=== PATIENT | female | born 1950 | race Two or more races ===

== ENCOUNTER 2024-12-27 02:29 | Inpatient (IN) | payer MEDICARE, MEDICAID, SELFPAY ==
[2024-12-27] VITALS (14 sets, daily range): BP systolic 94–133; BP diastolic 48–68; PULSE 68–103; RESP 20–90; TEMP 34.2–37.7; O2SAT 22–98; BMI 32.0
--- NOTE | 2024-12-27 03:16 | XR_ITS ---
Examination: AP chest single view Technique one AP portable semiupright chest single view Exam date and time: December 27, 2024 0326 hrs. Comparison March 31, 2022 Indications: Dyspnea today. Findings: Bilateral pneumonia, extensive and diffuse in the right lung Possible small left pleural effusion Tracheostomy tube stable position Mild to moderate enlargement cardiac contour Prominent osteopenia Impression: Bilateral pneumonia, extensive and diffuse in the right lung
--- NOTE | 2024-12-27 03:53 | PRELIM_ITS ---
Radiograph of the chest (single view). December 27, 2024 at 0324 hours Clinical history: Dyspnea. Comparison: X-ray of March 31, 2022. Findings: Right central line with a distal tip at the superior cavoatrial junction. No pneumothorax. Cardiomegaly. Small left pleural effusion. Bilateral basal lung consolidation. The bony thorax is unremarkable. Impression: 1. Multifocal pneumonia. 2. Left pleural effusion. 3. Cardiomegaly. Report Electronically Signed By: Wilfred Cordova 12/27/2024 3:52:34 AM [EST]
[2024-12-27 04:10] LABS: Lactate (Lactic Acid) 2.3 mMol/L (0.4-2.0)
--- NOTE | 2024-12-27 04:11 | EDNOTE_ITS ---
ED SOB =RME/HPI General Chief Complaint: Shortness of Breath/Dyspnea Stated Complaint: DIFFICULTY BREATHING Time Seen by Provider: 12/27/24 03:19 Arrival date/time: 12/27/24 02:29 RME / HPI RME / HPI Narrative: Dr. Wright's Main ED Evaluation: 73yo female with a history of CVA, DM, HTN, s/p PEG tube and tracheostomy brought in from subacute presents to the ED for a chief complaint of shortness of breath. Per subacute staff, the patient has been having episodes of shortness of breath since yesterday, reporting she's been receiving breathing treatments throughout without any improvement, so she was sent over for evaluation. Full ROS is unobtainable due to the patient being nonverbal. Related Data Home Medications ?Medication ?Instructions ?Recorded ?Confirmed aspirin 81 mg chewable tablet 81 mg PO QDAY 06/30/20 0 04/01/21 metformin 500 mg tablet 500 mg PO BID 06/30/2004/01 ferrous sulfate 220 mg (44 mg 220 mg PO QDAY 03/07/21 04/01/21 iron)/5 mL oral elixir atorvastatin 20 mg tablet 20 mg PO QDAY 04/01/2104/01 lisinopril 20 mg tablet 20 mg PO QDAY 04/02/2104/02 Previous Rx's ?Medication ?Instructions ?Recorded amlodipine 5 mg tablet 10 mg (2 x 5 mg) PO QDAY #30 tabs 04/05/21 Allergies Allergy/AdvReac Type Severity Reaction Status Date / Time No Known Allergies Allergy Verified 03/11/21 09:57 Review of Systems Review of Systems ROS Unobtainable: due to endotracheal tube Past Medical History Past Medical History NEUROLOGIC: Positive Cerebrovascular Accident; Negative Dementia CARDIAC: Positive Hypercholesterolemia and Hypertension; Negative Cardiac Disorders or Congestive Heart Failure RESPIRATORY: Positive Asthma and Pneumonia; Negative Chronic Obstructive Pulmonary Disease (COPD) GASTROINTESTINAL: Positive Gastrointestinal Disorders GENITOURINARY: Negative Renal Disease REPRODUCTIVE: Positive Previous Pregnancies MUSCULOSKELETAL: Positive Musculoskeletal Disorders ENDOCRINE: Positive Diabetes Mellitus Type 2; Negative Diabetes Mellitus Type 1 HEMATOLOGIC: Negative Sickle Cell Disease PSYCHO/SOCIAL: Positive Depression OTHER HISTORY: Positive Chemotherapy and Cancer Surgical History SURGICAL: Positive Abdominal Surgery Social History SMOKING STATUS: Unknown if ever smoked SECOND HAND EXPOSURE: No SUBSTANCE USE: does not use ED Exam General General appearance: Present obtunded, obese and other (nonverbal) Head Head exam: Present atraumatic Eye Eye exam: Present normal appearance ENT ENT exam: Present normal exam, normal oropharynx and mucous membranes moist Neck Neck exam: Present normal inspection and trachea midline Chest Chest inspection: Present normal inspection and symmetric chest wall rise Respiratory Respiratory exam: Absent accessory muscle use Cardiovascular Cardiovascular exam: Present regular rate, normal rhythm and normal heart sounds Abdominal Exam Abdominal exam: Present soft; Absent distention Extremities Exam Extremities exam: Present normal inspection; Absent pedal edema Back Exam Back exam: Present other (no sacral ulcers or rashes per report from the nurse) Neurological Exam Neurological exam: Present other (nonverbal) Skin Skin exam: Present dry, intact and other (cold) Course Course Course Narrative: CXR is ordered for determining the etiology of shortness of breath. 0422: Sepsis alert initiated. Orders made at this time are congruent with ED Adult Sepsis Order List. Re-evaluation is to be completed. Quality Measures Possible source: pulmonary Blood cultures ordered: yes Antibiotic ordered: Yes Pertinent labs: 12/27/24 03:48 Lactic Acid 2.3 H mMol/L (0.4-2.0) sepsis Orders Category Date Time Status Admit to Inpatient Status Routine Admission 12/27/24 04:45 Active Patient Condition Routine Admission 12/27/24 04:45 Ordered Activity as Tolerated Routine Care 12/27/24 04:45 Ordered Bedside COVID-19 Antigen Test NOW Care 12/27/24 05:01 Active Bedside Influenza A&B Antigen Test NOW Care 12/27/24 05:04 Completed COVID-19 Screening Questionnaire NOW Care 12/27/24 05:00 Active EKG (ED ONLY) *Do not use* NOW Care 12/27/24 03:53 Active Miscellaneous Nursing Order NOW Care 12/27/24 05:04 Active Notify provider NEEDED Care 12/27/24 04:45 Active Referral Registered Dietitian Routine Cons 12/27/24 08:00 Active EKG (ED Only) Stat Exams 12/27/24 03:53 Ordered XR chest 1V portable Stat Exams 12/27/24 03:16 Taken ABG [Arterial Blood Gas] Stat Lab 12/27/24 04:25 Completed BNP [B-Type Natriuretic Peptide] Stat Lab 12/27/24 03:48 Completed Basic Metabolic Panel AM DRAW Lab 12/27/24 04:35 Ordered Basic Metabolic Panel AM DRAW Lab 12/28/24 05:00 Ordered Basic Metabolic Panel AM DRAW Lab 12/29/24 05:00 Ordered Blood Culture (Lab) Stat Lab 12/27/24 03:48 Received CBC AM DRAW Lab 12/27/24 05:00 Ordered CBC AM DRAW Lab 12/28/24 05:00 Ordered CBC AM DRAW Lab 12/29/24 05:00 Ordered CBC Stat Lab 12/27/24 03:48 Completed CMP [Comprehensive Metabolic Panel] Stat Lab 12/27/24 03:48 Completed Influenza A & B Rapid Panel Stat Lab 12/27/24 05:03 Ordered Lactate (Lactic Acid) Stat Lab 12/27/24 03:48 Results Lipase Stat Lab 12/27/24 03:48 Completed MRSA Nasal Screen Stat Lab 12/27/24 05:04 Ordered Mag [Magnesium] Routine Lab 12/27/24 04:35 Ordered Phosphorous Routine Lab 12/27/24 04:35 Ordered Procalcitonin Stat Lab 12/27/24 04:34 Ordered Procalcitonin Stat Lab 12/27/24 04:35 Ordered RSV [Respiratory Syncytial Virus Ag] Stat Lab 12/27/24 05:03 Ordered Sputum Culture and Gram Stain Stat Lab 12/27/24 05:04 Ordered Troponin I Stat Lab 12/27/24 03:48 Completed Acetaminophen Valorie [Tylenol Valorie] Med 12/27/24 04:47 Discontinued 650 mg GT Q6H PRN Acetaminophen Valorie [Tylenol Valorie] Med 12/27/24 05:03 Active 650 mg GT Q6H PRN Atorvastatin Calcium [Lipitor] Med 12/27/24 21:00 Active 10 mg NG HS Enoxaparin [Lovenox] Med 12/27/24 09:00 Active 40 mg SC QDAY Piper/Tazo Inj [Zosyn Inj] 3.375 gm Med 12/27/24 14:00 Pending SODIUM CHLORIDE 0.9% (Popper) [Ns 0.9% (P)] 50 ml IV Q8HR Piper/Tazo Inj [Zosyn Inj] 3.375 gm Med 12/27/24 05:15 Active SODIUM CHLORIDE 0.9% (Popper) [Ns 0.9% (P)] 50 ml IV X1 Sodium Chloride 0.9% 1000 ml [Ns] 1,000 ml Med 12/27/24 04:45 Active IV 75 mls/hr Sodium Chloride Rt Valorie 10% [NS Rt Valorie 10%] Med 12/27/24 05:04 Discontinued 5 ml INH X1 ONE Sodium Chloride Rt Valorie 10% [NS Rt Valorie 10%] Med 12/27/24 05:06 Discontinued 5 ml INH X1 ONE Vancomycin Inj 1,000 mg Med 12/27/24 04:35 Active Sodium Chloride 0.9% 250 ml [Ns] 250 ml IV X1 Vancomycin Pharmacy to Dose Med 12/27/24 09:00 Pending 1 each IV QDAY Code Status Routine Oth 12/27/24 04:44 Ordered Chest Physiotherapy Treatment NOW RT 12/27/24 05:04 Active Sputum Induction PRN RT 12/27/24 05:15 Ordered Volume Ventilator Stat RT 12/27/24 Active Vital Signs Vital signs: Vital Signs Pulse Rate 71 12/27/24 02:38 Respiratory Rate 20 12/27/24 02:38 Blood Pressure 120/68 12/27/24 02:38 Pulse Oximetry (%) 98 12/27/24 02:38 Oxygen Delivery Method Trach Collar 12/27/24 02:38 Fraction of Inspired Oxygen 35 12/27/24 02:38 Shortness of Breath / Dyspnea MDM Narrative MDM Narrative:: Scribe Attestation: 12/27/24 - Debi Fuentes am scribing for and in the presence of Dr. Wright. Patient data External records reviewed:: [facility] previous records (Reviewed subacute records in EMR.) Clinical information provided by:: finished goods planner Social determinants that could affect healthcare access:: housing (subacute resident) Patient has the following chronic illnesses:: CVA, DM, HTN, s/p PEG tube and tracheostomy How is presenting disease/condition affected by chronic disease/condition?: exacerbated by Evaluation data The following diagnostics were reviewed and interpreted by me:: lab results and radiology exam(s) Lab and/or radiology exams considered but not ordered:: none Interpretation Summary: WBC count is 13.0, Lactate is 2.3, BNP is normal. CXR shows bilateral infiltrates, PICC line in place, trach in place, no pneumo thorax, according to my interpretation. Medications / Prescriptions Medications or Prescriptions considered but not ordered:: none Medication administrations:: Medication Administration History Acetaminophen (Acetaminophen Valorie 325 Mg/10 Ml Udc) 650 mg GT Q6H PRN PRN Reason: FEVER 100.4 or pain Stop: 01/26/25 04:59 Atorvastatin Calcium (Atorvastatin Calcium 10 Mg Tablet) 10 mg NG HS [facility] Stop: 01/26/25 20:59 Enoxaparin Sodium (Enoxaparin Sod Inj 40 Mg/0.4 Ml Syringe) 40 mg SC QDAY BANG Stop: 01/10/25 08:59 Piperacillin Sod/Tazobactam (Sod 3.375 gm/ Sodium Chloride) 50 mls @ 100 mls/hr IV X1 ONE Stop: 12/27/24 05:44 Vancomycin HCl 1,000 mg/ (Sodium Chloride) 250 mls @ 150 mls/hr IV X1 ONE Stop: 12/27/24 06:14 Sodium Chloride (Ns) 1,000 mls @ 75 mls/hr IV .[id number] [facility] Stop: 01/26/25 04:44 Piperacillin Sod/Tazobactam (Sod 3.375 gm/ Sodium Chloride) 50 mls @ 12.5 mls/hr IV Q8HR BANG Stop: 01/03/25 13:59 Pharmacy Consult (Vancomycin Pharmacy To Dose 1 Each Each) 1 each IV QDAY [facility] Stop: 01/26/25 08:59 Discontinued Medications Acetaminophen (Acetaminophen Valorie 325 Mg/10 Ml Udc) 650 mg GT Q6H PRN PRN Reason: FEVER Stop: 01/26/25 04:59 Sodium Chloride (Sodium Chloride Rt 10% 15 Ml Nebu) 5 ml INH X1 ONE Stop: 12/27/24 05:05 Sodium Chloride (Sodium Chloride Rt 10% 15 Ml Nebu) 5 ml INH X1 ONE Stop: 12/27/24 05:07 see above, if any Consultations Consultation(s) initiated? (list below): Yes Consultation #1 (Physician, Specialty, Details): Discussed case with Dr. Alex from Hospitalist service regarding admission. Discussed patients ED course, exam findings, labs, and radiology results. The Hospitalist agrees to accept the patient for admission. Time: 04:15 Diagnosis Shortness of Breath Differential Diagnosis: congestive heart failure, community acquired pneumonia, pulmonary embolism and other (Influenza) Most likely diagnosis given after review of the tests above:: see clinical impression below Admission Indicated Admission indicated?: indicated Admission Request Was there a request for admission?: Yes Admission Attestation Admission request attestation: Discussed case with [] from Hospitalist service regarding admission. Discussed patients ED course, exam findings, labs, and radiology results. The Hospitalist [agrees,declines] to accept the patient for admission. Disposition Plan Disposition Plan: Admit Discharge Plan Plan Patient Disposition: Admit Acute Care w/in Hospital Disposition Comment: Admitted to Dr. Alex Prescriptions/Referrals Prescriptions/Med Rec: No Action metformin 500 mg Tablet 500 mg PO BID aspirin 81 mg Tablet,Chewable 81 mg PO QDAY atorvastatin 20 mg Tablet 20 mg PO QDAY lisinopril 20 mg Tablet 20 mg PO QDAY amlodipine 5 mg Tablet 10 mg PO QDAY Qty: 30 0RF ferrous sulfate 220 mg (44 mg iron)/5 mL Elixir 220 mg PO QDAY Problem List Clinical Impression: Bilateral pneumonia Patient/Caregiver Discharge Instructions Print Language: Australian Stand Alone Forms: [employer] Award Info., Patient Portal Info Letter
[2024-12-27 04:16] LABS: Basophils # (Auto) 0.1 Thou/mm3 (0.0-0.2); Basophils % (Auto) 1 % (0-2.5); Eosinophils # (Auto) 0.1 Thou/mm3 (0.0-0.5); Eosinophils % (Auto) 1 % (0-10); Hematocrit 29.6 % (36.0-46.0); Hemoglobin 9.6 g/dL (12.0-16.0); Immature Granulocytes % (Auto) 1 % (0-0); Immature Granulocytes Auto 0.14 Thou/mm3 (0.00-0.00); Lymphocytes # (Auto) 0.4 Thou/mm3 (1.0-4.8); Lymphocytes % (Auto) 3 % (10-50); Mean Corpuscular HGB Conc 32.4 g/dl (31.0-37.0); Mean Corpuscular Hemoglobin 30.8 pg (25.0-35.0); Mean Corpuscular Volume 95 fL (80-100); Monocytes # (Auto) 0.3 Thou/mm3 (0.0-0.8); Monocytes % (Auto) 2 % (0-12); Neutrophils # (Auto) 12.1 Thou/mm3 (1.8-7.7); Neutrophils % (Auto) 93 % (37-80); Nucleated Red Blood Cell # 0.07 Thou/mm3 (0.00-0.00); Nucleated Red Blood Cell % 1 /100 WBC (0); Platelet Count 121 Thou/mm3 (140-440); RDW Standard Deviation 55.5 fL (36.4-46.3); Red Blood Count 3.12 Miln/mm3 (4.00-5.20)
[2024-12-27 04:27] LABS: B-Type Natriuretic Peptide 44 pg/mL (0-100)
[2024-12-27 04:29] LABS: Alanine Aminotransferase 12 U/L (10-49); Albumin/Globulin Ratio 1.3 (1.2-2.2); Alkaline Phosphatase 150 U/L (46-116); Anion Gap 5 (7-16); Aspartate Amino Transferase 18 U/L (0-34); BUN/Creatinine Ratio 58 Ratio (12-20); Bilirubin,Total 0.5 mg/dL (0.3-1.2); Blood Urea Nitrogen 23 mg/dL (9-23); Calcium 10.3 mg/dL (8.3-10.6); Calcium (Corrected) 10.3 mg/dL (8.5-10.1); Carbon Dioxide 32.8 mMol/L (20.0-31.0); Chloride 93 mMol/L (98-107); Creatinine (Component) 0.4 mg/dL (0.6-1.3); Globulin 3.1 gm/dL (2.3-3.5); Glucose 96 mg/dL (74-106); Lipase 25 U/L (12-53); Osmolality,Calculated 266 (275-295); Potassium 4.7 mMol/L (3.4-5.1); Sodium 131 mMol/L (136-145); Total Protein 7.1 gm/dL (5.7-8.2); Troponin I < 0.020 ng/mL (0.0-0.045); eGFR > 60 See Note
[2024-12-27 04:33] LABS: Base Excess 6 (-3-3); HCO3 33 mEq/L (20-26); Inspired Oxygen, FIO2 35 %; O2 Saturation 95 % (91-98); PCO2 60 mmHg (32.0-48.0); PO2 77 mmHg (83-108); pH, Arterial 7.35 (7.35-7.45)
[2024-12-27 04:34] LABS: Allen Test Performed/OK; Puncture Site Left Radial
--- NOTE | 2024-12-27 04:36 | PC.RT ---
RR increased to [address] long made aware and okay with changes.
--- NOTE | 2024-12-27 04:37 | PD.EVENT ---
Documentation for date of: 12/27/24 Event Note Event Note: A 73-year-old female presented to the ER with the chief complaint of shortness of breath. The patient was brought from a subacute facility due to episodes of labored breathing and a respiratory rate of 40 with oxygen saturation dropping to 85% overnight. According to subacute staff, the patient had been experiencing shortness of breath since the previous day and was treated with breathing treatments without improvement, prompting transfer to the ER. Full ROS was unobtainable due to the patient being nonverbal. 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 Per family, she has been bedbound since 2018. In the ER, vital signs recorded as temp 93.6?F, HR 71 bpm, RR 27, BP 119/63 mmHg. GCS was 3. Labs revealed WBC 13, Hgb 9.6, platelet 121, Na 131, K 4.7, BUN 23, creatinine 0.4, bilirubin 0.5, lactic acid 2.3. ABG showed pH 7.35, PCO2 60, PO2 77, HCO3 33 on FiO2 35%. CXR demonstrated right-sided pneumonia. A sepsis alert was called, and the patient was admitted. #Acute on Chronic Hypoxic Respiratory Failure #Chronic Tracheostomy Assessment: Acute respiratory distress (RR 40, O2 sat 85% at subacute), now RR 27 on FiO2 35%; ABG: pH 7.35, PCO2 60, HCO3 33, chronic compensated respiratory acidosis; GCS 3 Plan: - On ventilator - Monitor oxygen saturation and ABG - Maintain tracheostomy care; suction PRN - Consider chest physiotherapy if secretions are copious #Sepsis #Right-Sided Pneumonia Assessment: Meets SIRS criteria (WBC 13, RR >20, temp <36?C), lactic acid 2.3, CXR: right-sided pneumonia, qSOFA 2 (RR >22, GCS <15), SOFA 4 Plan: - Broad-spectrum IV antibiotics - Monitor lactate trend - Fluid resuscitation per protocol - Monitor MAP, urine output, and need for vasopressors - Blood and sputum cultures - Warming blanket #Chronic Vegetative State s/p CVA #PEG Assessment: Bedbound, GCS 3, PEG and trach dependent; long-term care dependent Plan: - Maintain comfort, supportive care - DNR
[2024-12-27] MEDS: SODIUM CHLORIDE 0.9% 1000 ML 1,000 ML 75 ML IV ×2 (05:00→21:58)
--- NOTE | 2024-12-27 05:02 | ESHP_ITS ---
<Statement entered by Kashmir Cutler MD - 12/27/24 05:18> This 73-year-old female with past medical history of chronic trach and PEG since 2018 secondary to CVA, nonverbal, skin cancer with last chemotherapy session in 2018, shingles, hypertension, type 2 diabetes, hyperlipidemia presenting to the ED on 12/27 from subacute for increased work of breathing. In the ED, patient was tachypneic hypothermic and saturating 90% with FiO2 45%. Labs were significant for leukocytosis. ABG showed mild hypoxia with normal pH. Chest x-ray was significant for multifocal pneumonia, left pleural effusion and cardiomegaly.Admitted for acute on chronic hypoxic resp failure likely related to ventilator associated PNA. Patient is started on broad spectrum antibiotics vancomycin and zosyn. Will follow up on BC and MRSA screen. All labs and order were reviewed. I saw and examined the patient, and I agree with current management stated by Dr Temitope MD,PGY1. Plan of care was discussed with the attending physician and resident physician. Disclaimer: Despite multiple revisions, due to the dictation software being used, the document bellow may not be free of grammatical errors including phonetic/typographic errors. However, this does not deter from our commitment to providing health care in the patient's best interest in mind. Dr. Omayra MD, PGY 2 Documentation for date of: 12/27/24 HPI History of Present Illness Chief complaint: Increased work of breathing History of present illness: 73-year-old female with past medical history of chronic trach and PEG since 2018 secondary to CVA, skin cancer with last chemotherapy session in 2018, shingles, hypertension, type 2 diabetes, hyperlipidemia presenting to the ED on 12/27 from subacute for increased work of breathing. Per staff members at the subacute, patient's been having increased work of breathing even with multiple breathing treatments trialed. Patient has been in subacute for several years and has had previous admissions for aspiration events. Patient's daughter was bedside and provided some history as the patient is nonverbal but able to open eyes on command. Medical history: As stated above Surgical history: Abdominal surgery Allergies: NKDA Medications: Pending med rec Family history: Noncontributory Social history: Patient is a patient with a subacute. ROS: Unable to obtain as the patient was nonverbal In the ED, patient presented normotensive, heart rate 71, tachypneic with respiratory rate of 20, hypothermic 93.6 ?F, saturating in the low 90s with FiO2 of 45, PEEP of 5 and tidal volumes ranging from 100-400 with peak pressures ranging from high 20s to high 40s. Pertinent lab findings included WBC of 13.0, hemoglobin 9.6 with MCV of 95, platelet count of 121, ABG showed pH of 7.35, PCO2 of 60, PO2 of 77 and bicarb of 33. Sodium 131, creatinine 0.4, lactic acid of 2.3, alkaline phosphatase 150, troponin less than 0.0201 BNP of 44. Chest x- ray showed multifocal pneumonia, left pleural effusion and cardiomegaly. Patient will be admitted for sepsis likely secondary to ventilator associated pneumonia and will be treated with broad-spectrum IV antibiotics Exam Vital Signs Temp Pulse Resp BP Pulse Ox O2 Del Method FiO2 93.6 F L 73 20 132/63 H 93 L Trach Collar 35 12/27/24 04:18 12/27/24 04:39 12/27/24 02:38 12/27/24 04:39 12/27/24 04:39 12/27/24 02:38 12/27/24 04:39 Narrative Exam Vent Settings: FiO2: 45 PEEP: 5 RR: 15 Vt: 300-400 Physical Exam: GENERAL: Trach and PEG, awakens on command, appears frail HEENT: NC/AT. Moist mucosa. PERRLA/EOMI. CARDIO: Heart RRR, no obvious murmurs, no JVD. PULM: Mechanical breath sounds heard bilaterally, no wheeze/rales/rhonci auscultated GI: Abdomen soft, NT/ND, +BS. SKIN/MSK/EXT: Desquamating skin lesions on sacral lesion. No discoloration/rashes/edema/amputations. +Pedal pulses present B/L. NEURO: Oriented x0. Opens eyes to command. Nonverbal Results: Labs 12/27/24 06:00 12/27/24 03:48 Labs: Short CBC 12/27/24 Range/Units 03:48 WBC 13.0 H (3.6-11.0) Thou/mm3 Hgb 9.6 L (12.0-16.0) g/dL Hct 29.6 L (36.0-46.0) % Plt Count 121 L (140-440) Thou/mm3 BMP 04/12/25 03:48 Sodium 131 L Potassium 4.7 Chloride 93 L Carbon Dioxide 32.8 H BUN 23 Creatinine 0.4 L Glucose 96 Calcium 10.3 Cardiac Enzymes 12/27/24 Range/Units 03:48 Troponin I < 0.020 (0.0-0.045) ng/mL Liver Function 12/27/24 Range/Units 03:48 Total Bilirubin 0.5 (0.3-1.2) mg/dL AST 18 (0-34) U/L ALT 12 (10-49) U/L Alkaline Phosphatase 150 H (46-116) U/L Albumin 4.0 (3.4-4.8) gm/dL ABG Interpretation ABG results: 12/27/24 04:25 ABG pH 7.35 ABG pCO2 60 H ABG pO2 77 L ABG HCO3 33 H ABG O2 Saturation 95 ABG Base Excess 6 H Quality Measures Quality Measures sepsis Current suspected stage: sepsis Possible source: pulmonary Blood cultures ordered: yes Antibiotic ordered: Yes Advance care planning discussed with:: child Medications Home Medications and Allergies Home Medications ?Medication ?Instructions ?Recorded ?Confirmed ?Type aspirin 81 mg chewable tablet 81 mg PO QDAY 06/30/20 0 04/01/21 History metformin 500 mg tablet 500 mg PO BID 06/30/2004/01 History ferrous sulfate 220 mg (44 mg 220 mg PO QDAY 03/07/21 04/01/21 History iron)/5 mL oral elixir atorvastatin 20 mg tablet 20 mg PO QDAY 04/01/2104/01 History lisinopril 20 mg tablet 20 mg PO QDAY 04/02/2104/02 History Allergies Allergy/AdvReac Type Severity Reaction Status Date / Time No Known Allergies Allergy Verified 03/11/21 09:57 Visit Medications Acetaminophen (Acetaminophen Valorie 325 Mg/10 Ml Udc) 650 mg GT Q6H PRN PRN Reason: FEVER Stop: 01/26/25 04:59 Atorvastatin Calcium (Atorvastatin Calcium 10 Mg Tablet) 10 mg NG HS BANG Stop: 01/26/25 20:59 Enoxaparin Sodium (Enoxaparin Sod Inj 40 Mg/0.4 Ml Syringe) 40 mg SC QDAY [facility] Stop: 01/10/25 08:59 Piperacillin/Tazobactam/Dextrose (Zosyn) 3.375 gm in 50 mls @ 100 mls/hr IV X1 ONE Stop: 12/27/24 05:04 Vancomycin HCl 1,000 mg/ (Sodium Chloride) 250 mls @ 150 mls/hr IV X1 ONE Stop: 12/27/24 06:14 Sodium Chloride (Ns) 1,000 mls @ 75 mls/hr IV .[id number] BANG Stop: 01/26/25 04:44 Piperacillin/Tazobactam/Dextrose (Zosyn) 50 mls @ 100 mls/hr IV Q8HR [facility] Stop: 01/03/25 04:45 Pharmacy Consult (Vancomycin Pharmacy To Dose 1 Each Each) 1 each IV QDAY [facility] Stop: 01/26/25 08:59 Assessment & Plan Plan 73-year-old female with past medical history of chronic trach and PEG since 2018 secondary to CVA, skin cancer with last chemotherapy session in 2018, shingles, hypertension, type 2 diabetes, hyperlipidemia presenting to the ED from subacute for increased work of breathing will be admitted for sepsis likely secondary to ventilator associated pneumonia and will be treated with broad-spectrum IV antibiotics #Sepsis 2/2 to Ventilator-Associated Pneumonia #Vent asynchrony #Chronically trach and PEG As noted in HPI, patient has been at subacute patient for several years secondary to CVA Per subacute & ED physician patient had increased work of breathing for the past several days which worsened overnight even with breathing treatments Patient presented with the vent settings as outlined in the physical exam with vent asynchrony noted Patient's peak pressure keeps spiking up to the high 30s and low 40s with oxygenation remaining stable in the mid 90s Patient is likely developing ARDS secondary to ventilator associated normal pneumonia versus aspiration event WBC of 13, hypothermic 93.6 ?F, lactic acid elevated at 2.3 with signs of reduced perfusion Chest x-ray reads multifocal pneumonia, left pleural effusion and cardiomegaly Plan: IV vancomycin, pharmacy to dose IV Zosyn 3.375 every 8 Blood cultures ordered Sputum cultures ordered Follow-up on influenza A and B, RSV Chest PT and breathing treatments #Normocytic anemia #Thrombocytopenia Likely secondary to chronically trach impact and poor nutrition Patient does not have any signs of active bleeding at this time Differentials include iron deficiency anemia, anemia of chronic disease, vitamin deficiency, hemolytic anemia and less likely bone marrow disorder Plan: Follow-up with morning iron panel, ferritin and reticulocyte count Monitor with morning labs #Electrolyte abnormalities #Tube feeds As noted patient is chronically fed with PEG tube Unsure exactly what type of PEG tube feeds are given at the subacute Patient has electrolyte abnormalities with hyponatremia, hypochloremia likely secondary to poor nutritional intake Plan: Dietitian consulted, appreciate recommendations #Hypertension #Hyperlipidemia #History of CVA #[id number], type 2 diabetes Chronic medical conditions, pending med rec Plan: Restart home medications as appropriate Bedside blood glucose every 6 hours Sliding scale every 6 hours #Sacral wound #History of skin cancer, completed chemo in 2018 As noted patient's chart Wound care has been initiated and subacute Plan: Wound care, referral Hospital Management: Lines: PIV Diet: Tube feeds, pending dietitian recommendation Bowel: Not needed at this time GI prophylaxis: Will consider adding if tube feeds can be resumed DVT prophylaxis: Lovenox Dispo: IV antibiotics for ventilator associated pneumonia versus aspiration pneumonia Code: DNR Patient seen and assessed with attending Dr. Alex and senior resident Dr. Omayra Linn, PGY-1 Attending Provider Attestation/Addendum Pt was evaluated and plan formulated together with the housestaff team. I have reviewed the residents note above and agree with most of its content. Please refer to the residents note for additional details.
[2024-12-27] MEDS: Vancomycin Inj 1,000 MG in SODIUM CHLORIDE 0.9% 250 ML 250 ML 150 MG IV (05:05)
--- NOTE | 2024-12-27 05:15 | PC.RT ---
sputum induction sent
[2024-12-27] MEDS: PIPER/TAZO INJ 3.375 GM in SODIUM CHLORIDE 0.9% (Popper) 50 ML IV (06:10)
[2024-12-27 06:49] LABS: Basophils % (Auto) 0 % (0-2.5); Eosinophils % (Auto) 0 % (0-10); Hematocrit 27.7 % (36.0-46.0); Immature Granulocytes % (Auto) 1 % (0-0); Immature Granulocytes Auto 0.11 Thou/mm3 (0.00-0.00); Lymphocytes # (Auto) 0.5 Thou/mm3 (1.0-4.8); Lymphocytes % (Auto) 4 % (10-50); Mean Corpuscular HGB Conc 32.5 g/dl (31.0-37.0); Mean Corpuscular Hemoglobin 30.5 pg (25.0-35.0); Mean Corpuscular Volume 94 fL (80-100); Monocytes # (Auto) 0.3 Thou/mm3 (0.0-0.8); Monocytes % (Auto) 3 % (0-12); Neutrophils # (Auto) 11.3 Thou/mm3 (1.8-7.7); Neutrophils % (Auto) 92 % (37-80); Nucleated Red Blood Cell # 0.05 Thou/mm3 (0.00-0.00); Nucleated Red Blood Cell % 0 /100 WBC (0); Platelet Count 112 Thou/mm3 (140-440); RDW Standard Deviation 55.8 fL (36.4-46.3); Red Blood Count 2.95 Miln/mm3 (4.00-5.20); White Blood Count 12.4 Thou/mm3 (3.6-11.0)
[2024-12-27 07:05] LABS: Reflex Lactate? Y
[2024-12-27 07:45] LABS: Anion Gap 5 (7-16); BUN/Creatinine Ratio 55 Ratio (12-20); Blood Urea Nitrogen 22 mg/dL (9-23); Calcium 9.5 mg/dL (8.3-10.6); Carbon Dioxide 31.8 mMol/L (20.0-31.0); Chloride 94 mMol/L (98-107); Creatinine (Component) 0.4 mg/dL (0.6-1.3); Glucose 79 mg/dL (74-106); Magnesium 1.4 mg/dL (1.6-2.6); Osmolality,Calculated 264 (275-295); Phosphorous 2.4 mg/dL (2.4-5.1); Potassium 5.3 mMol/L (3.4-5.1); Procalcitonin 0.66 ng/ml (0.0-0.49); Sodium 131 mMol/L (136-145); eGFR > 60 See Note
[2024-12-27 08:03] LABS: Lactic Acid, 3 HR 1.6 mMol/L (0.4-2.0)
[2024-12-27] MEDS: Magnesium Sulfate 4 GM Ivpb 4 GM/50 ML BAG IV (09:28)
[2024-12-27] MEDS: ENOXAPARIN SOD INJ 40 MG/0.4 ML SYRINGE SC (09:28)
--- NOTE | 2024-12-27 10:09 | ESPR_ITS ---
Documentation for date of: 12/27/24 Subjective Subjective Interval history: Patient is an overnight admit. Patient seen and examined at bedside this morning patient is a resident of [facility] patient's son is at bedside who stated in 2018 patient had a stroke after which patient was PEG tube dependent however was living at home with family. In 2020 patient was in acute respiratory failure and found to be-and was intubated and admitted to the ICU however patient was unsuccessful at extubation therefore patient underwent tracheostomy and became a resident of the subacute. Last night patient was brought in due to increased work of breathing and chest x-ray is evident of significant pneumonia as well as left pleural effusions. Patient was started on IV antibiotics. Patient's vitals are stable and labs are reviewed patient has hyponatremia and hyperkalemia will repeat renal panel later in the day 4 g of magnesium is repleted. Exam Vital Signs Temp Pulse Resp BP Pulse Ox O2 Del Method FiO2 93.6 F L 78 22 H 133/63 H 98 Trach Collar 45 12/27/24 04:18 12/27/24 06:55 12/27/24 06:00 12/27/24 06:55 12/27/24 06:55 12/27/24 02:38 12/27/24 06:55 Narrative Exam GENERAL: Trach and PEG, does not follow command, appears frail, nonverbal at baseline NEURO: no focal neurological deficits HEENT: Atraumatic, Normocephalic. mucous membranes moist. Eyes open, symmetrical, & clear HEART: Normal Heart Sounds LUNGS: Mechanical breath sounds heard bilaterally with no wheezing or crackles. ABDOMEN: soft, non-distended, non-tender, bowel sounds heard, no guarding or rebound tenderness SKIN: No Rash or ecchymoses EXTREMITIES: No edema, tenderness, able to move all 4 extremities, pedal pulses palpated Objective Labs 12/27/24 06:00 12/27/24 13:20 Labs: Laboratory Results - last 24 hr 12/27/24 12/27/24 12/27/24 03:48 04: 06:00 WBC 13.0 H 12.4 H RBC 3.12 L 2.95 L Hgb 9.6 L 9.0 L Hct 29.6 L 27.7 L MCV 95 94 MCH 30.8 30.5 MCHC 32.4 32.5 RDW Std Deviation 55.5 H 55.8 H Plt Count 121 L 112 L Neut % (Auto) 93 H 92 H Lymph % (Auto) 3 L 4 L [place] % (Auto) 2 3 Eos % (Auto) 1 0 Baso % (Auto) 1 0 Neut # (Auto) 12.1 H 11.3 H Lymph # (Auto) 0.4 L 0.5 L [place] # (Auto) 0.3 0.3 Eos # (Auto) 0.1 0.0 Baso # (Auto) 0.1 0.0 Immature Gran # (Auto) 0.14 H 0.11 H Absolute Nucleated RBC 0.07 H 0.05 H Immature Gran % 1 H 1 H Nucleated RBC % 1 H 0 Puncture Site Left Radial ABG pH 7.35 ABG pCO2 60 H ABG pO2 77 L ABG HCO3 33 H ABG O2 Saturation 95 ABG Base Excess 6 H FiO2 35 Sodium 131 L 131 L Potassium 4.7 5.3 H D Chloride 93 L 94 L Carbon Dioxide 32.8 H 31.8 H Anion Gap 5 L 5 L BUN 23 22 Creatinine 0.4 L 0.4 L Estim Creat Clear Calc Not Performed. 121.0 eGFR > 60 > 60 BUN/Creatinine Ratio 58 H 55 H Glucose 96 79 Calculated Osmolality 266 L 264 L Lactic Acid 2.3 H Calcium 10.3 9.5 Corrected Calcium 10.3 H Phosphorus 2.4 Magnesium 1.4 L Total Bilirubin 0.5 AST 18 ALT 12 Alkaline Phosphatase 150 H Troponin I < 0.020 B-Natriuretic Peptide 44 Total Protein 7.1 Albumin 4.0 Globulin 3.1 Albumin/Globulin Ratio 1.3 Lipase 25 Procalcitonin 0.66 H 12/27/24 07:48 WBC RBC Hgb Hct MCV MCH MCHC RDW Std Deviation Plt Count Neut % (Auto) Lymph % (Auto) [place] % (Auto) Eos % (Auto) Baso % (Auto) Neut # (Auto) Lymph # (Auto) [place] # (Auto) Eos # (Auto) Baso # (Auto) Immature Gran # (Auto) Absolute Nucleated RBC Immature Gran % Nucleated RBC % Puncture Site ABG pH ABG pCO2 ABG pO2 ABG HCO3 ABG O2 Saturation ABG Base Excess FiO2 Sodium Potassium Chloride Carbon Dioxide Anion Gap BUN Creatinine Estim Creat Clear Calc eGFR BUN/Creatinine Ratio Glucose Calculated Osmolality Lactic Acid 1.6 Calcium Corrected Calcium Phosphorus Magnesium Total Bilirubin AST ALT Alkaline Phosphatase Troponin I B-Natriuretic Peptide Total Protein Albumin Globulin Albumin/Globulin Ratio Lipase Procalcitonin ABG Interpretation ABG results: 12/27/24 04:25 ABG pH 7.35 ABG pCO2 60 H ABG pO2 77 L ABG HCO3 33 H ABG O2 Saturation 95 ABG Base Excess 6 H Quality Measures Quality Measures sepsis Current suspected stage: sepsis Possible source: pulmonary Blood cultures ordered: yes Antibiotic ordered: Yes Advance care planning discussed with:: child Assessment & Plan Assessment Current Active Medications: Generic Name Dose Route Start Last Admin Trade Name Freq PRN Reason Stop Dose Admin Acetaminophen 650 mg 12/27/24 05:03 Acetaminophen Valorie 325 Mg/10 Ml Udc GT 01/26/25 04:59 Q6H PRN FEVER 100.4 or pain Atorvastatin Calcium 10 mg 12/27/24 21:00 Atorvastatin Calcium 10 Mg Tablet NG 01/26/25 20:59 HS BANG Dextrose 25 ml 12/27/24 05:28 Dextrose 50%-Water Inj 50 Ml Syringe IV 01/26/25 05:27 Q15MIN PRN BG 50-70 responsive npo pt Dextrose 50 ml 12/27/24 05:28 Dextrose 50%-Water Inj 50 Ml Syringe IV 01/26/25 05:27 Q15MIN PRN BG <50 OR BG <70 & pt unresponsive Enoxaparin Sodium 40 mg 12/27/24 09:00 12/27/24 09:28 Enoxaparin Sod Inj 40 Mg/0.4 Ml Syringe SC 01/10/25 08:59 40 mg QDAY BANG Administration Glucagon 1 mg 12/27/24 05:28 Glucagon Inj 1 Mg Vial IM Q15MIN PRN BG <70, and no IV access Sodium Chloride 1,000 mls @ 75 mls/hr 12/27/24 04:45 12/27/24 05:00 Ns IV 01/26/25 04:44 75 mls/hr .[id number] BANG Administration Piperacillin/Tazobactam/Dextrose 3.375 gm in 50 mls @ 12.5 mls/hr 12/27/24 14:00 Zosyn IV 01/03/25 13:59 Q8HR BANG Vancomycin/Sodium Chloride 200 mls @ 120 mls/hr 12/27/24 14:00 Vancomycin/Ns 1 Gm Ivpb IV 01/03/25 13:59 TID BANG Protocol Magnesium Sulfate 4 gm in 50 mls @ 12.5 mls/hr 12/27/24 08:31 12/27/24 09:28 Magnesium Sulfate Ivpb IV 12/27/24 12:30 12.5 mls/hr X1 ONE Administration Insulin Human Lispro 0 unit 12/27/24 06:00 12/27/24 06:21 Insulin Lispro (Admelog) 1 Unit/0.01 Ml Unit SC 01/26/25 05:59 Not Given Q6HR [facility] Protocol Pharmacy Consult 1 each 12/27/24 09:00 Vancomycin Pharmacy To Dose 1 Each Each IV 01/26/25 08:59 QDAY PRN PROTOCOL Plan 73-year-old female with past medical history of chronic trach and PEG since 2018 secondary to CVA, skin cancer with last chemotherapy session in 2018, shingles, hypertension, type 2 diabetes, hyperlipidemia presenting to the ED from subacute for increased work of breathing will be admitted for sepsis likely secondary to ventilator associated pneumonia and will be treated with broad-spectrum IV antibiotics #Sepsis 2/2 to Ventilator-Associated Pneumonia #Vent asynchrony #Chronically trach and PEG As noted in HPI, patient has been at subacute patient for several years secondary to CVA Per subacute & ED physician patient had increased work of breathing for the past several days which worsened overnight even with breathing treatments Patient presented with the vent settings as outlined in the physical exam with vent asynchrony noted Patient's peak pressure keeps spiking up to the high 30s and low 40s with oxygenation remaining stable in the mid 90s Patient is likely developing ARDS secondary to ventilator associated normal pneumonia versus aspiration event WBC of 13, hypothermic 93.6 ?F, lactic acid elevated at 2.3 with signs of reduced perfusion Chest x-ray reads multifocal pneumonia, left pleural effusion and cardiomegaly Plan: IV vancomycin, pharmacy to dose IV Zosyn 3.375 every 8 Blood cultures ordered Sputum cultures ordered Follow-up on influenza A and B, RSV Chest PT and breathing treatments #PEG tube malfunction -Upon nurse evaluation in the afternoon, the PEG tube is dislodged, balloon popped and the tube came out. -Temporary placed logan in -Consulted GI for evaluation, and possible PEG tube replacement #Normocytic anemia #Thrombocytopenia Likely secondary to chronically trach impact and poor nutrition Patient does not have any signs of active bleeding at this time Differentials include iron deficiency anemia, anemia of chronic disease, vitamin deficiency, hemolytic anemia and less likely bone marrow disorder Plan: Follow-up with morning iron panel, ferritin and reticulocyte count Monitor with morning labs #Electrolyte abnormalities #Tube feeds As noted patient is chronically fed with PEG tube Unsure exactly what type of PEG tube feeds are given at the subacute Patient has electrolyte abnormalities with hyponatremia, hypochloremia likely secondary to poor nutritional intake Plan: Dietitian consulted, appreciate recommendations #Hypertension #Hyperlipidemia #History of CVA #[id number], type 2 diabetes Chronic medical conditions, pending med rec Plan: Restart home medications as appropriate Bedside blood glucose every 6 hours Sliding scale every 6 hours #Sacral wound #History of skin cancer, completed chemo in 2018 As noted patient's chart Wound care has been initiated and subacute Plan: Wound care, referral Dispo: IV antibiotics for ventilator associated pneumonia versus aspiration pneumonia Diet: Tube feeds, pending dietitian recommendation Bowel: Not needed at this time GI prophylaxis: Will consider adding if tube feeds can be resumed DVT prophylaxis: Lovenox Code: DNR Assessment and plan discussed with my attending physician Dr. Johnie Hanley ([id number])- Internal medicine resident Attending Provider Attestation/Addendum I attest that I was physically present for the evaluation, physical examination, lab and imaging review of the patient with the residents. I discussed the case with the residents and agree with the findings and plans of care as documented above. Patient is a 73 years old female with a past medical history of chronic trach and PEG secondary to CVA, skin cancer, shingles, hypertension, diabetes, hyperlipidemia who presented to the ED from subacute due to increased work of breathing. Patient was then admitted overnight for management of sepsis secondary to ventilator associated pneumonia. At bedside today, patient appears comfortable, continues to be on oxygen via trach collar, 45 FiO2. Continues to be on IV vancomycin and Zosyn. Awaiting culture results. In the afternoon, patient dislodged her PEG tube, temporary Logan catheter was placed and and GI consult requested. Her WBC count has slightly improved from 13-12.4. Noted to have magnesium of 1.4, repleted accordingly. She also has potassium of 5.3, we will get a follow-up potassium level, if increased, we will treat accordingly. Shamar Jett MD
--- NOTE | 2024-12-27 10:45 | PC.DIETICIAN ---
Nutrition Prescription: 1) Promote with fiber at 20 ml/hr via G-tube by pump. Advance 10 ml every 8 hrs to goal rate of 48 ml/hr x 20 hrs. If no IV fluids, water flushes of 30 ml/hr (or per MD). 2) Consider Prostat SF BID with breakfast and dinner via G-Tube. Thank you! :)
[2024-12-27] MEDS: VANCOMYCIN/NS 1 GM IVPB 200 ML IV ×2 (13:49→21:58)
[2024-12-27] MEDS: PIPER/TAZO 3.375 GM PREMIX 3.375 GM/50 ML BAG IV ×2 (13:50→22:00)
--- NOTE | 2024-12-27 13:52 | PD.IMCONS ---
HPI Data of Consult Requesting Physician: Percy Alex MD Primary Care Provider: Abdoul Wisdom MD Consult Narrative Reason for consult: PEG tube evaluation History of present illness: 74 years old female evaluated request of the internal medicine team as the PEG tube just fell out I asked the team to put in a quick Rodriguez catheter to save the stoma and then I will replace the PEG tube that is the reason for consultation Patient has a history of CVA requiring tracheostomy and chronic diabetic leg dependency as well as hypertension diabetes mellitus type 2 hyperlipidemia cc:: cc: Percy Alex MD Review of Systems Review of Systems ROS Unobtainable: unobtainable due to medical condition Past Medical History Surgical History OTHER SURGICAL HX: As in history of present illness Meds Home Medications and Allergies Home Medications ?Medication ?Instructions ?Recorded ?Confirmed ?Type aspirin 81 mg chewable tablet 81 mg PO QDAY 06/30/20 04/01/21 History metformin 500 mg tablet 500 mg PO BID 06/30/20 04/01/21 History ferrous sulfate 220 mg (44 mg 220 mg PO QDAY 03/07/21 04/01/21 History iron)/5 mL oral elixir atorvastatin 20 mg tablet 20 mg PO QDAY 04/01/21 04/01/21 History lisinopril 20 mg tablet 20 mg PO QDAY 04/02/21 04/02/21 History Allergies Allergy/AdvReac Type Severity Reaction Status Date / Time No Known Allergies Allergy Verified 03/11/21 09:57 Exam Vital Signs Temp Pulse Resp BP Pulse Ox O2 Del Method FiO2 93.6 F L 103 H 22 H 133/63 H 93 L Trach Collar 45 12/27/24 04:18 12/27/24 12:00 12/27/24 06:00 12/27/24 06:55 12/27/24 12:00 12/27/24 02:38 12/27/24 12:00 Routine Respiratory Exam Comments: Status post tracheostomy and ventilator dependent Routine Abdominal Exam Comments: Soft nontender Rodriguez catheter in place Results Labs 12/27/24 06:00 12/27/24 13:20 Labs: Short CBC 12/27/24 12/27/24 Range/Units 03:48 06:00 WBC 13.0 H 12.4 H (3.6-11.0) Thou/mm3 Hgb 9.6 L 9.0 L (12.0-16.0) g/dL Hct 29.6 L 27.7 L (36.0-46.0) % Plt Count 121 L 112 L (140-440) Thou/mm3 BMP 12/27/24 12/27/24 03:48 06:00 Sodium 131 L 131 L Potassium 4.7 5.3 H D Chloride 93 L 94 L Carbon Dioxide 32.8 H 31.8 H BUN 23 22 Creatinine 0.4 L 0.4 L Glucose 96 79 Calcium 10.3 9.5 Cardiac Enzymes 12/27/24 Range/Units 03:48 Troponin I < 0.020 (0.0-0.045) ng/mL Liver Function 12/27/24 Range/Units 03:48 Total Bilirubin 0.5 (0.3-1.2) mg/dL AST 18 (0-34) U/L ALT 12 (10-49) U/L Alkaline Phosphatase 150 H (46-116) U/L Albumin 4.0 (3.4-4.8) gm/dL ABG Interpretation ABG results: 12/27/24 04:25 ABG pH 7.35 ABG pCO2 60 H ABG pO2 77 L ABG HCO3 33 H ABG O2 Saturation 95 ABG Base Excess 6 H Assessment and Plan Additional Assessment & Plan Additional Plan: # PEG tube evaluation consent will be obtained for PEG tube removal that is a Rodriguez catheter and placement of a new [place] 20 SHEIRNE PEG tube Other medical problems include CVA requiring tracheostomy and chronic ventilator dependency diabetes mellitus type 2 Chronically placed in SNF shortness of breath thank you very much for the opportunity to participate in the care of this patient
[2024-12-27 14:12] LABS: Albumin, Serum 3.5 gm/dL (3.4-4.8); Anion Gap 6 (7-16); BUN/Creatinine Ratio 40 Ratio (12-20); Blood Urea Nitrogen 24 mg/dL (9-23); Calcium 8.9 mg/dL (8.3-10.6); Calcium (Corrected) 9.3 mg/dL (8.5-10.1); Chloride 96 mMol/L (98-107); Creatinine (Component) 0.6 mg/dL (0.6-1.3); Estimated Creatinine Clearance 80.6 mL/min (>60); Glucose 84 mg/dL (74-106); Osmolality,Calculated 269 (275-295); Phosphorous 1.8 mg/dL (2.4-5.1); Potassium 5.2 mMol/L (3.4-5.1); Sodium 133 mMol/L (136-145); eGFR > 60 See Note
--- NOTE | 2024-12-27 17:09 | ESOP_ITS ---
Date of Procedure 12/27/24 Pre Op Diagnosis PEG tube evaluation Post Op Diagnosis Placement of a new PEG tube Procedure Removal of the existing PEG tube which is a Rodriguez catheter Placement of a new PEG tube [place] 20 SHERINE tube Findings The existing Rodriguez catheter was placed in this morning by the internal medicine team as the existing PEG tube balloon busted and the tube fell out The balloon of the Rodriguez catheter was deflated and was pulled out And is placed [place] 20 SHERINE gastrostomy tube was placed in position and the balloon was inflated with 10 cc of sterile water and the tube was secured in position Procedure Description As above Pathology / specimen None Pathology comment: No specimen obtained Estimated Blood Loss 0 Surgeon Derick Xiong MD Diagnosis Problem List Completed Was Problem List Reviewed/Reconciled?: Yes
[2024-12-27] MEDS: ATORVASTATIN CALCIUM 10 MG TABLET NG (22:00)
[2024-12-28] VITALS (16 sets, daily range): BP systolic 93–114; BP diastolic 48–68; PULSE 51–86; RESP 16–27; TEMP 36.1–37.3; O2SAT 95–100
[2024-12-28] MEDS: PIPER/TAZO 3.375 GM PREMIX 3.375 GM/50 ML BAG IV ×3 (05:15→21:03)
[2024-12-28 06:28] LABS: Anion Gap 5 (7-16); BUN/Creatinine Ratio 28 Ratio (12-20); Blood Urea Nitrogen 25 mg/dL (9-23); Calcium 8.9 mg/dL (8.3-10.6); Carbon Dioxide 30.1 mMol/L (20.0-31.0); Chloride 100 mMol/L (98-107); Creatinine (Component) 0.9 mg/dL (0.6-1.3); Estimated Creatinine Clearance 53.8 mL/min (>60); Glucose 79 mg/dL (74-106); Osmolality,Calculated 273 (275-295); Potassium 4.5 mMol/L (3.4-5.1); Sodium 135 mMol/L (136-145); Vancomycin,Trough 33.7 mcg/mL (5.0-10.0); eGFR > 60 See Note
[2024-12-28 06:29] LABS: Respiratory Syncytial Virus Ag Negative (Negative)
[2024-12-28 06:33] LABS: Ferritin 191 ng/mL (7.3-270.7); Iron 43 mcg/dL (50-170); Percent Iron Saturation 14 % (20-55); Total Iron Binding Capacity 294 mcg/dL (250-425); Unsaturated Iron Binding 251 (225-295)
--- NOTE | 2024-12-28 06:50 | PC.NURSE ---
vanco 6 am dose not given due to vanco trough results pending.
[2024-12-28 08:19] LABS: Basophils % (Auto) 0 % (0-2.5); Eosinophils % (Auto) 1 % (0-10); Immature Granulocytes % (Auto) 1 % (0-0); Immature Granulocytes Auto 0.05 Thou/mm3 (0.00-0.00); Immature Reticulocyte Fraction 25.2 % (3.0-15.9); Lymphocytes % (Auto) 28 % (10-50); Mean Corpuscular HGB Conc 32.2 g/dl (31.0-37.0); Mean Corpuscular Hemoglobin 31.1 pg (25.0-35.0); Mean Corpuscular Volume 97 fL (80-100); Monocytes # (Auto) 0.5 Thou/mm3 (0.0-0.8); Monocytes % (Auto) 6 % (0-12); Neutrophils # (Auto) 4.8 Thou/mm3 (1.8-7.7); Neutrophils % (Auto) 65 % (37-80); Nucleated Red Blood Cell # 0.04 Thou/mm3 (0.00-0.00); Nucleated Red Blood Cell % 1 /100 WBC (0); Platelet Count 94 Thou/mm3 (140-440); RDW Standard Deviation 60.6 fL (36.4-46.3); Red Blood Count 2.38 Miln/mm3 (4.00-5.20); Reticulocyte % (Auto) 2.3 % (0.5-1.5); Reticulocyte Absolute Auto 54.7 Biln/L (25.0-75.0); Reticulocyte Hgb Content 34.5 pg (28.0-35.0); White Blood Count 7.4 Thou/mm3 (3.6-11.0)
[2024-12-28 08:20] LABS: Hemoglobin 7.4 g/dL (12.0-16.0)
[2024-12-28] MEDS: ENOXAPARIN SOD INJ 40 MG/0.4 ML SYRINGE SC (08:50)
--- NOTE | 2024-12-28 09:48 | PC.NURSE ---
MD made aware of hgb drop to 7.4 overnight. RN informed MD that the pt peg tube had dark red drainage coming from the peg tube. No BM or other s/s of bleeding noted. MD to consult Dr. Xiong. No orders given at this time. Will continue to monitor
[2024-12-28 11:14] LABS: Hematocrit 22.8 % (36.0-46.0)
[2024-12-28 11:15] LABS: Hemoglobin 7.2 g/dL (12.0-16.0)
[2024-12-28 13:38] LABS: Basophils % (Auto) 0 % (0-2.5); Eosinophils # (Auto) 0.1 Thou/mm3 (0.0-0.5); Eosinophils % (Auto) 1 % (0-10); Hematocrit 22.2 % (36.0-46.0); Immature Granulocytes % (Auto) 1 % (0-0); Immature Granulocytes Auto 0.05 Thou/mm3 (0.00-0.00); Lymphocytes # (Auto) 2.1 Thou/mm3 (1.0-4.8); Lymphocytes % (Auto) 32 % (10-50); Mean Corpuscular Hemoglobin 30.5 pg (25.0-35.0); Mean Corpuscular Volume 95 fL (80-100); Monocytes # (Auto) 0.5 Thou/mm3 (0.0-0.8); Monocytes % (Auto) 7 % (0-12); Neutrophils # (Auto) 3.7 Thou/mm3 (1.8-7.7); Neutrophils % (Auto) 58 % (37-80); Nucleated Red Blood Cell # 0.03 Thou/mm3 (0.00-0.00); Nucleated Red Blood Cell % 1 /100 WBC (0); Platelet Count 94 Thou/mm3 (140-440); RDW Standard Deviation 59.5 fL (36.4-46.3); Red Blood Count 2.33 Miln/mm3 (4.00-5.20); White Blood Count 6.4 Thou/mm3 (3.6-11.0)
[2024-12-28 13:39] LABS: Hemoglobin 7.1 g/dL (12.0-16.0)
--- NOTE | 2024-12-28 13:51 | ESPR_ITS ---
Documentation for date of: 12/28/24 Subjective Subjective Interval history: Breathing from the gastrostomy site as well as to the gastrostomy tube There was blood already coming out of the Rodriguez catheter which I pulled out yesterday Not a major drop in the hemoglobin to 7.1 and 22.2 Nonetheless n.p.o. Will's schedule the patient for an endoscopy for tomorrow morning Exam Vital Signs Temp Pulse Resp BP Pulse Ox O2 Del Method FiO2 97.8 F 69 20 110/53 L 99 Trach Collar 45 12/28/24 12:00 12/28/24 13:38 12/28/24 12:00 12/28/24 12:00 12/28/24 13:38 12/28/24 12:00 12/28/24 13:38 Objective Labs 12/28/24 13:00 12/28/24 05:00 Labs: Laboratory Results - last 24 hr 12/27/24 12/28/24 12/28/24 13:20 04:39 05:00 WBC RBC Hgb Hct MCV MCH MCHC RDW Std Deviation Plt Count Neut % (Auto) Lymph % (Auto) [place] % (Auto) Eos % (Auto) Baso % (Auto) Neut # (Auto) Lymph # (Auto) [place] # (Auto) Eos # (Auto) Baso # (Auto) Immature Gran # (Auto) Absolute Nucleated RBC Immature Gran % Nucleated RBC % Retic Count (auto) Absolute Retic Immature Retic Fraction Retic Hgb Content CHr Sodium 133 L 135 L Potassium 5.2 H 4.5 D Chloride 96 L 100 Carbon Dioxide 31.0 30.1 Anion Gap 6 L 5 L BUN 24 H 25 H Creatinine 0.6 0.9 Estim Creat Clear Calc 80.6 53.8 L eGFR > 60 > 60 BUN/Creatinine Ratio 40 H 28 H Glucose 84 79 Calculated Osmolality 269 L 273 L Calcium 8.9 8.9 Corrected Calcium 9.3 Phosphorus 1.8 L Iron 43 L TIBC 294 Iron Saturation 14 L Unsat Iron Binding 251 Ferritin 191 Albumin 3.5 D Vancomycin Trough 33.7 H* RSV Rapid Negative 12/28/24 12/28/24 12/28/24 07:40 10:43 13:00 WBC 7.4 D 6.4 RBC 2.38 L 2.33 L Hgb 7.4 L 7.2 L 7.1 L Hct 23.0 L 22.8 L 22.2 L MCV 97 95 MCH 31.1 30.5 MCHC 32.2 32.0 RDW Std Deviation 60.6 H 59.5 H Plt Count 94 L 94 L Neut % (Auto) 65 58 Lymph % (Auto) 28 32 [place] % (Auto) 6 7 Eos % (Auto) 1 1 Baso % (Auto) 0 0 Neut # (Auto) 4.8 3.7 Lymph # (Auto) 2.0 2.1 [place] # (Auto) 0.5 0.5 Eos # (Auto) 0.0 0.1 Baso # (Auto) 0.0 0.0 Immature Gran # (Auto) 0.05 H 0.05 H Absolute Nucleated RBC 0.04 H 0.03 H Immature Gran % 1 H 1 H Nucleated RBC % 1 H 1 H Retic Count (auto) 2.3 H Absolute Retic 54.7 Immature Retic Fraction 25.2 H Retic Hgb Content CHr 34.5 Sodium Potassium Chloride Carbon Dioxide Anion Gap BUN Creatinine Estim Creat Clear Calc eGFR BUN/Creatinine Ratio Glucose Calculated Osmolality Calcium Corrected Calcium Phosphorus Iron TIBC Iron Saturation Unsat Iron Binding Ferritin Albumin Vancomycin Trough RSV Rapid Impressions Impression: # GI hemorrhage Endoscopy planned for tomorrow ABG Interpretation ABG results: 12/27/24 04:25 ABG pH 7.35 ABG pCO2 60 H ABG pO2 77 L ABG HCO3 33 H ABG O2 Saturation 95 ABG Base Excess 6 H Assessment & Plan A&P Narrative # PEG tube evaluation consent will be obtained for PEG tube removal that is a Rodriguez catheter and placement of a new [place] 20 SHERINE PEG tube Other medical problems include CVA requiring tracheostomy and chronic ventilator dependency diabetes mellitus type 2 Chronically placed in SNF shortness of breath thank you very much for the opportunity to participate in the care of this patient Time Spent With Patient Time: Total time spent is greater than 50% in coordination of care (as documented) at patient's floor/unit and/or counseling patient:
[2024-12-28] MEDS: DEXTROSE 5%-NS 1,000 ML 100 ML IV (14:19)
--- NOTE | 2024-12-28 15:17 | PD.RESPRO ---
Documentation for date of: 12/28/24 Subjective Subjective Interval history: Patient was seen and examined at bedside. Her PEG tube was replaced yesterday however it was noticed patient had a lot of blood in her stomach. Today [employer] was taking temperature and noticed also black stools in the rectum. GI was notified and recommended to switch patient to n.p.o., stop tube feeds and he will do endoscopy tonight or tomorrow morning. Hemoglobin was downtrending and today 7.1, 1 unit of PRBC was ordered to transfuse. She has patient will not receive feeds her NS at 75 cc/h was switched to D5 NS at 100 cc/h due to low blood glucose. Will continue current management and monitor patient. Exam Vital Signs Temp Pulse Resp BP Pulse Ox O2 Del Method FiO2 97.8 F 69 20 110/53 L 99 Trach Collar 45 12/28/24 12:00 12/28/24 13:38 12/28/24 12:00 12/28/24 12:00 12/28/24 13:38 12/28/24 12:00 12/28/24 13:38 Narrative Exam Gen: Well-developed elderly female, responds to painful stimuli only. HEENT: NCAT, PERRLA, EOMI, MMM, anicteric conjunctivae. CVS: normal S1 and S2. RRR. No M/R/G. Resp: CTA B/L. No rhonchi, rales, crackles or wheezing. Tracheotomy, on MV. Abd: soft, non-tender, non-distended. BS+ in all [address] and is clean, no visible blood. MSK: Pulses are palpable. No edema or rash. Neuro: CN II-XII grossly intact. Limited exam due to medical condition. Objective Labs 12/28/24 13:00 12/28/24 05:00 Labs: Laboratory Results - last 24 hr 12/28/24 12/28/24 12/28/24 04:39 05:00 07:40 WBC 7.4 D RBC 2.38 L Hgb 7.4 L Hct 23.0 L MCV 97 MCH 31.1 MCHC 32.2 RDW Std Deviation 60.6 H Plt Count 94 L Neut % (Auto) 65 Lymph % (Auto) 28 Stokes % (Auto) 6 Eos % (Auto) 1 Baso % (Auto) 0 Neut # (Auto) 4.8 Lymph # (Auto) 2.0 Stokes # (Auto) 0.5 Eos # (Auto) 0.0 Baso # (Auto) 0.0 Immature Gran # (Auto) 0.05 H Absolute Nucleated RBC 0.04 H Immature Gran % 1 H Nucleated RBC % 1 H Retic Count (auto) 2.3 H Absolute Retic 54.7 Immature Retic Fraction 25.2 H Retic Hgb Content CHr 34.5 Sodium 135 L Potassium 4.5 D Chloride 100 Carbon Dioxide 30.1 Anion Gap 5 L BUN 25 H Creatinine 0.9 Estim Creat Clear Calc 53.8 L eGFR > 60 BUN/Creatinine Ratio 28 H Glucose 79 Calculated Osmolality 273 L Calcium 8.9 Iron 43 L TIBC 294 Iron Saturation 14 L Unsat Iron Binding 251 Ferritin 191 Vancomycin Trough 33.7 H* RSV Rapid Negative Blood Type Antibody Screen Crossmatch Blood Bank Wristband ID 12/28/24 12/28/24 12/28/24 10:43 13:00 14:04 WBC 6.4 RBC 2.33 L Hgb 7.2 L 7.1 L Hct 22.8 L 22.2 L MCV 95 MCH 30.5 MCHC 32.0 RDW Std Deviation 59.5 H Plt Count 94 L Neut % (Auto) 58 Lymph % (Auto) 32 Stokes % (Auto) 7 Eos % (Auto) 1 Baso % (Auto) 0 Neut # (Auto) 3.7 Lymph # (Auto) 2.1 Stokes # (Auto) 0.5 Eos # (Auto) 0.1 Baso # (Auto) 0.0 Immature Gran # (Auto) 0.05 H Absolute Nucleated RBC 0.03 H Immature Gran % 1 H Nucleated RBC % 1 H Retic Count (auto) Absolute Retic Immature Retic Fraction Retic Hgb Content CHr Sodium Potassium Chloride Carbon Dioxide Anion Gap BUN Creatinine Estim Creat Clear Calc eGFR BUN/Creatinine Ratio Glucose Calculated Osmolality Calcium Iron TIBC Iron Saturation Unsat Iron Binding Ferritin Vancomycin Trough RSV Rapid Blood Type O Positive Antibody Screen NEGATIVE Crossmatch See Detail Blood Bank Wristband ID Yes ABG Interpretation ABG results: 12/27/24 04:25 ABG pH 7.35 ABG pCO2 60 H ABG pO2 77 L ABG HCO3 33 H ABG O2 Saturation 95 ABG Base Excess 6 H Quality Measures Quality Measures sepsis Current suspected stage: sepsis Possible source: pulmonary Blood cultures ordered: yes Antibiotic ordered: Yes Advance care planning discussed with:: child Assessment & Plan Assessment Current Active Medications: Generic Name Dose Route Start Last Admin Trade Name Freq PRN Reason Stop Dose Admin Acetaminophen 650 mg 12/27/24 05:03 Acetaminophen Valorie 325 Mg/10 Ml Udc GT 01/26/25 04:59 Q6H PRN FEVER 100.4 or pain Atorvastatin Calcium 10 mg 12/27/24 21:00 12/27/24 22:00 Atorvastatin Calcium 10 Mg Tablet NG 01/26/25 20:59 10 mg HS BANG Administration Dextrose 25 ml 12/27/24 05:28 Dextrose 50%-Water Inj 50 Ml Syringe IV 01/26/25 05:27 Q15MIN PRN BG 50-70 responsive npo pt Dextrose 50 ml 12/27/24 05:28 Dextrose 50%-Water Inj 50 Ml Syringe IV 01/26/25 05:27 Q15MIN PRN BG <50 OR BG <70 & pt unresponsive Enoxaparin Sodium 40 mg 12/27/24 09:00 12/28/24 08:50 Enoxaparin Sod Inj 40 Mg/0.4 Ml Syringe SC 01/10/25 08:59 40 mg QDAY BANG Administration Glucagon 1 mg 12/27/24 05:28 Glucagon Inj 1 Mg Vial IM Q15MIN PRN BG <70, and no IV access Piperacillin/Tazobactam/Dextrose 3.375 gm in 50 mls @ 12.5 mls/hr 12/27/24 14:00 12/28/24 13:06 Zosyn IV 01/03/25 13:59 12.5 mls/hr Q8HR BANG Administration Dextrose/Sodium Chloride 1,000 mls @ 100 mls/hr 12/28/24 14:15 12/28/24 14:19 D5-Ns IV 01/27/25 14:14 100 mls/hr .Q10H BANG Administration Insulin Human Lispro 0 unit 12/27/24 06:00 12/28/24 13:05 Insulin Lispro (Admelog) 1 Unit/0.01 Ml Unit SC 01/26/25 05:59 Not Given Q6HR BANG Protocol Pharmacy Consult 1 each 12/27/24 09:00 Vancomycin Pharmacy To Dose 1 Each Each IV 01/26/25 08:59 QDAY PRN PROTOCOL Plan 73-year-old female with past medical history of chronic trach and PEG since 2018 secondary to CVA, skin cancer with last chemotherapy session in 2018, shingles, hypertension, type 2 diabetes, hyperlipidemia presenting to the ED from subacute for increased work of breathing will be admitted for sepsis likely secondary to ventilator associated pneumonia and will be treated with broad-spectrum IV antibiotics #Sepsis 2/2 to Ventilator-Associated Pneumonia. #Ventilator asynchrony. #Chronically trach and PEG. As noted in HPI, patient has been at subacute patient for several years secondary to CVA. Per subacute & ED physician patient had increased work of breathing for the past several days which worsened overnight even with breathing treatments. Patient presented with the vent settings as outlined in the physical exam with vent asynchrony noted. Patient's peak pressure keeps spiking up to the high 30s and low 40s with oxygenation remaining stable in the mid 90s. Patient is likely developing ARDS secondary to ventilator associated normal pneumonia versus aspiration event. WBC of 13, hypothermic 93.6 ?F, lactic acid elevated at 2.3 with signs of reduced perfusion. Chest x-ray reads multifocal pneumonia, left pleural effusion and cardiomegaly. Plan: IV vancomycin, pharmacy to dose. IV Zosyn 3.375 every 8. Blood cultures ordered. Sputum cultures ordered. Chest PT and breathing treatments. #PEG tube malfunction. -Upon nurse evaluation in the afternoon, the PEG tube is dislodged, balloon popped and the tube came out. -Temporary placed logan in. -PEG was replaced 12/27. #GI bleeding. #Acute blood loss anemia. -12/27 noticed bloody stomach content during PEG replacement, also noticed black stool in rectum. Hgb dropped from 9 to 7.1. Plan: -GI notified, EGD will be done, NPO, stop PEG feeds. -transfuse 1u pRBCs. #Normocytic anemia. #Thrombocytopenia. Likely secondary to chronically trach impact and poor nutrition. Patient does not have any signs of active bleeding at this time. Differentials include iron deficiency anemia, anemia of chronic disease, vitamin deficiency, hemolytic anemia and less likely bone marrow disorder. Plan: Follow-up with morning iron panel, ferritin and reticulocyte count. Monitor with morning labs. #Electrolyte abnormalities. #Tube feeds. As noted patient is chronically fed with PEG tube Unsure exactly what type of PEG tube feeds are given at the subacute Patient has electrolyte abnormalities with hyponatremia, hypochloremia likely secondary to poor nutritional intake Plan: Dietitian consulted, appreciate recommendations #Hypertension. #Hyperlipidemia. #History of CVA. #[id number], type 2 diabetes. Chronic medical conditions, pending med rec Plan: Restart home medications as appropriate. Bedside blood glucose every 6 hours. Sliding scale every 6 hours. #Sacral wound. #History of skin cancer, completed chemo in 2018. As noted patient's chart Wound care has been initiated and subacute. Plan: Wound care, referral. Dispo: IV antibiotics for ventilator associated pneumonia versus aspiration pneumonia. Diet: NPO, hold tube feeds. Bowel: Not needed at this time. GI prophylaxis: none. DVT prophylaxis: Lovenox. Code: DNR. Assessment and plan discussed with my attending physician Dr. Jett. Raffi Roldan MD, PGY 2. Disclaimer: This note was dictated by speech recognition. Minor errors in construction field engineer may be present due to voice recognition software. Attending Provider Attestation/Addendum I attest that I was physically present for the evaluation, physical examination, lab and imaging review of the patient with the residents. I discussed the case with the residents and agree with the findings and plans of care as documented above. At bedside today, patient appears comfortable. Saturating well on trach collar at 45% FiO2. She was found to have potassium of 5.2 yesterday, improved to 4.5 today. Noted to have low iron level of 43. Received PEG tube with GI yesterday. During PEG tube exchange, patient was found to have black discharge around the PEG tube site. This morning her hemoglobin noted to be at 7.4, dropped from 9.0 yesterday. Repeat hemoglobin level came back at 7.1, we will transfuse with 1 unit PRBC, discussed with GI, patient planned for another EGD. Patient also noted to have low normal glucose level with soft blood pressure. Since her tube feeds are on hold, we will start her on D5 NS at 100 cc/h. Continues to be on broad-spectrum antibiotic for pneumonia. Pending culture results. Shamar Jett MD
[2024-12-28 21:49] LABS: Hematocrit 27.1 % (36.0-46.0)
[2024-12-28 21:52] LABS: Hemoglobin 8.6 g/dL (12.0-16.0)
[2024-12-29] VITALS (15 sets, daily range): BP systolic 95–148; BP diastolic 45–80; PULSE 57–88; RESP 18–23; TEMP 36–36.9; O2SAT 96–100
[2024-12-29] MEDS: DEXTROSE 5%-NS 1,000 ML 100 ML IV ×2 (00:35→09:25)
[2024-12-29] MEDS: PIPER/TAZO 3.375 GM PREMIX 3.375 GM/50 ML BAG IV ×3 (05:16→21:13)
[2024-12-29 05:37] LABS: Basophils % (Auto) 0 % (0-2.5); Eosinophils # (Auto) 0.1 Thou/mm3 (0.0-0.5); Eosinophils % (Auto) 2 % (0-10); Hematocrit 26.2 % (36.0-46.0); Immature Granulocytes % (Auto) 1 % (0-0); Immature Granulocytes Auto 0.04 Thou/mm3 (0.00-0.00); Lymphocytes # (Auto) 1.6 Thou/mm3 (1.0-4.8); Lymphocytes % (Auto) 26 % (10-50); Mean Corpuscular HGB Conc 32.1 g/dl (31.0-37.0); Mean Corpuscular Hemoglobin 30.1 pg (25.0-35.0); Mean Corpuscular Volume 94 fL (80-100); Monocytes # (Auto) 0.5 Thou/mm3 (0.0-0.8); Monocytes % (Auto) 8 % (0-12); Neutrophils # (Auto) 3.8 Thou/mm3 (1.8-7.7); Neutrophils % (Auto) 63 % (37-80); Nucleated Red Blood Cell # 0.02 Thou/mm3 (0.00-0.00); Nucleated Red Blood Cell % 0 /100 WBC (0); Platelet Count 81 Thou/mm3 (140-440); RDW Standard Deviation 63.5 fL (36.4-46.3); Red Blood Count 2.79 Miln/mm3 (4.00-5.20); White Blood Count 6.1 Thou/mm3 (3.6-11.0)
[2024-12-29 05:43] LABS: Hemoglobin 8.4 g/dL (12.0-16.0)
[2024-12-29 05:54] LABS: Anion Gap 8 (7-16); BUN/Creatinine Ratio 23 Ratio (12-20); Blood Urea Nitrogen 16 mg/dL (9-23); Calcium 8.7 mg/dL (8.3-10.6); Carbon Dioxide 28.5 mMol/L (20.0-31.0); Chloride 105 mMol/L (98-107); Creatinine (Component) 0.7 mg/dL (0.6-1.3); Estimated Creatinine Clearance 69.1 mL/min (>60); Glucose 136 mg/dL (74-106); Osmolality,Calculated 284 (275-295); Potassium 3.9 mMol/L (3.4-5.1); Sodium 141 mMol/L (136-145); Vancomycin,Random 14.6 mcg/mL; eGFR > 60 See Note
[2024-12-29] MEDS: VANCOMYCIN/NS 750 MG IVPB 750 MG/150 ML BAG 120 MG IV ×2 (09:25→21:14)
--- NOTE | 2024-12-29 10:20 | PC.SS ---
Patient Imtiaz Miller is a 73 Year old female admitted for for Sepsis. SS contacted patient's daughter, Sherry Mendez in order to complete initial assessment, Sherry reports she is surrogate decision maker, [phone]. Patient resides in [facility] and has been there for about 4 years. Patient is trach and pegged. Patient is non ambulatory and needs assistance completing all ADL's. At time of discharge patient will return back to Subacute. SS will contact Sherry when patient is medically cleared. Discharge Plan: [facility] Next of Kin, Sherry Mendez daughter [phone]
[2024-12-29 12:49] LABS: Hematocrit 25.7 % (36.0-46.0)
[2024-12-29 12:56] LABS: Hemoglobin 8.4 g/dL (12.0-16.0)
--- NOTE | 2024-12-29 14:41 | PC.SS ---
SS follow up note; HMG low Rapid called this morning, Patient on IV ABX. Patient will discharge home tomorrow if stable.
[2024-12-29] MEDS: PANTOPRAZOLE INJ 40 MG VIAL IV (17:35)
--- NOTE | 2024-12-29 18:45 | ESPR_ITS ---
<Statement entered by Raffi Roldan MD - 12/31/24 07:57> Senior Resident Attestation: I supervised/discussed management plan with project internship physician Dr. Hanley, and was involved in the care of this patient. I personally saw and examined the patient and discussed the assessment and plan with the entire medicine team, including my attending. I agree with the assessment and plan as documented. Patient's care was discussed with attending physician, Dr. Jett. Raffi Roldan MD PGY-2. Documentation for date of: 12/29/24 Subjective Subjective Interval history: No acute overnight events reported. Patient seen and examined at bedside this morning. Patient is able to open her eyes and slightly move her feet bilaterally but is nonverbal at baseline. Patient's hemoglobin had dropped yesterday therefore EGD was scheduled for today otherwise patient is stable vitals are stable hemoglobin is stable at 8.4, hematocrit is 25.7 platelet is 81 there are no signs of active bleeding. Sputum stain showed GNR and GPC however sputum culture is pending wound culture and blood culture both are negative patient is currently on Zosyn we will discharge patient on levofloxacin 750 mg daily. Patient's son is at bedside and is updated on the plan. Exam Vital Signs Temp Pulse Resp BP Pulse Ox O2 Del Method FiO2 97.0 F 65 18 138/66 H 98 Trach Collar 45 12/29/24 16:00 12/29/24 16:59 12/29/24 16:59 12/29/24 16:59 12/29/24 16:59 12/29/24 16:00 12/29/24 16:00 Narrative Exam GENERAL: Trach and PEG, does not follow command, appears frail, nonverbal at baseline NEURO: no focal neurological deficits HEENT: Atraumatic, Normocephalic. mucous membranes moist. opens eyes to verbal/painful stimuli HEART: Normal Heart Sounds LUNGS: Mechanical breath sounds heard bilaterally with no wheezing or crackles. ABDOMEN: soft, non-distended, non-tender, bowel sounds heard, no guarding or rebound tenderness SKIN: No Rash or ecchymoses EXTREMITIES: No edema, tenderness, able to move all 4 extremities, pedal pulses palpated Objective Labs 12/30/24 05:33 12/30/24 05:33 Labs: Laboratory Results - last 24 hr 0412/28/24 12/29/24 14:04 21:28 04:49 WBC 6.1 RBC 2.79 L Hgb 8.6 L D 8.4 L Hct 27.1 L 26.2 L MCV 94 MCH 30.1 MCHC 32.1 RDW Std Deviation 63.5 H Plt Count 81 L Neut % (Auto) 63 Lymph % (Auto) 26 Dickson % (Auto) 8 Eos % (Auto) 2 Baso % (Auto) 0 Neut # (Auto) 3.8 Lymph # (Auto) 1.6 Dickson # (Auto) 0.5 Eos # (Auto) 0.1 Baso # (Auto) 0.0 Immature Gran # (Auto) 0.04 H Absolute Nucleated RBC 0.02 H Immature Gran % 1 H Nucleated RBC % 0 Sodium 141 Potassium 3.9 D Chloride 105 Carbon Dioxide 28.5 Anion Gap 8 BUN 16 Creatinine 0.7 Estim Creat Clear Calc 69.1 eGFR > 60 BUN/Creatinine Ratio 23 H Glucose 136 H D Calculated Osmolality 284 Calcium 8.7 Random Vancomycin 14.6 Crossmatch See Detail 12/29/24 12:02 WBC RBC Hgb 8.4 L Hct 25.7 L MCV MCH MCHC RDW Std Deviation Plt Count Neut % (Auto) Lymph % (Auto) Dickson % (Auto) Eos % (Auto) Baso % (Auto) Neut # (Auto) Lymph # (Auto) Dickson # (Auto) Eos # (Auto) Baso # (Auto) Immature Gran # (Auto) Absolute Nucleated RBC Immature Gran % Nucleated RBC % Sodium Potassium Chloride Carbon Dioxide Anion Gap BUN Creatinine Estim Creat Clear Calc eGFR BUN/Creatinine Ratio Glucose Calculated Osmolality Calcium Random Vancomycin Crossmatch ABG Interpretation ABG results: 12/27/24 04:25 ABG pH 7.35 ABG pCO2 60 H ABG pO2 77 L ABG HCO3 33 H ABG O2 Saturation 95 ABG Base Excess 6 H Quality Measures Quality Measures sepsis Current suspected stage: sepsis Possible source: pulmonary Blood cultures ordered: yes Antibiotic ordered: Yes Advance care planning discussed with:: child Assessment & Plan Assessment Current Active Medications: Generic Name Dose Route Start Last Admin Trade Name Freq PRN Reason Stop Dose Admin Acetaminophen 650 mg 12/27/24 05:03 Acetaminophen Valorie 325 Mg/10 Ml Udc GT 01/26/25 04:59 Q6H PRN FEVER 100.4 or pain Atorvastatin Calcium 10 mg 12/27/24 21:00 12/28/24 21:00 Atorvastatin Calcium 10 Mg Tablet NG 01/26/25 20:59 Not Given HS BANG Dextrose 25 ml 12/27/24 05:28 Dextrose 50%-Water Inj 50 Ml Syringe IV 01/26/25 05:27 Q15MIN PRN BG 50-70 responsive npo pt Dextrose 50 ml 12/27/24 05:28 Dextrose 50%-Water Inj 50 Ml Syringe IV 01/26/25 05:27 Q15MIN PRN BG <50 OR BG <70 & pt unresponsive Glucagon 1 mg 12/27/24 05:28 Glucagon Inj 1 Mg Vial IM Q15MIN PRN BG <70, and no IV access Piperacillin/Tazobactam/Dextrose 3.375 gm in 50 mls @ 12.5 mls/hr 12/27/24 14:00 12/29/24 13:16 Zosyn IV 01/03/25 13:59 12.5 mls/hr Q8HR BANG Administration Vancomycin/Sodium Chloride 750 mg in 150 mls @ 120 mls/hr 12/29/24 10:00 12/29/24 09:25 Vancomycin/Ns 750 Mg Ivpb IV 01/05/25 09:59 120 mls/hr Q12H BANG Administration Protocol Insulin Human Lispro 0 unit 12/27/24 06:00 12/29/24 17:43 Insulin Lispro (Admelog) 1 Unit/0.01 Ml Unit SC 01/26/25 05:59 Not Given Q6HR BANG Protocol Pantoprazole Sodium 40 mg 12/29/24 17:30 12/29/24 17:35 Pantoprazole Inj 40 Mg Vial IV 01/28/25 17:29 40 mg QDAY BANG Administration Pharmacy Consult 1 each 12/27/24 09:00 Vancomycin Pharmacy To Dose 1 Each Each IV 01/26/25 08:59 QDAY PRN PROTOCOL Plan Ms. Meza 73-year-old female with past medical history of chronic trach and PEG since 2018 secondary to CVA, skin cancer with last chemotherapy session in 2018, shingles, hypertension, type 2 diabetes, hyperlipidemia presenting to the ED from subacute for increased work of breathing will be admitted for sepsis likely secondary to ventilator associated pneumonia and will be treated with broad-spectrum IV antibiotics #Sepsis 2/2 to Ventilator-Associated Pneumonia. #Ventilator asynchrony. #Chronically trach and PEG. As noted in HPI, patient has been at subacute patient for several years secondary to CVA. Per subacute & ED physician patient had increased work of breathing for the past several days which worsened overnight even with breathing treatments. Patient presented with the vent settings as outlined in the physical exam with vent asynchrony noted. Patient's peak pressure keeps spiking up to the high 30s and low 40s with oxygenation remaining stable in the mid 90s. Patient is likely developing ARDS secondary to ventilator associated normal pneumonia versus aspiration event. WBC of 13, hypothermic 93.6 ?F, lactic acid elevated at 2.3 with signs of reduced perfusion. Chest x-ray reads multifocal pneumonia, left pleural effusion and cardiomegaly. Plan: IV vancomycin, pharmacy to dose. IV Zosyn 3.375 every 8. Blood cultures ordered. Sputum cultures ordered. Chest PT and breathing treatments. #PEG tube malfunction. -Upon nurse evaluation in the afternoon, the PEG tube is dislodged, balloon popped and the tube came out. and temporary logan was placed -PEG was replaced 12/27. #GI bleeding. #Acute blood loss anemia. -12/27 noticed bloody stomach content during PEG replacement, also noticed black stool in rectum. Hgb dropped from 9 to 7.1. Plan: -GI notified, EGD will be done, NPO, stop PEG feeds. -transfuse 1u pRBCs. #Normocytic anemia. #Thrombocytopenia. Likely secondary to chronically trach impact and poor nutrition. Patient does not have any signs of active bleeding at this time. Differentials include iron deficiency anemia, anemia of chronic disease, vitamin deficiency, hemolytic anemia and less likely bone marrow disorder. Plan: Follow-up with morning iron panel, ferritin and reticulocyte count. Monitor with morning labs. #Electrolyte abnormalities. #Tube feeds. As noted patient is chronically fed with PEG tube Unsure exactly what type of PEG tube feeds are given at the subacute Patient has electrolyte abnormalities with hyponatremia, hypochloremia likely secondary to poor nutritional intake Plan: Dietitian consulted, appreciate recommendations #Hypertension. #Hyperlipidemia. #History of CVA. #Kvy-mjwkuwy-ldeqellnh, type 2 diabetes. Chronic medical conditions, pending med rec Plan: Restart home medications as appropriate. Bedside blood glucose every 6 hours. Sliding scale every 6 hours. #Sacral wound. #History of skin cancer, completed chemo in 2018. As noted patient's chart Wound care has been initiated and subacute. Plan: Wound care, referral. Dispo: IV antibiotics for ventilator associated pneumonia versus aspiration pneumonia. Diet: NPO, hold tube feeds. Bowel: Not needed at this time. GI prophylaxis: none. DVT prophylaxis: Lovenox. Code: DNR. Assessment and plan discussed with my senior resident Dr. Roldan & attending physician Dr. Johnie Hanley (PGY-1)- Internal medicine resident Attending Provider Attestation/Addendum I attest that I was physically present for the evaluation, physical examination, lab and imaging review of the patient with the residents. I discussed the case with the residents and agree with the findings and plans of care as documented above. At bedside today, patient appears comfortable. Vital signs have been stable, saturating well on mechanical ventilator. Hemoglobin remained stable, patient planned for EGD today. Sputum Gram stain shows GNR and GPC, continues to be on IV antibiotics, blood cultures pending. Shamar Jett MD
[2024-12-29] MEDS: ATORVASTATIN CALCIUM 10 MG TABLET NG (21:13)
[2024-12-30] VITALS (7 sets, daily range): BP systolic 120–132; BP diastolic 58–66; PULSE 53–81; RESP 18–23; TEMP 36–36.6; O2SAT 96–100; BMI 34.2
[2024-12-30] MEDS: PIPER/TAZO 3.375 GM PREMIX 3.375 GM/50 ML BAG IV (05:13)
[2024-12-30 06:04] LABS: Basophils % (Auto) 1 % (0-2.5); Eosinophils # (Auto) 0.2 Thou/mm3 (0.0-0.5); Eosinophils % (Auto) 3 % (0-10); Hemoglobin 8.9 g/dL (12.0-16.0); Immature Granulocytes % (Auto) 1 % (0-0); Immature Granulocytes Auto 0.09 Thou/mm3 (0.00-0.00); Lymphocytes # (Auto) 1.5 Thou/mm3 (1.0-4.8); Lymphocytes % (Auto) 22 % (10-50); Mean Corpuscular HGB Conc 31.8 g/dl (31.0-37.0); Mean Corpuscular Hemoglobin 29.8 pg (25.0-35.0); Mean Corpuscular Volume 94 fL (80-100); Monocytes # (Auto) 0.5 Thou/mm3 (0.0-0.8); Monocytes % (Auto) 7 % (0-12); Neutrophils # (Auto) 4.7 Thou/mm3 (1.8-7.7); Neutrophils % (Auto) 67 % (37-80); Nucleated Red Blood Cell # 0.04 Thou/mm3 (0.00-0.00); Nucleated Red Blood Cell % 1 /100 WBC (0); Platelet Count 98 Thou/mm3 (140-440); RDW Standard Deviation 63.5 fL (36.4-46.3); Red Blood Count 2.99 Miln/mm3 (4.00-5.20)
[2024-12-30 06:24] LABS: Alanine Aminotransferase 16 U/L (10-49); Albumin, Serum 3.5 gm/dL (3.4-4.8); Albumin/Globulin Ratio 1.2 (1.2-2.2); Alkaline Phosphatase 116 U/L (46-116); Anion Gap 8 (7-16); Aspartate Amino Transferase 18 U/L (0-34); BUN/Creatinine Ratio 23 Ratio (12-20); Bilirubin,Total 0.6 mg/dL (0.3-1.2); Blood Urea Nitrogen 14 mg/dL (9-23); Calcium 8.6 mg/dL (8.3-10.6); Carbon Dioxide 28.5 mMol/L (20.0-31.0); Chloride 106 mMol/L (98-107); Creatinine (Component) 0.6 mg/dL (0.6-1.3); Estimated Creatinine Clearance 79.7 mL/min (>60); Globulin 2.9 gm/dL (2.3-3.5); Glucose 116 mg/dL (74-106); Osmolality,Calculated 284 (275-295); Potassium 3.7 mMol/L (3.4-5.1); Sodium 142 mMol/L (136-145); Total Protein 6.4 gm/dL (5.7-8.2); eGFR > 60 See Note
[2024-12-30] MEDS: PANTOPRAZOLE INJ 40 MG VIAL IV (08:02)
--- NOTE | 2024-12-30 10:00 | PC.SS ---
SS contacted Subacute and spoke to charge nurse, who provided SS with Contact number for patients nurse to call and give report. SS updated patient's nurse Michaelle.
[2024-12-30] MEDS: VANCOMYCIN/NS 750 MG IVPB 750 MG/150 ML BAG 120 MG IV (10:48)
--- NOTE | 2024-12-30 13:41 | PC.NURSE ---
I had set a time of 1300 with RT June to transfer pt to Subacute, she let me know she will be here as soon as she is able
--- NOTE | 2025-01-12 18:26 | ESDS_ITS ---
Patient Name: DEQUAN RANDALL : 1950 Planned Discharge Date 12/30/24 DS: Providers Provider Date of admission: 05/18/23 00:01 Primary care physician: Abdoul Wisdom MD Admitting Provider: Abdoul Wisdom MD Attending Provider on Admission: Abdoul Wisdom MD Consults: 01/05/24 16:49 Referral Wound Care Routine Comment: Consult Instructions: Please check grayish mole like to rt anterior forearm. Res. Hx squamous cell CA 07/07/24 10:22 Consult to Optometry Routine Comment: Consulting Provider: 09/01/24 08:00 Consult to Podiatry Routine Comment: Consulting Provider: Consult to Podiatry Routine Comment: Routine podiatric visit Consulting Provider: Kike Swenson 09/13/24 22:16 Referral Wound Care Routine Comment: Right FA growth 10/17/24 15:50 Referral Wound Care Routine Comment: Instructions: fungal dermatitis to bilateral buttocks and upper posterior thigh 12/06/24 02:12 Consult to Podiatry Routine Comment: Consulting Provider: Kike Swenson Attending Provider on DC: Nguyễn Hanley MD Discharging Provider: Nguyễn Hanley MD DS: Diagnosis Problem List Completed Was Problem List Reviewed/Reconciled?: Yes Hospital Course Hospital Course Hospital course: Ms. Randall is a 73-year-old female with past medical history of PEG since 2018 secondary to CVA and chronic trach in 2019, Hx of skin cancer with last chemotherapy session in 2018, shingles, hypertension, type 2 diabetes, hyperlipidemia presented to [facility] ED from subacute due to increased work of breathing admitted for sepsis likely secondary to ventilator associated pneumonia and started the patient on broad-spectrum IV antibiotics. Although blood cultures were negative, sputum cultures grew serratia marcescens and proteus mirabilis. During hospitalization it was discovered pt's PEG tube was dislodge and GI was consulted and PEG tube was replaced. 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 Pt is recommended to continue taking protonix 40mg daily. Pt is hemodynamically stable and back to baseline, Pt does open eyes to verbal and painful stimuli. Pt is ready to be discharged back to subacute with augmentinand levofloxacin for additional 4 days. It is advised if pt's symptoms return or worsen to promptly return to the ED. Hospitalization Diagnosis #Sepsis 2/2 to Ventilator-Associated Pneumonia. #Ventilator asynchrony. #Chronically trach and PEG. #PEG tube malfunction. #GI bleeding. #Acute blood loss anemia. #Normocytic anemia. #Thrombocytopenia. #Electrolyte abnormalities. #Tube feeds. #Hypertension. #Hyperlipidemia. #History of CVA. #Xhb-rprfyoo-zkajjmtui, type 2 diabetes. #Sacral wound. #History of skin cancer, completed chemo in 2018.` Assessment and plan discussed with my attending physician Dr. Johnie Hanley (PGY-1)- Internal medicine resident Time Spent with Patient Time attestation: Total time spent providing and/or coordinating discharge services: Time spent: Less than 30 minutes Exam Vital Signs Temp Pulse Resp BP Pulse Ox O2 Del Method O2 Flow Rate 97.1 F 61 27 H 119/63 98 Mechanical Ventilation 6 12/27/24 00:00 12/30/24 14:00 12/27/24 00:00 12/27/24 00:00 12/30/24 14:00 12/26/24 16:49 12/26/24 16:49 FiO2 35 12/30/24 14:00 Narrative Exam GENERAL: Trach and PEG, does not follow command, appears frail, nonverbal at baseline NEURO: no focal neurological deficits HEENT: Atraumatic, Normocephalic. mucous membranes moist. opens eyes to verbal/painful stimuli HEART: Normal Heart Sounds LUNGS: Mechanical breath sounds heard bilaterally with no wheezing or crackles. ABDOMEN: soft, non-distended, non-tender, bowel sounds heard, no guarding or rebound tenderness SKIN: No Rash or ecchymoses EXTREMITIES: No edema, tenderness, able to move all 4 extremities, pedal pulses palpated Discharge Plan Problem List Was Problem List Reviewed/Reconciled?: Yes Plan Patient Disposition: Admit Acute Care w/in Hospital Prescriptions/Referrals Prescriptions/Med Rec: No Action metformin 500 mg Tablet 500 mg PO BID aspirin 81 mg Tablet,Chewable 81 mg PO QDAY atorvastatin 20 mg Tablet 20 mg PO QDAY lisinopril 20 mg Tablet 20 mg PO QDAY amlodipine 5 mg Tablet 10 mg PO QDAY Qty: 30 0RF ferrous sulfate 220 mg (44 mg iron)/5 mL Elixir 220 mg PO QDAY levofloxacin 750 mg tablet 750 mg PO QDAY 4 Days Qty: 4 0RF amoxicillin-pot clavulanate 875-125 mg tablet 1 tab PO BID 4 Days Qty: 8 0RF Referrals: Abdoul Wisdom MD [Primary Care Provider] - Patient/Caregiver Discharge Instructions Print Language: Tuvaluan Stand Alone Forms: [employer] Award Info., Patient Portal Info Letter Quality Discharge Quality Measures VTE prophylaxis Attestestation MD Attestation I attest that I was physically present for the evaluation, physical examination, lab and imaging review of the patient with the residents. I discussed the case with the residents and agree with the findings and plans of care as documented above. Shamar Jett MD CC: Abdoul Wisdom MD; ~ MTDD
== END 2024-12-30 14:00 | disposition admitted as inpatient to this hospital (09) | DRG 871 ==
LOC: SERX 04:48 → SERHOLD 05:18 → S3SX 09:20
PROVIDERS: Specialist; Student in an Organized Health Care Education/Training Program; Admitting Provider Internal Medicine; Emergency Provider Emergency Medicine; PCP Specialist; Visit Provider Student in an Organized Health Care Education/Training Program
PROC: (CPT 43239; principal; 2024-12-29 16:30)
DX: A41.9 Sepsis, unspecified organism (principal); J96.21 Acute and chronic respiratory failure with hypoxia; K22.11 Ulcer of esophagus with bleeding; K25.4 Chronic or unspecified gastric ulcer with hemorrhage; J95.851 Ventilator associated pneumonia; K94.23 Gastrostomy malfunction; J90 Pleural effusion, not elsewhere classified; D62 Acute posthemorrhagic anemia; E87.1 Hypo-osmolality and hyponatremia; E87.29 Other acidosis; Z99.11 Dependence on respirator [ventilator] status; E11.9 Type 2 diabetes mellitus without complications; I69.398 Other sequelae of cerebral infarction; E78.5 Hyperlipidemia, unspecified; E87.8 Other disorders of electrolyte and fluid balance, not elsewhere classified; D69.6 Thrombocytopenia, unspecified; E87.5 Hyperkalemia; I11.9 Hypertensive heart disease without heart failure; Z85.828 Personal history of other malignant neoplasm of skin; Z74.01 Bed confinement status; Z66 Do not resuscitate; Y84.8 Other medical procedures as the cause of abnormal reaction of the patient, or of later complication, without mention of misadventure at the time of the procedure; Z92.21 Personal history of antineoplastic chemotherapy; Z79.899 Other long term (current) drug therapy; Z79.84 Long term (current) use of oral hypoglycemic drugs; Z79.82 Long term (current) use of aspirin
CPT/HCPCS: 36415; 36600; 71045; 80048; 80053; 80069; 80202; 82728; 82803; 83540; 83550; 83605; 83690; 83735; 83880; 84100; 84145; 84484; 85014; 85018; 85025; 85046; 86850; 86900; 86901; 86923; 87040; 87077; 87081; 87186; 87205; 87400; 87502; 87634; 87811; 93005; 93225; 94003; 96365; 96366; 96368; 99285; J1650; J2250; J2470; J2543; J3010; J3370; J3475; J7030; J7042; J7050; P9016; A9270

== ENCOUNTER 2025-01-23 03:00 | Inpatient (IN) | payer MEDICARE, MEDICAID, SELFPAY ==
[2025-01-23] VITALS (16 sets, daily range): BP systolic 101–124; BP diastolic 49–81; PULSE 54–97; RESP 17–22; TEMP 33.3–37.2; O2SAT 93–100; BMI 35.1
--- NOTE | 2025-01-23 03:14 | XR_ITS ---
Examination: AP chest single view Technique one AP portable semiupright chest single view Exam date and time: January 23, 2025 0351 hours INDICATIONS: Hypothermia today. FINDINGS: Mild to moderate CHF Mild enlargement cardiac contour. Prominent vascular congestion with septal edema Right internal jugular dialysis catheter tip satisfactory position IMPRESSION: Mild to moderate CHF
--- NOTE | 2025-01-23 03:14 | EKG_ITS ---
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
--- NOTE | 2025-01-23 03:15 | PD.EDADULT ---
ED General RME/HPI General Chief complaint: General Adult/Misc Complain Stated complaint: LOW TEMP Time Seen by Provider: 01/23/25 03:13 Arrival date/time: 01/23/25 03:00 RME / HPI RME / HPI narrative: Dr. Johnson?s Main ED Evaluation: 74yo female with a history of CVA, DM, HTN, s/p PEG tube and tracheostomy brought in from subacute presents to the ED for a chief complaint of hypothermia. Patient was sent over for evaluation after subacute staff found the patient's rectal temperature to be 91.2. RT at bedside denies any recent changes in the patient's ventilation settings. Full ROS is unobtainable due to the patient being nonverbal. Related Data Home Medications ?Medication ?Instructions ?Recorded ?Confirmed aspirin 81 mg chewable tablet 81 mg PO QDAY 06/30/20 04/01/21 metformin 500 mg tablet 500 mg PO BID 06/30/20 04/01/21 ferrous sulfate 220 mg (44 mg 220 mg PO QDAY 03/07/21 04/01/21 iron)/5 mL oral elixir atorvastatin 20 mg tablet 20 mg PO QDAY 04/01/21 04/01/21 lisinopril 20 mg tablet 20 mg PO QDAY 04/02/21 04/02/21 Previous Rx's ?Medication ?Instructions ?Recorded amlodipine 5 mg tablet 10 mg (2 x 5 mg) PO QDAY #30 tabs 04/05/21 amoxicillin 875 mg-potassium 1 tab PO BID 4 days #8 tabs 12/30/24 clavulanate 125 mg tablet levofloxacin 750 mg tablet 750 mg PO QDAY 4 days #4 tabs 12/30/24 Allergies Allergy/AdvReac Type Severity Reaction Status Date / Time No Known Allergies Allergy Verified 03/11/21 09:57 Review of Systems Review of Systems ROS Unobtainable: other (unobtainable due to the patient being nonverbal) ED Exam Narrative Physical exam: GENERAL APPEARANCE: nonverbal at baseline, trach and PEG tube dependent, bedbound, no acute distress. HEENT: NC, AT. MMM. EOMI, clear conjunctiva, oropharynx clear. NECK: Supple without lymphadenopathy. No stiffness or restricted ROM. HEART: Normal rate and regular rhythm, normal S1/S1, no m/r/g LUNGS: CTAB, moving air well. No crackles or wheezes are heard. ABDOMEN: Soft, nontender, nondistended with good bowel sounds heard. BACK: No midline C/T/L spine pain or deformity, No CVAT, no obvious deformity. EXTREMITIES: Without cyanosis, clubbing or edema. MUSCULOSKELETAL: Bedbound, no chest tenderness NEUROLOGICAL: Nonverbal at baseline. Bedbound. Skin: Warm and dry without any rash. Course Course Course Narrative: CXR is ordered for determining the etiology of hypothermia. Patient placed on a warming blanket. Quality Measures none Orders Category Date Time Status Bedside Blood Glucose NOW Care 01/23/25 03:[address] Screening NOW Care 01/23/25 05:51 Active Watch And Clock Repairer Q4H START 00 Care 01/23/25 03:13 Active EKG (ED ONLY) *Do not use* NOW Care 01/23/25 03:14 Completed Rodriguez [Urinary Catheter] QS Care 01/23/25 03:25 Active Initiate Warming Therapy NOW Care 01/23/25 03:13 Active Insert IV NOW Care 01/23/25 03:[address] chest abdomen pelvis w Stat Exams 01/23/25 05:51 Ordered EKG (ED Only) Stat Exams 01/23/25 03:14 Draft XR chest 1V Stat Exams 01/23/25 03:14 Taken Blood Culture (Lab) Stat Lab 01/23/25 03:20 Received CBC Stat Lab 01/23/25 03:25 Completed CMP [Comprehensive Metabolic Panel] Stat Lab 01/23/25 03:25 Completed Lactate (Lactic Acid) Stat Lab 01/23/25 03:25 Results Lipase Stat Lab 01/23/25 03:25 Completed Partial Thromboplastin Time Stat Lab 01/23/25 03:25 Completed Procalcitonin Stat Lab 01/23/25 03:25 Completed Prothrombin Time with INR Stat Lab 01/23/25 03:25 Completed Troponin I Stat Lab 01/23/25 03:25 Completed Urinalysis Stat Lab 01/23/25 03:50 Completed Sodium Chloride 0.9% 1000 ml [Ns] 1,000 ml Med 01/23/25 04:12 Discontinued IV 999 mls/hr Sodium Chloride 0.9% 1000 ml [Ns] 1,000 ml Med 01/23/25 04:12 Discontinued IV 999 mls/hr Reevaluation(s) Reevaluation #1: Rectal temperature is now 94.5. Patient placed back on the warming blanket. CT chest abdomen pelvis ordered. Time: 05:50 Vital Signs Vital signs: Vital Signs Pulse Rate 54 L 01/23/25 03:07 Blood Pressure 101/49 L 01/23/25 03:07 Pulse Oximetry (%) 100 01/23/25 03:07 Fraction of Inspired Oxygen 35 01/23/25 03:07 Discharge Plan Prescriptions/Referrals Prescriptions/Med Rec: No Action metformin 500 mg Tablet 500 mg PO BID aspirin 81 mg Tablet,Chewable 81 mg PO QDAY atorvastatin 20 mg Tablet 20 mg PO QDAY lisinopril 20 mg Tablet 20 mg PO QDAY amlodipine 5 mg Tablet 10 mg PO QDAY Qty: 30 0RF ferrous sulfate 220 mg (44 mg iron)/5 mL Elixir 220 mg PO QDAY levofloxacin 750 mg tablet 750 mg PO QDAY 4 Days Qty: 4 0RF amoxicillin-pot clavulanate 875-125 mg tablet 1 tab PO BID 4 Days Qty: 8 0RF Referrals: Abdoul Wisdom MD [Primary Care Provider] - In 1 week Problem List Clinical Impression: Hypothermia, Dehydration Patient/Caregiver Discharge Instructions Print Language: Kiswahili MDM Narrative MDM hospital course (for use when minimal MDM required): Scribe Attestation: 01/23/25 - Debi Fuentes am scribing for and in the presence of Dr. Johnson. 0600: Care signed out to Dr. Dean (emergency physician). Past medical, surgical, social and family history reviewed. Vitals and home medications reviewed. Results and treatment plan discussed. They will assume the care of the patient at this time and will follow the patient, pending CT chest abdomen pelvis. Clinical Information Other: subacute staff Medical Records reviewed [facility] (Per chart review, patient was admitted here on 12/27/24 for bilateral pneumonia.) and other (Per POLST, patient is a full code.) Meds/Rx considered, not ordered None Labs/Rad/Tests considered, not ordered None Chronic Illness/Social Conditions Explain: History of CVA, DM, HTN, s/p PEG tube and tracheostomy EKG Interpretation EKG #1: EKG Interpretation: EKG done at 0329, sinus bradycardia, rate of 56, normal intervals, normal axis, no acute ST or T wave changes, according to my interpretation. Labs Labs: Interpreted by me Lab(s) Interpretation(s): WBC count is normal, PT and INR are normal, PTT is normal, Lactic Acid is 2.5, troponin is normal, Lipase is normal, Procalcitonin is normal, UA is negative for UTI. Imaging Imaging interpretation: Interpreted by me Imaging Interpretation(s): CXR is a limited study due to the patient's position, but does not show any acute cardiopulmonary findings. Medication Administration(s) Medication Administration History Discontinued Medications Sodium Chloride (Ns) 1,000 mls @ 999 mls/hr IV .Q1H1M ONE Stop: 01/23/25 05:12 Last Admin: 01/23/25 04:27 Dose: 999 mls/hr Documented By: BD Sodium Chloride (Ns) 1,000 mls @ 999 mls/hr IV .Q1H1M ONE Stop: 01/23/25 05:12 Last Admin: 01/23/25 04:27 Dose: 999 mls/hr Documented By: BD see above Diagnosis Differential Diagnosis ED Complaint MDM: dehydration, sepsis, pneumonia, UTI, hypoglycemia
[2025-01-23 03:37] LABS: Lactate (Lactic Acid) 2.5 mMol/L (0.4-2.0)
[2025-01-23 03:41] LABS: Basophils % (Auto) 0 % (0-2.5); Eosinophils # (Auto) 0.1 Thou/mm3 (0.0-0.5); Eosinophils % (Auto) 1 % (0-10); Immature Granulocytes % (Auto) 2 % (0-0); Immature Granulocytes Auto 0.09 Thou/mm3 (0.00-0.00); Lymphocytes # (Auto) 1.2 Thou/mm3 (1.0-4.8); Lymphocytes % (Auto) 24 % (10-50); Mean Corpuscular HGB Conc 33.3 g/dl (31.0-37.0); Mean Corpuscular Volume 93 fL (80-100); Monocytes # (Auto) 0.3 Thou/mm3 (0.0-0.8); Monocytes % (Auto) 6 % (0-12); Neutrophils # (Auto) 3.3 Thou/mm3 (1.8-7.7); Neutrophils % (Auto) 66 % (37-80); Nucleated Red Blood Cell # 0.06 Thou/mm3 (0.00-0.00); Nucleated Red Blood Cell % 1 /100 WBC (0); Platelet Count 180 Thou/mm3 (140-440); RDW Standard Deviation 63.1 fL (36.4-46.3)
[2025-01-23 03:53] LABS: Partial Thromboplastin Time 28.8 Seconds (22.0-36.0); Prothrombin Time 10.9 Seconds (9.0-12.2)
[2025-01-23 04:07] LABS: Alanine Aminotransferase 15 U/L (10-49); Albumin, Serum 3.9 gm/dL (3.4-4.8); Albumin/Globulin Ratio 1.4 (1.2-2.2); Alkaline Phosphatase 143 U/L (46-116); Anion Gap 4 (7-16); Aspartate Amino Transferase 18 U/L (0-34); BUN/Creatinine Ratio 52 Ratio (12-20); Bilirubin,Total 0.3 mg/dL (0.3-1.2); Blood Urea Nitrogen 26 mg/dL (9-23); Calcium 9.3 mg/dL (8.3-10.6); Calcium (Corrected) 9.4 mg/dL (8.5-10.1); Carbon Dioxide 31.6 mMol/L (20.0-31.0); Chloride 98 mMol/L (98-107); Creatinine (Component) 0.5 mg/dL (0.6-1.3); Globulin 2.8 gm/dL (2.3-3.5); Glucose 73 mg/dL (74-106); Lipase 25 U/L (12-53); Osmolality,Calculated 271 (275-295); Potassium 4.7 mMol/L (3.4-5.1); Sodium 134 mMol/L (136-145); Total Protein 6.7 gm/dL (5.7-8.2); Troponin I < 0.020 ng/mL (0.0-0.045); eGFR > 60 See Note
[2025-01-23 04:09] LABS: Procalcitonin 0.23 ng/ml (0.0-0.49)
[2025-01-23 04:16] LABS: Collection Type, Urine Catheter; WBC,Urine 0 /hpf (0-5)
[2025-01-23 04:24] LABS: Bilirubin,Urine Negative (Negative); Blood,Urine 3+ (Negative); Clarity,Urine Clear (Clear/Hazy); Color,Urine Colorless (Lt Yel-Yel); Glucose, Urine Negative (Negative); Ketones,Urine Negative (Negative); Leukocyte Esterase,Urine Negative (Negative); Nitrite,Urine Negative (Negative); PH,Urine 6.5 (5.0-7.0); Protein,Urine 1+ (Neg - Trace); RBC,Urine 82 /hpf (0-3); Specific Gravity,Urine 1.007 (1.001-1.035); Squamous Epithelial Cell,Urine 1 /hpf (0-5); Urobilinogen,Urine Negative mg/dL (0.0-1.0)
[2025-01-23] MEDS: SODIUM CHLORIDE 0.9% 1000 ML 1,000 ML 999 ML IV ×2 (04:27)
--- NOTE | 2025-01-23 05:51 | XR_ITS ---
Examination: CT chest with intravenous contrast CT abdomen with intravenous contrast CT pelvis with intravenous contrast 2-D coronal and sagittal reconstructions Time of exam: January 23, 2025 0816 hours INDICATIONS: Sepsis alert, hypoxic respiratory failure CTDI: vol (mGy) : 22.4 DLP: (mGycm): 1443 Technique: Multiple axial images of the chest, abdomen and pelvis with intravenous contrast, 3.0 mm slice thickness. Images obtained post intravenous injection Isovue 370 60 cc. 2-D sagittal and coronal reconstructions. Low dose protocols were performed. One or more of the following dose reduction techniques were used; automated exposure control, adjustment of the mA and/or KV according to patient size, use of iterative reconstruction technique. Findings: Bilateral prominent thyroid nodules Tracheal tube tip 4.6 cm above eleuterio Thoracic aortic calcification no aneurysmal dilatation Pulmonary artery opacification is poor Prominent pneumonia at the lung bases Prominent vascular congestion with septal edema in the lung schneider Retrocardiac gastric hernia No focal liver or splenic lesions No gallstones Gastrostomy tube satisfactory position Significant mucosal edema involving the stomach No pancreatic mass No hydronephrosis Dense abdominal aortic calcification No pericecal inflammatory change No bowel obstruction Atrophic uterus Urinary bladder wall is thickened, contracted around a Rodriguez catheter Severe osteopenia with severe chronic osteoporotic compressions L2 T12. IMPRESSION: Bilateral thyroid nodules, recommend dedicated thyroid sonography follow-up Mild heart failure Significant bibasilar pneumonia Gastritis pattern Significant thickening of the urinary bladder wall, consider cystitis
[2025-01-23 06:33] LABS: Reflex Lactate? Y
[2025-01-23] MEDS: DEXTROSE 50%-WATER INJ 50 ML SYRINGE IV ×2 (07:17→18:38)
[2025-01-23 07:23] LABS: Lactic Acid, 3 HR 1.4 mMol/L (0.4-2.0)
--- NOTE | 2025-01-23 07:33 | EDNOTE_ITS ---
Emergency Room Addendum Addendum Narrative: 0600: Care assumed from Dr. Johnson, the previous shift emergency physician. Past medical, surgical, social and family history reviewed. Vitals and home medications reviewed. I will assume the care of the patient at this time, pending CT chest abdomen pelvis w con and final disposition. Please refer to the emergency department record for history and examination from initial visit.?The following addendum documentation note is intended to reflect any pending information, findings, or radiology results not included in the patient?s initial chart. Nursing notes reviewed by me. Vital signs reviewed by me. Subacute records reviewed by me. [place] medical records reviewed by me. 1155: I spoke with patients daughter who stated medical problems began after major stroke in 2019. States patient began to have problems with her breathing leading to tracheotomy placement and ventilator dependence. The patients daughter was informed we would try to admit. 1200: I spoke with hospitalist Dr. Thacker. Discussed patients PMHx, HPI, ED course, exam findings, labs, and radiology results. The hospitalist agree to accept the patient for admission. DIAGNOSIS: Bibasilar pneumonia Mild CHF Bilateral thyroid nodules Respiratory failure with ventilator dependance Hypothermia RADIOLOGY Ordering Physician: Ajith Johnson MD Date of Service: 01/23/25 Procedure(s): CT chest abdomen pelvis w Accession Number(s): [id number] cc: Ajith Johnson MD; Buck Chirinos MD; Abdoul Wisdom MD~ Examination: CT chest with intravenous contrast CT abdomen with intravenous contrast CT pelvis with intravenous contrast 2-D coronal and sagittal reconstructions Time of exam: January 23, 2025 0816 hours INDICATIONS: Sepsis alert, hypoxic respiratory failure CTDI: vol (mGy) : 22.4 DLP: (mGycm): 1443 Technique: Multiple axial images of the chest, abdomen and pelvis with intravenous contrast, 3.0 mm slice thickness. Images obtained post intravenous injection Isovue 370 60 cc. 2-D sagittal and coronal reconstructions. Low dose protocols were performed. One or more of the following dose reduction techniques were used; automated exposure control, adjustment of the mA and/or KV according to patient size, use of iterative reconstruction technique. Findings: Bilateral prominent thyroid nodules Tracheal tube tip 4.6 cm above eleuterio Thoracic aortic calcification no aneurysmal dilatation Pulmonary artery opacification is poor Prominent pneumonia at the lung bases Prominent vascular congestion with septal edema in the lung schneider Retrocardiac gastric hernia No focal liver or splenic lesions No gallstones Gastrostomy tube satisfactory position Significant mucosal edema involving the stomach No pancreatic mass No hydronephrosis Dense abdominal aortic calcification No pericecal inflammatory change No bowel obstruction Atrophic uterus Urinary bladder wall is thickened, contracted around a Rodriguez catheter Severe osteopenia with severe chronic osteoporotic compressions L2 T12. IMPRESSION: Bilateral thyroid nodules, recommend dedicated thyroid sonography follow-up Mild heart failure Significant bibasilar pneumonia Gastritis pattern Significant thickening of the urinary bladder wall, consider cystitis Dictated By: Buck Chirinos MD Signed By: <Electronically signed by Buck Chirinos MD in OV> 01/23/25 0942
[2025-01-23] MEDS: DEXTROSE 5%-WATER 500 ML 150 ML IV (07:40)
--- NOTE | 2025-01-23 08:20 | PC.NURSE ---
CONTINUOUS RECTAL TEMP INSERTED
--- NOTE | 2025-01-23 09:36 | PC.NURSE ---
ORDERED STRAIGHT CATH ON WRONG PT.
[2025-01-23] MEDS: PANTOPRAZOLE INJ 40 MG VIAL IVP (12:15)
[2025-01-23] MEDS: cefTRIAXone 2 GM in SODIUM CHLORIDE 0.9% (Popper) 50 ML IV (12:19)
[2025-01-23] MEDS: DEXTROSE 5%-WATER 500 ML 100 ML IV (12:52)
[2025-01-23] MEDS: DOXYCYCLINE INJ 100 MG in SODIUM CHLORIDE 0.9% (POP) 100 ML IV (12:53)
--- NOTE | 2025-01-23 12:59 | PD.HHHP ---
Documentation for date of: 01/23/25 HPI - Hospitalist History of Present Illness History of present illness: Patient is a 74-year-old female with past medical history of failure to thrive requiring chronic trach and PEG since 2018 secondary to CVA, lymphoma in 2017, hypertension who is brought to the ED from her subacute facility due to hypothermia. Patient was noted to have a rectal temperature of 91.2. Daughter was at bedside at time of my evaluation in the ED. At baseline, patient is able to open her right eye and will respond yes with a blank in no by closing her right eye. Chest x-ray shows mild to moderate CHF chest/abdomen/pelvis CT shows bilateral thyroid nodules, mild heart failure, significant bibasilar pneumonia, gastritis pattern and significantly thinning of urinary bladder wall. UA negative for UTI. Patient noted to have lactic acidosis of 2.5 which improved with some IV fluid hydration of 2 L normal saline to 1.4. No changes in ventilator settings and mild secretions noted from trach. Per bedside nurse, blood glucose was also noted to be 60 and patient was started on D5W. Surgical hx: denies SocHx: No alcohol, tobacco or drug use Meds Home Medications and Allergies Home Medications ?Medication ?Instructions ?Recorded ?Confirmed ?Type aspirin 81 mg chewable tablet 81 mg PO QDAY 06/30/20 04/01/21 History ferrous sulfate 220 mg (44 mg 220 mg PO QDAY 03/07/21 04/01/21 History iron)/5 mL oral elixir atorvastatin 20 mg tablet 20 mg PO QDAY 04/01/21 04/01/21 History lisinopril 20 mg tablet 20 mg PO QDAY 04/02/21 04/02/21 History Allergies Allergy/AdvReac Type Severity Reaction Status Date / Time No Known Allergies Allergy Verified 03/11/21 09:57 Exam Vital Signs Temp Pulse Resp BP Pulse Ox O2 Del Method FiO2 97.7 F 83 20 116/58 L 98 Mechanical Ventilation 35 01/23/25 11:24 01/23/25 11:24 01/23/25 11:24 01/23/25 11:24 01/23/25 11:24 01/23/25 11:01/23/25 07:43 Narrative Gen: No acute distress HEENT: NCAT, PERRLOU, Sclera anicteric, conjunctiva noninjected, oral mucosa moist without erythema Neck: Supple, trach in place, clean, dry and intact CV: RRR, no murmurs, rubs or gallops Resp: B/l Rhonchi, mechanical breath sounds noted, thick white secretions GI: abdomen soft, obese, bowel sounds noted, no tenderness to palpation, no guarding or rebound tenderness, no organomegaly Skin: clean, dry, no rashes, lesions or ecchymosis Ext: no clubbing, cyanosis, or edema Neuro: gag reflex and babinski reflex intact. Opens right eye spontaneously. Results - Hospitalist Labs Diagrams: 01/23/25 03:25 01/23/25 03:25 Labs: Short CBC 01/23/25 Range/Units 03:25 WBC 5.0 (3.6-11.0) Thou/mm3 Hgb 9.0 L (12.0-16.0) g/dL Hct 27.0 L (36.0-46.0) % Plt Count 180 (140-440) Thou/mm3 BMP 01/23/25 03:25 Sodium 134 L Potassium 4.7 Chloride 98 Carbon Dioxide 31.6 H BUN 26 H Creatinine 0.5 L Glucose 73 L Calcium 9.3 Cardiac Enzymes 01/23/25 Range/Units 03:25 Troponin I < 0.020 (0.0-0.045) ng/mL Liver Function 01/23/25 Range/Units 03:25 Total Bilirubin 0.3 (0.3-1.2) mg/dL AST 18 (0-34) U/L ALT 15 (10-49) U/L Alkaline Phosphatase 143 H (46-116) U/L Albumin 3.9 (3.4-4.8) gm/dL Urine 01/23/25 Range/Units 03:50 Urine Color Colorless A (Lt Yel-Yel) Urine Clarity Clear (Clear/Hazy) Urine pH 6.5 (5.0-7.0) Ur Specific [place] 1.007 (1.001-1.035) Urine Protein 1+ A (Neg - Trace) Urine Glucose (UA) Negative (Negative) Assessment & Plan -Hospitalist Patient Synopsis Patient is a 74-year-old female from subacute facility with past medical history of hypertension, lymphoma, failure to thrive requiring chronic trach and PEG admitted for hypothermia and pneumonia. Hypothermia Ventilator associated pneumonia Chronic respiratory failure - History of ESBL Klebsiella noted on previous sputum cultures -Will start with broad-spectrum antibiotics including vancomycin and meropenem - warming measures -No ventilator changes at this time -Blood and sputum cultures pending Failure to thrive PEG and trach dependence -Will consult dietitian to start PEG tube feedings - will start Promote with fiber at 20 ml/hr via G-tube by pump. Advance 10 ml every 8 hrs to goal rate of 48 ml/hr x 20 hrs at this time with 30mL/hr free water flushes to avoid hypoglycemia Hypoglycemia, resolved - DC D5W due to concern for hyponatremia and fluid overload as noted on imaging. - start G tube feedings - BG check ACHS HTN - resume home meds once med rec is available ? DM - A1C of 5.2, daughter states she does not think the patient has DM - DC metformin Nutrition: PEG tube feedings Promote with Fiber DVT Prophylaxis: lovenox Code Status: DNR Disposition: Tele Quality Measures Quality Measures none Advance care planning discussed with:: child
--- NOTE | 2025-01-23 14:10 | PC.NURSE ---
RT CONTACTED TO HELP TRANSPORT PT
[2025-01-23] MEDS: MEROPENEM INJ 1,000 MG in SODIUM CHLORIDE 0.9% (Popper) 50 ML 100 MG IV ×2 (16:07→22:23)
[2025-01-23] MEDS: VANCOMYCIN/NS 1 GM IVPB 200 ML IV (16:45)
[2025-01-24] VITALS (11 sets, daily range): BP systolic 113–126; BP diastolic 56–68; PULSE 58–79; RESP 13–22; TEMP 36.4–37.5; O2SAT 95–100; BMI 35.9; BMI 32.8
[2025-01-24 05:25] LABS: Basophils % (Auto) 0 % (0-2.5); Eosinophils % (Auto) 1 % (0-10); Hematocrit 27.7 % (36.0-46.0); Immature Granulocytes % (Auto) 1 % (0-0); Immature Granulocytes Auto 0.07 Thou/mm3 (0.00-0.00); Lymphocytes # (Auto) 1.9 Thou/mm3 (1.0-4.8); Lymphocytes % (Auto) 39 % (10-50); Mean Corpuscular HGB Conc 32.5 g/dl (31.0-37.0); Mean Corpuscular Hemoglobin 31.3 pg (25.0-35.0); Mean Corpuscular Volume 96 fL (80-100); Monocytes # (Auto) 0.4 Thou/mm3 (0.0-0.8); Monocytes % (Auto) 9 % (0-12); Neutrophils # (Auto) 2.5 Thou/mm3 (1.8-7.7); Neutrophils % (Auto) 50 % (37-80); Nucleated Red Blood Cell # 0.06 Thou/mm3 (0.00-0.00); Nucleated Red Blood Cell % 1 /100 WBC (0); Platelet Count 181 Thou/mm3 (140-440); RDW Standard Deviation 66.7 fL (36.4-46.3); Red Blood Count 2.88 Miln/mm3 (4.00-5.20)
[2025-01-24 05:30] LABS: Anion Gap 6 (7-16); BUN/Creatinine Ratio 27 Ratio (12-20); Blood Urea Nitrogen 19 mg/dL (9-23); Calcium 8.6 mg/dL (8.3-10.6); Carbon Dioxide 29.2 mMol/L (20.0-31.0); Chloride 105 mMol/L (98-107); Creatinine (Component) 0.7 mg/dL (0.6-1.3); Glucose 110 mg/dL (74-106); Magnesium 1.5 mg/dL (1.6-2.6); Osmolality,Calculated 282 (275-295); Phosphorous 2.5 mg/dL (2.4-5.1); Potassium 4.2 mMol/L (3.4-5.1); Sodium 140 mMol/L (136-145); eGFR > 60 See Note
[2025-01-24] MEDS: MEROPENEM INJ 1,000 MG in SODIUM CHLORIDE 0.9% (Popper) 50 ML 100 MG IV ×3 (05:36→21:34)
--- NOTE | 2025-01-24 08:33 | PC.DIETICIAN ---
Nutrition Prescription: 1) Promote with fiber at 20 ml/hr via G-tube by pump. Advance 10 ml every 8 hrs to goal rate of 40 ml/hr x 24 hrs. If no IV fluids, water flushes of 30 ml/hr (or per MD). 2) Consider Prostat SF BID with breakfast and dinner via G-Tube. Thank you! :)
[2025-01-24] MEDS: ENOXAPARIN SOD INJ 40 MG/0.4 ML SYRINGE SC (09:03)
--- NOTE | 2025-01-24 09:59 | PD.RESPRO ---
Documentation for date of: 01/24/25 Subjective Subjective Interval history: Patient seen today at the bedside. Vital signs and labs reviewed. A1c evaluated low suspicion for diabetes mellitus as sugars have been running on the lower side. Continuing tube feeds with goal rate 48 mL/h. Will continue current antibiotics for ventilator associated pneumonia however low suspicion at this time as cultures have been negative patient has no other clinical symptoms. Suspect hypothermia is likely related to hypoglycemic episodes. upper extremities seem edematous 1x dose of albumin given Exam Vital Signs Temp Pulse Resp BP Pulse Ox O2 Del Method FiO2 99.5 F 68 13 117/68 97 Mechanical Ventilation 35 01/24/25 08:00 01/24/25 08:00 01/24/25 08:00 01/24/25 08:00 01/24/25 08:00 01/24/25 08:00 01/24/25 08:00 Narrative Exam Physical Exam GENERAL: NAD, obese HEENT: Moist mucosa with no erythema, anicteric sclera, opens right eye sometimes CARDIO: Heart RRR, no obvious murmurs PULM: No noted coughing/dyspnea, B/L rhonchi, clear secretions, GI: Abdomen soft, nondistended, no pain on palpation. BS+ SKIN/MSK/EXT: upper extremity edema b/l, no pain on palpation. Pedal pulses present B/L Objective Labs 01/24/25 05:00 01/24/25 05:00 Labs: Laboratory Results - last 24 hr 01/24/25 05:00 WBC 5.0 RBC 2.88 L Hgb 9.0 L Hct 27.7 L MCV 96 MCH 31.3 MCHC 32.5 RDW Std Deviation 66.7 H Plt Count 181 Neut % (Auto) 50 Lymph % (Auto) 39 [place] % (Auto) 9 Eos % (Auto) 1 Baso % (Auto) 0 Neut # (Auto) 2.5 Lymph # (Auto) 1.9 [place] # (Auto) 0.4 Eos # (Auto) 0.0 Baso # (Auto) 0.0 Immature Gran # (Auto) 0.07 H Absolute Nucleated RBC 0.06 H Immature Gran % 1 H Nucleated RBC % 1 H Sodium 140 Potassium 4.2 D Chloride 105 Carbon Dioxide 29.2 Anion Gap 6 L BUN 19 Creatinine 0.7 Estim Creat Clear Calc 65.0 eGFR > 60 BUN/Creatinine Ratio 27 H Glucose 110 H D Calculated Osmolality 282 Calcium 8.6 Phosphorus 2.5 Magnesium 1.5 L Quality Measures Quality Measures none Advance care planning discussed with:: patient Assessment & Plan Assessment Current Active Medications: Generic Name Dose Route Start Last Admin Trade Name Freq PRN Reason Stop Dose Admin Dextrose 50 ml 01/23/25 19:37 Dextrose 50%-Water Inj 50 Ml Syringe IV 02/22/25 19:36 Q15MIN PRN BG <50 OR BG <70 & pt unresponsive Enoxaparin Sodium 40 mg 01/24/25 09:00 01/24/25 09:03 Enoxaparin Sod Inj 40 Mg/0.4 Ml Syringe SC 02/07/25 08:59 40 mg QDAY BANG Administration Glucagon 1 mg 01/23/25 19:37 Glucagon Inj 1 Mg Vial IM Q15MIN PRN BG <70, and no IV access Meropenem 1,000 mg/ Sodium 50 mls @ 100 mls/hr 01/23/25 14:00 01/24/25 05:36 Chloride IV 01/30/25 13:59 100 mls/hr Q8HR BANG Administration Vancomycin/Sodium Chloride 750 mg in 150 mls @ 120 mls/hr 01/24/25 10:00 Vancomycin/Ns 750 Mg Ivpb IV 01/31/25 09:59 Q12H BANG Magnesium Sulfate 4 gm in 50 mls @ 12.5 mls/hr 01/24/25 09:22 Magnesium Sulfate Ivpb IV 01/24/25 13:21 X1 ONE Pharmacy Consult 1 each 01/23/25 12:30 Vancomycin Pharmacy To Dose 1 Each Each IV 02/22/25 12:29 QDAY PRN consult Plan 74-year-old female from subacute facility with past medical history of hypertension, lymphoma, failure to thrive requiring chronic trach and PEG admitted for hypothermia and pneumonia. #Hypoglycemia #Hypothermia #Low suspicion for diabetes A1c 5.2, on chart review A1c's have remained between 4.8 and 5.4 On med rec patient takes metformin, when speaking to the daughter she states the patient was put on metformin because PEG tube feeds were increasing the patient's blood sugars Current fingerstick 100 ? Warming measures ? DC metformin #Suspected ventilatory associated pneumonia #Chronic respiratory failure Patient does have history of ESBL Klebsiella from previous sputum cultures Blood cultures have been negative last Patient has clear white secretions, with some rhonchi bilaterally ? On vancomycin and meropenem ? Follow-up sputum cultures ? No changes in ventilator settings #Failure to thrive #Tracheostomy and PEG tube dependence ? PEG tube feeds promote with fiber at 20 mL/h via G-tube but pump advance 10 mL every 8 hours to goal rate of 48 mL/h x 20 hours with free water flushes to avoid hypoglycemia #Hypertension #Hx of CVA Requested records from subacute in regards to the patient's med rec ? Patient is normotensive will resume antihypertensives as tolerated ? Aspirin 81mg resumed Disposition: tele, possible dc in 24-48hours Fluids: None Feeding: Promote with fiber, adv to goal rate Thrombo prophylaxis: lovenox Gastric Ulcer prophylaxis: Pantoprazole CODE STATUS: DNR Case discussed with my attending Dr. Kirstie Zuleta MD PGY-1 Attending Provider Attestation/Addendum [place] DO, attest that I was physically present for the [place] portions of the service and evaluated the patient with the resident and I reviewed and discussed the case with the resident and agree with the resident's findings and plans of care as documented above Patient seen and evaluated this AM. Hypothermia and hypoglycemia resolved. Patient did need 1 amp of D50 prior to start of peg tube feedings due to Blood glucose in the 70s. Due to concern for fluid overload, DC'ed D5W. Patient noted to have b/l UE edema. Will give albumin. Will consider lasix if it does not resolve. Patient has thin and minimal secretions from trach. sputum culture shows no wbcs and no organisms. The suspciion for VAP is lower and hypothermia may be secondary to hypoglycemia. Will look into med rec from subacute for other causes of hypoglycemia. C-peptide sent. Rest of vitals are stable. Continue with current management. F/u with final cultures and sensitivities of blood.
[2025-01-24] MEDS: VANCOMYCIN/NS 750 MG IVPB 750 MG/150 ML BAG 120 MG IV ×2 (11:51→22:40)
[2025-01-24] MEDS: Magnesium Sulfate 4 GM Ivpb 4 GM/50 ML BAG IV (12:00)
[2025-01-24] MEDS: ALBUMIN HUMAN 25% IVPB 12.5 GM/50 ML BTL IV (13:26)
--- NOTE | 2025-01-24 17:39 | PC.NURSE ---
Contacted Dr. Stevenson, pt urine color changes. made aware.
[2025-01-24 22:03] LABS: Vancomycin,Trough 14.5 mcg/mL (5.0-10.0)
[2025-01-25] VITALS (13 sets, daily range): BP systolic 102–134; BP diastolic 50–67; PULSE 47–70; RESP 17–20; TEMP 36–36.3; O2SAT 90–100; BMI 32.9
[2025-01-25] MEDS: MEROPENEM INJ 1,000 MG in SODIUM CHLORIDE 0.9% (Popper) 50 ML 100 MG IV ×3 (05:21→21:05)
[2025-01-25 05:39] LABS: Basophils % (Auto) 1 % (0-2.5); Eosinophils # (Auto) 0.1 Thou/mm3 (0.0-0.5); Eosinophils % (Auto) 1 % (0-10); Hematocrit 27.2 % (36.0-46.0); Hemoglobin 8.9 g/dL (12.0-16.0); Immature Granulocytes % (Auto) 1 % (0-0); Immature Granulocytes Auto 0.08 Thou/mm3 (0.00-0.00); Lymphocytes # (Auto) 2.2 Thou/mm3 (1.0-4.8); Lymphocytes % (Auto) 38 % (10-50); Mean Corpuscular HGB Conc 32.7 g/dl (31.0-37.0); Mean Corpuscular Hemoglobin 31.3 pg (25.0-35.0); Mean Corpuscular Volume 96 fL (80-100); Monocytes # (Auto) 0.5 Thou/mm3 (0.0-0.8); Monocytes % (Auto) 9 % (0-12); Neutrophils # (Auto) 2.9 Thou/mm3 (1.8-7.7); Neutrophils % (Auto) 50 % (37-80); Nucleated Red Blood Cell # 0.05 Thou/mm3 (0.00-0.00); Nucleated Red Blood Cell % 1 /100 WBC (0); Platelet Count 157 Thou/mm3 (140-440); RDW Standard Deviation 68.4 fL (36.4-46.3); Red Blood Count 2.84 Miln/mm3 (4.00-5.20); White Blood Count 5.7 Thou/mm3 (3.6-11.0)
[2025-01-25 06:04] LABS: Anion Gap 7 (7-16); BUN/Creatinine Ratio 29 Ratio (12-20); Blood Urea Nitrogen 20 mg/dL (9-23); Calcium 8.6 mg/dL (8.3-10.6); Carbon Dioxide 27.7 mMol/L (20.0-31.0); Chloride 105 mMol/L (98-107); Creatinine (Component) 0.7 mg/dL (0.6-1.3); Estimated Creatinine Clearance 68.9 mL/min (>60); Glucose 134 mg/dL (74-106); Magnesium 2.2 mg/dL (1.6-2.6); Osmolality,Calculated 284 (275-295); Phosphorous 3.2 mg/dL (2.4-5.1); Potassium 4.1 mMol/L (3.4-5.1); Sodium 140 mMol/L (136-145); eGFR > 60 See Note
[2025-01-25] MEDS: ENOXAPARIN SOD INJ 40 MG/0.4 ML SYRINGE SC (08:27)
[2025-01-25] MEDS: FUROSEMIDE INJ 10 MG/ML 4ML VIAL 40 MG IVP (11:56)
--- NOTE | 2025-01-25 12:23 | PD.RESPRO ---
Documentation for date of: 01/25/25 Subjective Subjective Interval history: 01/25/2025: Overnight patient had a desaturation event to the low 80s; however, FiO2 was increased to 50% and oxygen saturation improved afterwards. Patient seen and assessed in hospital bed remains at current baseline, chronically trach and PEG. Patient's family updated regarding management. At this time, primary diagnosis remains hypothermia secondary to hyperglycemia. Will contact Dr. Ahn (subacute director) on 01/26 with the patient's status remained stable for discharge back to subacute. Exam Vital Signs Temp Pulse Resp BP Pulse Ox O2 Del Method FiO2 97.0 F 60 20 134/67 H 98 Mechanical Ventilation 50 01/25/25 08:00 01/25/25 11:56 01/25/25 08:00 01/25/25 11:56 01/25/25 08:00 01/25/25 08:00 01/25/25 01:45 Narrative Exam Physical Exam: GENERAL: Chronically trach impact HEENT: Moist mucosa with no erythema, anicteric sclera, opens right eye sometimes CARDIO: Heart RRR, no obvious murmurs PULM: Bilateral mechanical lung sounds, B/L rhonchi, white/clear secretions noted in collecting tube GI: Abdomen soft, nondistended, no pain on palpation. BS+ SKIN/MSK/EXT: upper extremity edema b/l, no pain on palpation. Pedal pulses present B/L Neuro: At baseline Objective Labs 01/26/25 05:52 01/26/25 05:52 Labs: Laboratory Results - last 24 hr 01/24/25 01/25/25 21:17 05:20 WBC 5.7 RBC 2.84 L Hgb 8.9 L Hct 27.2 L MCV 96 MCH 31.3 MCHC 32.7 RDW Std Deviation 68.4 H Plt Count 157 Neut % (Auto) 50 Lymph % (Auto) 38 [place] % (Auto) 9 Eos % (Auto) 1 Baso % (Auto) 1 Neut # (Auto) 2.9 Lymph # (Auto) 2.2 [place] # (Auto) 0.5 Eos # (Auto) 0.1 Baso # (Auto) 0.0 Immature Gran # (Auto) 0.08 H Absolute Nucleated RBC 0.05 H Immature Gran % 1 H Nucleated RBC % 1 H Sodium 140 Potassium 4.1 Chloride 105 Carbon Dioxide 27.7 Anion Gap 7 BUN 20 Creatinine 0.7 Estim Creat Clear Calc 68.9 eGFR > 60 BUN/Creatinine Ratio 29 H Glucose 134 H Calculated Osmolality 284 Calcium 8.6 Phosphorus 3.2 Magnesium 2.2 Vancomycin Trough 14.5 H Quality Measures Quality Measures none Advance care planning discussed with:: child (Daughter) Assessment & Plan Assessment Current Active Medications: Generic Name Dose Route Start Last Admin Trade Name Freq PRN Reason Stop Dose Admin Artificial Tears 1 drop 01/24/25 12:30 Artificial Tears 225 Drop/15 Ml Btl BOTH EYES 02/23/25 12:29 BID PRN TO KEEP EYES MOIST Dextrose 50 ml 01/23/25 19:37 Dextrose 50%-Water Inj 50 Ml Syringe IV 02/22/25 19:36 Q15MIN PRN BG <50 OR BG <70 & pt unresponsive Enoxaparin Sodium 40 mg 01/24/25 09:00 01/25/25 08:27 Enoxaparin Sod Inj 40 Mg/0.4 Ml Syringe SC 02/07/25 08:59 40 mg QDAY BANG Administration Glucagon 1 mg 01/23/25 19:37 Glucagon Inj 1 Mg Vial IM Q15MIN PRN BG <70, and no IV access Meropenem 1,000 mg/ Sodium 50 mls @ 100 mls/hr 01/23/25 14:00 01/25/25 05:21 Chloride IV 01/30/25 13:59 100 mls/hr Q8HR BANG Administration Plan 74-year-old female from subacute facility with past medical history of hypertension, lymphoma, failure to thrive requiring chronic trach and PEG admitted for hypothermia and pneumonia. #Hypoglycemia, resolved #Hypothermia #Low suspicion for diabetes A1c 5.2, on chart review A1c's have remained between 4.8 and 5.4 On med rec patient takes metformin, when speaking to the daughter she states the patient was put on metformin because PEG tube feeds were increasing the patient's blood sugars Current fingerstick 100+ on multiple rechecks Plan: Warming measures Discontinue metformin on discharge Follow-up on C-peptide #Suspected ventilatory associated pneumonia #Chronic respiratory failure Patient does have history of ESBL Klebsiella from previous sputum cultures Blood cultures have been negative last Patient has clear white secretions, with some rhonchi bilaterally Sputum Gram stain shows no organism, culture pending Plan: Continue IV meropenem Discontinued IV vancomycin Follow-up sputum cultures #Failure to thrive #Tracheostomy and PEG tube dependence PEG tube feeds with fiber at goal rate #Hypertension #Hx of CVA Requested records from subacute in regards to the patient's med rec Plan: Patient is normotensive will resume antihypertensives as tolerated Aspirin 81mg resumed Hospital Management: Fluids: None Feeding: Promote with fiber, adv to goal rate DVT prophylaxis: lovenox GI prophylaxis: Pantoprazole Dispo: Will contact Dr. Ahn on 01/26 to DC back to subacute CODE STATUS: DNR Patient seen and assessed with attending Dr. Kirstie Linn, PGY-1 Attending Provider Attestation/Addendum Gina, Lawanda Thacker, , attest that I was physically present for the [place] portions of the service and evaluated the patient with the resident and I reviewed and discussed the case with the resident and agree with the resident's findings and plans of care as documented above Patient seen and eval this a.m. O2 increased 35% to 50% overnight. Patient has remained normothermic. She has noted to have some edema in her bilateral upper extremities. No improvement with albumin. Will give 1 dose of Lasix. Rest of vitals are unremarkable. If patient remains stable in a.m., anticipate discharge back to subacute. Secretions from the tracheostomy appears thin and translucent. No growth to date in sputum cultures.
[2025-01-26] VITALS (11 sets, daily range): BP systolic 97–139; BP diastolic 57–71; PULSE 47–80; RESP 20; TEMP 34.4–37.3; O2SAT 92–99
[2025-01-26] MEDS: MEROPENEM INJ 1,000 MG in SODIUM CHLORIDE 0.9% (Popper) 50 ML 100 MG IV ×3 (05:08→21:53)
--- NOTE | 2025-01-26 05:53 | PC.NURSE ---
INFORMED DR MCKEON OF PT RECTAL TEMP OF 94.0. NEW ORDER TO START CHELY WARMER AT THIS TIME
[2025-01-26 06:18] LABS: Basophils % (Auto) 1 % (0-2.5); Eosinophils # (Auto) 0.1 Thou/mm3 (0.0-0.5); Eosinophils % (Auto) 3 % (0-10); Hematocrit 28.7 % (36.0-46.0); Hemoglobin 9.5 g/dL (12.0-16.0); Immature Granulocytes % (Auto) 1 % (0-0); Immature Granulocytes Auto 0.07 Thou/mm3 (0.00-0.00); Lymphocytes # (Auto) 1.6 Thou/mm3 (1.0-4.8); Lymphocytes % (Auto) 28 % (10-50); Mean Corpuscular HGB Conc 33.1 g/dl (31.0-37.0); Mean Corpuscular Hemoglobin 31.6 pg (25.0-35.0); Mean Corpuscular Volume 95 fL (80-100); Monocytes # (Auto) 0.5 Thou/mm3 (0.0-0.8); Monocytes % (Auto) 9 % (0-12); Neutrophils # (Auto) 3.4 Thou/mm3 (1.8-7.7); Neutrophils % (Auto) 59 % (37-80); Nucleated Red Blood Cell # 0.03 Thou/mm3 (0.00-0.00); Nucleated Red Blood Cell % 1 /100 WBC (0); Platelet Count 146 Thou/mm3 (140-440); RDW Standard Deviation 67.9 fL (36.4-46.3); Red Blood Count 3.01 Miln/mm3 (4.00-5.20); White Blood Count 5.7 Thou/mm3 (3.6-11.0)
[2025-01-26 06:41] LABS: Anion Gap 8 (7-16); BUN/Creatinine Ratio 42 Ratio (12-20); Blood Urea Nitrogen 21 mg/dL (9-23); Calcium 8.7 mg/dL (8.3-10.6); Carbon Dioxide 29.2 mMol/L (20.0-31.0); Chloride 103 mMol/L (98-107); Creatinine (Component) 0.5 mg/dL (0.6-1.3); Estimated Creatinine Clearance 96.7 mL/min (>60); Glucose 95 mg/dL (74-106); Magnesium 1.8 mg/dL (1.6-2.6); Osmolality,Calculated 282 (275-295); Phosphorous 3.7 mg/dL (2.4-5.1); Potassium 4.2 mMol/L (3.4-5.1); Sodium 140 mMol/L (136-145); eGFR > 60 See Note
[2025-01-26] MEDS: ASPIRIN 81 MG CHEW GT (09:46)
[2025-01-26] MEDS: ENOXAPARIN SOD INJ 40 MG/0.4 ML SYRINGE SC (09:46)
[2025-01-26] MEDS: Lisinopril 20 MG TABLET GT (09:46)
[2025-01-26] MEDS: Magnesium Sulfate 4 GM Ivpb 4 GM/50 ML BAG IV (09:47)
--- NOTE | 2025-01-26 10:23 | PC.NURSE ---
Clarified orders for levothyroxine IVP and Liothyronine since patient is receiving tube feeds. Per MD Linn, hold tube feeds for an hour and then administer both medications.
[2025-01-26] MEDS: HYDROCORTISONE SOD SUCC INJ 100 MG VIAL IV ×3 (10:26→21:54)
--- NOTE | 2025-01-26 11:12 | PD.RESPRO ---
Documentation for date of: 01/26/25 Subjective Subjective Interval history: 01/26/2025: No acute overnight events to report. Patient seen and examined in hospital bed shows improvements in FiO2 down from 50% to 45, PEEP of 5. Patient's TSH and free T4 were ordered which showed severe hyponatremia with TSH of 67.80 and free T4 of 0.54. Myxedema coma scale shows greater than 60 highly suspicious for myxedema coma. As such, patient was started on levothyroxine and liothyronine repletion along with IV hydrocortisone. Will continue to monitor the patient and follow-up on thyroid studies. Exam Vital Signs Temp Pulse Resp BP Pulse Ox O2 Del Method FiO2 97.7 F 66 20 101/61 94 L Mechanical Ventilation 50 01/26/25 08:00 01/26/25 09:46 01/26/25 08:00 01/26/25 09:46 01/26/25 08:00 01/26/25 08:00 01/26/25 08:00 Narrative Exam Physical Exam: GENERAL: Chronically trach impact HEENT: Moist mucosa with no erythema, anicteric sclera, opens right eye sometimes CARDIO: Heart RRR, no obvious murmurs PULM: Bilateral mechanical lung sounds, B/L rhonchi, white/clear secretions noted in collecting tube GI: Abdomen soft, nondistended, no pain on palpation. BS+ SKIN/MSK/EXT: upper extremity edema b/l, no pain on palpation. Pedal pulses present B/L Neuro: At baseline Objective Labs 01/27/25 05:32 01/27/25 05:32 Labs: Laboratory Results - last 24 hr 01/26/25 05:52 WBC 5.7 RBC 3.01 L Hgb 9.5 L Hct 28.7 L MCV 95 MCH 31.6 MCHC 33.1 RDW Std Deviation 67.9 H Plt Count 146 Neut % (Auto) 59 Lymph % (Auto) 28 [place] % (Auto) 9 Eos % (Auto) 3 Baso % (Auto) 1 Neut # (Auto) 3.4 Lymph # (Auto) 1.6 [place] # (Auto) 0.5 Eos # (Auto) 0.1 Baso # (Auto) 0.0 Immature Gran # (Auto) 0.07 H Absolute Nucleated RBC 0.03 H Immature Gran % 1 H Nucleated RBC % 1 H Sodium 140 Potassium 4.2 Chloride 103 Carbon Dioxide 29.2 Anion Gap 8 BUN 21 Creatinine 0.5 L Estim Creat Clear Calc 96.7 eGFR > 60 BUN/Creatinine Ratio 42 H Glucose 95 Calculated Osmolality 282 Calcium 8.7 Phosphorus 3.7 Magnesium 1.8 TSH 67.80 H* Free T4 0.50 L Quality Measures Quality Measures none Advance care planning discussed with:: child Assessment & Plan Assessment Current Active Medications: Generic Name Dose Route Start Last Admin Trade Name Freq PRN Reason Stop Dose Admin Artificial Tears 1 drop 01/24/25 12:30 Artificial Tears 225 Drop/15 Ml Btl BOTH EYES 02/23/25 12:29 BID PRN TO KEEP EYES MOIST Aspirin 81 mg 01/26/25 09:00 01/26/25 09:46 Aspirin 81 Mg Chew GT 02/25/25 08:59 81 mg QDAY BANG Administration Dextrose 50 ml 01/23/25 19:37 Dextrose 50%-Water Inj 50 Ml Syringe IV 02/22/25 19:36 Q15MIN PRN BG <50 OR BG <70 & pt unresponsive Enoxaparin Sodium 40 mg 01/24/25 09:00 01/26/25 09:46 Enoxaparin Sod Inj 40 Mg/0.4 Ml Syringe SC 02/07/25 08:59 40 mg QDAY BANG Administration Glucagon 1 mg 01/23/25 19:37 Glucagon Inj 1 Mg Vial IM Q15MIN PRN BG <70, and no IV access Hydrocortisone Sodium Succinate 100 mg 01/26/25 09:45 01/26/25 10:26 Hydrocortisone Sod Succ Inj 100 Mg Vial IV 02/25/25 09:44 100 mg Q8HR BANG Administration Meropenem 1,000 mg/ Sodium 50 mls @ 100 mls/hr 01/23/25 14:00 01/26/25 05:08 Chloride IV 01/30/25 13:59 100 mls/hr Q8HR BANG Administration Magnesium Sulfate 4 gm in 50 mls @ 12.5 mls/hr 01/26/25 07:39 01/26/25 09:47 Magnesium Sulfate Ivpb IV 01/26/25 11:38 12.5 mls/hr X1 ONE Administration Levothyroxine Sodium 50 mcg 01/27/25 06:00 Levothyroxine Inj 100 Mcg Vial IV 02/26/25 05:59 ACBR BANG Liothyronine Sodium 5 mcg 01/27/25 06:30 Liothyronine Sod 5 Mcg Tablet GT 02/26/25 06:29 ACBR BANG Lisinopril 20 mg 01/26/25 09:00 01/26/25 09:46 Lisinopril 20 Mg Tablet GT 02/25/25 08:59 20 mg QDAY BANG Administration Plan 74-year-old female from subacute facility with past medical history of hypertension, lymphoma, failure to thrive requiring chronic trach and PEG admitted for hypothermia and pneumonia. #Myxedema coma Diagnostic scoring system for myxedema coma including (temperature, patient alertness, mobility, precipitating factors, EKG changes and metabolic findings; including hypoglycemia) greater than 60 TSH 67.80 and free T4 of 0.50 A1c 5.2, on chart review A1c's have remained between 4.8 and 5.4 On med rec patient takes metformin, when speaking to the daughter she states the patient was put on metformin because PEG tube feeds were increasing the patient's blood sugars Current fingerstick 100+ on multiple rechecks Plan: Ordered levothyroxine 200 mcg x 1 and liothyronine 5 mcg x 1 Will schedule levothyroxine 50 mcg IV a CBR and euthyroid in 5 mcg GT AC BR IV hydrocortisone 100 mg IV every 8 hours, will taper Will monitor morning labs and temperature Warming measures Discontinue metformin on discharge Follow-up on C-peptide #Suspected ventilatory associated pneumonia #Chronic respiratory failure Patient does have history of ESBL Klebsiella from previous sputum cultures Blood cultures have been negative last Patient has clear white secretions, with some rhonchi bilaterally Sputum Gram stain shows no organism, culture pending Plan: Continue IV meropenem Follow-up sputum cultures #Failure to thrive #Tracheostomy and PEG tube dependence PEG tube feeds with fiber at goal rate Tube feeds were held momentarily so that IV levothyroxine and liothyronine can be given; restarted #Hypertension #Hx of CVA Requested records from subacute in regards to the patient's med rec Plan: Patient is normotensive will resume antihypertensives as tolerated Continue aspirin 81 mg Hospital Management: Fluids: None Feeding: Tube feeds at goal rate DVT prophylaxis: lovenox GI prophylaxis: Pantoprazole Dispo: Myxedema coma management CODE STATUS: DNR Patient seen and assessed with attending Dr. Kirstie Linn, PGY-1 Attending Provider Attestation/Addendum I, Lawanda Thacker DO, attest that I was physically present for the [place] portions of the service and evaluated the patient with the resident and I reviewed and discussed the case with the resident and agree with the resident's findings and plans of care as documented above Patient seen and eval this a.m. Patient again this morning is hypothermic with temperature of 94.3. Blood glucose has remained stable otherwise. TSH, T4 and cortisol levels were obtained. TSH and T4 show evidence of hypothyroidism. Due to elevated TSH, there is a concern for myxedema coma given symptoms of bradycardia, hypoglycemia and hypothermia. Will start patient on stress dose steroids with hydrocortisone 100 mg IV Q8 x 2 days and will give loading dose of levothyroxine of 200 mcg IV and liothyronine of 5 mcg IV. Will continue to trend TSH/T4 every 3 or 4 days to further taper Synthroid dose.
[2025-01-26] MEDS: LEVOTHYROXINE INJ 100 mCg VIAL 200 MCG IV (11:39)
[2025-01-26] MEDS: LIOTHYRONINE SOD 5 mCg TABLET GT (11:40)
[2025-01-27] VITALS (11 sets, daily range): BP systolic 108–150; BP diastolic 63–78; PULSE 56–83; RESP 19–22; TEMP 36.6–37.3; O2SAT 97–99; BMI 31.8
[2025-01-27] MEDS: LIOTHYRONINE SOD 5 mCg TABLET GT (05:40)
[2025-01-27] MEDS: MEROPENEM INJ 1,000 MG in SODIUM CHLORIDE 0.9% (Popper) 50 ML 100 MG IV (05:40)
[2025-01-27] MEDS: LEVOTHYROXINE INJ 100 mCg VIAL 50 MCG IV (05:40)
[2025-01-27] MEDS: HYDROCORTISONE SOD SUCC INJ 100 MG VIAL IV ×3 (05:42→21:30)
[2025-01-27 06:03] LABS: Basophils % (Auto) 0 % (0-2.5); Eosinophils % (Auto) 0 % (0-10); Hematocrit 27.7 % (36.0-46.0); Hemoglobin 9.3 g/dL (12.0-16.0); Immature Granulocytes % (Auto) 1 % (0-0); Immature Granulocytes Auto 0.09 Thou/mm3 (0.00-0.00); Lymphocytes # (Auto) 1.9 Thou/mm3 (1.0-4.8); Lymphocytes % (Auto) 20 % (10-50); Mean Corpuscular HGB Conc 33.6 g/dl (31.0-37.0); Mean Corpuscular Hemoglobin 31.4 pg (25.0-35.0); Mean Corpuscular Volume 94 fL (80-100); Monocytes # (Auto) 0.4 Thou/mm3 (0.0-0.8); Monocytes % (Auto) 4 % (0-12); Neutrophils # (Auto) 7.2 Thou/mm3 (1.8-7.7); Neutrophils % (Auto) 75 % (37-80); Nucleated Red Blood Cell # 0.06 Thou/mm3 (0.00-0.00); Nucleated Red Blood Cell % 1 /100 WBC (0); Platelet Count 148 Thou/mm3 (140-440); RDW Standard Deviation 64.8 fL (36.4-46.3); Red Blood Count 2.96 Miln/mm3 (4.00-5.20); White Blood Count 9.5 Thou/mm3 (3.6-11.0)
[2025-01-27 06:55] LABS: Anion Gap 9 (7-16); BUN/Creatinine Ratio 34 Ratio (12-20); Blood Urea Nitrogen 24 mg/dL (9-23); Calcium 8.5 mg/dL (8.3-10.6); Carbon Dioxide 29.2 mMol/L (20.0-31.0); Chloride 103 mMol/L (98-107); Creatinine (Component) 0.7 mg/dL (0.6-1.3); Estimated Creatinine Clearance 67.9 mL/min (>60); Glucose 192 mg/dL (74-106); Osmolality,Calculated 290 (275-295); Sodium 141 mMol/L (136-145); eGFR > 60 See Note
[2025-01-27] MEDS: Lisinopril 20 MG TABLET GT (08:59)
[2025-01-27] MEDS: ENOXAPARIN SOD INJ 40 MG/0.4 ML SYRINGE SC (08:59)
[2025-01-27] MEDS: ASPIRIN 81 MG CHEW GT (08:59)
--- NOTE | 2025-01-27 10:26 | PC.SS ---
Patient is non verbal. Patient is on vent/trache/peg. Patient is a resident of our subacute. Patient was admitted for hypothermia/pneumonia. Patient's daughters, Jessica and Sherry are the medical decision makers. SS attempted to contact them with interpreting line but no response. Patient will return to subacute when medically stable.
--- NOTE | 2025-01-27 13:21 | ESPR_ITS ---
Documentation for date of: 01/27/25 Subjective Subjective Interval history: 01/27/2025: No acute overnight events to report. Patient seen and examined in hospital bed at baseline mental status; chronically trach and pegged. Patient's vitals within normal limits and electrolyte abnormalities have improved markedly. Will follow-up on patient's TSH/T4/T3 with morning labs and anticipate tapering of thyroid replacement and discontinuation of steroids. Will discontinue IV abx as the patient's sputum cultures are negative for any organisms. Exam Vital Signs Temp Pulse Resp BP Pulse Ox O2 Del Method FiO2 97.8 F 72 20 108/71 98 Mechanical Ventilation 45 01/27/25 12:00 01/27/25 12:17 01/27/25 12:00 01/27/25 12:00 01/27/25 12:17 01/27/25 12:00 01/27/25 12:17 Narrative Exam Physical Exam: GENERAL: Chronically trach impact HEENT: Moist mucosa with no erythema, anicteric sclera, opens right eye sometimes CARDIO: Heart RRR, no obvious murmurs PULM: Bilateral mechanical lung sounds, B/L rhonchi, white/clear secretions noted in collecting tube GI: Abdomen soft, nondistended, no pain on palpation. BS+ SKIN/MSK/EXT: upper extremity edema b/l, no pain on palpation. Pedal pulses present B/L Neuro: At baseline Objective Labs 01/28/25 05:29 01/28/25 05:29 Labs: Laboratory Results - last 24 hr 01/27/25 05:32 WBC 9.5 D RBC 2.96 L Hgb 9.3 L Hct 27.7 L MCV 94 MCH 31.4 MCHC 33.6 RDW Std Deviation 64.8 H Plt Count 148 Neut % (Auto) 75 Lymph % (Auto) 20 [place] % (Auto) 4 Eos % (Auto) 0 Baso % (Auto) 0 Neut # (Auto) 7.2 Lymph # (Auto) 1.9 Ray # (Auto) 0.4 Eos # (Auto) 0.0 Baso # (Auto) 0.0 Immature Gran # (Auto) 0.09 H Absolute Nucleated RBC 0.06 H Immature Gran % 1 H Nucleated RBC % 1 H Sodium 141 Potassium 4.0 Chloride 103 Carbon Dioxide 29.2 Anion Gap 9 BUN 24 H Creatinine 0.7 Estim Creat Clear Calc 67.9 eGFR > 60 BUN/Creatinine Ratio 34 H Glucose 192 H D Calculated Osmolality 290 Calcium 8.5 Quality Measures Quality Measures none Advance care planning discussed with:: patient Assessment & Plan Assessment Current Active Medications: Generic Name Dose Route Start Last Admin Trade Name Freq PRN Reason Stop Dose Admin Artificial Tears 1 drop 01/24/25 12:30 Artificial Tears 225 Drop/15 Ml Btl BOTH EYES 02/23/25 12:29 BID PRN TO KEEP EYES MOIST Aspirin 81 mg 01/26/25 09:00 01/27/25 08:59 Aspirin 81 Mg Chew GT 02/25/25 08:59 81 mg QDAY BANG Administration Dextrose 50 ml 01/23/25 19:37 Dextrose 50%-Water Inj 50 Ml Syringe IV 02/22/25 19:36 Q15MIN PRN BG <50 OR BG <70 & pt unresponsive Enoxaparin Sodium 40 mg 01/24/25 09:00 01/27/25 08:59 Enoxaparin Sod Inj 40 Mg/0.4 Ml Syringe SC 02/07/25 08:59 40 mg QDAY BANG Administration Glucagon 1 mg 01/23/25 19:37 Glucagon Inj 1 Mg Vial IM Q15MIN PRN BG <70, and no IV access Hydrocortisone Sodium Succinate 100 mg 01/26/25 09:45 01/27/25 05:42 Hydrocortisone Sod Succ Inj 100 Mg Vial IV 02/25/25 09:44 100 mg Q8HR BANG Administration Meropenem 1,000 mg/ Sodium 50 mls @ 100 mls/hr 01/23/25 14:00 01/27/25 05:40 Chloride IV 01/30/25 13:59 100 mls/hr Q8HR BANG Administration Levothyroxine Sodium 50 mcg 01/27/25 06:00 01/27/25 05:40 Levothyroxine Inj 100 Mcg Vial IV 02/26/25 05:59 50 mcg ACBR BANG Administration Liothyronine Sodium 5 mcg 01/27/25 06:30 01/27/25 05:40 Liothyronine Sod 5 Mcg Tablet GT 02/26/25 06:29 5 mcg ACBR BANG Administration Lisinopril 20 mg 01/26/25 09:00 01/27/25 08:59 Lisinopril 20 Mg Tablet GT 02/25/25 08:59 20 mg QDAY BANG Administration Plan 74-year-old female from subacute facility with past medical history of hypertension, lymphoma, failure to thrive requiring chronic trach and PEG admitted for hypothermia and pneumonia. #Myxedema coma Diagnostic scoring system for myxedema coma including (temperature, patient alertness, mobility, precipitating factors, EKG changes and metabolic findings; including hypoglycemia) greater than 60 TSH 67.80 and free T4 of 0.50 A1c 5.2, on chart review A1c's have remained between 4.8 and 5.4 On med rec patient takes metformin, when speaking to the daughter she states the patient was put on metformin because PEG tube feeds were increasing the patient's blood sugars Current fingerstick 100+ on multiple rechecks Plan: Continue levothyroxine 50 mcg IV a ACBR and liothyroinine in 5 mcg GT ACBR IV hydrocortisone 100 mg IV every 8 hours, will taper Will monitor morning labs and temperature Warming measures Discontinue metformin on discharge Follow-up on C-peptide #Failure to thrive #Tracheostomy and PEG tube dependence PEG tube feeds with fiber at goal rate Tube feeds were held momentarily so that IV levothyroxine and liothyronine can be given; restarted Tube feeds to goal rate; cotton grower consulted for recommendations #Hypertension #Hx of CVA Requested records from [facility] in regards to the patient's med rec Plan: Patient is normotensive will resume antihypertensives as tolerated Continue aspirin 81 mg #Suspected ventilatory associated pneumonia, resolved #Chronic respiratory failure Patient does have history of ESBL Klebsiella from previous sputum cultures Blood cultures have been negative last Patient has clear white secretions, with some rhonchi bilaterally Sputum Gram stain shows no organism, culture pending Plan: Discontinued IV meropenem Hospital Management: Fluids: None Feeding: Tube feeds at goal rate DVT prophylaxis: lovenox GI prophylaxis: Pantoprazole Dispo: Myxedema coma management CODE STATUS: DNR Patient seen and assessed with attending Dr. Thacker and senior resident Dr. Graham Linn, PGY-1 LPatient examined and case discussed with the team including attending physician. Note reviewed, I agree with the care plan as documented. 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 Patient was started on IV methylprednisolone, IV levothyroxine and IV liothyronine. Patient was given initial loading dose and currently on maintenance dose. Generalized edema appears to be improving, initially nonpitting now reduced swelling overall. Plan: Will transition to oral formulations tomorrow. A.m. TSH and free T4 level ordered for further evaluation. Please refer to the note above for further details. - Abdoul Stevenson MD, PGY 2 Disclaimer: The document may contain phonetic/typographic errors due to voice recognition software. These errors are purely due to imperfections in the software program and should not be misconstrued in any way to compromise the substance of the patient's medical care during this visit. L Attending Provider Attestation/Addendum I, Lawanda Thacker DO, attest that I was physically present for the [place] portions of the service and evaluated the patient with the resident and I reviewed and discussed the case with the resident and agree with the resident's findings and plans of care as documented above Patient seen and evaluated this a.m. Patient has been Normothermic and no further episodes of hypoglycemia. Sputum cultures were negative. Will DC meropenem. Will repeat TSH and T4 in a.m. after patient has received IV steroids and levothyroxine. Will which to weight-based oral Synthroid if patient remains hemodynamically stable and improvement in TFTs.
[2025-01-28] VITALS (11 sets, daily range): BP systolic 125–143; BP diastolic 64–78; PULSE 50–625; RESP 20–22; TEMP 36.2–37; O2SAT 99–100; BMI 32.3
--- NOTE | 2025-01-28 05:20 | PC.NURSE ---
cardiac rhythm for midnight entered incorrectly unable to edit added column with correct heart rate
[2025-01-28 05:57] LABS: Basophils % (Auto) 0 % (0-2.5); Eosinophils % (Auto) 0 % (0-10); Hematocrit 27.8 % (36.0-46.0); Immature Granulocytes % (Auto) 2 % (0-0); Immature Granulocytes Auto 0.11 Thou/mm3 (0.00-0.00); Lymphocytes # (Auto) 1.6 Thou/mm3 (1.0-4.8); Lymphocytes % (Auto) 29 % (10-50); Mean Corpuscular HGB Conc 32.4 g/dl (31.0-37.0); Mean Corpuscular Hemoglobin 31.3 pg (25.0-35.0); Mean Corpuscular Volume 97 fL (80-100); Monocytes # (Auto) 0.4 Thou/mm3 (0.0-0.8); Monocytes % (Auto) 7 % (0-12); Neutrophils # (Auto) 3.3 Thou/mm3 (1.8-7.7); Neutrophils % (Auto) 62 % (37-80); Nucleated Red Blood Cell # 0.04 Thou/mm3 (0.00-0.00); Nucleated Red Blood Cell % 1 /100 WBC (0); Platelet Count 128 Thou/mm3 (140-440); RDW Standard Deviation 68.8 fL (36.4-46.3); Red Blood Count 2.88 Miln/mm3 (4.00-5.20); White Blood Count 5.3 Thou/mm3 (3.6-11.0)
[2025-01-28] MEDS: HYDROCORTISONE SOD SUCC INJ 100 MG VIAL IV (06:02)
[2025-01-28] MEDS: LEVOTHYROXINE INJ 100 mCg VIAL 50 MCG IV ×2 (06:03→09:49)
[2025-01-28] MEDS: LIOTHYRONINE SOD 5 mCg TABLET GT (06:19)
[2025-01-28 06:23] LABS: Anion Gap 10 (7-16); BUN/Creatinine Ratio 41 Ratio (12-20); Blood Urea Nitrogen 29 mg/dL (9-23); Calcium 8.5 mg/dL (8.3-10.6); Carbon Dioxide 31.3 mMol/L (20.0-31.0); Chloride 102 mMol/L (98-107); Creatinine (Component) 0.7 mg/dL (0.6-1.3); Estimated Creatinine Clearance 67.9 mL/min (>60); Free T3 1.8 pg/mL (2.3-4.2); Free T4 (Free Thyroxine) 0.69 ng/dL (0.89-1.76); Glucose 220 mg/dL (74-106); Osmolality,Calculated 297 (275-295); Potassium 4.2 mMol/L (3.4-5.1); Sodium 143 mMol/L (136-145); Thyroid Stimulating Hormone 8.41 uIU/mL (0.55-4.78); eGFR > 60 See Note
[2025-01-28] MEDS: ENOXAPARIN SOD INJ 40 MG/0.4 ML SYRINGE SC (09:49)
[2025-01-28] MEDS: Lisinopril 20 MG TABLET GT (09:49)
[2025-01-28] MEDS: ASPIRIN 81 MG CHEW GT (09:49)
--- NOTE | 2025-01-28 11:48 | ESPR_ITS ---
Documentation for date of: 01/28/25 Subjective Subjective Interval history: 01/28/2025: No acute overnight events to report. Patient seen and examined in hospital bed remains at her current baseline. Repeat thyroid panel shows marked improvement and she does not exhibit clinical signs of myxedema coma at this time. Transitioning the patient's thyroid replacement from IV to p.o. Will continue to monitor and expect discharge within the next 24 hours to subacute facility. Family updated regarding the patient's status and are agreeable to the plan. Exam Vital Signs Temp Pulse Resp BP Pulse Ox O2 Del Method FiO2 98.0 F 59 L 20 138/78 H 99 Mechanical Ventilation 45 01/28/25 08:00 01/28/25 09:49 01/28/25 08:00 01/28/25 09:49 01/28/25 08:00 01/28/25 08:00 01/28/25 08:00 Narrative Exam Physical Exam: GENERAL: Chronically trach impact HEENT: Moist mucosa with no erythema, anicteric sclera, opens right eye sometimes CARDIO: Heart RRR, no obvious murmurs PULM: Bilateral mechanical lung sounds, B/L rhonchi, white/clear secretions noted in collecting tube GI: Abdomen soft, nondistended, no pain on palpation. BS+ SKIN/MSK/EXT: upper extremity edema b/l, no pain on palpation. Pedal pulses present B/L Neuro: At baseline Objective Labs 01/29/25 05:03 01/29/25 05:02 Labs: Laboratory Results - last 24 hr 01/28/25 05:29 WBC 5.3 D RBC 2.88 L Hgb 9.0 L Hct 27.8 L MCV 97 MCH 31.3 MCHC 32.4 RDW Std Deviation 68.8 H Plt Count 128 L Neut % (Auto) 62 Lymph % (Auto) 29 [place] % (Auto) 7 Eos % (Auto) 0 Baso % (Auto) 0 Neut # (Auto) 3.3 Lymph # (Auto) 1.6 [place] # (Auto) 0.4 Eos # (Auto) 0.0 Baso # (Auto) 0.0 Immature Gran # (Auto) 0.11 H Absolute Nucleated RBC 0.04 H Immature Gran % 2 H Nucleated RBC % 1 H Sodium 143 Potassium 4.2 Chloride 102 Carbon Dioxide 31.3 H Anion Gap 10 BUN 29 H Creatinine 0.7 Estim Creat Clear Calc 67.9 eGFR > 60 BUN/Creatinine Ratio 41 H Glucose 220 H Calculated Osmolality 297 H Calcium 8.5 TSH 8.41 H D Free T4 0.69 L Free T3 pg/dL 1.8 L Quality Measures Quality Measures none Advance care planning discussed with:: child (Daughters) Assessment & Plan Assessment Current Active Medications: Generic Name Dose Route Start Last Admin Trade Name Freq PRN Reason Stop Dose Admin Artificial Tears 1 drop 01/24/25 12:30 Artificial Tears 225 Drop/15 Ml Btl BOTH EYES 02/23/25 12:29 BID PRN TO KEEP EYES MOIST Aspirin 81 mg 01/26/25 09:00 01/28/25 09:49 Aspirin 81 Mg Chew GT 02/25/25 08:59 81 mg QDAY BANG Administration Dextrose 50 ml 01/23/25 19:37 Dextrose 50%-Water Inj 50 Ml Syringe IV 02/22/25 19:36 Q15MIN PRN BG <50 OR BG <70 & pt unresponsive Enoxaparin Sodium 40 mg 01/24/25 09:00 01/28/25 09:49 Enoxaparin Sod Inj 40 Mg/0.4 Ml Syringe SC 02/07/25 08:59 40 mg QDAY BANG Administration Glucagon 1 mg 01/23/25 19:37 Glucagon Inj 1 Mg Vial IM Q15MIN PRN BG <70, and no IV access Levothyroxine Sodium 125 mcg 01/29/25 06:00 Levothyroxine Sodium 125 Mcg Tablet GT 02/28/25 05:59 ACBR BANG Lisinopril 20 mg 01/26/25 09:00 01/28/25 09:49 Lisinopril 20 Mg Tablet GT 02/25/25 08:59 20 mg QDAY BANG Administration Plan 74-year-old female from subacute facility with past medical history of hypertension, lymphoma, failure to thrive requiring chronic trach and PEG admitted for hypothermia and pneumonia. #Myxedema coma Diagnostic scoring system for myxedema coma including (temperature, patient alertness, mobility, precipitating factors, EKG changes and metabolic findings; including hypoglycemia) greater than 60 TSH 67.80 and free T4 of 0.50 A1c 5.2, on chart review A1c's have remained between 4.8 and 5.4 On med rec patient takes metformin, when speaking to the daughter she states the patient was put on metformin because PEG tube feeds were increasing the patient's blood sugars Current fingerstick 100+ on multiple rechecks Clinical findings show patient is outside myxedema coma parameters on 01/28 Plan: Transition to levothyroxine 125 mcg G-tube ACBR Discontinued IV hydrocortisone Will monitor morning labs and temperature Warming measures if needed Discontinue metformin on discharge Follow-up on C-peptide #Failure to thrive #Tracheostomy and PEG tube dependence PEG tube feeds with fiber at goal rate Tube feeds were held momentarily so that IV levothyroxine and liothyronine can be given; restarted Tube feeds to goal rate; dip unit operator consulted for recommendations #Hypertension #Hx of CVA Requested records from subacute in regards to the patient's med rec Plan: Patient is normotensive will resume antihypertensives as tolerated Continue aspirin 81 mg #Suspected ventilatory associated pneumonia, resolved #Chronic respiratory failure Patient does have history of ESBL Klebsiella from previous sputum cultures Blood cultures have been negative last Patient has clear white secretions, with some rhonchi bilaterally Sputum Gram stain shows no organism, culture pending Completed IV meropenem regimen Plan: Monitor for any acute findings Hospital Management: Fluids: None Feeding: Tube feeds at goal rate DVT prophylaxis: lovenox GI prophylaxis: Pantoprazole Dispo: Myxedema coma management CODE STATUS: DNR Patient seen and assessed with attending Dr. Thacker and senior resident Dr. Graham Linn, PGY-1 LPatient examined and case discussed with the team including attending physician. Note reviewed, I agree with the care plan as documented. 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 Patient was started on IV methylprednisolone, IV levothyroxine and IV liothyronine, initial loading dose followed by IV maintenance dose. A.m. TSH showed 67.8 -> 8.4 and free T4 level improved 0.59 -> 0.69 Plan: transitioned to Levothyroxine 125mcg PO GT daily + Hydrocortisone 100mg IV daily from today. Generalized edema appears to be improving, initially nonpitting now reduced swelling overall. Please refer to the note above for further details. - Abdoul Stevenson MD, PGY 2 Disclaimer: The document may contain phonetic/typographic errors due to voice recognition software. These errors are purely due to imperfections in the software program and should not be misconstrued in any way to compromise the substance of the patient's medical care during this visit. L Attending Provider Attestation/Addendum I, Lawanda Thacker DO, attest that I was physically present for the [place] portions of the service and evaluated the patient with the resident and I reviewed and discussed the case with the resident and agree with the resident's findings and plans of care as documented above Patient seen and eval this a.m. patient remains normothermic and no further episodes of hypoglycemia. She continues to have mild bradycardia. Continue with 50 mcgof IV Synthroid. Patient remains hemodynamically stable. Will transition to Synthroid gtt. tomorrow. However, PEG tube feedings need to be stopped for an hour prior to administration of Synthroid. She will need 125 mcg GT. Will discontinue T3. TFTs are much improved today. Anticipate discharge back to subacute if patient remains stable. She will need repeat TFTs in 3-4. Cortisol is pending. However, low suspicion for adrenal insufficiency.
--- NOTE | 2025-01-28 18:50 | PC.NURSE ---
MD Thacker notified of sinus bradycardia 48-50s. No new orders.
--- NOTE | 2025-01-28 23:39 | PC.NURSE ---
MD Gamble made aware that patient has not had a BM in 4 days.
[2025-01-29] VITALS (10 sets, daily range): BP systolic 108–139; BP diastolic 49–70; PULSE 43–49; RESP 20; TEMP 35.9–36.8; O2SAT 100; BMI 31.6
[2025-01-29] MEDS: SENNA TABLET 1 TAB GT ×2 (00:10→08:44)
[2025-01-29] MEDS: POLYETHYLENE GLYCOL 17 GM PACKET GT ×2 (00:10→08:44)
--- NOTE | 2025-01-29 01:29 | PC.NURSE ---
MD Salinas notified that patient's HR is sustaining at 45.
[2025-01-29] MEDS: LEVOTHYROXINE SODIUM 125 MCG TABLET GT (05:51)
--- NOTE | 2025-01-29 06:16 | PC.NURSE ---
MD Salinas notified of patient's HR trending down. It is now sustaining in the low 40s. said he will let day team know and cardiology on board
[2025-01-29 06:18] LABS: Anion Gap 10 (7-16); BUN/Creatinine Ratio 55 Ratio (12-20); Blood Urea Nitrogen 33 mg/dL (9-23); Calcium 8.2 mg/dL (8.3-10.6); Chloride 103 mMol/L (98-107); Creatinine (Component) 0.6 mg/dL (0.6-1.3); Estimated Creatinine Clearance 78.9 mL/min (>60); Glucose 151 mg/dL (74-106); Osmolality,Calculated 300 (275-295); Potassium 3.7 mMol/L (3.4-5.1); Sodium 146 mMol/L (136-145); eGFR > 60 See Note
--- NOTE | 2025-01-29 06:21 | EKG_ITS ---
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
[2025-01-29 06:22] LABS: Basophils % (Auto) 0 % (0-2.5); Eosinophils # (Auto) 0.1 Thou/mm3 (0.0-0.5); Eosinophils % (Auto) 2 % (0-10); Hematocrit 27.2 % (36.0-46.0); Hemoglobin 8.9 g/dL (12.0-16.0); Immature Granulocytes % (Auto) 1 % (0-0); Immature Granulocytes Auto 0.09 Thou/mm3 (0.00-0.00); Lymphocytes % (Auto) 47 % (10-50); Mean Corpuscular HGB Conc 32.7 g/dl (31.0-37.0); Mean Corpuscular Hemoglobin 31.8 pg (25.0-35.0); Mean Corpuscular Volume 97 fL (80-100); Monocytes # (Auto) 0.6 Thou/mm3 (0.0-0.8); Monocytes % (Auto) 9 % (0-12); Neutrophils # (Auto) 2.6 Thou/mm3 (1.8-7.7); Neutrophils % (Auto) 40 % (37-80); Nucleated Red Blood Cell # 0.03 Thou/mm3 (0.00-0.00); Nucleated Red Blood Cell % 1 /100 WBC (0); Platelet Count 99 Thou/mm3 (140-440); RDW Standard Deviation 71.3 fL (36.4-46.3); White Blood Count 6.5 Thou/mm3 (3.6-11.0)
[2025-01-29 06:38] LABS: C-Peptide* 2.09 ng/mL (0.80-3.85)
[2025-01-29] MEDS: ASPIRIN 81 MG CHEW GT (08:44)
[2025-01-29] MEDS: Lisinopril 20 MG TABLET GT (08:45)
[2025-01-29] MEDS: ENOXAPARIN SOD INJ 40 MG/0.4 ML SYRINGE SC (08:46)
[2025-01-29 10:41] LABS: Free T4 (Free Thyroxine) 0.81 ng/dL (0.89-1.76); Thyroid Stimulating Hormone 28.83 uIU/mL (0.55-4.78)
--- NOTE | 2025-01-29 13:07 | XR_ITS ---
Examination: Abdomen AP single view Technique: AP portable supine abdomen, single view Exam date and time: January 29, 2025 1355 hours INDICATIONS: Constipation months. FINDINGS: Large amounts of stool throughout the colon No obstruction Prominent osteopenia IMPRESSION: Large amounts of stool throughout the colon
[2025-01-29] MEDS: LACTULOSE SYRUP 20 GM/30 ML UDC 10 GM GT (14:18)
--- NOTE | 2025-01-29 14:44 | ESDS_ITS ---
<Statement entered by Lawanda Thacker DO - 01/29/25 15:54> I, Lawanda Thacker DO, attest that I was physically present for the [place] portions of the service and evaluated the patient with the resident and I reviewed and discussed the case with the resident and agree with the resident's findings and plans of care as documented above Planned Discharge Date 01/29/25 DS: Providers Provider Date of admission: 01/23/25 12:22 Primary care physician: Abdoul Wisdom MD Admitting Provider: Lawanda Thacker DO Attending Provider on Admission: Lawanda Thacker DO Consults: 01/23/25 17:11 Referral Registered Dietitian Routine Comment: Attending Provider on DC: Hamilton Linn MD Discharging Provider: Hamilton Linn MD DS: Diagnosis Problem List Completed Was Problem List Reviewed/Reconciled?: Yes Hospital Course Hospital Course Hospital course: 74-year-old female with past medical history of 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 In the ED, patient was hypotensive with a MAP of 49, bradycardic heart rate 50, elevated respiratory rate, hypothermic 92 ?F and on ventilator. Patient was admitted and started on tube feeds, warming measures along with blood and sputum cultures ordered. Patient was started on IV antibiotics for what was post believed to be ventilator associated pneumonia. Thyroid function test showed the patient was in myxedema coma murmur, steroids, IV thyroid replacement was ordered. Patient clinically improved and thyroid function levels improved. Patient will be sent back to subacute center the following instructions. Please hold tube feeds 1 hour before administering levothyroxine 125mcg via GT Please take Lisinopril 10mg by GT once a day instead of 20mg Stop taking metformin 500mg by GT twice a day Continue all other medications as prescribed Hospital Diagnosis: #Myxedema coma #Failure to thrive #Tracheostomy and PEG tube dependence #Hypertension #Hx of CVA #Suspected ventilatory associated pneumonia, resolved #Chronic respiratory failure Hamilton Linn, PGY-1 Status at Discharge Overall status at discharge: patient is progressing back to baseline Time Spent with Patient Time attestation: Total time spent providing and/or coordinating discharge services: 45 minutes Time spent: Greater than 30 minutes Exam Vital Signs Temp Pulse Resp BP Pulse Ox O2 Del Method FiO2 96.7 F L 45 L 20 130/61 100 Mechanical Ventilation 45 01/29/25 12:00 01/29/25 13:25 01/29/25 12:00 01/29/25 12:00 01/29/25 13:25 01/29/25 12:00 01/29/25 13:25 Narrative Exam Physical Exam: GENERAL: Chronically trach impact HEENT: Moist mucosa with no erythema, anicteric sclera, opens right eye some times CARDIO: Heart RRR, no obvious murmurs PULM: Bilateral mechanical lung sounds, B/L rhonchi, white/clear secretions noted in collecting tube GI: Abdomen soft, nondistended, no pain on palpation. BS+ SKIN/MSK/EXT: upper extremity edema b/l, no pain on palpation. Pedal pulses present B/L Neuro: opens right eye to tactile stimuli, gag reflex intact, - babinski reflex Discharge Plan Plan Patient Disposition: Xfer Other Disposition Comment: DPSNF Patient condition on transfer: Stable Care Plan Goals: Please hold tube feeds 1 hour before administering levothyroxine 125mcg via GT Please take Lisinopril 10mg by GT once a day instead of 20mg Stop taking metformin 500mg by GT twice a day Continue all other medications as prescribed Prescriptions/Referrals Prescriptions/Med Rec: New levothyroxine 125 mcg Tablet 125 mcg G-tube ACBR 30 Days Qty: 30 3RF lisinopril 20 mg Tablet 10 mg G-tube QDAY 30 Days Qty: 15 0RF Continued sennosides [Senna Laxative] 8.6 mg Tablet 8.6 mg G-tube BID Label Comments: for Constipation Rx Instructions: Hold for loose stools acetaminophen 325 mg Tablet 650 mg G-tube Q6HR PRN (Reason: Pain) Label Comments: Not to exceed 3 grams acetaminophen from all sources in 24 hrs ipratropium-albuterol 0.5 mg-3 mg(2.5 mg base)/3 mL Solution For Nebulization 3 ml INH Q6HRRT ipratropium-albuterol 0.5 mg-3 mg(2.5 mg base)/3 mL Solution For Nebulization 3 ml INH Q2HR PRN (Reason: Wheezing) atorvastatin 10 mg Tablet 10 mg G-tube HS Label Comments: for dyslipidemia guaifenesin [Domonique-Tussin] 100 mg/5 mL Liquid 300 mg G-tube Q6H PRN (Reason: Cough) Label Comments: CONC 100mg/5ml Rx Instructions: give 15ml magnesium hydroxide [Milk of Magnesia] 400 mg/5 mL Suspension 30 ml G-tube PRN PRN (Reason: No Bowel Movement) Label Comments: CONC:400MG/5ML Rx Instructions: Give 2400mg/30ml PGT on the 5th shift if no BM amlodipine 10 mg Tablet 10 mg G-tube QDAY Label Comments: for HTN Rx Instructions: Hold for SBP<110 or HR<60 bisacodyl [Dulcolax (bisacodyl)] 10 mg Suppository 10 mg NH PRN PRN (Reason: No BM Per Bowel Management Protocol) Rx Instructions: Administer as needed on 6th shift, if MOM ineffective. Fleet Enema 19-7 gram/118 mL Enema 133 ml NH PRN PRN (Reason: No Bowel Movement) Label Comments: If Dulcolax is ineffective on 7th shift, give Fleets enema per Bowel Management Protocol. Notify MD if no results from Enema. Ear Wax Removal Drops 6.5 % Drops 5 drp otic (ear) Q61D Label Comments: 5 drops per ear at first med pass of shift. Then irrigate ears with NS at next med pass of each shift x 4 days for wax build up. *Start on the of the month, every two months. Ear Wax Removal Drops 6.5 % Drops 5 drp otic (ear) Q61D Label Comments: 5 drops per ear at first med pass of shift. Then irrigate ears with NS at next med pass of each shift x 4 days for wax build up. *Start on the of the month, every two months. Ear Wax Removal Drops 6.5 % Drops 5 drp otic (ear) Q61D Label Comments: 5 drops per ear at first med pass of shift. Then irrigate ears with NS at next med pass of each shift x 4 days for wax build up. *Start on the of the month, every two months. Ear Wax Removal Drops 6.5 % Drops 5 drp otic (ear) Q61D Rx Instructions: 5 drops per ear at first med pass of shift. Then irrigate ears with NS at next med pass of each shift x 4 days for wax build up. *Start on the of the month, every two months. Ear Wax Removal Drops 6.5 % Drops 5 drp otic (ear) Q61D Label Comments: 5 drops per ear at first med pass of shift. Then irrigate ears with NS at next med pass of each shift x 4 days for wax build up. *Start on the of the month, every two months. Ear Wax Removal Drops 6.5 % Drops 5 drp otic (ear) Q61D Rx Instructions: 5 drops per ear at first med pass of shift. Then irrigate ears with NS at next med pass of each shift x 4 days for wax build up. *Start on the of the month, every two months. Ear Wax Removal Drops 6.5 % Drops 5 drp otic (ear) Q61D Rx Instructions: 5 drops per ear at first med pass of shift. Then irrigate ears with NS at next med pass of each shift x 4 days for wax build up. *Start on the of the month, every two months. Ear Wax Removal Drops 6.5 % Drops 5 drp otic (ear) Q61D Label Comments: 5 drops per ear at first med pass of shift. Then irrigate ears with NS at next med pass of each shift x 4 days for wax build up. *Start on the of the month, every two months. aspirin 81 mg Tablet,Chewable 81 mg G-tube QDAY Label Comments: for circulation/cva artificial tear([id number]) [GenTeal Tears Moderate] 0.1-0.3-0.2 % Drops 1 drp Both eyes BID Label Comments: For Eye Dryness calcium carbonate-vitamin D3 [Oyster Shell Calcium-Vit D3] 500 mg-5 mcg (200 unit) Tablet 1 ea G-tube QDAY Label Comments: For Supplement [id number] fum-folic ac 7.5 mg iron-400 mcg Tablet 1 ea G-tube QDAY Label Comments: for supplement ferrous sulfate 220 mg (44 mg iron)/5 mL Elixir 220 mg G-tube QDAY Label Comments: For Supplement CONC: 220mg/5ml Rx Instructions: Give 7.5ml Discontinued metformin 500 mg Tablet 500 mg G-tube BID Label Comments: for DM BBW lisinopril 20 mg Tablet 20 mg G-tube QDAY Label Comments: For HTN (BBW) Rx Instructions: Hold if SBP<110 or HR<60 metformin 500 mg Tablet 500 mg PO BID Referrals: Abdoul Wisdom MD [Primary Care Provider] - Patient/Caregiver Discharge Instructions Education Materials: Hypoglycemia (Low Blood Sugar), ED Hypothermia Treatment, ED Hypothermia Prevention Print Language: Mosotho Stand Alone Forms: [employer] Award Info., Patient Portal Info Letter Discharge Order Discharge Orders: Discharge (Routine); Ordered 01/29/25 Ordered By: Hamilton Linn Quality Discharge Quality Measures VTE prophylaxis
== END 2025-01-29 16:45 | disposition other institution (70) | DRG 205 ==
LOC: SERX 11:55 → SERHOLD 12:49 → S2NX 14:50
PROVIDERS: Student in an Organized Health Care Education/Training Program; Admitting Provider Internal Medicine; Emergency Provider Emergency Medicine; PCP Specialist; Visit Provider Internal Medicine
DX: J95.851 Ventilator associated pneumonia (principal); E03.5 Myxedema coma; J96.10 Chronic respiratory failure, unspecified whether with hypoxia or hypercapnia; E87.1 Hypo-osmolality and hyponatremia; E87.20 Acidosis, unspecified; Z99.11 Dependence on respirator [ventilator] status; E04.2 Nontoxic multinodular goiter; E11.65 Type 2 diabetes mellitus with hyperglycemia; E11.649 Type 2 diabetes mellitus with hypoglycemia without coma; R62.7 Adult failure to thrive; Z66 Do not resuscitate; E86.0 Dehydration; Z93.1 Gastrostomy status; Z93.0 Tracheostomy status; Z74.01 Bed confinement status; E03.9 Hypothyroidism, unspecified; I11.0 Hypertensive heart disease with heart failure; I50.9 Heart failure, unspecified; Z68.32 Body mass index [BMI] 32.0-32.9, adult; Z79.82 Long term (current) use of aspirin; Z79.84 Long term (current) use of oral hypoglycemic drugs; Z79.899 Other long term (current) drug therapy; Z85.72 Personal history of non-Hodgkin lymphomas; Z86.73 Personal history of transient ischemic attack (TIA), and cerebral infarction without residual deficits; Y84.8 Other medical procedures as the cause of abnormal reaction of the patient, or of later complication, without mention of misadventure at the time of the procedure
CPT/HCPCS: 36415; 71045; 71260; 74018; 74177; 80048; 80053; 80202; 81001; 82530; 82533; 83605; 83690; 83735; 84100; 84145; 84439; 84443; 84481; 84484; 84681; 85025; 85610; 85730; 87040; 87077; 87081; 87186; 87205; 87811; 93005; 94003; 96361; 96365; 96367; 96375; 99285; A4649; J0696; J1650; J1720; J1938; J2185; J2470; J3370; J3475; J3490; J7030; J7060; P9047; Q9967; A9270

== ENCOUNTER 2025-06-15 03:06 | Inpatient (IN) | payer MEDICARE, MEDICAID, SELFPAY ==
[2025-06-15] VITALS (16 sets, daily range): BP systolic 93–167; BP diastolic 43–145; PULSE 66–91; RESP 18–35; TEMP 33.5–37.9; O2SAT 94–100; BMI 29.9
--- NOTE | 2025-06-15 03:30 | XR_ITS ---
Examination: Abdomen AP single view Technique: AP portable supine abdomen, single view Exam date and time: June 15, 2025, 0505 hrs., Comparison January 29, 2025 Indications: Sepsis hypothermia today. Findings: Moderate to abundant air and stool throughout the colon Rectal tube No free air Severe osteopenia Heavy vascular calcification Impression: Moderate to prominent stool throughout the colon
[2025-06-15 03:50] LABS: Base Excess 9 (-3-3); HCO3 35 mEq/L (20-26); Inspired Oxygen, FIO2 30 %; O2 Saturation 92 % (91-98); PCO2 63 mmHg (32.0-48.0); PO2 66 mmHg (83-108); pH, Arterial 7.36 (7.35-7.45)
[2025-06-15 03:56] LABS: Lactate (Lactic Acid) 2.1 mMol/L (0.4-2.0)
[2025-06-15 03:57] LABS: Allen Test Performed/OK; Puncture Site Right Brachial
[2025-06-15 04:06] LABS: Collection Type, Urine Clean Catch
[2025-06-15 04:07] LABS: Basophils # (Auto) 0.0 Thou/mm3 (0.0-0.2); Basophils % (Auto) 0 % (0-2.5); Eosinophils # (Auto) 0.1 Thou/mm3 (0.0-0.5); Eosinophils % (Auto) 1 % (0-10); Hematocrit 28.1 % (36.0-46.0); Hemoglobin 9.0 g/dL (12.0-16.0); Immature Granulocytes Auto 0.09 Thou/mm3 (0.00-0.00); Lymphocytes # (Auto) 1.1 Thou/mm3 (1.0-4.8); Lymphocytes % (Auto) 20 % (10-50); Mean Corpuscular HGB Conc 32.0 g/dl (31.0-37.0); Mean Corpuscular Hemoglobin 30.7 pg (25.0-35.0); Mean Corpuscular Volume 96 fL (80-100); Monocytes # (Auto) 0.3 Thou/mm3 (0.0-0.8); Monocytes % (Auto) 5 % (0-12); Neutrophils # (Auto) 3.9 Thou/mm3 (1.8-7.7); Neutrophils % (Auto) 72 % (37-80); Nucleated Red Blood Cell # 0.07 Thou/mm3 (0.00-0.00); Nucleated Red Blood Cell % 1 /100 WBC (0); Platelet Count 97 Thou/mm3 (140-440); RDW Standard Deviation 58.1 fL (36.4-46.3); Red Blood Count 2.93 Miln/mm3 (4.00-5.20); White Blood Count 5.4 Thou/mm3 (3.6-11.0)
[2025-06-15] MEDS: RINGERS LACTATED 1000 ML 1,000 ML 999 ML IV (04:08)
[2025-06-15 04:21] LABS: INR 1.0 (0.9-1.3); Partial Thromboplastin Time 29.0 Seconds (22.0-36.0); Prothrombin Time 10.5 Seconds (9.0-12.2)
[2025-06-15 04:25] LABS: Bacteria,Urine Rare; Bilirubin,Urine Negative (Negative); Blood,Urine Negative (Negative); Clarity,Urine Clear (Clear/Hazy); Color,Urine Lt-Yellow (Lt Yel-Yel); Culture Indicated,Urine Yes; Glucose, Urine Negative (Negative); Ketones,Urine Negative (Negative); Leukocyte Esterase,Urine Positive (Negative); Nitrite,Urine Negative (Negative); PH,Urine 6.0 (5.0-7.0); Protein,Urine Negative (Neg - Trace); RBC,Urine 1 /hpf (0-3); Specific Gravity,Urine 1.005 (1.001-1.035); Squamous Epithelial Cell,Urine 2 /hpf (0-5); Urobilinogen,Urine Negative mg/dL (0.0-1.0); WBC,Urine 31 /hpf (0-5)
[2025-06-15] MEDS: PIPER/TAZO 3.375 GM PREMIX 3.375 GM/50 ML BAG IV (04:28)
[2025-06-15] MEDS: ONDANSETRON INJ 2 MG/ML INJ 2 ML 4 MG IVP (04:28)
[2025-06-15 04:30] LABS: Alanine Aminotransferase 23 U/L (10-49); Albumin, Serum 3.7 gm/dL (3.4-4.8); Albumin/Globulin Ratio 1.3 (1.2-2.2); Alkaline Phosphatase 150 U/L (46-116); Anion Gap 8 (7-16); Aspartate Amino Transferase 35 U/L (0-34); BUN/Creatinine Ratio 30 Ratio (12-20); Bilirubin,Total 0.2 mg/dL (0.3-1.2); Blood Urea Nitrogen 15 mg/dL (9-23); Calcium 10.5 mg/dL (8.3-10.6); Calcium (Corrected) 10.7 mg/dL (8.5-10.1); Carbon Dioxide 33.2 mMol/L (20.0-31.0); Chloride 96 mMol/L (98-107); Creatinine (Component) 0.5 mg/dL (0.6-1.3); Globulin 2.8 gm/dL (2.3-3.5); Glucose 114 mg/dL (74-106); Lipase 21 U/L (12-53); Magnesium 1.7 mg/dL (1.6-2.6); Osmolality,Calculated 275 (275-295); Phosphorous 5.2 mg/dL (2.4-5.1); Potassium 5.3 mMol/L (3.4-5.1); Procalcitonin 0.24 ng/ml (0.0-0.49); Sodium 137 mMol/L (136-145); Total Protein 6.5 gm/dL (5.7-8.2); Troponin I < 0.020 ng/mL (0.0-0.045); eGFR > 60 See Note
[2025-06-15 05:01] LABS: B-Type Natriuretic Peptide 86 pg/mL (0-100)
--- NOTE | 2025-06-15 06:19 | EDNOTE_ITS ---
ED General RME/HPI General Chief complaint: General Adult/Misc Complain Stated complaint: LOW TEMP Arrival date/time: 06/15/25 03:06 RME / HPI RME / HPI narrative: DR. HICKEY MAIN ED EVALUATION: Patient referred from sub-acute with Hx of CVA and ongoing tracheostomy/PEG tube presents with reported hypothermia after rectal temperature notably at 91F. No reported ridors, vomiting, or diarrhea. PMH: CVA, Chronic Resipiratory Failure, HTN, DM PSH: Trach/PEG placement Allergies: No known Social: No tobacco, alcohol, or illicit drug abuse. Related Data Previous Rx's ?Medication ?Instructions ?Recorded acetaminophen 325 mg tablet 650 mg (2 x 325 mg) G-tube Q6HR 05/05/25 PRN Pain #360 tabs amlodipine 10 mg tablet 10 mg G-tube QDAY #1,096 tab s 05/05/25 aspirin 81 mg chewable tablet 81 mg G-tube QDAY #1,096 tabs 05/05/25 atorvastatin 10 mg tablet 10 mg G-tube HS #1,096 tabs 05/05/25 calcium 500 mg (as 1 ea G-tube QDAY #1,049 tabs 05/05/25 carbonate)-vitamin D3 5 mcg (200 unit) tablet (Oyster Shell Calcium-Vitamin D3) ferrous sulfate 220 mg (44 mg 220 mg (5 mL) G-tube QDA Y #5,180 mL 05/05/25 iron)/5 mL oral elixir guaifenesin 100 mg/5 mL oral 300 mg (15 mL) G-tube Q6H PRN 05/05/25 liquid (Domonique-Tussin) Cough #1,000 mL lactulose 10 gram/15 mL oral 20 g (30 mL) G-tube BID 0 05/05/25 solution (Enulose) constipation 30 days #12,600 mL levothyroxine 125 mcg tablet 125 mcg G-tube ACBR hypot hyroidism 05/05/25 365 days #472 tabs lisinopril 20 mg tablet 10 mg (1/2 x 20 mg) G-tube Q DAY 05/05/25 hypertension 365 days #236 tabs magnesium hydroxide 400 mg/5 mL 30 ml G-tube PRN PRN N o Bowel 05/05/25 oral suspension (Milk of Magnesia) Movement #3,000 mL [id number] 1 ea G-tube QDAY #1,002 tab s 05/05/25 fumarate 7.5 mg-folic acid 400 mcg tablet sennosides 8.6 mg tablet (Senna 8.6 mg G-tube BID #1,0 36 tabs 05/05/25 Laxative) carbamide peroxide 6.5 % ear drops 5 drp otic (ear) Q6 1D 342 days #15 05/17/25 (Ear Wax Removal Drops) mL carbamide peroxide 6.5 % ear drops 5 drp otic (ear) Q6 1D 342 days #15 05/17/25 (Ear Wax Removal Drops) mL carbamide peroxide 6.5 % ear drops 5 drp otic (ear) Q6 1D 343 days #15 05/17/25 (Ear Wax Removal Drops) mL carbamide peroxide 6.5 % ear drops 5 drp otic (ear) Q6 1D 343 days #15 05/17/25 (Ear Wax Removal Drops) mL carbamide peroxide 6.5 % ear drops 5 drp otic (ear) Q6 1D 344 days #15 05/17/25 (Ear Wax Removal Drops) mL carbamide peroxide 6.5 % ear drops 5 drp otic (ear) Q6 1D 344 days #15 05/17/25 (Ear Wax Removal Drops) mL carbamide peroxide 6.5 % ear drops 5 drp otic (ear) Q6 1D 345 days #15 05/17/25 (Ear Wax Removal Drops) mL carbamide peroxide 6.5 % ear drops 5 drp otic (ear) Q6 1D 345 days #15 05/17/25 (Ear Wax Removal Drops) mL metformin 500 mg tablet 500 mg G-tube DAILY Hypergly cemia 06/09/25 30 days #30 tabs bisacodyl 10 mg rectal suppository 10 mg IA PRN PRN No BM Per Bowel 06/14/25 (Dulcolax (bisacodyl)) Management Protocol #100 ea insulin regular human 100 unit/mL See Rx Instructions SCi 0600,1800 06/14/25 injection solution (Novolin R 7 days #10 mL Regular U-100 Insulin) ipratropium 0.5 mg-albuterol 3 mg 3 ml INH Q2HR PRN Wh eezing 640 06/14/25 (2.5 mg base)/3 mL nebulization days #180 mL soln ipratropium 0.5 mg-albuterol 3 mg 3 ml INH Q6HRRT 643 days #180 mL 06/14/25 (2.5 mg base)/3 mL nebulization soln sodium phosphates 19 gram-7 133 ml IA PRN PRN No Bowel 06/14/25 gram/118 mL enema (Fleet Enema) Movement 737 days #532 mL Allergies Allergy/AdvReac Type Severity Reaction Status Date / Time No Known Allergies Allergy Verified 03/11/21 09:57 Past Medical History Past Medical History NEUROLOGIC: Positive Cerebrovascular Accident (2019) CARDIAC: Positive Hypercholesterolemia and Hypertension RESPIRATORY: Positive Asthma (acute resp failure) and Pneumonia GASTROINTESTINAL: Positive Gastrointestinal Disorders REPRODUCTIVE: Positive Previous Pregnancies MUSCULOSKELETAL: Positive Osteoporosis ENDOCRINE: Positive Diabetes Mellitus Type 2 (has insulin d/t tube feedings) HEMATOLOGIC: Positive Blood Disorders (lymphoma) PSYCHO/SOCIAL: Positive Depression OTHER HISTORY: Positive Shingles, Blood Transfusions, Chemotherapy, MRSA and Cancer Family History FAMILY HISTORY: Positive Family Cancer (pt had lymphoma in 2018) ED Exam Narrative Physical exam: GEN. APPEARANCE: The patient is alert awake oriented X-3 in no distress, lying down comfortably. Chronically ill-appearing, vegetative, Blood pressure reported 167/145, likely an error in measurement. Occasionally tracks with eyes. VITALS: All vitals were reviewed and the pulse ox is 97% on room air which is normal according to my interpretation. HEENT: Normocephalic, atraumatic. Pupils are equal and reactive. Oral mucosa is moist. Patent Nares NECK: Supple, nontender, no thyromegaly, no meningismus, no JVD, no step offs CHEST: Symmetrical, atraumatic, and with equal expansion , Nontender on palpation no deformity and no crepitus. CARDIOVASCULAR: Mildly tachycardic, no murmur or gallop rub or extra beats. LUNGS: Diffuse rhonchi with symmetrical chest rise. No laboring tachypnea or wheezing. No intercostal subcostal retraction. No rales. ABDOMEN: Soft, without grimacing to deep palpation. Flat, no guarding or rebound tenderness. There are no abnormal masses palpated. Active and normal bowel sounds. EXTREMITIES: Nontender. No edema. No cyanosis. Patient is able to move all 4 extremities well, with full ROM and good CSM. SKIN: Warm and dry, no jaundice or rashes noted. MUSCULOSKELETAL: No lubar or midline bony tenderness. There is no CVA tenderness. No paraspinal muscle spasm or tenderness. NEURO: Nonverbal, unable to follow commands, and is hemiparetic. PSYCHIATRIC: Patient is in normal mood and affect, cooperative, no SI or HI or hallucinations. Course Quality Measures Current suspected stage: sepsis Possible source: pulmonary Blood cultures orde red: yes Antibiotic ordered: Yes Pertinent labs: 06/15/25 06/15/25 03:40 07:23 Lactic Acid 2.1 H mMol/L 1.0 mMol/L (0.4-2.0) (0.4-2.0) Procalcitonin 0.24 ng/ml (0.0-0.49) sepsis Orders Category Date Time Status Conveyor Belt Installer STAT Care 06/15/25 03:25 Active Continuous Pulse Oximetry STAT Care 06/15/25 03:25 Active EKG (ED ONLY) *Do not use* NOW Care 06/15/25 03:25 Completed In and Out Catheter X1PRN Care 06/15/25 03:25 Completed Insert IV NOW Care 06/15/25 03:25 Active NPO STAT Care 06/15/25 03:25 Active Start tube feeding NOW Care 06/15/25 06:41 Active Strict Intake and Output Routine Care 06/15/25 03:25 Ordered EKG (ED Only) Stat Exams 06/15/25 03:25 Ordered XR abdomen 1V Stat Exams 06/15/25 03:30 Taken XR chest 1V portable Stat Exams 06/15/25 06:24 Taken Arterial Blood Gas Stat Lab 06/15/25 03:44 Completed B-Type Natriuretic Peptide Stat Lab 06/15/25 03:40 Completed Blood Culture (Lab) Stat Lab 06/15/25 03:40 Received CBC Stat Lab 06/15/25 03:40 Completed Comprehensive Metabolic Panel Stat Lab 06/15/25 03:40 Completed Lactate (Lactic Acid) Stat Lab 06/15/25 03:40 Completed Lactic Acid, 3 HR Stat Lab 06/15/25 07:23 Completed Lipase Stat Lab 06/15/25 03:40 Completed Magnesium Stat Lab 06/15/25 03:40 Completed Partial Thromboplastin Time Stat Lab 06/15/25 03:40 Completed Phosphorous Stat Lab 06/15/25 03:40 Completed Procalcitonin Stat Lab 06/15/25 03:40 Completed Prothrombin Time with INR Stat Lab 06/15/25 03:40 Completed Troponin I Stat Lab 06/15/25 03:40 Completed Urinalysis, C/S if Indicated Stat Lab 06/15/25 04:01 Completed Urine Culture Stat Lab 06/15/25 04:01 Received Ondansetron Inj [Zofran Inj] Med 06/15/25 03:30 Active 4 mg IVP Q6HR PRN Piper/Tazo 3.375 gm Premix [Zosyn] Med 06/15/25 03:25 Discontinued 3.375 gm in 50 ml IV X1 Ringers Lactated 1000 ml [Lactated Ringers] 1,000 ml Med 06/15/25 03:25 Discontinued IV 999 mls/hr Sodium Chloride 0.9% 1000 ml [Ns] 1,000 ml Med 06/15/25 06:26 Discontinued IV 999 mls/hr Ventilator [Volume Ventilator] Stat RT 06/15/25 Active Vital Signs Vital signs: Vital Signs Temperature 92.3 F L 06/15/25 03:15 Pulse Rate 67 06/15/25 03:15 Respiratory Rate 25 H 06/15/25 03:15 Blood Pressure 167/145 H 06/15/25 03:15 Pulse Oximetry (%) 98 06/15/25 03:15 Oxygen Delivery Method Mechanical Ventilation 06/15/25 03:15 Discharge Plan Plan Patient Disposition: Admit Acute Care w/in Hospital Discharge Disposition comment: Stable Prescriptions/Referrals Prescriptions/Med Rec: No Action sennosides [Senna Laxative] 8.6 mg tablet 8.6 mg G-tube BID Qty: 1036 0RF Label Comments: for Constipation Rx Instructions: Hold for loose stools acetaminophen 325 mg tablet 650 mg G-tube Q6HR PRN (Reason: Pain) Qty: 360 0RF Label Comments: Not to exceed 3 grams acetaminophen from all sources in 24 hrs atorvastatin 10 mg tablet 10 mg G-tube HS Qty: 1096 0RF Label Comments: for dyslipidemia lisinopril 20 mg tablet 10 mg G-tube QDAY 472 Days Qty: 236 0RF Rx Instructions: Hold if SBP<110 and or HR<60 guaifenesin [Domonique-Tussin] 100 mg/5 mL liquid 300 mg G-tube Q6H PRN (Reason: Cough) Qty: 1000 0RF Label Comments: CONC 100mg/5ml Rx Instructions: give 15ml magnesium hydroxide [Milk of Magnesia] 400 mg/5 mL suspension 30 ml G-tube PRN PRN (Reason: No Bowel Movement) Qty: 3000 0RF Label Comments: CONC:400MG/5ML Rx Instructions: Give 2400mg/30ml PGT on the 5th shift if no BM amlodipine 10 mg tablet 10 mg G-tube QDAY Qty: 1096 0RF Label Comments: for HTN Rx Instructions: Hold for SBP<110 or HR<60 levothyroxine 125 mcg tablet 125 mcg G-tube ACBR 472 Days Qty: 472 0RF aspirin 81 mg tablet,chewable 81 mg G-tube QDAY Qty: 1096 0RF Label Comments: for circulation/cva lactulose [Enulose] 10 gram/15 mL solution 20 g G-tube BID 419 Days Qty: 18505 0RF Rx Instructions: CONC: 10gm/15ml give 30 ml Hold for loose stool. calcium carbonate-vitamin D3 [Oyster Shell Calcium-Vit D3] 500 mg-5 mcg (200 unit) tablet 1 ea G-tube QDAY Qty: 1049 0RF Label Comments: For Supplement xergyglh-mzq-vnrt fum-folic ac 7.5 mg iron-400 mcg tablet 1 ea G-tube QDAY Qty: 1002 0RF Label Comments: for supplement ferrous sulfate 220 mg (44 mg iron)/5 mL elixir 220 mg G-tube QDAY Qty: 5180 0RF Label Comments: For Supplement CONC: 220mg/5ml Rx Instructions: Give 7.5ml Ear Wax Removal Drops 6.5 % drops 5 drp otic (ear) Q61D 345 Days Qty: 15 0RF Label Comments: 5 drops per ear at first med pass of shift. Then irrigate ears with NS at next med pass of each shift x 4 days for wax build up. *Start on the of the month, every two months. Ear Wax Removal Drops 6.5 % drops 5 drp otic (ear) Q61D 344 Days Qty: 15 0RF Rx Instructions: 5 drops per ear at first med pass of shift. Then irrigate ears with NS at next med pass of each shift x 4 days for wax build up. *Start on the of the month, every two months. Ear Wax Removal Drops 6.5 % drops 5 drp otic (ear) Q61D 345 Days Qty: 15 0RF Label Comments: 5 drops per ear at first med pass of shift. Then irrigate ears with NS at next med pass of each shift x 4 days for wax build up. *Start on the of the month, every two months. Ear Wax Removal Drops 6.5 % drops 5 drp otic (ear) Q61D 344 Days Qty: 15 0RF Label Comments: 5 drops per ear at first med pass of shift. Then irrigate ears with NS at next med pass of each shift x 4 days for wax build up. *Start on the of the month, every two months. Ear Wax Removal Drops 6.5 % drops 5 drp otic (ear) Q61D 343 Days Qty: 15 0RF Rx Instructions: 5 drops per ear at first med pass of shift. Then irrigate ears with NS at next med pass of each shift x 4 days for wax build up. *Start on the of the month, every two months. Ear Wax Removal Drops 6.5 % drops 5 drp otic (ear) Q61D 343 Days Qty: 15 0RF Label Comments: 5 drops per ear at first med pass of shift. Then irrigate ears with NS at next med pass of each shift x 4 days for wax build up. *Start on the of the month, every two months. Ear Wax Removal Drops 6.5 % drops 5 drp otic (ear) Q61D 342 Days Qty: 15 0RF Rx Instructions: 5 drops per ear at first med pass of shift. Then irrigate ears with NS at next med pass of each shift x 4 days for wax build up. *Start on the of the month, every two months. Ear Wax Removal Drops 6.5 % drops 5 drp otic (ear) Q61D 342 Days Qty: 15 11RF Label Comments: 5 drops per ear at first med pass of shift. Then irrigate ears with NS at next med pass of each shift x 4 days for wax build up. *Start on the of the month, every two months. metformin 500 mg tablet 500 mg G-tube DAILY 30 Days Qty: 30 0RF bisacodyl [Dulcolax (bisacodyl)] 10 mg suppository 10 mg IA PRN PRN (Reason: No BM Per Bowel Management Protocol) Qty: 100 1RF Rx Instructions: Administer as needed on 6th shift, if MOM ineffective. ipratropium-albuterol 0.5 mg-3 mg(2.5 mg base)/3 mL solution for nebulization 3 ml INH Q2HR PRN (Reason: Wheezing) 640 Days Qty: 180 1RF ipratropium-albuterol 0.5 mg-3 mg(2.5 mg base)/3 mL solution for nebulization 3 ml INH Q6HRRT 643 Days Qty: 180 1RF Novolin R Regular U100 Insulin 100 unit/mL solution See Rx Instructions SCi 0600,1800 416 Days Qty: 10 1RF Label Comments: elevated blood sugar Rx Instructions: Per sliding scale coverage 0-150= 0 units, 151-200= 2 units, 201-250=4 units, 251-300= 6 units, 301-350= 8 units, 351-400= 10 units, >400= 12 units and notify MD Fleet Enema 19-7 gram/118 mL enema 133 ml IA PRN PRN (Reason: No Bowel Movement) 737 Days Qty: 532 1RF Label Comments: If Dulcolax is ineffective on 7th shift, give Fleets enema per Bowel Management Protocol. Notify MD if no results from Enema. Referrals: No Primary/Family,Physician [Primary Care Provider] - In 1 week Problem List Clinical Impression: Hypothermia, initial encounter, Acute UTI (urinary tract infection) Patient/Caregiver Discharge Instructions Print Language: Algerian Stand Alone Forms: [employer] Award Info., Patient Portal Info Letter MDM Narrative MDM hospital course (for use when minimal MDM required): Scribe Attestation: Clotilde Fuentes, am scribing for and in the presence of Dr. Hickey. Provider Notation: Although this document has been carefully reviewed, there may still be some phonetic and other typographical errors. These errors are purely grammatical due to imperfections in the software program and should not be construed in any way to compromise the substance of the patient's medical care during this visit. Patient referred from sub-acute with Hx of CVA and ongoing tracheostomy/PEG tube presents with reported hypothermia after rectal temperature notably at 91F. No reported ridors, vomiting, or diarrhea. Please see PE findings. Please see PE findings. Hypothermia of note patient confirmed by rectal probe. Patient placed on sepsis protocol and after cultures obtained imperical ABX administered. Laboratory markers including CBC demonstrates WBC of 5.4. Hemoglobin stable at 9. Patient thrombocytopenic at 97. Serum chemistries demonstrate mildly elevated potassium and CO2 of 5.3 and 33, respectfully. BUN/Creatinine ratio elevated at 30. Procalcitonin at 0.24. CXR demonstrates large amount of stool throughout colon. No obstructive findings. CXR si currently pending. Patient administered warmed IV fluids and external bear hugger with increasing core temperature to 95F. Will contact hospitalist for consideration of admission. Final diagnosis includes Hypothermia/ UTI Clinical Information Provided by: none Medical Records reviewed [facility] and shelter Medical Records additional comments: Reviewed prior ED records from 01/23/25. Patient was seen for Dehydration. Meds/Rx considered, not ordered None Labs/Rad/Tests considered, not ordered None Chronic Illness/Social Conditions which may negatively complicate care or outcome(s)-explain: Gravely disabled and shelter/debilitated EKG Interpretation EKG #1: EKG Interpretation: EKG demonstrates Labs Labs: interpreted by me and see narrative above Imaging Imaging interpretation: interpreted by me and see narrative above Medication Administration(s) Medication Administration History Ondansetron HCl (Ondansetron Inj 2 Mg/Ml Inj 2 Ml) 4 mg IVP Q6HR PRN PRN Reason: NAUSEA OR VOMITING Stop: 07/15/25 03:29 Last Admin: 06/15/25 04:28 Dose: 4 mg Documented By: CORNELIUS Discontinued Medications Lactated Ringer's (Lactated Ringers) 1,000 mls @ 999 mls/hr IV .Q1H1M ONE Stop: 06/15/25 04:25 Last Infusion: 06/15/25 05:09 Dose: Infused Documented By: Admin: 06/15/25 04:08 Dose: 999 mls/hr Documented By: CORNELIUS Piperacillin/Tazobactam/Dextrose (Zosyn) 3.375 gm in 50 mls @ 100 mls/hr IV X1 ONE Stop: 06/15/25 03:54 Last Infusion: 06/15/25 04:58 Dose: Infused Documented By: Admin: 06/15/25 04:28 Dose: 100 mls/hr Documented By: CORNELIUS Sodium Chloride (Ns) 1,000 mls @ 999 mls/hr IV .Q1H1M ONE Stop: 06/15/25 07:26 Last Admin: 06/15/25 06:42 Dose: 999 mls/hr Documented By: CORNELIUS See above if any Diagnosis Differential Diagnosis ED Complaint MDM: Sepsis, URI, PNA, Viral Illness
--- NOTE | 2025-06-15 06:24 | XR_ITS ---
Examination: AP chest single view Technique one AP portable semiupright chest single view Date and time: June 15, 2025, 0702 hrs., Comparison January 23, 2025 Indications: Fever coughing today, sepsis alert Findings: Mild enlargement cardiac contour. Prominent vascular congestion. Edema and/or pneumonia at the lung bases. Large right pleural effusion. Right internal jugular Port-A-Cath tip satisfactory position. Tracheostomy tube tip 4.9 cm above eleuterio Impression: Mild heart failure. Edema and/or pneumonia at the lung bases. Large right pleural effusion
[2025-06-15] MEDS: SODIUM CHLORIDE 0.9% 1000 ML 1,000 ML 999 ML IV (06:42)
--- NOTE | 2025-06-15 06:43 | PC.NURSE ---
Notified Dr. Corcoran of glucose 72, new order to resume previous feeding orders, jevity 1.2 40cc/hr for 22 hours
[2025-06-15 06:55] LABS: Reflex Lactate? Y
--- NOTE | 2025-06-15 07:21 | PC.NURSE ---
Report received from pm nurse, patient from [facility] to er with c/o low temperature per staff, patient lying in hospital bed in semi carpenter's position with eyes closed, responds to touch, however, patient very lethargic, skin is warm dyr and pink. Patient awaiting lab results, Sepsis called at [id number]. Lab at bedside to redraw lactic acid.
[2025-06-15 07:27] LABS: Lactic Acid, 3 HR 1.0 mMol/L (0.4-2.0)
--- NOTE | 2025-06-15 07:30 | PC.NURSE ---
Spoke with patients daughter, Sherry and gave her update on patients status. Awaiting xray results.
[2025-06-15] MEDS: SODIUM CHLORIDE 0.9% 1000 ML 1,000 ML 75 ML IV (08:19)
[2025-06-15] MEDS: CEFEPIME INJ 2 GM in SODIUM CHLORIDE 0.9% (Popper) 50 ML IV ×3 (08:19→21:24)
--- NOTE | 2025-06-15 09:32 | XR_ITS ---
Examination: Ultrasound right hemithorax Ultrasound left hemithorax Date and time: June 15, 2025, 1326 hours INDICATIONS: Fever coughing sepsis alert today, large appearing right pleural effusion on chest x-ray today. TECHNIQUE AND FINDINGS: Sonographic images right and left hemithorax Mild free flowing right pleural fluid IMPRESSION: Mild free flowing right pleural fluid
--- NOTE | 2025-06-15 09:50 | PC.NURSE ---
Patient soiled of urine and small dark brown stool, brief changed, logan cathetar inserted per md order. patient cleaned, clean, dry absorbent pads placed underneath and patient placed in POC, call light within reach.
[2025-06-15] MEDS: VANCOMYCIN/NS 1 GM IVPB 200 ML IV ×2 (10:01→22:07)
[2025-06-15 10:04] LABS: Free T4 (Free Thyroxine) 1.41 ng/dL (0.89-1.76); Thyroid Stimulating Hormone 8.18 uIU/mL (0.55-4.78)
[2025-06-15] MEDS: ENOXAPARIN SOD INJ 40 MG/0.4 ML SYRINGE SC (11:01)
--- NOTE | 2025-06-15 12:24 | PC.NURSE ---
Called patient's daughter, Sherry, in order to obtain consent for u/s guided thoracentesis to right lung, left message on vm.
--- NOTE | 2025-06-15 14:59 | ESHP_ITS ---
<Statement entered by Deon Blount MD - 06/15/25 19:32> 74-year-old female with a past medical history of CVA status post trach and PEG since 2018, lymphoma in 2017, myxedema coma, and hypertension who presents from subacute for temperature of 92.3 ?F. Daughter and grandson present at bedside and helped provide history given patient's clinical status. Daughter states that at baseline patient can follow some commands such blinking her eyes and moving her extremities but has deteriorated over the years. Regarding her presentation, her oxygen requirements have not changed, CBC did not reveal leukocytosis, hemoglobin stable, and CHEM panel largely unremarkable other than mild hypokalemia, bicarb of 34.5, and lactic acidosis that normalized after fluids, and TSH of 8.2 with normal free T4. Abdominal x-ray showed moderate to abundant stool in colon, CXR showed large right-sided pleural effusion, and thoracentesis ordered but only mild free-flowing right pleural fluid seen on ultrasound so no thoracentesis was performed. Started on cefepime and vancomycin for ventilator associated pneumonia, cultures pending. Otherwise, resumed medications from subacute and resume tube feedings. ----- Note reviewed and agree with care plan as documented. Please refer to the note below for further details. Plan discussed with attending physician Dr. Johnie Blount MD PGY-2 Internal Medicine Documentation for date of: 06/15/25 HPI History of Present Illness Chief complaint: Increased work of breathing History of present illness: 73-year-old female with past medical history of chronic trach and PEG since 2018 secondary to CVA, skin cancer with last chemotherapy session in 2018, shingles, hypertension, type 2 diabetes, hyperlipidemia presenting to the ED on 06/15 from subacute with reported hypothermia after rectal temperature notably at 91F. Patient currently non responsive. Pt reportedly opened her eyes and grimaced when nurse called her name earler. No reported stridors, vomiting, or diarrhea. Daughter and grandson present at bedside and helped provide history given patient's clinical status. Daughter states that at baseline patient can follow some commands such blinking her eyes and moving her extremities but has deteriorated over the years. ED Course: after cultures obtained emperical ABX administered. Laboratory markers including CBC demonstrates WBC of 5.4. Hemoglobin stable at 9. Patient thrombocytopenic at 97. Serum chemistries demonstrate mildly elevated potassium and CO2 of 5.3 and 33, respectfully. BUN/Creatinine ratio elevated at 30. Procalcitonin at 0.24. CXR demonstrates large amount of stool throughout colon. No obstructive findings. Patient administered warmed IV fluids and external bear hugger with increasing core temperature to 95F. Will contact hospitalist for consideration of admission. Final diagnosis includes Hypothermia/ UTI Medical history: As stated above Surgical history: Abdominal surgery Allergies: NKDA Medications: Pending med rec Family history: Noncontributory Social history: Patient is a patient with a subacute. ROS: Unable to obtain as the patient was nonverbal Patient will be admitted for sepsis likely secondary to ventilator associated pneumonia and will be treated with broad-spectrum IV antibiotics Exam Vital Signs Temp Pulse Resp BP Pulse Ox O2 Del Method 100.2 F 88 35 H 152/88 H 97 Mechanical Ventilation 06/15/25 13:00 06/15/25 13:00 06/15/25 13:00 06/15/25 13:00 06/15/25 13:00 06/15/25 13:00 Narrative Exam Vent Settings: FiO2: 45 PEEP: 5 RR: 15 Vt: 300-400 Physical Exam: GENERAL: Trach and PEG, awakens on command, appears frail HEENT: NC/AT. Moist mucosa. PERRLA/EOMI. CARDIO: Heart RRR, no obvious murmurs, no JVD. PULM: Mechanical breath sounds heard bilaterally, no wheeze/rales/rhonci auscultated GI: Abdomen soft, NT/ND, +BS. SKIN/MSK/EXT: Desquamating skin lesions on sacral lesion. No discoloration/rashes/edema/amputations. +Pedal pulses present B/L. NEURO: Oriented x0. Opens eyes to command. Nonverbal Results: Labs 06/16/25 04:50 06/16/25 04:50 Labs: Short CBC 06/15/25 Range/Units 03:40 WBC 5.4 (3.6-11.0) Thou/mm3 Hgb 9.0 L (12.0-16.0) g/dL Hct 28.1 L (36.0-46.0) % Plt Count 97 L (140-440) Thou/mm3 BMP 06/15/25 03:40 Sodium 137 Potassium 5.3 H Chloride 96 L Carbon Dioxide 33.2 H BUN 15 Creatinine 0.5 L Glucose 114 H Calcium 10.5 Cardiac Enzymes 06/15/25 Range/Units 03:40 Troponin I < 0.020 (0.0-0.045) ng/mL Liver Function 06/15/25 Range/Units 03:40 Total Bilirubin 0.2 L (0.3-1.2) mg/dL AST 35 H (0-34) U/L ALT 23 (10-49) U/L Alkaline Phosphatase 150 H (46-116) U/L Albumin 3.7 (3.4-4.8) gm/dL Urine 06/15/25 Range/Units 04:01 Urine Color Lt-Yellow (Lt Yel-Yel) Urine Clarity Clear (Clear/Hazy) Urine pH 6.0 (5.0-7.0) Ur Specific [place] 1.005 (1.001-1.035) Urine Protein Negative (Neg - Trace) Urine Glucose (UA) Negative (Negative) ABG Interpretation ABG results: 06/15/25 03:44 ABG pH 7.36 ABG pCO2 63 H ABG pO2 66 L ABG HCO3 35 H ABG O2 Saturation 92 ABG Base Excess 9 H Quality Measures Quality Measures sepsis Current suspected stage: ruled out Possible source: pulmonary Blood cultures ordered: yes Antibiotic ordered: Yes Advance care planning discussed with:: child Medications Home Medications and Allergies Allergies Allergy/AdvReac Type Severity Reaction Status Date / Time No Known Allergies Allergy Verified 03/11/21 09:57 Visit Medications Acetaminophen (Acetaminophen 325 Mg Tablet) 650 mg PO Q6H PRN PRN Reason: PAIN OR FEVER > 100.4 Stop: 07/15/25 08:00 Enoxaparin Sodium (Enoxaparin Sod Inj 40 Mg/0.4 Ml Syringe) 40 mg SC QDAY [facility] Stop: 06/29/25 08:59 Last Admin: 06/15/25 11:01 Dose: 40 mg Sodium Chloride (Ns) 1,000 mls @ 75 mls/hr IV .[id number] [facility] Stop: 07/15/25 08:14 Last Admin: 06/15/25 08:19 Dose: 75 mls/hr Cefepime HCl 2 gm/ Sodium (Chloride) 50 mls @ 100 mls/hr IV Q8HR BANG Stop: 06/22/25 08:05 Last Infusion: 06/15/25 08:54 Dose: Infused Ondansetron HCl (Ondansetron Inj 2 Mg/Ml Inj 2 Ml) 4 mg IVP Q6HR PRN PRN Reason: NAUSEA OR VOMITING Stop: 07/15/25 03:29 Last Admin: 06/15/25 04:28 Dose: 4 mg Pharmacy Consult (Vancomycin Pharmacy To Dose 1 Each Each) 1 each IV QDAY PRN PRN Reason: CONSULT Stop: 07/15/25 08:59 Discontinued Medications Lactated Ringer's (Lactated Ringers) 1,000 mls @ 999 mls/hr IV .Q1H1M ONE Stop: 06/15/25 04:25 Last Infusion: 06/15/25 05:09 Dose: Infused Piperacillin/Tazobactam/Dextrose (Zosyn) 3.375 gm in 50 mls @ 100 mls/hr IV X1 ONE Stop: 06/15/25 03:54 Last Infusion: 06/15/25 04:58 Dose: Infused Sodium Chloride (Ns) 1,000 mls @ 999 mls/hr IV .Q1H1M ONE Stop: 06/15/25 07:26 Last Infusion: 06/15/25 07:50 Dose: Infused Vancomycin/Sodium Chloride (Vancomycin/Ns 1 Gm Ivpb) 200 mls @ 120 mls/hr IV X1 ONE Stop: 06/15/25 09:54 Last Infusion: 06/15/25 11:45 Dose: Infused Assessment & Plan Plan 74-year-old female with a past medical history of CVA status post trach and PEG since 2018, lymphoma in 2017, myxedema coma, and hypertension who presents from subacute for temperature of 92.3 ?F will be admitted for ventilator associated pneumonia and will be treated with broad-spectrum IV antibiotics #Ventilator-Associated Pneumonia #Vent asynchrony #Chronically trach and PEG As noted in HPI, patient has been at subacute patient for several years secondary to CVA Per subacute, patient was hypothermic with T 91 F. Patient presented with the vent settings as outlined in the physical exam with vent asynchrony noted WBC of 5.4, hypothermic 92.3 ?F, and lactic acidosis that normalized after fluids 1.0 (2.1) XR abdomen: Heavy vascular calcification. Rectal tube. Moderate to abundant air and stool throughout the colon CXR: mild heart failure. Edema and pneumonia at the lung bases. Large right pleural effusion US chest: Mild free-flowing right pleural fluid seen. No thoracentesis was performed. Plan: IV vancomycin, pharmacy to dose IV cefepime 2g Q8h Blood cultures ordered Sputum cultures ordered Follow-up on influenza A and B, RSV Chest PT and breathing treatments #Normocytic anemia #Thrombocytopenia Hgb 9.0, MCV 96 Plt 97 Likely secondary to chronically trach impact and poor nutrition Patient does not have any signs of active bleeding at this time Differentials include iron deficiency anemia, anemia of chronic disease, vitamin deficiency, hemolytic anemia and less likely bone marrow disorder Plan: Follow-up with morning iron panel, ferritin and reticulocyte count Monitor with morning labs #Tube feeds CHEM panel largely unremarkable other than mild hyperkalemia 5.2, bicarb of 34.5, TSH of 8.2 with normal free T4. As noted patient is chronically fed with PEG tube Plan: Dietitian consulted, appreciate recommendations Jevity 1.2 kcal at 60mL/h with 50cc/h water flushes #Hypothyroidism -levothyroxine 125mcg ACBR #Hypertension #Hyperlipidemia #History of CVA #[id number], type 2 diabetes Chronic medical conditions, pending med rec Plan: -amlodipine GT 10mg Qday -lisinopril GT 10mg Qday Restart home medications as appropriate Bedside blood glucose every 6 hours Sliding scale every 6 hours #Sacral wound #History of skin cancer, completed chemo in 2018 As noted patient's chart Wound care has been initiated and subacute Plan: Wound care, referral Hospital Management: Lines: PIV Diet: Tube feeds, pending dietitian recommendation Bowel: Not needed at this time GI prophylaxis: Will consider adding if tube feeds can be resumed DVT prophylaxis: Lovenox Dispo: IV antibiotics for ventilator associated pneumonia versus aspiration pneumonia Code: DNR, OK to intubate This case was discussed with my attending physician, Dr. Jett, and senior resident, Dr Jose Alejandro Waggoner. Sea Trent, PGY I Attending Provider Attestation/Addendum I attest that I was physically present for the evaluation, physical examination, lab and imaging review of the patient with the residents. I discussed the case with the residents and agree with the findings and plans of care as documented above. After examination of the patient and review of the clinical data I feel that this patient needs admission to the hospital for further treatment/evaluation. Patient is a 74 years old female with past medical history of chronic trach and PEG secondary to CVA, bedbound, lymphoma, hypertension who presented to the ED from subacute with complaint of hypothermia. In the ED, patient was found to have temperature of 92.3 ?F. She was also mildly tachycardic with respiratory rate at 25, hypertensive with blood pressure of 167/145. Continues to be on mechanical ventilator with FiO2 of 30. Lab results show normal WBC count. Noted to have potassium of 5.3, lactate 2.1, corrected calcium 10.7, phosphorus 5.2, AST 35 and ALT 15. Urinalysis showed positive leukocyte esterase, 31 WBC and rare bacteria. Chest x-ray was obtained, showed large right pleural effusion, edema/pneumonia at the lung bases and vascular congestion. We will admit the patient for management of ventilator associated pneumonia. We will start her on broad-spectrum antibiotics with IV cefepime and vancomycin. Resumed her home aspirin, amlodipine, Lipitor. Patient received IV hydration in the ED, we will continue with gentle maintenance fluid. Started on tube feedings, cultures are obtained. Shamar Jett MD
--- NOTE | 2025-06-15 15:25 | PC.DIETICIAN ---
Dietitian recommendation: When medically appropriate, start usual TF, increase by 5ml/hr: 1. Jevity 1.2 @ 45ml/hr x 22hrs via Gtube by pump to provide: 990ml tot vol, 1188kcal, 54g protein. 2. If no IVF, give water flush 45ml/hr x 24hrs or per MD 3. Give SF Prostat 30ml BID Thank you
[2025-06-15 15:43] LABS: Albumin, Serum 3.5 gm/dL (3.4-4.8); Anion Gap 5 (7-16); BUN/Creatinine Ratio 26 Ratio (12-20); Blood Urea Nitrogen 13 mg/dL (9-23); Calcium 9.6 mg/dL (8.3-10.6); Calcium (Corrected) 10.0 mg/dL (8.5-10.1); Carbon Dioxide 34.5 mMol/L (20.0-31.0); Chloride 100 mMol/L (98-107); Creatinine (Component) 0.5 mg/dL (0.6-1.3); Estimated Creatinine Clearance 92.0 mL/min (>60); Glucose 91 mg/dL (74-106); Osmolality,Calculated 277 (275-295); Phosphorous 4.5 mg/dL (2.4-5.1); Potassium 5.2 mMol/L (3.4-5.1); Sodium 139 mMol/L (136-145); eGFR > 60 See Note
[2025-06-15] MEDS: ASPIRIN 81 MG CHEW GT (17:17)
[2025-06-15] MEDS: Magnesium Sulfate 2 GM Ivpb 2 GM/50 ML BAG IV (17:17)
[2025-06-15] MEDS: ALBUTEROL/IPRATROPIUM (Duoneb) RT SOL 3 ML NEBU INH (18:20)
--- NOTE | 2025-06-15 19:18 | PC.NURSE ---
notified Dr. Andrew that patient is admitted today with no code status. She will look into it and place an order.
[2025-06-15] MEDS: LACTULOSE SYRUP 20 GM/30 ML UDC GT (20:06)
[2025-06-15] MEDS: ATORVASTATIN CALCIUM 10 MG TABLET GT (20:06)
[2025-06-16] VITALS (15 sets, daily range): BP systolic 113–185; BP diastolic 56–65; PULSE 70–99; RESP 18–31; TEMP 35.9–36.3; O2SAT 93–100; BMI 33.1
[2025-06-16] MEDS: ALBUTEROL/IPRATROPIUM (Duoneb) RT SOL 3 ML NEBU INH ×4 (01:30→18:07)
[2025-06-16] MEDS: CEFEPIME INJ 2 GM in SODIUM CHLORIDE 0.9% (Popper) 50 ML IV ×3 (05:31→21:19)
[2025-06-16] MEDS: SODIUM CHLORIDE 0.9% 1000 ML 1,000 ML 75 ML IV (05:31)
[2025-06-16] MEDS: LEVOTHYROXINE SODIUM 125 MCG TABLET GT (05:31)
[2025-06-16 05:42] LABS: Basophils # (Auto) 0.0 Thou/mm3 (0.0-0.2); Basophils % (Auto) 0 % (0-2.5); Eosinophils # (Auto) 0.1 Thou/mm3 (0.0-0.5); Eosinophils % (Auto) 1 % (0-10); Hematocrit 24.1 % (36.0-46.0); Immature Granulocytes Auto 0.08 Thou/mm3 (0.00-0.00); Lymphocytes # (Auto) 1.1 Thou/mm3 (1.0-4.8); Lymphocytes % (Auto) 21 % (10-50); Mean Corpuscular HGB Conc 31.1 g/dl (31.0-37.0); Mean Corpuscular Hemoglobin 31.0 pg (25.0-35.0); Mean Corpuscular Volume 100 fL (80-100); Monocytes # (Auto) 0.3 Thou/mm3 (0.0-0.8); Monocytes % (Auto) 6 % (0-12); Neutrophils # (Auto) 3.7 Thou/mm3 (1.8-7.7); Neutrophils % (Auto) 70 % (37-80); Nucleated Red Blood Cell # 0.06 Thou/mm3 (0.00-0.00); Nucleated Red Blood Cell % 1 /100 WBC (0); Platelet Count 125 Thou/mm3 (140-440); RDW Standard Deviation 62.4 fL (36.4-46.3); Red Blood Count 2.42 Miln/mm3 (4.00-5.20); White Blood Count 5.4 Thou/mm3 (3.6-11.0)
[2025-06-16 05:59] LABS: Hemoglobin 7.5 g/dL (12.0-16.0)
[2025-06-16 06:15] LABS: Iron 49 mcg/dL (50-170); Percent Iron Saturation 17 % (20-55); Total Iron Binding Capacity 288 mcg/dL (250-425); Unsaturated Iron Binding 239 (225-295)
[2025-06-16 06:19] LABS: Alanine Aminotransferase 19 U/L (10-49); Albumin, Serum 3.4 gm/dL (3.4-4.8); Albumin/Globulin Ratio 1.4 (1.2-2.2); Alkaline Phosphatase 134 U/L (46-116); Anion Gap 6 (7-16); Aspartate Amino Transferase 23 U/L (0-34); BUN/Creatinine Ratio 28 Ratio (12-20); Bilirubin,Total 0.2 mg/dL (0.3-1.2); Blood Urea Nitrogen 14 mg/dL (9-23); Calcium 9.7 mg/dL (8.3-10.6); Calcium (Corrected) 10.2 mg/dL (8.5-10.1); Carbon Dioxide 32.3 mMol/L (20.0-31.0); Chloride 103 mMol/L (98-107); Creatinine (Component) 0.5 mg/dL (0.6-1.3); Estimated Creatinine Clearance 97.1 mL/min (>60); Globulin 2.4 gm/dL (2.3-3.5); Glucose 154 mg/dL (74-106); Magnesium 2.1 mg/dL (1.6-2.6); Osmolality,Calculated 284 (275-295); Phosphorous 4.3 mg/dL (2.4-5.1); Potassium 5.0 mMol/L (3.4-5.1); Sodium 141 mMol/L (136-145); Total Protein 5.8 gm/dL (5.7-8.2); eGFR > 60 See Note
[2025-06-16] MEDS: ENOXAPARIN SOD INJ 40 MG/0.4 ML SYRINGE SC (08:15)
[2025-06-16] MEDS: LACTULOSE SYRUP 20 GM/30 ML UDC GT ×2 (08:15→20:21)
[2025-06-16] MEDS: ASPIRIN 81 MG CHEW GT (08:15)
[2025-06-16] MEDS: VANCOMYCIN/NS 1 GM IVPB 200 ML IV (10:34)
--- NOTE | 2025-06-16 13:12 | ESPR_ITS ---
<Statement entered by Deon Blount MD - 06/16/25 13:57> No acute overnight events. Seen and examined at bedside. Per RT who was present, patient's secretions have not changed in characteristic or caliber. Wound care added. Will continue with cefepime and vancomycin for presumed ventilator-associated ammonia, follow cultures. Hemoglobin noted to drop from 9 to 7.5 and FOBT ordered. Otherwise, patient has remained normothermic since being admitted and if remains stable for the next 24 hours anticipate discharge soon thereafter if blood cultures remain negative. ----- Note reviewed and agree with care plan as documented. Please refer to the note below for further details. Plan discussed with attending physician Dr. Tristian Blount MD PGY-2 Internal Medicine Documentation for date of: 06/16/25 Subjective Subjective Interval history: Patient was seen and examined at bedside. No acute events took place overnight. Patient's respiratory secretions have more or less stayed the same in color and consistency according to RT. Patient has remained normothermic overnight. Exam Vital Signs Temp Pulse Resp BP Pulse Ox O2 Del Method FiO2 97.0 F 75 18 185/59 H 100 Mechanical Ventilation 30 06/16/25 12:00 06/16/25 12:54 06/16/25 12:54 06/16/25 12:00 06/16/25 12:54 06/16/25 12:00 06/16/25 12:54 Narrative Exam GENERAL: Trach and PEG, awakens on command, appears frail HEENT: NC/AT. Moist mucosa. PERRLA/EOMI. CARDIO: Heart RRR, no obvious murmurs, no JVD. PULM: Mechanical breath sounds heard bilaterally, no wheeze/rales/rhonci auscultated GI: Abdomen soft, NT/ND, +BS. SKIN/MSK/EXT: Desquamating skin lesions on sacral lesion. No discoloration/rashes/edema/amputations. +Pedal pulses present B/L. Rt forearm wound. NEURO: Oriented x0. Opens eyes to command. Nonverbal Objective Labs 06/17/25 05:28 06/17/25 05:28 Labs: Laboratory Results - last 24 hr 06/15/25 06/16/25 15:09 04:50 WBC 5.4 RBC 2.42 L Hgb 7.5 L Hct 24.1 L MCV 100 MCH 31.0 MCHC 31.1 RDW Std Deviation 62.4 H Plt Count 125 L D Neut % (Auto) 70 Lymph % (Auto) 21 [place] % (Auto) 6 Eos % (Auto) 1 Baso % (Auto) 0 Neut # (Auto) 3.7 Lymph # (Auto) 1.1 [place] # (Auto) 0.3 Eos # (Auto) 0.1 Baso # (Auto) 0.0 Immature Gran # (Auto) 0.08 H Absolute Nucleated RBC 0.06 H Immature Gran % 2 H Nucleated RBC % 1 H Sodium 139 141 Potassium 5.2 H 5.0 Chloride 100 103 Carbon Dioxide 34.5 H 32.3 H Anion Gap 5 L 6 L BUN 13 14 Creatinine 0.5 L 0.5 L Estim Creat Clear Calc 92.0 97.1 eGFR > 60 > 60 BUN/Creatinine Ratio 26 H 28 H Glucose 91 154 H D Calculated Osmolality 277 284 Calcium 9.6 9.7 Corrected Calcium 10.0 10.2 H Phosphorus 4.5 4.3 Magnesium 2.1 Iron 49 L TIBC 288 Iron Saturation 17 L Unsat Iron Binding 239 Total Bilirubin 0.2 L AST 23 ALT 19 Alkaline Phosphatase 134 H Total Protein 5.8 Albumin 3.5 3.4 Globulin 2.4 Albumin/Globulin Ratio 1.4 ABG Interpretation ABG results: 06/15/25 03:44 ABG pH 7.36 ABG pCO2 63 H ABG pO2 66 L ABG HCO3 35 H ABG O2 Saturation 92 ABG Base Excess 9 H Quality Measures Quality Measures sepsis Current suspected stage: ruled out Possible source: pulmonary Blood cultures ordered: yes Antibiotic ordered: Yes Advance care planning discussed with:: child Assessment & Plan Assessment Current Active Medications: Generic Name Dose Route Start Last Admin Trade Name Freq PRN Reason Stop Dose Admin Acetaminophen 1,000 mg 06/15/25 14:59 Acetaminophen 500 Mg Tablet PO 07/15/25 08:00 Q6H PRN PAIN (1-3) OR FEVER > 99 Albuterol/Ipratropium 3 ml 06/15/25 16:38 Albuterol/Ipratropium (Duoneb) Rt Valorie 3 Ml Nebu INH 07/15/25 16:37 Q2HR PRN WHEEZING Albuterol/Ipratropium 3 ml 06/15/25 19:00 06/16/25 12:53 Albuterol/Ipratropium (Duoneb) Rt Valorie 3 Ml Nebu INH 07/15/25 18:59 3 ml Q6HRRT BANG Administration Amlodipine Besylate 10 mg 06/16/25 09:00 06/16/25 08:15 Amlodipine Besylate 5 Mg Tablet GT 07/16/25 08:59 10 mg QDAY BANG Administration Aspirin 81 mg 06/15/25 16:45 06/16/25 08:15 Aspirin 81 Mg Chew GT 07/15/25 16:44 81 mg QDAY BANG Administration Atorvastatin Calcium 10 mg 06/15/25 21:00 06/15/25 20:06 Atorvastatin Calcium 10 Mg Tablet GT 07/15/25 20:59 10 mg HS BANG Administration Enoxaparin Sodium 40 mg 06/15/25 09:00 06/16/25 08:15 Enoxaparin Sod Inj 40 Mg/0.4 Ml Syringe SC 06/29/25 08:59 40 mg QDAY BANG Administration Cefepime HCl 2 gm/ Sodium 50 mls @ 100 mls/hr 06/15/25 08:06 06/16/25 05:31 Chloride IV 06/22/25 08:05 100 mls/hr Q8HR BANG Administration Vancomycin/Sodium Chloride 200 mls @ 120 mls/hr 06/16/25 10:00 06/16/25 10:34 Vancomycin/Ns 1 Gm Ivpb IV 06/23/25 09:59 120 mls/hr Q12H BANG Administration Protocol Lactulose 20 gm 06/15/25 21:00 06/16/25 08:15 Lactulose Syrup 20 Gm/30 Ml Udc GT 07/15/25 20:59 20 gm BID BANG Administration Protocol Levothyroxine Sodium 125 mcg 06/16/25 06:00 06/16/25 05:31 Levothyroxine Sodium 125 Mcg Tablet GT 07/16/25 05:59 125 mcg ACBR BANG Administration Lisinopril 10 mg 06/16/25 09:00 06/16/25 08:14 Lisinopril 20 Mg Tablet GT 07/16/25 08:59 10 mg QDAY BANG Administration Ondansetron HCl 4 mg 06/15/25 03:30 06/15/25 04:28 Ondansetron Inj 2 Mg/Ml Inj 2 Ml IVP 07/15/25 03:29 4 mg Q6HR PRN Administration NAUSEA OR VOMITING Pharmacy Consult 1 each 06/15/25 09:00 Vancomycin Pharmacy To Dose 1 Each Each IV 07/15/25 08:59 QDAY PRN CONSULT Sennosides 1 tab 06/15/25 21:00 06/16/25 08:15 Senna Tablet GT 07/15/25 20:59 1 tab BID BANG Administration Protocol Plan 74-year-old female with a past medical history of CVA status post trach and PEG since 2018, lymphoma in 2017, myxedema coma, and hypertension who presents from subacute for temperature of 92.3 ?F. patient was admitted for ventilator associated pneumonia and will be treated with broad-spectrum IV antibiotics #Ventilator-Associated Pneumonia #Chronically trach and PEG As noted in HPI, patient has been at subacute patient for several years secondary to CVA Per subacute, patient was hypothermic with T 91 F. WBC of 5.4, hypothermic 92.3 ?F, and lactic acidosis that normalized after fluids 1.0 (2.1) XR abdomen: Heavy vascular calcification. Rectal tube. Moderate to abundant air and stool throughout the colon CXR: mild heart failure. Edema and pneumonia at the lung bases. Large right pleural effusion US chest: Mild free-flowing right pleural fluid seen. No thoracentesis was performed. B ctx negative after 24h. Plan: IV vancomycin, pharmacy to dose (06/15 - ) IV cefepime 2g Q8h (06/15 - ) follow up on B ctx, U ctx, and MRSA screen Chest PT and breathing treatments #Normocytic anemia #Thrombocytopenia Hgb 9.0, MCV 96 Plt 97 Likely secondary to chronically trach impact and poor nutrition Patient does not have any signs of active bleeding at this time Differentials include iron deficiency anemia, anemia of chronic disease, vitamin deficiency, hemolytic anemia and less likely bone marrow disorder Hgb dropped to 7.5 (06/16) from 9 the day before. Iron panel: Iron 49L, iron sat 17L, TIBC 288 Plan: ordered FOBT Follow-up with ferritin: consider resuming home ferrous sulfate 220mg QD Monitor with morning labs #Tube feeds CHEM panel largely unremarkable other than mild hyperkalemia 5.2, bicarb of 34.5, TSH of 8.2 with normal free T4. As noted patient is chronically fed with PEG tube Plan: Dietitian consulted, appreciate recommendations Jevity 1.2 kcal at 45mL/h with 45cc/h water flushes hold tube feeding one hour before and after levothyroxine adminstration #Hypothyroidism -levothyroxine 125mcg ACBR #Hypertension #Hyperlipidemia #History of CVA #Cpp-[id number], type 2 diabetes Bedside blood glc has remained WNL (<140) without insulin administration, will continue to monitor and implement an insulin regiment if indicated. Plan: -amlodipine GT 10mg Qday -lisinopril GT 10mg Qday Bedside blood glucose every 6 hours #Sacral wound #History of skin cancer, completed chemo in 2018 As noted patient's chart Wound care has been initiated and subacute Plan: Wound care, referral Hospital Management: Lines: PIV Diet: Tube feeds, pending dietitian recommendation Bowel: Not needed at this time GI prophylaxis: Will consider adding if tube feeds can be resumed DVT prophylaxis: Lovenox Dispo: IV antibiotics for ventilator associated pneumonia, anticipate discharge within the next 24h if patient stays normothermic and B ctx remain aseptic. Code: DNR, OK to intubate This case was discussed with my attending physician, Dr. Lubin, and senior resident, Jose Alejandro Waggoner. [place], DO PGY I Attending Provider Attestation/Addendum I have examined the patient, reviewed labs and imaging findings, discussed the case with the resident(s), and reviewed entered orders. I agree with the plan of care as outlined in this note, with these additional summaries/recommendations: Patient seen at bedside. No acute overnight events. Patient is trached and pegged and unfortunately no history can be obtained at this time. Continue IV antibiotics for ventilator associated pneumonia. Blood cultures preliminarily show no growth at 24 hours although we will await final speciation at 48-hour vlad. MRSA screen pending. Dietary following for tube feeds and free water flushes. Patient was found to have an acute drop in hemoglobin and FOBT ordered. Continue antihypertensives and insulin sliding scale with Accu-Cheks for diabetes mellitus type 2. Continue wound care for sacral ulcer. Please see residents note for additional details and management. Dr. Tristian MD
--- NOTE | 2025-06-16 14:23 | PC.SS ---
Rounding Note: Patient receiving IV antibiotics. Hemoglobin level low. FBOT pending.
[2025-06-16] MEDS: SOD HYPOCHLORITE 1/4 STR 473 ML BTL IRRIG (15:00)
[2025-06-16 20:07] LABS: Ferritin 209 ng/mL (7.3-270.7)
[2025-06-16] MEDS: ATORVASTATIN CALCIUM 10 MG TABLET GT (20:21)
[2025-06-16 22:08] LABS: Vancomycin,Trough 25.7 mcg/mL (5.0-10.0)
[2025-06-17] VITALS (12 sets, daily range): BP systolic 126–148; BP diastolic 65–72; PULSE 67–89; RESP 18–29; TEMP 36.1–36.6; O2SAT 96–100; BMI 33.1
[2025-06-17] MEDS: ALBUTEROL/IPRATROPIUM (Duoneb) RT SOL 3 ML NEBU INH ×4 (00:43→19:35)
--- NOTE | 2025-06-17 02:48 | PC.NURSE ---
[employer] downtime occurred on <06/17> from <0200> to <0235>.
[2025-06-17] MEDS: CEFEPIME INJ 2 GM in SODIUM CHLORIDE 0.9% (Popper) 50 ML IV ×3 (05:19→21:09)
[2025-06-17] MEDS: LEVOTHYROXINE SODIUM 125 MCG TABLET GT (05:20)
[2025-06-17 06:04] LABS: Basophils # (Auto) 0.0 Thou/mm3 (0.0-0.2); Basophils % (Auto) 1 % (0-2.5); Eosinophils # (Auto) 0.1 Thou/mm3 (0.0-0.5); Eosinophils % (Auto) 1 % (0-10); Hematocrit 24.4 % (36.0-46.0); Immature Granulocytes Auto 0.08 Thou/mm3 (0.00-0.00); Lymphocytes # (Auto) 1.2 Thou/mm3 (1.0-4.8); Lymphocytes % (Auto) 18 % (10-50); Mean Corpuscular HGB Conc 29.9 g/dl (31.0-37.0); Mean Corpuscular Hemoglobin 30.0 pg (25.0-35.0); Mean Corpuscular Volume 100 fL (80-100); Monocytes # (Auto) 0.4 Thou/mm3 (0.0-0.8); Monocytes % (Auto) 6 % (0-12); Neutrophils # (Auto) 4.8 Thou/mm3 (1.8-7.7); Neutrophils % (Auto) 72 % (37-80); Nucleated Red Blood Cell # 0.09 Thou/mm3 (0.00-0.00); Nucleated Red Blood Cell % 1 /100 WBC (0); Platelet Count 164 Thou/mm3 (140-440); RDW Standard Deviation 65.1 fL (36.4-46.3); Red Blood Count 2.43 Miln/mm3 (4.00-5.20); White Blood Count 6.6 Thou/mm3 (3.6-11.0)
[2025-06-17 06:06] LABS: Hemoglobin 7.3 g/dL (12.0-16.0)
[2025-06-17 06:24] LABS: Alanine Aminotransferase 20 U/L (10-49); Albumin, Serum 3.5 gm/dL (3.4-4.8); Albumin/Globulin Ratio 1.3 (1.2-2.2); Alkaline Phosphatase 139 U/L (46-116); Anion Gap 6 (7-16); Aspartate Amino Transferase 19 U/L (0-34); BUN/Creatinine Ratio 32 Ratio (12-20); Bilirubin,Total 0.3 mg/dL (0.3-1.2); Blood Urea Nitrogen 16 mg/dL (9-23); Calcium 9.7 mg/dL (8.3-10.6); Calcium (Corrected) 10.1 mg/dL (8.5-10.1); Carbon Dioxide 35.2 mMol/L (20.0-31.0); Chloride 102 mMol/L (98-107); Creatinine (Component) 0.5 mg/dL (0.6-1.3); Estimated Creatinine Clearance 97.1 mL/min (>60); Globulin 2.6 gm/dL (2.3-3.5); Glucose 102 mg/dL (74-106); Magnesium 2.0 mg/dL (1.6-2.6); Osmolality,Calculated 286 (275-295); Phosphorous 3.6 mg/dL (2.4-5.1); Potassium 4.8 mMol/L (3.4-5.1); Sodium 143 mMol/L (136-145); Total Protein 6.1 gm/dL (5.7-8.2); eGFR > 60 See Note
[2025-06-17] MEDS: LACTULOSE SYRUP 20 GM/30 ML UDC GT ×2 (09:00→21:09)
[2025-06-17] MEDS: ENOXAPARIN SOD INJ 40 MG/0.4 ML SYRINGE SC (09:00)
[2025-06-17] MEDS: ASPIRIN 81 MG CHEW GT (09:00)
--- NOTE | 2025-06-17 09:23 | ESPR_ITS ---
<Statement entered by Rehan Evans MD - 06/17/25 18:20> Patient was seen and evaluated at bedside this morning. No acute overnight events. Patient seems to be improving without any spikes in fevers or WBC. Patient's hemoglobin did drop therefore we are pending an FOBT at this time. Urine culture grew GNR, pending official report to see sensitivities. Blood cultures have been negative in 48 hours. If FOBT negative and patient's hemoglobin continues to be stable will possibly be discharged in the next 24 to 48 hours. Note reviewed and agree with resident's care plan as documented except as noted above. Case disclosed with attending Dr. Tristian Evans PGY2 Disclaimer: Even though this this note was dictated by speech recognition and even though it was carefully revised there may still be minor errors in blow mold operator due to voice recognition software. Documentation for date of: 06/17/25 Subjective Subjective Interval history: Patient was seen and evaluated this morning; no acute events overnight per nursing. No fevers or WBC spikes overnight; Hgb dropped to 7.3 from 7.5 from 9.0; to rule out GI bleed, ordered FOBT. Spoke with patient's daughter (medical decision maker); she states that [facility] has a plan for her, and that she has DNR status with them. States that we should have paperwork. Exam Vital Signs Temp Pulse Resp BP Pulse Ox O2 Del Method FiO2 97.0 F 76 27 H 148/71 H 98 Mechanical Ventilation 30 06/17/25 08:00 06/17/25 08:00 06/17/25 08:00 06/17/25 08:00 06/17/25 08:00 06/17/25 08:00 06/17/25 08:00 Narrative Exam General: A/O x0 (baseline, nonverbal), opens eyes; tracheostomy and PEG tube present Eyes: PERRL, EOMI. Anicteric, vision grossly intact. Ears: Unable to assess due to neurological state. Nose: No nasal discharge. Mouth/Throat: Dry mucous membranes, no redness, no lesions, tracheosotomy appears intact and patent Neck: Neck supple, non-tender, no cervical lymphadenopathy. Lungs: Clear ANTOLIN to auscultation and percussion, No accessory muscle use; mechanical breath sounds heard bilaterally. Cardio: Normal S1/S2, regular rhythm, no murmurs, no JVD or carotid bruits. Abdomen: Soft, non-tender, no palpable masses, peristalsis present, no guarding or rebound. Extremities: Symmetrical, bilateral lower extremity contractions, no peripheral edema , non-tender, peripheral pulses present. Skin: No rashes, no lesions, warm to touch. Neuro: Difficult to assess due to nonverbal state; grossly unchanged from previous baseline. Psych: Responsive to light. Objective Labs 06/18/25 04:31 06/18/25 04:31 Labs: Laboratory Results - last 24 hr 06/16/25 06/16/25 06/17/25 04:50 21:22 05:28 WBC 6.6 RBC 2.43 L Hgb 7.3 L Hct 24.4 L MCV 100 MCH 30.0 MCHC 29.9 L RDW Std Deviation 65.1 H Plt Count 164 D Neut % (Auto) 72 Lymph % (Auto) 18 [place] % (Auto) 6 Eos % (Auto) 1 Baso % (Auto) 1 Neut # (Auto) 4.8 Lymph # (Auto) 1.2 [place] # (Auto) 0.4 Eos # (Auto) 0.1 Baso # (Auto) 0.0 Immature Gran # (Auto) 0.08 H Absolute Nucleated RBC 0.09 H Immature Gran % 1 H Nucleated RBC % 1 H Sodium 143 Potassium 4.8 Chloride 102 Carbon Dioxide 35.2 H Anion Gap 6 L BUN 16 Creatinine 0.5 L Estim Creat Clear Calc 97.1 eGFR > 60 BUN/Creatinine Ratio 32 H Glucose 102 D Calculated Osmolality 286 Calcium 9.7 Corrected Calcium 10.1 Phosphorus 3.6 Magnesium 2.0 Ferritin 209 Total Bilirubin 0.3 AST 19 ALT 20 Alkaline Phosphatase 139 H Total Protein 6.1 Albumin 3.5 Globulin 2.6 Albumin/Globulin Ratio 1.3 Vancomycin Trough 25.7 H* ABG Interpretation ABG results: 06/15/25 03:44 ABG pH 7.36 ABG pCO2 63 H ABG pO2 66 L ABG HCO3 35 H ABG O2 Saturation 92 ABG Base Excess 9 H Quality Measures Quality Measures sepsis Current suspected stage: ruled out Possible source: pulmonary Blood cultures ordered: yes Antibiotic ordered: Yes Advance care planning discussed with:: child and legal surragate Assessment & Plan Assessment Current Active Medications: Generic Name Dose Route Start Last Admin Trade Name Freq PRN Reason Stop Dose Admin Acetaminophen 1,000 mg 06/15/25 14:59 Acetaminophen 500 Mg Tablet PO 07/15/25 08:00 Q6H PRN PAIN (1-3) OR FEVER > 99 Albuterol/Ipratropium 3 ml 06/15/25 16:38 Albuterol/Ipratropium (Duoneb) Rt Valorie 3 Ml Nebu INH 07/15/25 16:37 Q2HR PRN WHEEZING Albuterol/Ipratropium 3 ml 06/15/25 19:00 06/17/25 06:22 Albuterol/Ipratropium (Duoneb) Rt Valorie 3 Ml Nebu INH 07/15/25 18:59 3 ml Q6HRRT BANG Administration Amlodipine Besylate 10 mg 06/16/25 09:00 06/16/25 08:15 Amlodipine Besylate 5 Mg Tablet GT 07/16/25 08:59 10 mg QDAY BANG Administration Aspirin 81 mg 06/15/25 16:45 06/16/25 08:15 Aspirin 81 Mg Chew GT 07/15/25 16:44 81 mg QDAY BANG Administration Atorvastatin Calcium 10 mg 06/15/25 21:00 06/16/25 20:21 Atorvastatin Calcium 10 Mg Tablet GT 07/15/25 20:59 10 mg HS BANG Administration Dextrose 25 ml 06/16/25 18:02 Dextrose 50%-Water Inj 50 Ml Syringe IV 07/16/25 18:01 Q15MIN PRN BG 50-70 responsive npo pt Dextrose 50 ml 06/16/25 18:02 Dextrose 50%-Water Inj 50 Ml Syringe IV 07/16/25 18:01 Q15MIN PRN BG <50 OR BG <70 & pt unresponsive Enoxaparin Sodium 40 mg 06/15/25 09:00 06/16/25 08:15 Enoxaparin Sod Inj 40 Mg/0.4 Ml Syringe SC 06/29/25 08:59 40 mg QDAY BANG Administration Glucagon 1 mg 06/16/25 18:02 Glucagon Inj 1 Mg Vial IM Q15MIN PRN BG <70, and no IV access Cefepime HCl 2 gm/ Sodium 50 mls @ 100 mls/hr 06/15/25 08:06 06/17/25 06:22 Chloride IV 06/22/25 08:05 Infused Q8HR BANG Infusion Vancomycin HCl 250 mls @ 120 mls/hr 06/17/25 10:00 Vancomycin/Water 1250 Mg Ivpb IV 06/24/25 09:59 QDAY@1000 BANG Protocol Lactulose 20 gm 06/15/25 21:00 06/16/25 20:21 Lactulose Syrup 20 Gm/30 Ml Udc GT 07/15/25 20:59 20 gm BID BANG Administration Protocol Levothyroxine Sodium 125 mcg 06/16/25 06:00 06/17/25 05:20 Levothyroxine Sodium 125 Mcg Tablet GT 07/16/25 05:59 125 mcg ACBR BANG Administration Lisinopril 10 mg 06/16/25 09:00 06/16/25 08:14 Lisinopril 20 Mg Tablet GT 07/16/25 08:59 10 mg QDAY BANG Administration Ondansetron HCl 4 mg 06/15/25 03:30 06/15/25 04:28 Ondansetron Inj 2 Mg/Ml Inj 2 Ml IVP 07/15/25 03:29 4 mg Q6HR PRN Administration NAUSEA OR VOMITING Pharmacy Consult 1 each 06/15/25 09:00 Vancomycin Pharmacy To Dose 1 Each Each IV 07/15/25 08:59 QDAY PRN CONSULT Sennosides 1 tab 06/15/25 21:00 06/16/25 20:21 Senna Tablet GT 07/15/25 20:59 1 tab BID BANG Administration Protocol Plan 74-year-old female with a past medical history of CVA status post trach and PEG since 2018, lymphoma in 2017, myxedema coma, and hypertension who presents from subacute for temperature of 92.3 ?F. patient was admitted for ventilator associated pneumonia and will be treated with broad-spectrum IV antibiotics #Ventilator-Associated Pneumonia #Chronically trach and PEG #UTI, GNR? Patient has been at subacute patient for several years secondary to CVA Per subacute, patient was hypothermic with T 91 F on admission. WBC of 5.4, hypothermic 92.3 ?F, and lactic acidosis that normalized after fluids 1.0 (2.1) XR abdomen: Heavy vascular calcification. Rectal tube. Moderate to abundant air and stool throughout the colon CXR: mild heart failure. Edema and pneumonia at the lung bases. Large right pleural effusion US chest: Mild free-flowing right pleural fluid seen. No thoracentesis was performed. B ctx negative after 48h; U ctx positive for gram-negative rods; MRSA screen negative Plan: IV vancomycin, pharmacy to dose (06/15 - ) IV cefepime 2g Q8h (06/15 - ) follow up on B ctx and urine Cx Chest PT and breathing treatments #Normocytic anemia #Thrombocytopenia Hgb 7.3 from 7.5 from 9.0, MCV 100, Plt 164 Likely secondary to chronically trach impact and poor nutrition Differentials include GI bleed, iron deficiency anemia, anemia of chronic disease, vitamin deficiency, hemolytic anemia and less likely bone marrow disorder Iron panel: Iron 49L, iron sat 17L, TIBC 288, Ferritin 209 Plan: FOBT ordered; waiting on bowel movement to collect sample Consider resuming home ferrous sulfate 220mg QD Monitor with morning labs #Tube feeds CHEM panel largely unremarkable other than bicarb of 35.2 TSH of 8.2 with normal free T4. As noted patient is chronically fed with PEG tube Plan: Dietitian consulted, appreciate recommendations Jevity 1.2 kcal at 45mL/h with 45cc/h water flushes hold tube feeding one hour before and after levothyroxine adminstration #Hypothyroidism -levothyroxine 125mcg ACBR #Hypertension #Hyperlipidemia #History of CVA #Vmd-grttjki-kutjxgmev, type 2 diabetes Bedside blood glc has remained WNL without insulin administration, will continue to monitor and implement an insulin regiment if indicated. Plan: -amlodipine GT 10mg Qday -lisinopril GT 10mg Qday Bedside blood glucose every 6 hours #Sacral wound #History of skin cancer, completed chemo in 2018 As noted patient's chart Wound care has been initiated and subacute Plan: Wound care, referral Hospital Management: Lines: PIV Diet: Tube feeds, pending dietitian recommendation Bowel: Not needed at this time GI prophylaxis: Will consider adding if tube feeds can be resumed DVT prophylaxis: Lovenox Dispo: IV antibiotics for ventilator associated pneumonia, anticipate discharge within the next 24h if patient stays normothermic and B ctx remain aseptic. Code: DNR This case was discussed with my attending physician, Dr. Lubin, and senior resident, Dr. Virgen . Salinas Morales MD-PhD, PGY1 Attending Provider Attestation/Addendum I have examined the patient, reviewed labs and imaging findings, discussed the case with the resident(s), and reviewed entered orders. I agree with the plan of care as outlined in this note. Dr. Tristian MD
[2025-06-17] MEDS: VANCOMYCIN/WATER 1250 MG IVPB 250 ML 120 MG IV (10:15)
--- NOTE | 2025-06-17 11:19 | PC.SS ---
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 Patient has been vent dependent since 2018. Patient's daughters are decision makers, Jessica and Sherry. Patient will return to [facility] subacute once stable. Patient admitted for pneumonia. PCP: Dr. Wisdom. Medical decision makers: Jessica Mendez, daughter, and Sherry Mendez, daughter,
[2025-06-17] MEDS: ATORVASTATIN CALCIUM 10 MG TABLET GT (21:08)
[2025-06-17] MEDS: FAMOTIDINE INJ 10 MG/ML VIAL 2 ML 20 MG IVP (21:08)
[2025-06-18] VITALS (13 sets, daily range): BP systolic 100–134; BP diastolic 58–85; PULSE 65–74; RESP 18–28; TEMP 36.1–36.4; O2SAT 98–100
[2025-06-18] MEDS: ALBUTEROL/IPRATROPIUM (Duoneb) RT SOL 3 ML NEBU INH ×4 (01:48→18:30)
[2025-06-18 03:18] LABS: OBS QC OK? Yes
[2025-06-18 03:25] LABS: Occult Blood, Stool Negative (Negative)
[2025-06-18 03:26] LABS: OBS Card Lot # 23001; OBS Developer Lot # 23002; OBS Performed By AU
[2025-06-18] MEDS: LEVOTHYROXINE SODIUM 125 MCG TABLET GT (05:11)
[2025-06-18] MEDS: CEFEPIME INJ 2 GM in SODIUM CHLORIDE 0.9% (Popper) 50 ML IV (05:11)
[2025-06-18 05:28] LABS: Basophils # (Auto) 0.0 Thou/mm3 (0.0-0.2); Basophils % (Auto) 1 % (0-2.5); Eosinophils # (Auto) 0.1 Thou/mm3 (0.0-0.5); Eosinophils % (Auto) 2 % (0-10); Hematocrit 22.8 % (36.0-46.0); Immature Granulocytes Auto 0.05 Thou/mm3 (0.00-0.00); Lymphocytes # (Auto) 1.1 Thou/mm3 (1.0-4.8); Lymphocytes % (Auto) 24 % (10-50); Mean Corpuscular HGB Conc 31.1 g/dl (31.0-37.0); Mean Corpuscular Hemoglobin 31.1 pg (25.0-35.0); Mean Corpuscular Volume 100 fL (80-100); Monocytes # (Auto) 0.4 Thou/mm3 (0.0-0.8); Monocytes % (Auto) 8 % (0-12); Neutrophils # (Auto) 3.0 Thou/mm3 (1.8-7.7); Neutrophils % (Auto) 64 % (37-80); Nucleated Red Blood Cell # 0.05 Thou/mm3 (0.00-0.00); Nucleated Red Blood Cell % 1 /100 WBC (0); Platelet Count 146 Thou/mm3 (140-440); RDW Standard Deviation 63.7 fL (36.4-46.3); Red Blood Count 2.28 Miln/mm3 (4.00-5.20); White Blood Count 4.7 Thou/mm3 (3.6-11.0)
[2025-06-18 05:41] LABS: Hemoglobin 7.1 g/dL (12.0-16.0)
[2025-06-18 05:57] LABS: Alanine Aminotransferase 19 U/L (10-49); Albumin, Serum 3.4 gm/dL (3.4-4.8); Albumin/Globulin Ratio 1.3 (1.2-2.2); Alkaline Phosphatase 139 U/L (46-116); Anion Gap 6 (7-16); Aspartate Amino Transferase 19 U/L (0-34); BUN/Creatinine Ratio 35 Ratio (12-20); Bilirubin,Total 0.4 mg/dL (0.3-1.2); Blood Urea Nitrogen 14 mg/dL (9-23); Calcium 9.3 mg/dL (8.3-10.6); Calcium (Corrected) 9.8 mg/dL (8.5-10.1); Carbon Dioxide 33.2 mMol/L (20.0-31.0); Chloride 102 mMol/L (98-107); Creatinine (Component) 0.4 mg/dL (0.6-1.3); Estimated Creatinine Clearance 121.4 mL/min (>60); Globulin 2.6 gm/dL (2.3-3.5); Glucose 114 mg/dL (74-106); Magnesium 1.6 mg/dL (1.6-2.6); Osmolality,Calculated 282 (275-295); Phosphorous 3.3 mg/dL (2.4-5.1); Potassium 4.3 mMol/L (3.4-5.1); Sodium 141 mMol/L (136-145); Total Protein 6.0 gm/dL (5.7-8.2); eGFR > 60 See Note
[2025-06-18] MEDS: FAMOTIDINE INJ 10 MG/ML VIAL 2 ML 20 MG IVP ×2 (08:16→21:21)
[2025-06-18] MEDS: ASPIRIN 81 MG CHEW GT (08:17)
[2025-06-18] MEDS: LACTULOSE SYRUP 20 GM/30 ML UDC GT ×2 (08:17→22:54)
--- NOTE | 2025-06-18 09:20 | PD.RESDS ---
Planned Discharge Date 06/18/25 DS: Providers Provider Date of admission: 06/15/25 08:01 Primary care physician: Physician No Primary/Family Admitting Provider: Shamar Jett MD Attending Provider on Admission: Paul Lubin MD Consults: 06/15/25 08:06 Referral Registered Dietitian Routine Comment: Tube feedings 06/16/25 13:35 Referral Wound Care Routine Comment: Attending Provider on DC: Paul Lubin MD Discharging Provider: Paul Lubin MD DS: Diagnosis Problem List Completed Was Problem List Reviewed/Reconciled?: Yes Hospital Course Hospital Course Hospital course: Patient was seen and evaluated this morning; no acute events overnight per nursing. No fevers or WBC spikes overnight; Hgb dropped to 7.3 from 7.5 from 9.0; to rule out GI bleed, ordered FOBT. Spoke with patient's daughter (medical decision maker); she states that [facility] has a plan for her, and that she has DNR status with them. States that we should have paperwork. Status at Discharge Functional status at discharge: bed bound Overall status at discharge: patient is progressing back to baseline Time Spent with Patient Time attestation: Total time spent providing and/or coordinating discharge services: Time spent: Greater than 30 minutes Exam Vital Signs Temp Pulse Resp BP Pulse Ox O2 Del Method FiO2 97.5 F 74 23 H 100/76 99 Mechanical Ventilation 30 06/18/25 08:00 06/18/25 08:20 06/18/25 08:00 06/18/25 08:20 06/18/25 08:00 06/18/25 08:00 06/18/25 06:11 Narrative Exam General: A/O x0 (baseline, nonverbal), opens eyes; tracheostomy and PEG tube present Eyes: PERRL, EOMI. Anicteric, vision grossly intact. Ears: Unable to assess due to neurological state. Nose: No nasal discharge. Mouth/Throat: Dry mucous membranes, no redness, no lesions, tracheosotomy appears intact and patent Neck: Neck supple, non-tender, no cervical lymphadenopathy. Lungs: No accessory muscle use; mechanical breath sounds heard bilaterally. Cardio: Normal S1/S2, regular rhythm, no murmurs, no JVD or carotid bruits. Abdomen: Soft, non-tender, no palpable masses, peristalsis present, no guarding or rebound. Extremities: Symmetrical, bilateral lower extremity contractions, no peripheral edema , non-tender, peripheral pulses present. Skin: No rashes, no lesions, warm to touch. Neuro: Difficult to assess due to nonverbal state; grossly unchanged from previous baseline. Psych: Responsive to light. Discharge Plan Plan Patient Disposition: Xfer Skilled Nsg Fac (SNF) Patient condition on transfer: Stable Care Plan Goals: Follow-up with primary care physician within 5 days upon discharge You have been started on levfloxacin for total of 10 more days. Continue taking your other home medications as prescribed Come back to the ER if symptoms persist or worsen Prescriptions/Referrals Prescriptions/Med Rec: No Action sennosides [Senna Laxative] 8.6 mg tablet 8.6 mg G-tube BID Qty: 1036 0RF Label Comments: for Constipation Rx Instructions: Hold for loose stools acetaminophen 325 mg tablet 650 mg G-tube Q6HR PRN (Reason: Pain) Qty: 360 0RF Label Comments: Not to exceed 3 grams acetaminophen from all sources in 24 hrs atorvastatin 10 mg tablet 10 mg G-tube HS Qty: 1096 0RF Label Comments: for dyslipidemia lisinopril 20 mg tablet 10 mg G-tube QDAY 472 Days Qty: 236 0RF Rx Instructions: Hold if SBP<110 and or HR<60 guaifenesin [Domonique-Tussin] 100 mg/5 mL liquid 300 mg G-tube Q6H PRN (Reason: Cough) Qty: 1000 0RF Label Comments: CONC 100mg/5ml Rx Instructions: give 15ml magnesium hydroxide [Milk of Magnesia] 400 mg/5 mL suspension 30 ml G-tube PRN PRN (Reason: No Bowel Movement) Qty: 3000 0RF Label Comments: CONC:400MG/5ML Rx Instructions: Give 2400mg/30ml PGT on the 5th shift if no BM amlodipine 10 mg tablet 10 mg G-tube QDAY Qty: 1096 0RF Label Comments: for HTN Rx Instructions: Hold for SBP<110 or HR<60 levothyroxine 125 mcg tablet 125 mcg G-tube ACBR 472 Days Qty: 472 0RF aspirin 81 mg tablet,chewable 81 mg G-tube QDAY Qty: 1096 0RF Label Comments: for circulation/cva lactulose [Enulose] 10 gram/15 mL solution 20 g G-tube BID 419 Days Qty: 62058 0RF Rx Instructions: CONC: 10gm/15ml give 30 ml Hold for loose stool. calcium carbonate-vitamin D3 [Oyster Shell Calcium-Vit D3] 500 mg-5 mcg (200 unit) tablet 1 ea G-tube QDAY Qty: 1049 0RF Label Comments: For Supplement [id number] fum-folic ac 7.5 mg iron-400 mcg tablet 1 ea G-tube QDAY Qty: 1002 0RF Label Comments: for supplement ferrous sulfate 220 mg (44 mg iron)/5 mL elixir 220 mg G-tube QDAY Qty: 5180 0RF Label Comments: For Supplement CONC: 220mg/5ml Rx Instructions: Give 7.5ml Ear Wax Removal Drops 6.5 % drops 5 drp otic (ear) Q61D 345 Days Qty: 15 0RF Label Comments: 5 drops per ear at first med pass of shift. Then irrigate ears with NS at next med pass of each shift x 4 days for wax build up. *Start on the of the month, every two months. Ear Wax Removal Drops 6.5 % drops 5 drp otic (ear) Q61D 345 Days Qty: 15 0RF Label Comments: 5 drops per ear at first med pass of shift. Then irrigate ears with NS at next med pass of each shift x 4 days for wax build up. *Start on the of the month, every two months. Ear Wax Removal Drops 6.5 % drops 5 drp otic (ear) Q61D 344 Days Qty: 15 0RF Rx Instructions: 5 drops per ear at first med pass of shift. Then irrigate ears with NS at next med pass of each shift x 4 days for wax build up. *Start on the of the month, every two months. Ear Wax Removal Drops 6.5 % drops 5 drp otic (ear) Q61D 344 Days Qty: 15 0RF Label Comments: 5 drops per ear at first med pass of shift. Then irrigate ears with NS at next med pass of each shift x 4 days for wax build up. *Start on the of the month, every two months. Ear Wax Removal Drops 6.5 % drops 5 drp otic (ear) Q61D 343 Days Qty: 15 0RF Rx Instructions: 5 drops per ear at first med pass of shift. Then irrigate ears with NS at next med pass of each shift x 4 days for wax build up. *Start on the of the month, every two months. Ear Wax Removal Drops 6.5 % drops 5 drp otic (ear) Q61D 343 Days Qty: 15 0RF Label Comments: 5 drops per ear at first med pass of shift. Then irrigate ears with NS at next med pass of each shift x 4 days for wax build up. *Start on the of the month, every two months. Ear Wax Removal Drops 6.5 % drops 5 drp otic (ear) Q61D 342 Days Qty: 15 0RF Rx Instructions: 5 drops per ear at first med pass of shift. Then irrigate ears with NS at next med pass of each shift x 4 days for wax build up. *Start on the of the month, every two months. Ear Wax Removal Drops 6.5 % drops 5 drp otic (ear) Q61D 342 Days Qty: 15 11RF Label Comments: 5 drops per ear at first med pass of shift. Then irrigate ears with NS at next med pass of each shift x 4 days for wax build up. *Start on the of the month, every two months. metformin 500 mg tablet 500 mg G-tube DAILY 30 Days Qty: 30 0RF bisacodyl [Dulcolax (bisacodyl)] 10 mg suppository 10 mg [place] PRN PRN (Reason: No BM Per Bowel Management Protocol) Qty: 100 1RF Rx Instructions: Administer as needed on 6th shift, if MOM ineffective. ipratropium-albuterol 0.5 mg-3 mg(2.5 mg base)/3 mL solution for nebulization 3 ml INH Q2HR PRN (Reason: Wheezing) 640 Days Qty: 180 1RF ipratropium-albuterol 0.5 mg-3 mg(2.5 mg base)/3 mL solution for nebulization 3 ml INH Q6HRRT 643 Days Qty: 180 1RF Novolin R Regular U100 Insulin 100 unit/mL solution See Rx Instructions SCi 0600,1800 416 Days Qty: 10 1RF Label Comments: elevated blood sugar Rx Instructions: Per sliding scale coverage 0-150= 0 units, 151-200= 2 units, 201-250=4 units, 251-300= 6 units, 301-350= 8 units, 351-400= 10 units, >400= 12 units and notify MD Fleet Enema 19-7 gram/118 mL enema 133 ml [place] PRN PRN (Reason: No Bowel Movement) 737 Days Qty: 532 1RF Label Comments: If Dulcolax is ineffective on 7th shift, give Fleets enema per Bowel Management Protocol. Notify MD if no results from Enema. Referrals: No Primary/Family,Physician [Primary Care Provider] Patient/Caregiver Discharge Instructions Other Discharge Activity Instructions:: Follow-up with primary care physician within 5 days upon discharge You have been started on levofloxacin for total of 10 more days. Continue taking your other home medications as prescribed Come back to the ER if symptoms persist or worsen Education Materials: Thoracentesis Dc Print Language: Khmer Stand Alone Forms: [employer] Award Info., Patient Portal Info Letter
[2025-06-18] MEDS: VANCOMYCIN/WATER 1250 MG IVPB 250 ML 120 MG IV (10:04)
--- NOTE | 2025-06-18 12:00 | PC.NURSE ---
Per Dr. Virgen no need for 2nd occult stool test needed if 1st test was negative
[2025-06-18] MEDS: LEVOFLOXACIN 250 MG TABLET 750 MG PO (12:47)
[2025-06-18 13:10] LABS: Hematocrit 23.0 % (36.0-46.0)
--- NOTE | 2025-06-18 13:24 | ESPR_ITS ---
<Statement entered by Rehan Evans MD - 06/18/25 14:11> Patient was seen and evaluated at bedside this morning. No acute overnight events. Patient's FOBT was negative, but hemoglobin has been stable at 7 and on repeat was stable at 7.1. Spoke with subacute who stated that they would like GI recommendations prior to patient moving back to subacute to ensure proper work of anemia. At this time think that anemia is from chronic disease, but got GI consult. Patient's urine culture did grow Pseudomonas which was sensitive to levofloxacin and this time de-escalated from cefepime/vancomycin to levofloxacin. Note reviewed and agree with resident's care plan as documented except as noted above. Case disclosed with attending Dr. Tristian Evans PGY2 Disclaimer: Even though this this note was dictated by speech recognition and even though it was carefully revised there may still be minor errors in insights strategist due to voice recognition software. Documentation for date of: 06/18/25 Subjective Subjective Interval history: Patient was seen at bedside today; no overnight events or changes were reported by nursing staff. Hgb is 7.1 from 7.3 from 7.5 from 9.0; when consulting Dr. Wisdom (pulmonology) for discharge, he recommended a GI consult to determine etiology of Hgb drop. FOBT was negative. Dr. Xiong consulted, am waiting for recommendations. Urine culture positive for pseudomonas, nasal swab negative for MRSA. Exam Vital Signs Temp Pulse Resp BP Pulse Ox O2 Del Method FiO2 97.2 F 69 18 124/74 100 Mechanical Ventilation 30 06/18/25 11:35 06/18/25 13:15 06/18/25 13:15 06/18/25 11:35 06/18/25 13:15 06/18/25 11:35 06/18/25 13:15 Narrative Exam General: A/O x0 (baseline, nonverbal), opens eyes; tracheostomy and PEG tube present Eyes: PERRL, EOMI. Anicteric, vision grossly intact. Ears: Unable to assess due to neurological state. Nose: No nasal discharge. Mouth/Throat: Dry mucous membranes, no redness, no lesions, tracheosotomy appears intact and patent Neck: Neck supple, non-tender, no cervical lymphadenopathy. Lungs: No accessory muscle use; mechanical breath sounds heard bilaterally. Cardio: Normal S1/S2, regular rhythm, no murmurs, no JVD or carotid bruits. Abdomen: Soft, non-tender, no palpable masses, peristalsis present, no guarding or rebound. Extremities: bilateral lower extremity contractions, no peripheral edema , non- tender, peripheral pulses present. Skin: No rashes, no lesions, warm to touch. Neuro: Difficult to assess due to nonverbal state; grossly unchanged from previous baseline. Psych: Responsive to light and voice (unchanged from baseline). Objective Labs 06/18/25 12:26 06/18/25 04:31 Labs: Laboratory Results - last 24 hr 06/17/25 06/18/25 21:40 04:31 WBC 4.7 RBC 2.28 L Hgb 7.1 L Hct 22.8 L MCV 100 MCH 31.1 MCHC 31.1 RDW Std Deviation 63.7 H Plt Count 146 Neut % (Auto) 64 Lymph % (Auto) 24 [place] % (Auto) 8 Eos % (Auto) 2 Baso % (Auto) 1 Neut # (Auto) 3.0 Lymph # (Auto) 1.1 [place] # (Auto) 0.4 Eos # (Auto) 0.1 Baso # (Auto) 0.0 Immature Gran # (Auto) 0.05 H Absolute Nucleated RBC 0.05 H Immature Gran % 1 H Nucleated RBC % 1 H Sodium 141 Potassium 4.3 D Chloride 102 Carbon Dioxide 33.2 H Anion Gap 6 L BUN 14 Creatinine 0.4 L Estim Creat Clear Calc 121.4 eGFR > 60 BUN/Creatinine Ratio 35 H Glucose 114 H Calculated Osmolality 282 Calcium 9.3 Corrected Calcium 9.8 Phosphorus 3.3 Magnesium 1.6 Total Bilirubin 0.4 AST 19 ALT 19 Alkaline Phosphatase 139 H Total Protein 6.0 Albumin 3.4 Globulin 2.6 Albumin/Globulin Ratio 1.3 Stool Occult Blood Negative ABG Interpretation ABG results: 06/15/25 03:44 ABG pH 7.36 ABG pCO2 63 H ABG pO2 66 L ABG HCO3 35 H ABG O2 Saturation 92 ABG Base Excess 9 H Quality Measures Quality Measures sepsis Current suspected stage: ruled out Possible source: pulmonary Blood cultures ordered: yes Antibiotic ordered: Yes Advance care planning discussed with:: other (previously with child and legal surrogate) Assessment & Plan Assessment Current Active Medications: Generic Name Dose Route Start Last Admin Trade Name Freq PRN Reason Stop Dose Admin Acetaminophen 1,000 mg 06/15/25 14:59 Acetaminophen 500 Mg Tablet PO 07/15/25 08:00 Q6H PRN PAIN (1-3) OR FEVER > 99 Albuterol/Ipratropium 3 ml 06/15/25 16:38 Albuterol/Ipratropium (Duoneb) Rt Valorie 3 Ml Nebu INH 07/15/25 16:37 Q2HR PRN WHEEZING Albuterol/Ipratropium 3 ml 06/15/25 19:00 06/18/25 13:15 Albuterol/Ipratropium (Duoneb) Rt Valorie 3 Ml Nebu INH 07/15/25 18:59 3 ml Q6HRRT BANG Administration Amlodipine Besylate 10 mg 06/16/25 09:00 06/18/25 08:19 Amlodipine Besylate 5 Mg Tablet GT 07/16/25 08:59 Not Given QDAY BANG Aspirin 81 mg 06/15/25 16:45 06/18/25 08:17 Aspirin 81 Mg Chew GT 07/15/25 16:44 81 mg QDAY BANG Administration Atorvastatin Calcium 10 mg 06/15/25 21:00 06/17/25 21:08 Atorvastatin Calcium 10 Mg Tablet GT 07/15/25 20:59 10 mg HS BANG Administration Dextrose 25 ml 06/16/25 18:02 Dextrose 50%-Water Inj 50 Ml Syringe IV 07/16/25 18:01 Q15MIN PRN BG 50-70 responsive npo pt Dextrose 50 ml 06/16/25 18:02 Dextrose 50%-Water Inj 50 Ml Syringe IV 07/16/25 18:01 Q15MIN PRN BG <50 OR BG <70 & pt unresponsive Enoxaparin Sodium 40 mg 06/15/25 09:00 06/17/25 09:00 Enoxaparin Sod Inj 40 Mg/0.4 Ml Syringe SC 06/29/25 08:59 40 mg On Hold: 06/17/25 14:20 QDAY BANG Administration Famotidine 20 mg 06/17/25 21:00 06/18/25 08:16 Famotidine Inj 10 Mg/Ml Vial 2 Ml IVP 07/17/25 20:59 20 mg BID BANG Administration Glucagon 1 mg 06/16/25 18:02 Glucagon Inj 1 Mg Vial IM Q15MIN PRN BG <70, and no IV access Lactulose 20 gm 06/15/25 21:00 06/18/25 08:17 Lactulose Syrup 20 Gm/30 Ml Udc GT 07/15/25 20:59 20 gm BID BANG Administration Protocol Levofloxacin 750 mg 06/18/25 11:45 06/18/25 12:47 Levofloxacin 250 Mg Tablet PO 06/25/25 11:44 750 mg QDAY BANG Administration Levothyroxine Sodium 125 mcg 06/16/25 06:00 06/18/25 05:11 Levothyroxine Sodium 125 Mcg Tablet GT 07/16/25 05:59 125 mcg ACBR BANG Administration Lisinopril 10 mg 06/16/25 09:00 06/18/25 08:20 Lisinopril 20 Mg Tablet GT 07/16/25 08:59 Not Given QDAY BANG Ondansetron HCl 4 mg 06/15/25 03:30 06/15/25 04:28 Ondansetron Inj 2 Mg/Ml Inj 2 Ml IVP 07/15/25 03:29 4 mg Q6HR PRN Administration NAUSEA OR VOMITING Sennosides 1 tab 06/15/25 21:00 06/18/25 08:17 Senna Tablet GT 07/15/25 20:59 1 tab BID BANG Administration Protocol Plan 74-year-old female with a past medical history of CVA status post trach and PEG since 2018, lymphoma in 2017, myxedema coma, and hypertension who presents from subacute for temperature of 92.3 ?F. patient was admitted for ventilator associated pneumonia and will be treated with broad-spectrum IV antibiotics #Ventilator-Associated Pneumonia #Chronically trach and PEG #UTI, Pseudmonas Patient has been at subacute patient for several years secondary to CVA Per subacute, patient was hypothermic with T 91 F on admission. WBC of 5.4, hypothermic 92.3 ?F, and lactic acidosis that normalized after fluids 1.0 (2.1) XR abdomen: Heavy vascular calcification. Rectal tube. Moderate to abundant air and stool throughout the colon CXR: mild heart failure. Edema and pneumonia at the lung bases. Large right pleural effusion US chest: Mild free-flowing right pleural fluid seen. No thoracentesis was performed. B ctx negative after 48h; U ctx positive for pseudomonas; MRSA screen negative Plan: IV vancomycin, pharmacy to dose and cefepime 2g Q8h (06/15 - 06/18) switched to levofloxacin 750 PO (PEG tube) for 7 days due to lack of MRSA in nasal swab and positive Urine pseudomonas culture Chest PT and breathing treatments #Normocytic anemia #Thrombocytopenia Hgb 7.1 from 7.3 from 7.5 from 9.0, MCV 100, Plt 146 Likely secondary to chronically trach impact and poor nutrition Differentials include GI bleed, iron deficiency anemia, anemia of chronic disease, vitamin deficiency, hemolytic anemia and less likely bone marrow disorder Iron panel: Iron 49L, iron sat 17L, TIBC 288, Ferritin 209 FOBT negative Plan: Consulted GI (Dr. Xiong), waiting for consults #Tube feeds CHEM panel largely unremarkable other than bicarb of 35.2 TSH of 8.2 with normal free T4. As noted patient is chronically fed with PEG tube Plan: Dietitian consulted, appreciate recommendations Jevity 1.2 kcal at 45mL/h with 45cc/h water flushes hold tube feeding one hour before and after levothyroxine adminstration #Hypothyroidism -levothyroxine 125mcg ACBR #Hypertension #Hyperlipidemia #History of CVA #[id number], type 2 diabetes Bedside blood glc has remained WNL without insulin administration, will continue to monitor and implement an insulin regiment if indicated. Plan: -amlodipine GT 10mg Qday -lisinopril GT 10mg Qday Bedside blood glucose every 6 hours #Sacral wound #History of skin cancer, completed chemo in 2018 As noted patient's chart Wound care has been initiated and subacute Plan: Wound care, referral Hospital Management: Lines: PIV Diet: Tube feeds Bowel: Lactulose, senna, GI prophylaxis: Will consider adding if tube feeds can be resumed DVT prophylaxis: Lovenox Dispo: PO (per PEG) antibiotics for ventilator associated pneumonia and UTI Code: DNR This case was discussed with my attending physician, Dr. Lubin, and senior resident, Dr. Virgen. Salinas Morales MD-PhD, PGY1 Attending Provider Attestation/Addendum I have examined the patient, reviewed labs and imaging findings, discussed the case with the resident(s), and reviewed entered orders. I agree with the plan of care as outlined in this note, with these additional summaries/recommendations: Patient seen at bedside. No acute overnight events. Patient is mechanically ventilated and no history can be obtained. Patient is continued on IV antibiotics for ventilator associated pneumonia and urinary tract infection. Blood cultures show no growth at 48 hours. MRSA screen negative. Urine culture resulted today showing Pseudomonas aeruginosa. Patient was planned for discharge today although unfortunately has had downtrending hemoglobin. Hemoglobin on admission 9.0 and has downtrended daily to 7.1 today. Fecal occult blood test was negative but given this acute drop concern for acute blood loss. Most likely patient's normocytic anemia is multifactorial in nature secondary to anemia of chronic disease +/- GI bleed. Order iron studies. Follow-up with gastroenterology. Continue famotidine twice daily. Okay to continue tube feeds for now. Hold chemical anticoagulation. Please see residents note for additional details and management. Dr. Tristian MD
[2025-06-18 13:26] LABS: Hemoglobin 7.1 g/dL (12.0-16.0)
--- NOTE | 2025-06-18 13:28 | PD.RESCONSUL ---
HPI Data of Consult Requesting Physician: Paul Lubin MD Admitting Provider: Shamar Jett MD Attending Provider: Paul Lubin MD Primary Care Provider: Physician No Primary/Family Consult Narrative Reason for consult: Normocytic anemia, decrease in hgb, fobt - History of present illness: Ms. Meza is a 74 year old woman with a hx of CVA post trach and peg 2018, lymphoma (2017), myxedema coma, and htn who presented from subacute with temperature 92.3, (history per chart review and discussion with primary team). She was found to have UTI (Growing Pseudomonas Arg.), large right sided pleural effusion and KUB with abundant stool in the colon, thoracentesis was not indicated as US demonstrated mild free flowing R pleural fluid, thoracentesis was deferred, started on vancomycin and cefepime for ventilator associated PNA then transitioned to levofloxacin based on culture speciation and susceptibility. GI was consulted due to downtrending Hgb, no melena noted, nor blood in peg tube or trach tube. FOBT was negative. 06/18/2025: Patient seen and examined at bedside. Trach with clear mucus and peg tube in place without errythema. RR increased with palpatation of RLQ, possibly tender due to significant stool burden. Hgb stable at 7.1 on repeat h and h today. cc:: cc: Paul Lubin MD Exam Vital Signs Temp Pulse Resp BP Pulse Ox O2 Del Method FiO2 97.2 F 69 18 124/74 100 Mechanical Ventilation 30 06/18/25 11:35 06/18/25 13:15 06/18/25 13:15 06/18/25 11:35 06/18/25 13:15 06/18/25 11:35 06/18/25 13:15 Narrative Exam General: A/O x0 (baseline, nonverbal), opens eyes; tracheostomy and PEG tube present Eyes: eyes are discongugate gaze , L eye is down and out. some crusting on eyelids Ears: Unable to assess due to neurological state. Nose: No nasal discharge. Mouth/Throat: Dry mucous membranes, no redness, no lesions, tracheosotomy appears intact and patent, nonbloody, no mucus in tube Neck: Neck supple, non-tender, no cervical lymphadenopathy. Lungs: No accessory muscle use; mechanical breath sounds heard bilaterally. Cardio: Normal S1/S2, regular rhythm, no murmurs, no JVD or carotid bruits. Abdomen: Soft and obese, non-tender, no palpable masses, peristalsis present, no guarding or rebound. ?RLQ tenderness , rectal tube Extremities: bilateral upper and lower extremity contractions, no peripheral edema , non-tender, peripheral pulses present. Skin: No rashes, no lesions, warm to touch. Neuro: grossly unchanged from previous baseline. Results Labs 06/18/25 12:26 06/18/25 04:31 Labs: Short CBC 06/18/25 06/18/25 Range/Units 04:31 12:26 WBC 4.7 (3.6-11.0) Thou/mm3 Hgb 7.1 L 7.1 L (12.0-16.0) g/dL Hct 22.8 L 23.0 L (36.0-46.0) % Plt Count 146 (140-440) Thou/mm3 BMP 06/18/25 04:31 Sodium 141 Potassium 4.3 D Chloride 102 Carbon Dioxide 33.2 H BUN 14 Creatinine 0.4 L Glucose 114 H Calcium 9.3 Liver Function 06/18/25 Range/Units 04:31 Total Bilirubin 0.4 (0.3-1.2) mg/dL AST 19 (0-34) U/L ALT 19 (10-49) U/L Alkaline Phosphatase 139 H (46-116) U/L Albumin 3.4 (3.4-4.8) gm/dL ABG Interpretation ABG results: 06/15/25 03:44 ABG pH 7.36 ABG pCO2 63 H ABG pO2 66 L ABG HCO3 35 H ABG O2 Saturation 92 ABG Base Excess 9 H Quality Measures Quality Measures sepsis Current suspected stage: ruled out Possible source: pulmonary Blood cultures ordered: yes Antibiotic ordered: Yes Advance care planning discussed with:: other (pt is nonverbal ) Medications Home Medications and Allergies Allergies Allergy/AdvReac Type Severity Reaction Status Date / Time No Known Allergies Allergy Verified 03/11/21 09:57 Visit Medications Acetaminophen (Acetaminophen 500 Mg Tablet) 1,000 mg PO Q6H PRN PRN Reason: PAIN (1-3) OR FEVER > 99 Stop: 07/15/25 08:00 Albuterol/Ipratropium (Albuterol/Ipratropium (Duoneb) Rt Valorie 3 Ml Nebu) 3 ml INH Q2HR PRN PRN Reason: WHEEZING Stop: 07/15/25 16:37 Albuterol/Ipratropium (Albuterol/Ipratropium (Duoneb) Rt Valorie 3 Ml Nebu) 3 ml INH Q6HRRT BANG Stop: 07/15/25 18:59 Last Admin: 06/18/25 13:15 Dose: 3 ml Amlodipine Besylate (Amlodipine Besylate 5 Mg Tablet) 10 mg GT QDAY BANG Stop: 07/16/25 08:59 Last Admin: 06/18/25 08:19 Dose: Not Given Aspirin (Aspirin 81 Mg Chew) 81 mg GT QDAY [facility] Stop: 07/15/25 16:44 Last Admin: 06/18/25 08:17 Dose: 81 mg Atorvastatin Calcium (Atorvastatin Calcium 10 Mg Tablet) 10 mg GT HS [facility] Stop: 07/15/25 20:59 Last Admin: 06/17/25 21:08 Dose: 10 mg Dextrose (Dextrose 50%-Water Inj 50 Ml Syringe) 25 ml IV Q15MIN PRN PRN Reason: BG 50-70 responsive npo pt Stop: 07/16/25 18:01 Dextrose (Dextrose 50%-Water Inj 50 Ml Syringe) 50 ml IV Q15MIN PRN PRN Reason: BG <50 OR BG <70 & pt unresponsive Stop: 07/16/25 18:01 Enoxaparin Sodium (Enoxaparin Sod Inj 40 Mg/0.4 Ml Syringe) 40 mg SC QDAY BANG On Hold: 06/17/25 14:20 Stop: 06/29/25 08:59 Last Admin: 06/17/25 09:00 Dose: 40 mg Famotidine (Famotidine Inj 10 Mg/Ml Vial 2 Ml) 20 mg IVP BID BANG Stop: 07/17/25 20:59 Last Admin: 06/18/25 08:16 Dose: 20 mg Glucagon (Glucagon Inj 1 Mg Vial) 1 mg IM Q15MIN PRN PRN Reason: BG <70, and no IV access Lactulose (Lactulose Syrup 20 Gm/30 Ml Udc) 20 gm GT BID [facility]; Protocol Stop: 07/15/25 20:59 Last Admin: 06/18/25 08:17 Dose: 20 gm Levofloxacin (Levofloxacin 250 Mg Tablet) 750 mg PO QDAY [facility] Stop: 06/25/25 11:44 Last Admin: 06/18/25 12:47 Dose: 750 mg Levothyroxine Sodium (Levothyroxine Sodium 125 Mcg Tablet) 125 mcg GT ACBR BANG Stop: 07/16/25 05:59 Last Admin: 06/18/25 05:11 Dose: 125 mcg Lisinopril (Lisinopril 20 Mg Tablet) 10 mg GT QDAY [facility] Stop: 07/16/25 08:59 Last Admin: 06/18/25 08:20 Dose: Not Given Ondansetron HCl (Ondansetron Inj 2 Mg/Ml Inj 2 Ml) 4 mg IVP Q6HR PRN PRN Reason: NAUSEA OR VOMITING Stop: 07/15/25 03:29 Last Admin: 06/15/25 04:28 Dose: 4 mg Sennosides (Senna Tablet) 1 tab GT BID BANG; Protocol Stop: 07/15/25 20:59 Last Admin: 06/18/25 08:17 Dose: 1 tab Discontinued Medications Acetaminophen (Acetaminophen 325 Mg Tablet) 650 mg PO Q6H PRN PRN Reason: PAIN OR FEVER > 100.4 Stop: 07/15/25 08:00 Lactated Ringer's (Lactated Ringers) 1,000 mls @ 999 mls/hr IV .Q1H1M ONE Stop: 06/15/25 04:25 Last Infusion: 06/15/25 05:09 Dose: Infused Piperacillin/Tazobactam/Dextrose (Zosyn) 3.375 gm in 50 mls @ 100 mls/hr IV X1 ONE Stop: 06/15/25 03:54 Last Infusion: 06/15/25 04:58 Dose: Infused Sodium Chloride (Ns) 1,000 mls @ 999 mls/hr IV .Q1H1M ONE Stop: 06/15/25 07:26 Last Infusion: 06/15/25 07:50 Dose: Infused Sodium Chloride (Ns) 1,000 mls @ 75 mls/hr IV .[id number] [facility] Stop: 07/15/25 08:14 Last Infusion: 06/16/25 19:27 Dose: Infused Cefepime HCl 2 gm/ Sodium (Chloride) 50 mls @ 100 mls/hr IV Q8HR [facility] Stop: 06/22/25 08:05 Last Admin: 06/18/25 05:11 Dose: 100 mls/hr Vancomycin/Sodium Chloride (Vancomycin/Ns 1 Gm Ivpb) 200 mls @ 120 mls/hr IV X1 ONE Stop: 06/15/25 09:54 Last Infusion: 06/15/25 11:45 Dose: Infused Magnesium Sulfate (Magnesium Sulfate Ivpb) 2 gm in 50 mls @ 25 mls/hr IV X1 ONE Stop: 06/15/25 17:09 Last Infusion: 06/15/25 23:49 Dose: Infused Vancomycin/Sodium Chloride (Vancomycin/Ns 1 Gm Ivpb) 200 mls @ 120 mls/hr IV X1 ONE Stop: 06/15/25 23:39 Last Infusion: 06/15/25 23:49 Dose: Infused Vancomycin/Sodium Chloride (Vancomycin/Ns 1 Gm Ivpb) 200 mls @ 120 mls/hr IV Q12H BANG; Protocol Stop: 06/23/25 09:59 Last Admin: 06/16/25 22:25 Dose: Not Given Vancomycin HCl (Vancomycin/Water 1250 Mg Ivpb) 250 mls @ 120 mls/hr IV QDAY@1000 BANG; Protocol Stop: 06/24/25 09:59 Last Admin: 06/18/25 10:04 Dose: 120 mls/hr Pharmacy Consult (Vancomycin Pharmacy To Dose 1 Each Each) 1 each IV QDAY PRN PRN Reason: CONSULT Stop: 07/15/25 08:59 Sodium Hypochlorite (Sod Hypochlorite 1/4 Str 473 Ml Btl) 473 ml IRRIG X1 ONE Stop: 06/16/25 14:12 Last Admin: 06/16/25 15:00 Dose: 1 appln Assessment & Plan Plan Ms. Meza is a 74 year old woman with a hx of CVA post trach and peg 2018, lymphoma (2017), myxedema coma, and htn who presented from subacute with temperature 92.3 found to have ventilator associated pna and Pseudamonas UTI on levofloxacin who then developed worsening normocytic anemia during admission. #Normocytic Anemia #Constipation #Rule out possible GI bleed Ddx Upper vs lower GI bleed vs dilution effect vs medication induced (pt currently on metformin), hemolytic anemia unlikely given pt t sylvester wnl vs anemia of chronic disease. pt has hx of lymphoma VSS, not tachycardic which would be more suggestive of active bleeding or hypovolemia, she has good urine out put which suggests against hypovolemia or hypoperfusion. She has received cumulative 10 L input with 5L output over the course of her 4 day admission. She is on continuous jevity feeds. Favor dilutional effect, however have to rule out other etiologies of hgb drop. Pt takes iron supplements which were resumed inpatient, MCV 100. Pt has had no recent traumas or falls, on ASA but no antiplatelets. on lovenox for dvt ppx. Considering that patient has significant stool burden on KUB it is possible that she may have upper GI bleed but the FOBT will remain negative given the backlog of stool. Diagnostics Hgb 7.1 (stable on repeat testing today) from 9.0 (on admission) FOBT Negative Net + 4.8L Renal function is nl eGFR >60% UA, no RBCs Iron Panel: Iron Low, TIBC wnl, Iron sat Low, Unsat iron binding wnl and Ferritin wnl (similar to her baseline) T Sylvester 0.4 (wnl) KUB with significant stool burden unchanged from prior xray in 01/2025 Additional Work up Consider hemolysis workup (Retic count, LDH, Haptoglobin*(is a send out)) Occult gastric blood testing (hold feeding for 1 hour prior to collecting sample for testing then resume testing) Examine for possible hematomas following chest PT. Daily CBC Tx Transfuse if <7 Medical Decision Makers: Needed for consents Person to notify: Hayley Ethiopian speaking Next of Kin : Jessica Ethiopian Speaking #UTI (Pseudamonas Arg) #R Pleural Effusion (mild ) #Ventilator Associated PNA #Hypothyroidism #Hypertension #Hyperlipidemia #History of CVA #[id number], type 2 diabetes - per primary team Plan discussed with Dr. Tyrese Love MD PGY1 Attending Provider Attestation/Addendum Patient personally examined by me Laboratory data reviewed imaging studies reviewed Case discussed with the internal medicine team and my resident Dr. Love Normocytic normochromic anemia in the setting of FOBT being negative No indication for invasive GI workup Patient has a fair amount of stool burden and does have a gastrostomy tube would recommend GoLytely flush through the PEG tube Hold of any invasive GI workup as there is no indication for it Thank you very much for the opportunity to participate in the care of this patient
--- NOTE | 2025-06-18 21:59 | PC.NURSE ---
SPOKE WITH DR. MONROY.FEEDINGS HELD SINCE 1930 FOR GASTRIC OB. NO RESIDUALS OBTAINED YET. STATES TO HOLD FEEDINGS FOR ANOTHER HOUR, THEN RESUME FEEDINGS IF NO RESIDUAL STILL NOT OBTAINED.
[2025-06-18] MEDS: ATORVASTATIN CALCIUM 10 MG TABLET GT (22:53)
[2025-06-19] VITALS (9 sets, daily range): BP systolic 111–137; BP diastolic 58–84; PULSE 60–81; RESP 18–30; TEMP 35.9–36.6; O2SAT 95–100; BMI 34.4
[2025-06-19] MEDS: ALBUTEROL/IPRATROPIUM (Duoneb) RT SOL 3 ML NEBU INH ×3 (00:23→12:48)
[2025-06-19] MEDS: LEVOTHYROXINE SODIUM 125 MCG TABLET GT (05:17)
[2025-06-19 06:01] LABS: Basophils # (Auto) 0.0 Thou/mm3 (0.0-0.2); Basophils % (Auto) 1 % (0-2.5); Eosinophils # (Auto) 0.2 Thou/mm3 (0.0-0.5); Eosinophils % (Auto) 3 % (0-10); Hematocrit 23.5 % (36.0-46.0); Immature Granulocytes Auto 0.04 Thou/mm3 (0.00-0.00); Lymphocytes # (Auto) 1.7 Thou/mm3 (1.0-4.8); Lymphocytes % (Auto) 35 % (10-50); Mean Corpuscular HGB Conc 31.1 g/dl (31.0-37.0); Mean Corpuscular Hemoglobin 30.7 pg (25.0-35.0); Mean Corpuscular Volume 99 fL (80-100); Monocytes # (Auto) 0.4 Thou/mm3 (0.0-0.8); Monocytes % (Auto) 9 % (0-12); Neutrophils # (Auto) 2.5 Thou/mm3 (1.8-7.7); Neutrophils % (Auto) 52 % (37-80); Nucleated Red Blood Cell # 0.05 Thou/mm3 (0.00-0.00); Nucleated Red Blood Cell % 1 /100 WBC (0); Platelet Count 142 Thou/mm3 (140-440); RDW Standard Deviation 62.3 fL (36.4-46.3); Red Blood Count 2.38 Miln/mm3 (4.00-5.20); White Blood Count 4.9 Thou/mm3 (3.6-11.0)
[2025-06-19 06:09] LABS: Hemoglobin 7.3 g/dL (12.0-16.0)
[2025-06-19 06:20] LABS: Alanine Aminotransferase 18 U/L (10-49); Albumin, Serum 3.6 gm/dL (3.4-4.8); Albumin/Globulin Ratio 1.4 (1.2-2.2); Alkaline Phosphatase 147 U/L (46-116); Anion Gap 7 (7-16); Aspartate Amino Transferase 19 U/L (0-34); BUN/Creatinine Ratio 32 Ratio (12-20); Bilirubin,Total 0.3 mg/dL (0.3-1.2); Blood Urea Nitrogen 16 mg/dL (9-23); Calcium 9.2 mg/dL (8.3-10.6); Calcium (Corrected) 9.5 mg/dL (8.5-10.1); Carbon Dioxide 33.7 mMol/L (20.0-31.0); Chloride 100 mMol/L (98-107); Creatinine (Component) 0.5 mg/dL (0.6-1.3); Estimated Creatinine Clearance 99.1 mL/min (>60); Globulin 2.6 gm/dL (2.3-3.5); Glucose 98 mg/dL (74-106); Magnesium 1.8 mg/dL (1.6-2.6); Osmolality,Calculated 282 (275-295); Phosphorous 3.2 mg/dL (2.4-5.1); Potassium 4.5 mMol/L (3.4-5.1); Sodium 141 mMol/L (136-145); Total Protein 6.2 gm/dL (5.7-8.2); eGFR > 60 See Note
[2025-06-19] MEDS: Magnesium Sulfate 2 GM Ivpb 2 GM/50 ML BAG IV (09:03)
[2025-06-19] MEDS: FAMOTIDINE INJ 10 MG/ML VIAL 2 ML 20 MG IVP (09:04)
[2025-06-19] MEDS: ASPIRIN 81 MG CHEW GT (09:04)
[2025-06-19] MEDS: LEVOFLOXACIN 250 MG TABLET 750 MG PO (09:04)
[2025-06-19] MEDS: LACTULOSE SYRUP 20 GM/30 ML UDC GT (09:04)
[2025-06-19] MEDS: SOD HYPOCHLORITE 1/4 STR 473 ML BTL IRRIG (09:06)
--- NOTE | 2025-06-19 09:40 | PC.NURSE ---
pt has dc orders, mag infusing for 2 hours and waiting for pt to have bowel movement after enema
[2025-06-19 09:47] LABS: Vancomycin,Trough 20.0 mcg/mL (5.0-10.0)
--- NOTE | 2025-06-19 10:22 | PC.SS ---
Update: Plan is to d/c patient to sub-acute. DOOR SERVICEMAN confirmed with bedside nurse that patient had bowel movement. DOOR SERVICEMAN updated resident, informed resident of need to contact Dr. Wisdom to update on plan to transition patient back to sub-acute today.
--- NOTE | 2025-06-19 10:53 | PC.SS ---
Updated clinicals submitted to Sub-Acute via [facility].
--- NOTE | 2025-06-19 11:55 | PC.NURSE ---
gave report to nurse Lorena at subacute
--- NOTE | 2025-06-19 16:51 | ESDS_ITS ---
Patient Name: DEQUAN RANDALL : 1950 <Statement entered by Rehan Evans MD - 06/19/25 17:31> Patient was seen and evaluated at bedside this morning. No acute overnight events. Patient's hemoglobin remained stable and GI at this time did not recommend any more invasive GI workup at this time. Anemia likely secondary to chronic disease anemia as well as frequent blood draws. Spoke with subacute and patient will be discharged back to subacute. Patient stable enough to be discharged back to subacute at this time. Note reviewed and agree with resident's care plan as documented except as noted above. Case disclosed with attending Dr. Tristian Evans PGY2 Disclaimer: Even though this this note was dictated by speech recognition and even though it was carefully revised there may still be minor errors in development officer due to voice recognition software. Planned Discharge Date 06/19/25 DS: Providers Provider Date of admission: 05/18/23 00:01 Primary care physician: Abdoul Wisdom MD Admitting Provider: Abdoul Wisdom MD Attending Provider on Admission: Abdoul Wisdom MD Consults: 01/05/24 16:49 Referral Wound Care Routine Comment: Consult Instructions: Please check grayish mole like to rt anterior forearm. Res. Hx squamous cell CA 07/07/24 10:22 Consult to Optometry Routine Comment: Consulting Provider: 09/01/24 08:00 Consult to Podiatry Routine Comment: Consulting Provider: Consult to Podiatry Routine Comment: Routine podiatric visit Consulting Provider: Kike Swenson 09/13/24 22:16 Referral Wound Care Routine Comment: Right FA growth 10/17/24 15:50 Referral Wound Care Routine Comment: Instructions: fungal dermatitis to bilateral buttocks and upper posterior thigh 01/30/25 03:53 Referral Wound Care Routine Comment: open area to sacrum 03/02/25 08:48 Consult to Podiatry Routine Comment: Routine foot care Consulting Provider: 04/14/25 16:02 Referral Wound Care Routine Comment: Foul smelling right arm lesion 05/03/25 18:30 Referral Wound Care Routine Comment: Please evaluate Fungal like AD to antoine area. Instructions: May you consider F/C for speedy recovery resident dribbles all the time. 05/10/25 16:44 Referral Wound Care Routine Comment: Please re-assess RT arm wound (fouled smell) 06/01/25 08:00 Consult to Podiatry Routine Comment: F/U podiatry care Consulting Provider: Kike Swenson Attending Provider on DC: Paul Lubin MD Discharging Provider: Paul Lubin MD DS: Diagnosis Problem List Completed Was Problem List Reviewed/Reconciled?: Yes Hospital Course Hospital Course Hospital course: 74-year-old female with a past medical history of CVA status post trach and PEG since 2018, lymphoma in 2017, myxedema coma, and hypertension who presents from subacute for temperature of 92.3 ?F. Patient was admitted for ventilator associated pneumonia seen on imaging. Urine culture grew pseudomonas, not other culture positive. Thus, patient deescalated from cefepime/vancomycin to levofloxacin. Patient's hemoglobin dropped therefore we obtained an FOBT, which was negative; GI was consulted, and they stated that no GI workup was needed. Patient care discussed with family members, and patient sent to subacute facility. Patient was stable and returning to baseline upon discharge. Problem List #Ventilator-Associated Pneumonia #Chronically trach and PEG #UTI, Pseudmonas #Normocytic anemia #Thrombocytopenia #Tube feeds #Hypothyroidism #Hypertension #Hyperlipidemia #History of CVA #Ygk-wzfoona-btcwtnxjg, type 2 diabetes #Sacral wound #History of skin cancer, completed chemo in 2018 Status at Discharge Cognitive/behavioral status at discharge: A&0x0; at baseline Functional status at discharge: bed bound Overall status at discharge: patient is progressing back to baseline Time Spent with Patient Time attestation: Total time spent providing and/or coordinating discharge services: Time spent: Greater than 30 minutes Exam Vital Signs Temp Pulse Resp BP Pulse Ox O2 Del Method O2 Flow Rate 96.6 F L 65 28 H 122/67 98 Mechanical Ventilation 99 06/19/25 16:38 06/19/25 16:38 06/19/25 16:38 06/19/25 16:38 06/15/25 00:57 06/14/25 17:34 06/11/25 17:54 FiO2 30 06/15/25 00:57 Narrative Exam General: A/O x0 (baseline, nonverbal), opens eyes; tracheostomy and PEG tube present Eyes: eyes are discongugate gaze , L eye is down and out. some crusting on eyelids Ears: Unable to assess due to neurological state. Nose: No nasal discharge. Mouth/Throat: Dry mucous membranes, no redness, no lesions, tracheosotomy appears intact and patent Neck: Neck supple, non-tender, no cervical lymphadenopathy. Lungs: No accessory muscle use; mechanical breath sounds heard bilaterally. Cardio: Normal S1/S2, regular rhythm, no murmurs, no JVD or carotid bruits. Abdomen: Soft, non-tender, no palpable masses, peristalsis present, no guarding or rebound, rectal tube Extremities: bilateral upper and lower extremity contractions, no peripheral edema , non-tender, peripheral pulses present. Skin: No rashes, no lesions, warm to touch. Neuro: grossly unchanged from previous baseline. Discharge Plan Problem List Was Problem List Reviewed/Reconciled?: Yes Plan Patient Disposition: Admit Acute Care w/in Hospital Patient condition on transfer: Stable Prescriptions/Referrals Referrals: Abdoul Wisdom MD [Primary Care Provider, Pulmonology] Patient/Caregiver Discharge Instructions Print Language: Setswana Stand Alone Forms: Mill[employer]ent Award Info., Patient Portal Info Letter Quality Discharge Quality Measures none MD Attestestation MD Attestation I have examined the patient, reviewed labs and imaging findings, discussed the case with the resident(s), and reviewed entered orders. I agree with the plan of care as outlined in this note. Time Spent: [address] Tristian MD CC: Abdoul Wisdom MD; [facility] INSANE[facility]o
== END 2025-06-19 13:15 | disposition skilled nursing facility (03) | DRG 208 ==
LOC: SERX 07:32 → SERHOLD 08:23 → S2NX 16:32
PROVIDERS: Student in an Organized Health Care Education/Training Program; Admitting Provider Student in an Organized Health Care Education/Training Program; Emergency Provider Emergency Medicine; Visit Provider Student in an Organized Health Care Education/Training Program
DX: J95.851 Ventilator associated pneumonia (principal); N39.0 Urinary tract infection, site not specified; Z86.73 Personal history of transient ischemic attack (TIA), and cerebral infarction without residual deficits; Z93.0 Tracheostomy status; Z93.1 Gastrostomy status; D69.6 Thrombocytopenia, unspecified; E11.9 Type 2 diabetes mellitus without complications; D64.9 Anemia, unspecified; Y84.8 Other medical procedures as the cause of abnormal reaction of the patient, or of later complication, without mention of misadventure at the time of the procedure; E87.5 Hyperkalemia; E03.9 Hypothyroidism, unspecified; I11.0 Hypertensive heart disease with heart failure; I50.9 Heart failure, unspecified; B96.5 Pseudomonas (aeruginosa) (mallei) (pseudomallei) as the cause of diseases classified elsewhere; E78.5 Hyperlipidemia, unspecified; L98.429 Non-pressure chronic ulcer of back with unspecified severity; D63.8 Anemia in other chronic diseases classified elsewhere; Z85.828 Personal history of other malignant neoplasm of skin; Z92.21 Personal history of antineoplastic chemotherapy; Z66 Do not resuscitate; Z85.72 Personal history of non-Hodgkin lymphomas
CPT/HCPCS: 36415; 36600; 71045; 74018; 76999; 80053; 80069; 80202; 81001; 82270; 82728; 82803; 83540; 83550; 83605; 83690; 83735; 83880; 84100; 84145; 84439; 84443; 84484; 85014; 85018; 85025; 85610; 85730; 87040; 87077; 87081; 87086; 87186; 87811; 93005; 94003; 94640; 94762; 96361; 96365; 96366; 96375; 99285; A4314; A9270; J0692; J1650; J2405; J2543; J3372; J3373; J3475; J3490; J7030; J7050; J7120

== ENCOUNTER 2025-08-15 01:13 | Inpatient (IN) | payer MEDICARE, MEDICAID, SELFPAY ==
[2025-08-15] VITALS (15 sets, daily range): BP systolic 122–185; BP diastolic 50–87; PULSE 56–96; RESP 16–28; TEMP 33.7–37.6; O2SAT 92–100; BMI 35.4
--- NOTE | 2025-08-15 01:16 | PD.EDFEVER ---
ED Fever RME/HPI General Chief Complaint: General Adult/Misc Complain Stated Complaint: HYPOTHERMIC Time Seen by Provider: 08/15/25 01:29 Arrival date/time: 08/15/25 01:13 RME / HPI RME / HPI Narrative: See [facility] for Dr. Vega's HPI Documentation. Related Data Previous Rx's ?Medication ?Instructions ?Recorded acetaminophen 325 mg tablet 650 mg (2 x 325 mg) G-tube Q6HR 05/05/25 PRN Pain #360 tabs amlodipine 10 mg tablet 10 mg G-tube QDAY #1,096 tabs 05/05/25 aspirin 81 mg chewable tablet 81 mg G-tube QDAY #1,096 tabs 05/05/25 atorvastatin 10 mg tablet 10 mg G-tube HS #1,096 tabs 05/05/25 calcium 500 mg (as 1 ea G-tube QDAY #1,049 tabs 05/05/25 carbonate)-vitamin D3 5 mcg (200 unit) tablet (Oyster Shell Calcium-Vitamin D3) ferrous sulfate 220 mg (44 mg 220 mg (5 mL) G-tube QDAY #5,180 mL 05/05/25 iron)/5 mL oral elixir guaifenesin 100 mg/5 mL oral 300 mg (15 mL) G-tube Q6H PRN 05/05/25 liquid (Domonique-Tussin) Cough #1,000 mL lactulose 10 gram/15 mL oral 20 g (30 mL) G-tube BID 05/05/25 solution (Enulose) constipation 30 days #12,600 mL lisinopril 20 mg tablet 10 mg (1/2 x 20 mg) G-tube QDAY 05/05/25 hypertension 365 days #236 tabs magnesium hydroxide 400 mg/5 mL 30 ml G-tube PRN PRN No Bowel 05/05/25 oral suspension (Milk of Magnesia) Movement #3,000 mL xrehdghofhty-tivahdfe-yhye 1 ea G-tube QDAY #1,002 tabs 05/05/25 fumarate 7.5 mg-folic acid 400 mcg tablet sennosides 8.6 mg tablet (Senna 8.6 mg G-tube BID #1,036 tabs 05/05/25 Laxative) carbamide peroxide 6.5 % ear drops 5 drp otic (ear) Q61D 342 days #15 06/09/25 (Ear Wax Removal Drops) mL metformin 850 mg tablet 500 mg (0.5882 x 850 mg) G-tube 07/12/25 QDAY DM #18 tabs bisacodyl 10 mg rectal suppository 10 mg [place] PRN PRN No BM Per Bowel 07/14/25 (Dulcolax (bisacodyl)) Management Protocol 337 days #100 ea insulin regular human 100 unit/mL See Rx Instructions SCi 0600,1800 07/14/25 injection solution (Novolin R 7 days #10 mL Regular U-100 Insulin) ipratropium 0.5 mg-albuterol 3 mg 3 ml INH Q2HR PRN Wheezing 640 07/14/25 (2.5 mg base)/3 mL nebulization days #180 mL soln ipratropium 0.5 mg-albuterol 3 mg 3 ml INH Q6HRRT 643 days #90 mL 07/14/25 (2.5 mg base)/3 mL nebulization soln sodium phosphates 19 gram-7 133 ml [place] PRN PRN No Bowel 07/14/25 gram/118 mL enema (Fleet Enema) Movement 737 days #532 mL levothyroxine 125 mcg tablet 150 mcg (1.2 x 125 mcg) G-tube 07/18/25 ACBR hypothyroidism 365 days #38 tabs lidocaine 4 % topical cream 1 appl top 1000 WOUND MANAGEMENT 08/01/25 30 days Allergies Allergy/AdvReac Type Severity Reaction Status Date / Time No Known Allergies Allergy Verified 08/15/25 01:20 Review of Systems Review of Systems Systems Reviewed: All systems reviewed, normal except as documented Past Medical History Past Medical History NEUROLOGIC: Positive Neurological Disorders and Cerebrovascular Accident CARDIAC: Positive Hypercholesterolemia, Edema and Hypertension RESPIRATORY: Positive Asthma and Pneumonia GASTROINTESTINAL: Positive Gastrointestinal Disorders REPRODUCTIVE: Positive Pelvic Inflammatory Disease and Previous Pregnancies MUSCULOSKELETAL: Positive Musculoskeletal Disorders and Osteoporosis ENDOCRINE: Positive Endocrine Disorders and Diabetes Mellitus Type 2 HEMATOLOGIC: Positive Blood Disorders PSYCHO/SOCIAL: Positive Depression OTHER HISTORY: Positive Shingles, Blood Transfusions, Chemotherapy, MRSA and Cancer Family History FAMILY HISTORY: Positive Family Cancer Physical Exam Narrative Physical exam: See MDM for Dr. Vega's Physical Exam Documentation. ED Exam Narrative Physical exam: See MDM for Dr. Vega's Physical Exam Documentation. Course Quality Measures none Orders Category Date Time Status EKG (ED ONLY) *Do not use* NOW Care 08/15/25 01:21 Completed Rodriguez [Urinary Catheter] QS Care 08/15/25 01:34 Active Miscellaneous Nursing Order NOW Care 08/15/25 01:19 Active Saline [Insert IV] NOW Care 08/15/25 01:18 Active Straight [In and Out Catheter] X1 Care 08/15/25 01:[address] chest abdomen pelvis wo Stat Exams 08/15/25 01:[address] head/brain wo con Stat Exams 08/15/25 01:21 Taken EKG (ED Only) Stat Exams 08/15/25 01:21 Draft US venous doppler LE BI Stat Exams 08/15/25 02:56 Taken XR chest 1V portable Stat Exams 08/15/25 01:21 Taken ABG [Arterial Blood Gas] Stat Lab 08/15/25 04:44 Completed BNP [B-Type Natriuretic Peptide] Stat Lab 08/15/25 01:27 Completed Beta Hydroxybutyrate Stat Lab 08/15/25 01:27 Completed Bilirubin,Direct Stat Lab 08/15/25 01:27 Completed Blood Culture (Lab) Stat Lab 08/15/25 01:27 Received CBC Stat Lab 08/15/25 01:27 Completed CMP [Comprehensive Metabolic Panel] Stat Lab 08/15/25 01:27 Completed COVID-19 Antigen (In-House) Stat Lab 08/15/25 03:19 Completed CRP [C-Reactive Protein] Stat Lab 08/15/25 01:27 Completed D-Dimer Stat Lab 08/15/25 01:27 Completed ESR [Sed Rate (ESR)] Stat Lab 08/15/25 01:27 Completed Hemoglobin A1C [Glycohemoglobin w (eAG)] Stat Lab 08/15/25 01:27 Completed Influenza A & B Rapid Panel Stat Lab 08/15/25 03:19 Completed Lactate (Lactic Acid) Stat Lab 08/15/25 01:27 Completed Lipase Stat Lab 08/15/25 01:27 Completed Magnesium Stat Lab 08/15/25 01:27 Completed Procalcitonin Stat Lab 08/15/25 01:27 Completed TSH [Thyroid Stimulating Hormone] Stat Lab 08/15/25 01:27 Completed Troponin I Stat Lab 08/15/25 01:27 Completed UA, C/S IF [Urinalysis, C/S if Indicated] Stat Lab 08/15/25 01:35 Completed Cefepime Inj [Maxipime Inj] 2 gm Med 08/15/25 01:45 Discontinued SODIUM CHLORIDE 0.9% (Popper) [Ns 0.9% (P)] 50 ml IV X1 Ondansetron Inj [Zofran Inj] Med 08/15/25 01:19 Discontinued 4 mg IVP X1 ONE Ringers Lactated 1000 ml [Lactated Ringers] 1,000 ml Med 08/15/25 01:20 Discontinued IV 1,000 mls/hr Vancomycin Inj 2,000 mg Med 08/15/25 01:45 Discontinued Sodium Chloride 0.9% 500 ml [Ns] 500 ml IV X1 Vital Signs Vital signs: Vital Signs Temperature 92.6 F L 08/15/25 01:25 Pulse Rate 69 08/15/25 01:25 Respiratory Rate 18 08/15/25 01:25 Blood Pressure 124/53 L 08/15/25 01:25 Pulse Oximetry (%) 98 08/15/25 01:25 Oxygen Delivery Method Mechanical Ventilation 08/15/25 01:25 Fraction of Inspired Oxygen 30 08/15/25 01:25 Fever MDM Narrative MDM Narrative:: This section includes all my notes and documentations, including HPI, PE, and ED course. Jassi Vega MD HPI: 74 y/o female with Hx of CVA, HTN, and Type II DM from our DP/SNF with hypothermia and shaking. Can't obtain history from the patient due to comatose state. ROS: Can't obtain from the patient due to comatose state. Physical Exam: General: No acute distress. Eyes: Conjunctivae and lids clear. EOMI. PERRL. ENT: No nasal congestion. Neck: Supple. Heart: RRR. Lungs: No respiratory distress. Good air movement. No severe rhonchi, wheezing, rales. Abdomen: Soft and nontender. Legs: No clubbing, cyanosis, edema. Skin: Warm and dry. Neuro: Difficult to assess due to comatose state. I reviewed DP/SNF notes. I ordered NEW [place], Zofran 4 mg IV, vancomycin 2 g IV, cefepime 2 g IV, and diagnostic tests. At 6 AM on 08/15/25, the care of the patient was transferred to Dr. Andres. Jassi Vega MD Patient data External records reviewed:: [facility] previous records (Reviewed prior ED records from 06/15/25. Patient was seen for UTI (urinary tract infection). ) and Shelter records Clinical information provided by:: apprenticeship consultant (Nursing staff) Social determinants that could affect healthcare access:: housing (Subacute) Patient has the following chronic illnesses:: Cerebrovascular Accident, Hypercholesterolemia, Edema, Hypertension, Asthma, Pelvic Inflammatory Disease, Osteoporosis, Diabetes Mellitus Type 2, Depression How is presenting disease/condition affected by chronic disease/condition?: exacerbated by Evaluation data The following diagnostics were reviewed and interpreted by me:: lab results, radiology exam(s) and EKG tracing(s) (My interpretation of the EKG is: Sinus rhythm (59 bpm) with nonspecific ST-T changes. Jassi Vega MD) Lab and/or radiology exams considered but not ordered:: None Interpretation Summary: Complete diagnostic tests are pending. Medications / Prescriptions Medications or Prescriptions considered but not ordered:: None Medication administrations:: Medication Administration History Discontinued Medications Lactated Ringer's (Lactated Ringers) 1,000 mls @ 1,000 mls/hr IV .Q1H ONE Stop: 08/15/25 02:19 Last Infusion: 08/15/25 03:59 Dose: Infused Documented By: Admin: 08/15/25 01:39 Dose: 1,000 mls/hr Documented By: ARLENE Cefepime HCl 2 gm/ Sodium (Chloride) 50 mls @ 100 mls/hr IV X1 ONE Stop: 08/15/25 02:14 Last Infusion: 08/15/25 02:29 Dose: Infused Documented By: Admin: 08/15/25 01:51 Dose: 100 mls/hr Documented By: ARLENE Vancomycin HCl 2,000 mg/ (Sodium Chloride) 500 mls @ 150 mls/hr IV X1 ONE Stop: 08/15/25 05:04 Last Admin: 08/15/25 02:29 Dose: 150 mls/hr Documented By: JAYCEE Ondansetron HCl (Ondansetron Inj 2 Mg/Ml Inj 2 Ml) 4 mg IVP X1 ONE; Protocol Stop: 08/15/25 01:20 Last Admin: 08/15/25 01:38 Dose: 4 mg Documented By: ARLENE Fuentes ordered Lorenzo shalondaer, IVF, Zofran 4 mg IV, vancomycin 2 g IV, cefepime 2 g IV, and diagnostic tests. Consultations Consultation(s) initiated? (list below): No Diagnosis Fever Differential Diagnosis: cellulitis, fever of unknown origin, gastroenteritis, community acquired pneumonia, pyelonephritis, viral infection, sepsis and influenza Most likely diagnosis given after review of the tests above:: Complete diagnostic tests are pending. Admission Indicated Admission indicated?: not indicated Explain why admission is indicated or not indicated:: Complete diagnostic tests are pending. Admission Request Was there a request for admission?: No Disposition Plan Disposition Plan: other (specify) ( At 6 AM on 08/15/25, the care of the patient was transferred to Dr. Andres.) Discharge Plan Prescriptions/Referrals Prescriptions/Med Rec: No Action sennosides [Senna Laxative] 8.6 mg tablet 8.6 mg G-tube BID Qty: 1036 0RF Label Comments: for Constipation Rx Instructions: Hold for loose stools acetaminophen 325 mg tablet 650 mg G-tube Q6HR PRN (Reason: Pain) Qty: 360 0RF Label Comments: Not to exceed 3 grams acetaminophen from all sources in 24 hrs atorvastatin 10 mg tablet 10 mg G-tube HS Qty: 1096 0RF Label Comments: for dyslipidemia lisinopril 20 mg tablet 10 mg G-tube QDAY 472 Days Qty: 236 0RF Rx Instructions: Hold if SBP<110 and or HR<60 guaifenesin [Domonique-Tussin] 100 mg/5 mL liquid 300 mg G-tube Q6H PRN (Reason: Cough) Qty: 1000 0RF Label Comments: CONC 100mg/5ml Rx Instructions: give 15ml magnesium hydroxide [Milk of Magnesia] 400 mg/5 mL suspension 30 ml G-tube PRN PRN (Reason: No Bowel Movement) Qty: 3000 0RF Label Comments: CONC:400MG/5ML Rx Instructions: Give 2400mg/30ml PGT on the 5th shift if no BM amlodipine 10 mg tablet 10 mg G-tube QDAY Qty: 1096 0RF Label Comments: for HTN Rx Instructions: Hold for SBP<110 or HR<60 aspirin 81 mg tablet,chewable 81 mg G-tube QDAY Qty: 1096 0RF Label Comments: for circulation/cva lactulose [Enulose] 10 gram/15 mL solution 20 g G-tube BID 419 Days Qty: 69013 0RF Rx Instructions: CONC: 10gm/15ml give 30 ml Hold for loose stool. calcium carbonate-vitamin D3 [Oyster Shell Calcium-Vit D3] 500 mg-5 mcg (200 unit) tablet 1 ea G-tube QDAY Qty: 1049 0RF Label Comments: For Supplement rodhnikm-avw-yizv fum-folic ac 7.5 mg iron-400 mcg tablet 1 ea G-tube QDAY Qty: 1002 0RF Label Comments: for supplement ferrous sulfate 220 mg (44 mg iron)/5 mL elixir 220 mg G-tube QDAY Qty: 5180 0RF Label Comments: For Supplement CONC: 220mg/5ml Rx Instructions: Give 7.5ml Ear Wax Removal Drops 6.5 % drops 5 drp otic (ear) Q61D 342 Days Qty: 15 0RF Rx Instructions: 5 drops per ear at first med pass of shift. Then irrigate ears with NS at next med pass of each shift x 4 days for wax build up. *Start on the of the month, every two months. metformin 850 mg tablet 500 mg G-tube QDAY Qty: 18 11RF ipratropium-albuterol 0.5 mg-3 mg(2.5 mg base)/3 mL solution for nebulization 3 ml INH Q2HR PRN (Reason: Wheezing) 337 Days Qty: 180 1RF ipratropium-albuterol 0.5 mg-3 mg(2.5 mg base)/3 mL solution for nebulization 3 ml INH Q6HRRT 337 Days Qty: 90 1RF bisacodyl [Dulcolax (bisacodyl)] 10 mg suppository 10 mg [place] PRN PRN (Reason: No BM Per Bowel Management Protocol) 337 Days Qty: 100 1RF Rx Instructions: Administer as needed on 6th shift, if MOM ineffective. Novolin R Regular U100 Insulin 100 unit/mL solution See Rx Instructions SCi 0600,1800 337 Days Qty: 10 1RF Label Comments: elevated blood sugar Rx Instructions: Per sliding scale coverage 0-150= 0 units, 151-200= 2 units, 201-250=4 units, 251-300= 6 units, 301-350= 8 units, 351-400= 10 units, >400= 12 units and notify MD Fleet Enema 19-7 gram/118 mL enema 133 ml [place] PRN PRN (Reason: No Bowel Movement) 337 Days Qty: 532 1RF Label Comments: If Dulcolax is ineffective on 7th shift, give Fleets enema per Bowel Management Protocol. Notify MD if no results from Enema. levothyroxine 125 mcg tablet 150 mcg G-tube ACBR 30 Days Qty: 38 12RF lidocaine 4 % cream 1 appl top 1000 30 Days 0RF Label Comments: 4% topical lidocaine to be applied to right forearm prior to wound mangement Rx Instructions: start once available Referrals: Abdoul Wisdom MD [Primary Care Provider, Pulmonology] - In 1 week Problem List Clinical Impression: Hypothermia, Shaking Patient/Caregiver Discharge Instructions Print Language: Setswana
--- NOTE | 2025-08-15 01:21 | XR_ITS ---
EXAMINATION: AP chest single view TECHNIQUE: AP portable semiupright chest single view Date and time: August 15, 2025, 0133 hours, comparison June 15, 2025 INDICATIONS: Chest pain shortness of breath today. FINDINGS: Mild heart failure Probable superimposed pneumonia right base Enlarged cardiac contour with prominent vascular congestion Right internal jugular dialysis catheter satisfactory position Tracheostomy tube tip 4.9 cm above eleuterio IMPRESSION: Mild heart failure Pneumonia right base
--- NOTE | 2025-08-15 01:21 | XR_ITS ---
Examination: CT brain head without contrast. 2-D sagittal coronal reconstructions Date and time of exam: August 15, 2025, 0402 hours INDICATIONS: Altered mental status today CTDI: vol (mGy): 56.30 DLP: (mGycm): 1230 Technique: Multiple CT axial sections of the brain have been obtained, 5 mm slice thickness. Contrast has not been administered. 2-D sagittal, coronal reconstructions have been obtained Low dose protocols were performed. One or more of the following dose reduction techniques were used; automated exposure control, adjustment of the mA and/or KV according to patient size, use of iterative reconstruction technique. Findings: No significant ventricular enlargement. Intra-axial or extra-axial hemorrhage density is not seen. No mass effect or midline shift Basal cisterns are not remarkable. Fourth ventricle is midline. Cranial vault intact. Impression: Negative for acute hemorrhage, mass effect or midline shift Bilateral chronic and acute mastoiditis
--- NOTE | 2025-08-15 01:21 | XR_ITS ---
Examination: CT chest, without intravenous contrast. CT abdomen, without intravenous contrast. CT pelvis, without intravenous contrast. 2-D sagittal and coronal reconstructions. 3-D reconstructions. Date and time of exam: August 15, 2025, 0405 hours INDICATIONS: Shortness of breath chest pain abdominal pain today CTDI vol (mgy) 18.41 DLP (MGycm) 1268 Technique: Multiple CT images, 3.0 mm slice thickness, obtained chest, abdomen, pelvis, with the high-resolution 64 slice scanner.. Sagittal and coronal 2-D reconstructions are obtained. 3-D reconstructions Low dose protocols were performed. One or more of the following dose reduction techniques were used; automated exposure control, adjustment of the mA and/or KV according to patient size, use of iterative reconstruction technique. Findings: Tracheostomy tube tip above the eleuterio satisfactory position Heavy thoracic aortic calcification no aneurysmal dilatation Pulmonary artery segments are not enlarged. Significant bibasilar pneumonia with moderate right pleural effusion Minimal pericardial effusion No visualized liver or splenic lesion Gallstones No pancreatic or adrenal mass No renal or ureteral calculi, no hydronephrosis Gastrostomy tube in the stomach No bowel obstruction Normal appendix No diverticulitis Atrophic uterus Urinary bladder contracted around a Rodriguez catheter. Prominent osteopenia IMPRESSION: Significant bibasilar pneumonia Moderate right pleural effusion Cholelithiasis, consider hepatobiliary sonography follow-up
--- NOTE | 2025-08-15 01:21 | EKG_ITS ---
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
[2025-08-15] MEDS: ONDANSETRON INJ 2 MG/ML INJ 2 ML 4 MG IVP (01:38)
[2025-08-15] MEDS: RINGERS LACTATED 1000 ML 1,000 ML IV (01:39)
[2025-08-15 01:49] LABS: Lactate (Lactic Acid) 1.8 mMol/L (0.4-2.0)
[2025-08-15] MEDS: CEFEPIME INJ 2 GM in SODIUM CHLORIDE 0.9% (Popper) 50 ML IV ×3 (01:51→21:06)
[2025-08-15 01:52] LABS: Beta Hydroxybutyrate 0.1 mmol/L (<0.6)
[2025-08-15 01:53] LABS: Collection Type, Urine Clean Catch
[2025-08-15 01:57] LABS: Bilirubin,Urine Negative (Negative); Blood,Urine Negative (Negative); Clarity,Urine Clear (Clear/Hazy); Color,Urine Lt-Yellow (Lt Yel-Yel); Culture Indicated,Urine Not Indicated; Glucose, Urine Negative (Negative); Ketones,Urine Negative (Negative); Leukocyte Esterase,Urine Negative (Negative); Nitrite,Urine Negative (Negative); PH,Urine 6.0 (5.0-7.0); Protein,Urine Negative (Neg - Trace); RBC,Urine 1 /hpf (0-3); Specific Gravity,Urine 1.007 (1.001-1.035); Squamous Epithelial Cell,Urine 1 /hpf (0-5); Urobilinogen,Urine Negative mg/dL (0.0-1.0); WBC,Urine < 1 /hpf (0-5)
[2025-08-15 02:14] LABS: Sed Rate (ESR) 65 mm/hr (0-30)
[2025-08-15 02:16] LABS: Basophils # (Auto) 0.0 Thou/mm3 (0.0-0.2); Basophils % (Auto) 1 % (0-2.5); Eosinophils # (Auto) 0.1 Thou/mm3 (0.0-0.5); Eosinophils % (Auto) 2 % (0-10); Hematocrit 30.1 % (36.0-46.0); Hemoglobin 9.3 g/dL (12.0-16.0); Immature Granulocytes Auto 0.06 Thou/mm3 (0.00-0.00); Lymphocytes # (Auto) 3.0 Thou/mm3 (1.0-4.8); Lymphocytes % (Auto) 41 % (10-50); Mean Corpuscular HGB Conc 30.9 g/dl (31.0-37.0); Mean Corpuscular Hemoglobin 30.0 pg (25.0-35.0); Mean Corpuscular Volume 97 fL (80-100); Monocytes # (Auto) 0.4 Thou/mm3 (0.0-0.8); Monocytes % (Auto) 6 % (0-12); Neutrophils # (Auto) 3.7 Thou/mm3 (1.8-7.7); Neutrophils % (Auto) 51 % (37-80); Nucleated Red Blood Cell # 0.02 Thou/mm3 (0.00-0.00); Nucleated Red Blood Cell % 0 /100 WBC (0); Platelet Count 183 Thou/mm3 (140-440); RDW Standard Deviation 58.1 fL (36.4-46.3); Red Blood Count 3.10 Miln/mm3 (4.00-5.20); White Blood Count 7.3 Thou/mm3 (3.6-11.0)
[2025-08-15] MEDS: Vancomycin Inj 2,000 MG in SODIUM CHLORIDE 0.9% 500 ML 500 ML 150 MG IV (02:29)
[2025-08-15 02:39] LABS: Alanine Aminotransferase 10 U/L (10-49); Albumin, Serum 4.0 gm/dL (3.4-4.8); Albumin/Globulin Ratio 1.3 (1.2-2.2); Alkaline Phosphatase 163 U/L (46-116); Anion Gap 7 (7-16); Aspartate Amino Transferase 14 U/L (0-34); BUN/Creatinine Ratio 28 Ratio (12-20); Bilirubin,Direct 0.1 mg/dL (0.0-0.3); Bilirubin,Total 0.3 mg/dL (0.3-1.2); Blood Urea Nitrogen 17 mg/dL (9-23); C-Reactive Protein 1.9 mg/dL (0.0-0.9); Calcium 9.4 mg/dL (8.3-10.6); Calcium (Corrected) 9.4 mg/dL (8.5-10.1); Carbon Dioxide 31.0 mMol/L (20.0-31.0); Chloride 101 mMol/L (98-107); Creatinine (Component) 0.6 mg/dL (0.6-1.3); Estimated Creatinine Clearance 82.8 mL/min (>60); Globulin 3.1 gm/dL (2.3-3.5); Glucose 166 mg/dL (74-106); Lipase 23 U/L (12-53); Magnesium 2.0 mg/dL (1.6-2.6); Osmolality,Calculated 283 (275-295); Potassium 4.3 mMol/L (3.4-5.1); Procalcitonin 0.25 ng/ml (0.0-0.49); Sodium 139 mMol/L (136-145); Thyroid Stimulating Hormone 3.20 uIU/mL (0.55-4.78); Total Protein 7.1 gm/dL (5.7-8.2); Troponin I < 0.020 ng/mL (0.0-0.045); eGFR > 60 See Note
[2025-08-15 02:40] LABS: Glucose Estimated Average 103 mg/dL (80-131); Hemoglobin A1C 5.2 % Hgb (4.8-6.0)
[2025-08-15 02:43] LABS: D-Dimer 828 ng/mL (<600)
--- NOTE | 2025-08-15 02:56 | XR_ITS ---
Examination: Venous duplex lower extremity sonogram, bilateral. Date and time of exam: August 15, 2025, 0329 hours INDICATIONS: Leg edema, immobilization, elevated D-dimer on laboratory examination today Technique: Multiple sonographic images of the deep venous system have been obtained. B-mode/2-D grayscale imaging of vascular structures and Doppler spectral analysis (waveforms) and color performed Both legs are examined. Findings: Deep venous systems do not demonstrate abnormal echogenicity. No diagnostic visualization left popliteal left peroneal right peroneal veins All visualized deep veins exhibit compressibility. All visualized deep veins exhibit augmentation. Impression: Limited study, no DVT demonstrated
[2025-08-15 03:05] LABS: B-Type Natriuretic Peptide < 20 pg/mL (0-100)
[2025-08-15 03:49] LABS: COVID-19 Antigen (In-House) Negative (Negative); Influenza A Ag Negative; Influenza B Ag Negative
--- NOTE | 2025-08-15 04:13 | PRELIM_ITS ---
Bilateral lower extremity venous Doppler ultrasound with wave Doppler spectral analysis. August 15, 2025 at 0329 hours Clinical history: Edema high D-dimer. Technique: Duplex scan of the bilateral lower extremity deep venous systems was performed utilizing 2D grayscale imaging, Doppler spectral analysis and color flow Doppler and with compression. Comparison: None available at the time of this report. Findings: Limited study. Bauman scale, color flow and spectral Doppler evaluation of the lower extremity deep veins was performed. Right: The common femoral, superficial femoral and popliteal veins are patent and compressible. Normal respiratory variation is noted. There is no evidence of occlusive or nonocclusive thrombus. The great saphenous vein is patent at the level of the saphenofemoral junction. Left: The common femoral, superficial femoral and popliteal veins are patent and compressible. Normal respiratory variation is noted. There is no evidence of occlusive or nonocclusive thrombus. The great saphenous vein is patent at the level of the saphenofemoral junction. Impression: No sonographic evidence of deep venous thrombosis in both lower extremities. Report Electronically Signed By: Wilfred Cordova 08/15/2025 4:13:19 AM [EST]
[2025-08-15 04:49] LABS: Base Excess 6 (-3-3); HCO3 32 mEq/L (20-26); Inspired Oxygen, FIO2 30 %; O2 Saturation 99 % (91-98); PCO2 55 mmHg (32.0-48.0); PO2 100 mmHg (83-108); pH, Arterial 7.37 (7.35-7.45)
[2025-08-15 04:52] LABS: Allen Test Performed/OK; Puncture Site Right Radial
--- NOTE | 2025-08-15 05:00 | PRELIM_ITS ---
CT scan of the head without intravenous contrast (axial sections with sagittal and coronal reformats) August 15, 2025 0402 hours Clinical history: Altered mental status. Comparison: None available at the time of this report. Findings: There is no evidence of intracranial hemorrhage, mass effect or midline shift. There are periventricular white matter hypodensities, compatible with chronic small vessel ischemia. There is moderate volume loss. The calvarium is unremarkable. The visualized paranasal sinuses are clear. The bilateral mastoid air cells are filled with mucus. Impression: Bilateral mastoiditis. No evidence of intracranial hemorrhage, mass effect or midline shift. Periventricular chronic small vessel ischemia and volume loss. Aspect score 10. Report Electronically Signed By: Wilfred Cordova 08/15/2025 4:59:32 AM [EST]
--- NOTE | 2025-08-15 05:51 | PRELIM_ITS ---
CT scan of the chest, abdomen and pelvis without intravenous contrast (axial sections with sagittal and coronal reformats) August 15, 2025 0405 hours Clinical History: SOB and abdominal pain Correlated with prior X-ray of December 27, 2024. Findings: No pneumothorax. Moderate right pleural effusion. Trace of left pleural effusion. Bilateral lower lobes consolidation. The aorta is within normal limits for age on this noncontrast study. No evidence of mediastinal mass or lymphadenopathy. There is no pericardial effusion. The liver, spleen, pancreas, adrenals and kidneys are unremarkable on this noncontrast study. Gallstones without evidence of acute cholecystitis. No evidence of bowel obstruction. No evidence of appendicitis. The urinary bladder is nondistended, limited evaluation. Rodriguez catheter in place. There is no free fluid or free air. Degenerative changes of the imaged portions of the spine. Chronic multilevel disc disease. No acute fractures. Chronic multilevel vertebral wedging. Vascular calcifications. Tracheostomy tube in place. Right anterior chest wall Port-A-Cath with a distal tip in the superior vena cava. Fecal loading. The uterus and ovaries are within normal limits. Calcifications at the level of the distal esophagus. Percutaneous gastric PEG tube in place. Impression: Bilateral lower lobes pneumonia. Bilateral pleural effusions. Report Electronically Signed By: Wilfred Cordova 08/15/2025 5:50:53 AM [EST]
--- NOTE | 2025-08-15 10:26 | PD.EDADDENDU ---
Emergency Room Addendum Addendum Narrative: 0600: Care assumed from Dr. Vega, the previous shift emergency physician. Past medical, surgical, social and family history reviewed. Vitals and home medications reviewed. I will assume the care of the patient at this time. Please refer to the emergency department record for history and examination from initial visit.? Physical exam by me shows patient under no acute distress at this time. 0950: Discussed test HPI, PMHx, lab, radiology results and/or management with resident working with the hospitalist. Will admit for further evaluation and management. Accepts patient for admission. Results Objective Laboratory: Laboratory Last Values WBC 7.3 Thou/mm3 (3.6-11.0) 08/15/25 01:27 RBC 3.10 Miln/mm3 (4.00-5.20) L 08/15/25 01:27 Hgb 9.3 g/dL (12.0-16.0) L 08/15/25 01:27 Hct 30.1 % (36.0-46.0) L 08/15/25 01:27 MCV 97 fL (80-100) 08/15/25 01:27 MCH 30.0 pg (25.0-35.0) 08/15/25 01:27 MCHC 30.9 g/dl (31.0-37.0) L 08/15/25 01:27 RDW Std Deviation 58.1 fL (36.4-46.3) H 08/15/25 01:27 Plt Count 183 Thou/mm3 (140-440) D 08/15/25 01:27 Neut % (Auto) 51 % (37-80) 08/15/25 01:27 Lymph % (Auto) 41 % (10-50) 08/15/25 01:27 [place] % (Auto) 6 % (0-12) 08/15/25 01:27 Eos % (Auto) 2 % (0-10) 08/15/25 01:27 Baso % (Auto) 1 % (0-2.5) 08/15/25 01:27 Neut # (Auto) 3.7 Thou/mm3 (1.8-7.7) 08/15/25 01:27 Lymph # (Auto) 3.0 Thou/mm3 (1.0-4.8) 08/15/25 01:27 [place] # (Auto) 0.4 Thou/mm3 (0.0-0.8) 08/15/25 01:27 Eos # (Auto) 0.1 Thou/mm3 (0.0-0.5) 08/15/25 01:27 Baso # (Auto) 0.0 Thou/mm3 (0.0-0.2) 08/15/25 01:27 Immature Gran # (Auto) 0.06 Thou/mm3 (0.00-0.00) H 08/15/25 01:27 Absolute Nucleated RBC 0.02 Thou/mm3 (0.00-0.00) H 08/15/25 01:27 Immature Gran % 1 % (0-0) H 08/15/25 01:27 Nucleated RBC % 0 /100 WBC (0) 08/15/25 01:27 ESR 65 mm/hr (0-30) H 08/15/25 01:27 D-Dimer 828 ng/mL (<600) H 08/15/25 01:27 Puncture Site Right Radial 08/15/25 04:44 ABG pH 7.37 (7.35-7.45) 08/15/25 04:44 ABG pCO2 55 mmHg (32.0-48.0) H 08/15/25 04:44 ABG pO2 100 mmHg (83-108) 08/15/25 04:44 ABG HCO3 32 mEq/L (20-26) H 08/15/25 04:44 ABG O2 Saturation 99 % (91-98) H 08/15/25 04:44 ABG Base Excess 6 (-3-3) H 08/15/25 04:44 FiO2 30 % 08/15/25 04:44 Sodium 139 mMol/L (136-145) 08/15/25 01:27 Potassium 4.3 mMol/L (3.4-5.1) 08/15/25 01:27 Chloride 101 mMol/L (98-107) 08/15/25 01:27 Carbon Dioxide 31.0 mMol/L (20.0-31.0) 08/15/25 01:27 Anion Gap 7 (7-16) 08/15/25 01:27 BUN 17 mg/dL (9-23) 08/15/25 01:27 Creatinine 0.6 mg/dL (0.6-1.3) 08/15/25 01:27 Estim Creat Clear Calc 82.8 mL/min (>60) 08/15/25 01:27 eGFR > 60 See Note (60-) 08/15/25 01:27 BUN/Creatinine Ratio 28 Ratio (12-20) H 08/15/25 01:27 Glucose 166 mg/dL (74-106) H 08/15/25 01:[address] Glu mg/dL 103 mg/dL (80-131) 08/15/25 01:27 Hemoglobin A1c 5.2 % Hgb (4.8-6.0) 08/15/25 01:27 Calculated Osmolality 283 (275-295) 08/15/25 01:27 Lactic Acid 1.8 mMol/L (0.4-2.0) 08/15/25 01:27 Calcium 9.4 mg/dL (8.3-10.6) 08/15/25 01:27 Corrected Calcium 9.4 mg/dL (8.5-10.1) 08/15/25 01:27 Magnesium 2.0 mg/dL (1.6-2.6) 08/15/25 01:27 Total Bilirubin 0.3 mg/dL (0.3-1.2) 08/15/25 01:27 Direct Bilirubin 0.1 mg/dL (0.0-0.3) 08/15/25 01:27 AST 14 U/L (0-34) 08/15/25 01:27 ALT 10 U/L (10-49) 08/15/25 01:27 Alkaline Phosphatase 163 U/L (46-116) H 08/15/25 01:27 Troponin I < 0.020 ng/mL (0.0-0.045) 08/15/25 01:27 C-Reactive Prot, Quant 1.9 mg/dL (0.0-0.9) H 08/15/25 01:27 B-Natriuretic Peptide < 20 pg/mL (0-100) 08/15/25 01:27 Total Protein 7.1 gm/dL (5.7-8.2) 08/15/25 01:27 Albumin 4.0 gm/dL (3.4-4.8) 08/15/25 01:27 Globulin 3.1 gm/dL (2.3-3.5) 08/15/25 01:27 Albumin/Globulin Ratio 1.3 (1.2-2.2) 08/15/25 01:27 Lipase 23 U/L (12-53) 08/15/25 01: Beta-Hydroxybutyrate/Acetoacetate 0.1 mmol/L (<0.6) 08/15/25 01:27 Procalcitonin 0.25 ng/ml (0.0-0.49) 08/15/25 01:27 TSH 3.20 uIU/mL (0.55-4.78) D 08/15/25 01:27 Ur Collection Type Clean Catch 08/15/25 01:35 Urine Color Lt-Yellow (Lt Yel-Yel) 08/15/25 01:35 Urine Clarity Clear (Clear/Hazy) 08/15/25 01:35 Urine pH 6.0 (5.0-7.0) 08/15/25 01:35 Ur Specific [place] 1.007 (1.001-1.035) 08/15/25 01:35 Urine Protein Negative (Neg - Trace) 08/15/25 01:35 Urine Glucose (UA) Negative (Negative) 08/15/25 01:35 Urine Ketones Negative (Negative) 08/15/25 01:35 Urine Blood Negative (Negative) 08/15/25 01:35 Urine Nitrite Negative (Negative) 08/15/25 01:35 Urine Bilirubin Negative (Negative) 08/15/25 01:35 Urine Urobilinogen (Auto) Negative mg/dL (0.0-1.0) 08/15/25 01:35 Ur Leukocyte Esterase Negative (Negative) 08/15/25 01:35 Urine RBC 1 /hpf (0-3) 08/15/25 01:35 Urine WBC < 1 /hpf (0-5) 08/15/25 01:35 Ur Squamous Epith Cells 1 /hpf (0-5) 08/15/25 01:35 Urine Bacteria None (None) 08/15/25 01:35 Ur Culture Indicated? Not Indicated 08/15/25 01:35 Influenza A (Rapid) Negative 08/15/25 03:19 Influenza B (Rapid) Negative 08/15/25 03:19 SARS-CoV-2 Ag (Rapid) Negative (Negative) 08/15/25 03:19 Imaging: Procedure(s): US venous doppler LE BI Accession Number(s): [id number] cc: Jassi Vega MD; Buck Chirinos MD; Abdoul Wisdom MD~ Examination: Venous duplex lower extremity sonogram, bilateral. Date and time of exam: August 15, 2025, 0329 hours INDICATIONS: Leg edema, immobilization, elevated D-dimer on laboratory examination today Technique: Multiple sonographic images of the deep venous system have been obtained. B-mode/2-D grayscale imaging of vascular structures and Doppler spectral analysis (waveforms) and color performed Both legs are examined. Findings: Deep venous systems do not demonstrate abnormal echogenicity. No diagnostic visualization left popliteal left peroneal right peroneal veins All visualized deep veins exhibit compressibility. All visualized deep veins exhibit augmentation. Impression: Limited study, no DVT demonstrated Dictated By: Buck Chirinos MD Procedure(s): CT head/brain wo con Accession Number(s): [id number] cc: Jassi Vega MD; Buck Chirinos MD; Abdoul Wisdom MD~ Examination: CT brain head without contrast. 2-D sagittal coronal reconstructions Date and time of exam: August 15, 2025, 0402 hours INDICATIONS: Altered mental status today CTDI: vol (mGy): 56.30 DLP: (mGycm): 1230 Technique: Multiple CT axial sections of the brain have been obtained, 5 mm slice thickness. Contrast has not been administered. 2-D sagittal, coronal reconstructions have been obtained Low dose protocols were performed. One or more of the following dose reduction techniques were used; automated exposure control, adjustment of the mA and/or KV according to patient size, use of iterative reconstruction technique. Findings: No significant ventricular enlargement. Intra-axial or extra-axial hemorrhage density is not seen. No mass effect or midline shift Basal cisterns are not remarkable. Fourth ventricle is midline. Cranial vault intact. Impression: Negative for acute hemorrhage, mass effect or midline shift Bilateral chronic and acute mastoiditis Dictated By: Buck Chirinos MD Procedure(s): CT chest abdomen pelvis wo Accession Number(s): [id number] cc: Jassi Vega MD; Buck Chirinos MD; Abdoul Wisdom MD~ Examination: CT chest, without intravenous contrast. CT abdomen, without intravenous contrast. CT pelvis, without intravenous contrast. 2-D sagittal and coronal reconstructions. 3-D reconstructions. Date and time of exam: August 15, 2025, 0405 hours INDICATIONS: Shortness of breath chest pain abdominal pain today CTDI vol (mgy) 18.41 DLP (MGycm) 1268 Technique: Multiple CT images, 3.0 mm slice thickness, obtained chest, abdomen, pelvis, with the high-resolution 64 slice scanner.. Sagittal and coronal 2-D reconstructions are obtained. 3-D reconstructions Low dose protocols were performed. One or more of the following dose reduction techniques were used; automated exposure control, adjustment of the mA and/or KV according to patient size, use of iterative reconstruction technique. Findings: Tracheostomy tube tip above the eleuterio satisfactory position Heavy thoracic aortic calcification no aneurysmal dilatation Pulmonary artery segments are not enlarged. Significant bibasilar pneumonia with moderate right pleural effusion Minimal pericardial effusion No visualized liver or splenic lesion Gallstones No pancreatic or adrenal mass No renal or ureteral calculi, no hydronephrosis Gastrostomy tube in the stomach No bowel obstruction Normal appendix No diverticulitis Atrophic uterus Urinary bladder contracted around a Rodriguez catheter. Prominent osteopenia IMPRESSION: Significant bibasilar pneumonia Moderate right pleural effusion Cholelithiasis, consider hepatobiliary sonography follow-up Dictated By: Buck Chirinos MD Procedure(s): XR chest 1V portable Accession Number(s): [id number] cc: Jassi Vega MD; Buck Chirinos MD; Abdoul Wisdom MD~ EXAMINATION: AP chest single view TECHNIQUE: AP portable semiupright chest single view Date and time: August 15, 2025, 0133 hours, comparison June 15, 2025 INDICATIONS: Chest pain shortness of breath today. FINDINGS: Mild heart failure Probable superimposed pneumonia right base Enlarged cardiac contour with prominent vascular congestion Right internal jugular dialysis catheter satisfactory position Tracheostomy tube tip 4.9 cm above eleuterio IMPRESSION: Mild heart failure Pneumonia right base Dictated By: Buck Chirinos MD
--- NOTE | 2025-08-15 11:45 | PC.NURSE ---
spoke with dr rivera about gt tube feeding stated keep the same rate as subacute settings. spoke with charge mark from subacute told me rate via telephone 40ml/hr of jevity 1.2 jazmyne for 22 hours and 2 hour break. switched out tube feeding and started a new bottle of jevity. rectal temp for patient 99.7 stopped bear hugger at this time. patient also turned and repositioned to face left side. also emptied 1000ml logan output. daughter at bedside and updated on plan of care
[2025-08-15 12:46] LABS: COVID-19 Antigen (In-House) Negative (Negative)
--- NOTE | 2025-08-15 13:55 | ESHP_ITS ---
Documentation for date of: 08/15/25 HPI History of Present Illness History of present illness: Patient is currently nonresponsive. Most of the history is taken from the chart review. 73-year-old female with significant past medical history of chronic trach and PEG since 2018 secondary to CVA, skin cancer, shingles, lymphoma in 2017, myxedema coma, hypertension, type 2 diabetes mellitus, hyperlipidemia was brought to the ED from subacute for hypothermia after noted to have temperature of around 92.8 ?F. Patient noted to have similar episode in May for which she is admitted in view of pneumonia and got treated with antibiotics. At the time, patient noted to have a right-sided pleural effusion on CT chest but when tried to drain, noted to have mild pleural fluid unable to drain. At baseline, patient can follow some commands such as blinking her eyes, moving her extremities which was deteriorated over years. Patient noted to have baseline oxygen requirements without any worsening in the respiratory status. ED course: - Vitals at the time of admission are stable except for temperature of 92.6 ?F - Labs at the time of admission are significant for mild anemia, 9.3, glucose 166, A1c 5.2, CRP 1.9 - Head CT showed bilateral chronic and acute mastoiditis, negative for acute hemorrhage, mass effect or midline shift. - Chest x-ray showed pneumonia in the right base - CT chest/abdomen/pelvis showed significant bibasilar pneumonia, moderate right pleural effusion - EKG showed normal sinus rhythm with no ST and T wave changes - Venous Doppler of bilateral lower extremities did not show any DVT Past medical history: Chronic trach and PEG secondary to CVA since 2018, skin cancer, shingles, lymphoma, myxedema coma, hypertension, type 2 diabetes mellitus, hyperlipidemia Past surgical history: Abdominal surgery Social history: Not known Allergies: NKDA Review of Systems Review of Systems ROS Unobtainable: unobtainable due to mental status and unobtainable due to medical condition Exam Vital Signs Temp Pulse Resp BP Pulse Ox O2 Del Method FiO2 99.5 F 96 20 142/65 H 92 L Room Air 30 08/15/25 12:05 08/15/25 13:37 08/15/25 12:05 08/15/25 13:37 08/15/25 13:37 08/15/25 12:05 08/15/25 13:37 Narrative Exam General: unresponsive to noxious stimuli. Trach and peg HEENT: Normocephalic, atraumatic, mucous membranes moist. Heart: Regular rate and rhythm, no murmurs. Lungs: Clear to auscultation with no wheezing or crackles. Abdomen: Soft, nondistended, nontender, positive bowel sounds. ?No guarding or rebound tenderness. Neurologic: Unresponsive to noxious stimuli. Extremities: B/l 2+ pitting pedal edema noted Skin: Sacral decubitus ulcer Results: Labs 08/16/25 05:24 08/16/25 05:24 Labs: Short CBC 08/15/25 Range/Units 01:27 WBC 7.3 (3.6-11.0) Thou/mm3 Hgb 9.3 L (12.0-16.0) g/dL Hct 30.1 L (36.0-46.0) % Plt Count 183 D (140-440) Thou/mm3 BMP 08/15/25 01:27 Sodium 139 Potassium 4.3 Chloride 101 Carbon Dioxide 31.0 BUN 17 Creatinine 0.6 Glucose 166 H Calcium 9.4 Cardiac Enzymes 08/15/25 Range/Units 01:27 Troponin I < 0.020 (0.0-0.045) ng/mL Liver Function 08/15/25 Range/Units 01:27 Total Bilirubin 0.3 (0.3-1.2) mg/dL Direct Bilirubin 0.1 (0.0-0.3) mg/dL AST 14 (0-34) U/L ALT 10 (10-49) U/L Alkaline Phosphatase 163 H (46-116) U/L Albumin 4.0 (3.4-4.8) gm/dL Urine 08/15/25 Range/Units 01:35 Urine Color Lt-Yellow (Lt Yel-Yel) Urine Clarity Clear (Clear/Hazy) Urine pH 6.0 (5.0-7.0) Ur Specific [place] 1.007 (1.001-1.035) Urine Protein Negative (Neg - Trace) Urine Glucose (UA) Negative (Negative) ABG Interpretation ABG results: 08/15/25 04:44 ABG pH 7.37 ABG pCO2 55 H ABG pO2 100 ABG HCO3 32 H ABG O2 Saturation 99 H ABG Base Excess 6 H Quality Measures Quality Measures none Advance care planning discussed with:: child Medications Home Medications and Allergies Allergies Allergy/AdvReac Type Severity Reaction Status Date / Time No Known Allergies Allergy Verified 08/15/25 01:20 Visit Medications Enoxaparin Sodium (Enoxaparin Sod Inj 40 Mg/0.4 Ml Syringe) 40 mg SC QDAY BANG Stop: 08/30/25 08:59 Pantoprazole Sodium (Pantoprazole Inj 40 Mg Vial) 40 mg IVP QDAY BANG Stop: 09/15/25 08:59 Sennosides (Senna Tablet) 1 tab PO QDAY BANG; Protocol Stop: 09/14/25 09:59 Last Admin: 08/15/25 12:02 Dose: Not Given Discontinued Medications Lactated Ringer's (Lactated Ringers) 1,000 mls @ 1,000 mls/hr IV .Q1H ONE Stop: 08/15/25 02:19 Last Infusion: 08/15/25 03:59 Dose: Infused Cefepime HCl 2 gm/ Sodium (Chloride) 50 mls @ 100 mls/hr IV X1 ONE Stop: 08/15/25 02:14 Last Infusion: 08/15/25 02:29 Dose: Infused Vancomycin HCl 2,000 mg/ (Sodium Chloride) 500 mls @ 150 mls/hr IV X1 ONE Stop: 08/15/25 05:04 Last Infusion: 08/15/25 06:05 Dose: Infused Ondansetron HCl (Ondansetron Inj 2 Mg/Ml Inj 2 Ml) 4 mg IVP X1 ONE; Protocol Stop: 08/15/25 01:20 Last Admin: 08/15/25 01:38 Dose: 4 mg Assessment & Plan Plan Patient is currently nonresponsive. Most of the history is taken from the chart review. 73-year-old female with significant past medical history of chronic trach and PEG since 2018 secondary to CVA, skin cancer, shingles, lymphoma in 2017, myxedema coma, hypertension, type 2 diabetes mellitus, hyperlipidemia was brought to the ED from subacute for hypothermia after noted to have temperature of around 92.8 ?F. # Hypothermia Likely secondary to ventilator associated pneumonia versus autonomic dysfunction from stroke - Brought to the ED from subacute for hypothermia after noted to have temperature of around 92.8 ?F. - Noted to be at baseline oxygen needs - Patient noted to have similar episode in May for which she is admitted in view of pneumonia and got treated with antibiotics. - At that time, patient noted to have a right-sided pleural effusion on CT chest but when tried to drain, noted to have mild pleural fluid unable to drain. - Vitals at the time of admission are stable except for temperature of 92.6 ?F Work up - Labs at the time of admission are significant for mild anemia, 9.3, glucose 166, A1c 5.2, CRP 1.9 - Head CT showed bilateral chronic and acute mastoiditis, negative for acute hemorrhage, mass effect or midline shift. - Chest x-ray showed pneumonia in the right base - CT chest/abdomen/pelvis showed significant bibasilar pneumonia, moderate right pleural effusion - TSH is ordered and within normal limits Plan - Started on cefepime and vancomycin [08/15- - Follow-up on blood cultures - Lorenzo green - Regular monitoring of temperature # Bilateral chronic and acute mastoiditis - Found to have incidental finding on the CT head, but no clinical findings noted - Patient is on antibiotics which will cover the mastoiditis chronic medical problems # CVA s/p trach and PEG # Skin cancer s/p surgery and under remission # Shingles # Lymphoma under remission # Hypothyroidism # Hypertension - Resumed all her home meds including amlodipine, aspirin, atorvastatin, levothyroxine 150mcg - Resumed G-tube feeds Hospital Maintenance: Dispo: Tele DVT ppx: Enoxaparin GI ppx: Protonix Diet: G tube feeds IV lines: Central Code status: DNR Patient plan of care was discussed with the attending physician, Dr. Tristian Sales, PGY2 Attending Provider Attestation/Addendum I attest that I was physically present for the evaluation, physical examination, lab and imaging review of the patient with the residents. I discussed the case with the residents and agree with the findings and plans of care as documented above. After examination of the patient and review of the clinical data I feel that this patient needs admission to the hospital for further treatment/evaluation. Patient is a 74-year-old female with a medical history of chronic trach and PEG secondary to CVA, bedbound, lymphoma, primary hypertension, dyslipidemia, hypothyroidism, diabetes mellitus type 2, and chronic constipation presents to [facility] emergency department on 08/15/2025 from subacute facility for hypothermia. Patient seen at bedside. Patient is nonverbal and no history can be obtained. In the emergency room patient was found to have a temperature of 92.6 Fahrenheit. Continue rewarming techniques. Patient was also noted to be mildly tachycardic with respiratory rate of 25. Patient continues to be on mechanical ventilation with FiO2 of 30%. Lab results show a normal WBC count. Patient diagnosed with ventilator associated pneumonia. Start broad-spectrum IV antibiotics. Obtain culture results and follow-up speciation. Consult dietary to resume tube feeds and free water flushes. Start Lovenox for DVT prophylaxis. Patient's normocytic anemia appears at baseline and no evidence of acute bleeding at this time. Please see residents note for additional details and management. Dr. Tristian MD
--- NOTE | 2025-08-15 15:27 | PC.NURSE ---
turned patient to face right side
[2025-08-15] MEDS: ALBUTEROL/IPRATROPIUM (Duoneb) RT SOL 3 ML NEBU INH (18:21)
[2025-08-15] MEDS: ATORVASTATIN CALCIUM 10 MG TABLET GT (20:43)
[2025-08-15] MEDS: VANCOMYCIN/NS 1 GM IVPB 200 ML IV (23:20)
[2025-08-16] VITALS (15 sets, daily range): BP systolic 96–130; BP diastolic 45–88; PULSE 43–110; RESP 18–22; TEMP 35.9–37; O2SAT 98–100; BMI 35.4
--- NOTE | 2025-08-16 05:03 | PC.NURSE ---
notifed Dr. Gamble of [facility]'s heartrate sustaining in the 's. will monitor, no new orders at this time
[2025-08-16] MEDS: CEFEPIME INJ 2 GM in SODIUM CHLORIDE 0.9% (Popper) 50 ML IV ×3 (05:14→21:02)
[2025-08-16] MEDS: LEVOTHYROXINE SODIUM 125 MCG, LEVOTHYROXINE SODIUM 25 MCG 150 MCG GT (05:14)
[2025-08-16 06:11] LABS: Basophils # (Auto) 0.0 Thou/mm3 (0.0-0.2); Basophils % (Auto) 0 % (0-2.5); Eosinophils # (Auto) 0.1 Thou/mm3 (0.0-0.5); Eosinophils % (Auto) 2 % (0-10); Hematocrit 27.9 % (36.0-46.0); Hemoglobin 8.6 g/dL (12.0-16.0); Immature Granulocytes Auto 0.03 Thou/mm3 (0.00-0.00); Lymphocytes # (Auto) 2.3 Thou/mm3 (1.0-4.8); Lymphocytes % (Auto) 44 % (10-50); Mean Corpuscular HGB Conc 30.8 g/dl (31.0-37.0); Mean Corpuscular Hemoglobin 30.5 pg (25.0-35.0); Mean Corpuscular Volume 99 fL (80-100); Monocytes # (Auto) 0.4 Thou/mm3 (0.0-0.8); Monocytes % (Auto) 7 % (0-12); Neutrophils # (Auto) 2.4 Thou/mm3 (1.8-7.7); Neutrophils % (Auto) 46 % (37-80); Nucleated Red Blood Cell # 0.00 Thou/mm3 (0.00-0.00); Nucleated Red Blood Cell % 0 /100 WBC (0); Platelet Count 166 Thou/mm3 (140-440); RDW Standard Deviation 58.0 fL (36.4-46.3); Red Blood Count 2.82 Miln/mm3 (4.00-5.20); White Blood Count 5.3 Thou/mm3 (3.6-11.0)
[2025-08-16 06:41] LABS: Alanine Aminotransferase 8 U/L (10-49); Albumin, Serum 3.7 gm/dL (3.4-4.8); Albumin/Globulin Ratio 1.3 (1.2-2.2); Alkaline Phosphatase 147 U/L (46-116); Anion Gap 9 (7-16); Aspartate Amino Transferase 12 U/L (0-34); BUN/Creatinine Ratio 28 Ratio (12-20); Bilirubin,Total 0.3 mg/dL (0.3-1.2); Blood Urea Nitrogen 17 mg/dL (9-23); Calcium 9.0 mg/dL (8.3-10.6); Calcium (Corrected) 9.2 mg/dL (8.5-10.1); Carbon Dioxide 31.2 mMol/L (20.0-31.0); Chloride 103 mMol/L (98-107); Creatinine (Component) 0.6 mg/dL (0.6-1.3); Estimated Creatinine Clearance 82.8 mL/min (>60); Globulin 2.9 gm/dL (2.3-3.5); Glucose 180 mg/dL (74-106); Osmolality,Calculated 291 (275-295); Potassium 4.7 mMol/L (3.4-5.1); Sodium 143 mMol/L (136-145); Thyroid Stimulating Hormone 3.50 uIU/mL (0.55-4.78); Total Protein 6.6 gm/dL (5.7-8.2); eGFR > 60 See Note
[2025-08-16] MEDS: ASPIRIN 81 MG CHEW GT (08:16)
[2025-08-16] MEDS: ENOXAPARIN SOD INJ 40 MG/0.4 ML SYRINGE SC (08:17)
--- NOTE | 2025-08-16 10:00 | PD.RESPRO ---
Documentation for date of: 08/16/25 Subjective Subjective Interval history: No acute overnight events. Patient remained afebrile with stable temperature trend (97?98 F, now 98). Respiratory status maintained at baseline O2 needs without new desaturations or escalation of support. Trach was cleaned by RT this morning with no purulent or bloody secretions, WBC change at trach site consistent with recent cleaning, and no clinical decline noted. PEG feeds tolerated, no leakage or high residuals reported. Two brief bradycardic episodes overnight (HR low 50s, brennan 49), patient asymptomatic, resolved, and currently back in sinus rhythm with stable hemodynamics this morning. Exam Vital Signs Temp Pulse Resp BP Pulse Ox O2 Del Method FiO2 96.7 F L 110 H 18 118/88 H 100 Mechanical Ventilation 08/16/25 08:00 08/16/25 08:15 08/16/25 08:00 08/16/25 08:15 08/16/25 08:00 08/16/25 08:00 08/16/25 07:43 Narrative Exam General: unresponsive to noxious stimuli. Trach and peg HEENT: Normocephalic, atraumatic, mucous membranes moist. Heart: Regular rate and rhythm, no murmurs. Lungs: Clear to auscultation with no wheezing or crackles. Abdomen: Soft, nondistended, nontender, positive bowel sounds. ?No guarding or rebound tenderness. Neurologic: Unresponsive to noxious stimuli. Extremities: B/l 2+ pitting pedal edema noted Skin: Sacral decubitus ulcer Objective Labs 08/17/25 06:00 08/17/25 06:00 Labs: Laboratory Results - last 24 hr 08/15/25 08/16/25 12:28 05:24 WBC 5.3 RBC 2.82 L Hgb 8.6 L Hct 27.9 L MCV 99 MCH 30.5 MCHC 30.8 L RDW Std Deviation 58.0 H Plt Count 166 Neut % (Auto) 46 Lymph % (Auto) 44 Weld % (Auto) 7 Eos % (Auto) 2 Baso % (Auto) 0 Neut # (Auto) 2.4 Lymph # (Auto) 2.3 Weld # (Auto) 0.4 Eos # (Auto) 0.1 Baso # (Auto) 0.0 Immature Gran # (Auto) 0.03 H Absolute Nucleated RBC 0.00 Immature Gran % 1 H Nucleated RBC % 0 Sodium 143 Potassium 4.7 Chloride 103 Carbon Dioxide 31.2 H Anion Gap 9 BUN 17 Creatinine 0.6 Estim Creat Clear Calc 82.8 eGFR > 60 BUN/Creatinine Ratio 28 H Glucose 180 H Calculated Osmolality 291 Calcium 9.0 Corrected Calcium 9.2 Total Bilirubin 0.3 AST 12 ALT 8 L Alkaline Phosphatase 147 H Total Protein 6.6 Albumin 3.7 Globulin 2.9 Albumin/Globulin Ratio 1.3 TSH 3.50 SARS-CoV-2 Ag (Rapid) Negative ABG Interpretation ABG results: 08/15/25 04:44 ABG pH 7.37 ABG pCO2 55 H ABG pO2 100 ABG HCO3 32 H ABG O2 Saturation 99 H ABG Base Excess 6 H Quality Measures Quality Measures VTE prophylaxis Advance care planning discussed with:: patient and child Assessment & Plan Assessment Current Active Medications: Generic Name Dose Route Start Last Admin Trade Name Freq PRN Reason Stop Dose Admin Albuterol/Ipratropium 3 ml 08/15/25 15:51 08/15/25 18:21 Albuterol/Ipratropium (Duoneb) Rt Valorie 3 Ml Nebu INH 09/14/25 18:59 3 ml Q6HRRT PRN Administration WHEEZING OR SHORTNESS OFBREATH Amlodipine Besylate 10 mg 08/16/25 09:00 08/16/25 08:15 Amlodipine Besylate 5 Mg Tablet GT 09/15/25 08:59 10 mg QDAY BANG Administration Aspirin 81 mg 08/16/25 09:00 08/16/25 08:16 Aspirin 81 Mg Chew GT 09/15/25 08:59 81 mg QDAY BANG Administration Atorvastatin Calcium 10 mg 08/15/25 21:00 08/15/25 20:43 Atorvastatin Calcium 10 Mg Tablet GT 09/14/25 20:59 10 mg HS BANG Administration Dextrose 25 ml 08/16/25 09:54 Dextrose 50%-Water Inj 50 Ml Syringe IV 09/15/25 09:53 Q15MIN PRN BG 50-70 responsive npo pt Dextrose 50 ml 08/16/25 09:54 Dextrose 50%-Water Inj 50 Ml Syringe IV 09/15/25 09:53 Q15MIN PRN BG <50 OR BG <70 & pt unresponsive Enoxaparin Sodium 40 mg 08/16/25 09:00 08/16/25 08:17 Enoxaparin Sod Inj 40 Mg/0.4 Ml Syringe SC 08/30/25 08:59 40 mg QDAY BANG Administration Glucagon 1 mg 08/16/25 09:54 Glucagon Inj 1 Mg Vial IM Q15MIN PRN BG <70, and no IV access Cefepime HCl 2 gm/ Sodium 50 mls @ 100 mls/hr 08/15/25 15:50 08/16/25 06:18 Chloride IV 08/22/25 15:49 Infused Q8HR BANG Infusion Vancomycin/Sodium Chloride 750 mg in 150 mls @ 120 mls/hr 08/16/25 10:00 Vancomycin/Ns 750 Mg Ivpb IV 08/23/25 09:59 BID@1000,2200 [facility] Protocol Insulin Human Lispro 0 unit 08/16/25 12:00 Insulin Lispro (Admelog) 1 Unit/0.01 Ml Unit SC 09/15/25 11:59 Q6HR BANG Protocol Levothyroxine Sodium 125 mcg/ 150 mcg 08/16/25 06:00 08/16/25 05:14 Levothyroxine Sodium 25 mcg GT 09/15/25 05:59 150 mcg ACBR BANG Administration Pantoprazole Sodium 40 mg 08/16/25 09:00 08/16/25 08:16 Pantoprazole Inj 40 Mg Vial IVP 09/15/25 08:59 40 mg QDAY BANG Administration Pharmacy Consult 1 each 08/16/25 09:00 Vancomycin Pharmacy To Dose 1 Each Each IV 09/15/25 08:59 QDAY PRN CONSULT Sennosides 1 tab 08/15/25 10:00 08/16/25 08:15 Senna Tablet PO 09/14/25 09:59 1 tab QDAY BANG Administration Protocol Plan Patient is currently nonresponsive. Most of the history is taken from the chart review. 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 # Hypothermia Likely secondary to ventilator associated pneumonia versus autonomic dysfunction from stroke - Brought to the ED from subacute for hypothermia after noted to have temperature of around 92.8 ?F. - Noted to be at baseline oxygen needs - Patient noted to have similar episode in May for which she is admitted in view of pneumonia and got treated with antibiotics. - At that time, patient noted to have a right-sided pleural effusion on CT chest but when tried to drain, noted to have mild pleural fluid unable to drain. - Vitals at the time of admission are stable except for temperature of 92.6 ?F Work up - Labs at the time of admission are significant for mild anemia, 9.3, glucose 166, A1c 5.2, CRP 1.9 - Head CT showed bilateral chronic and acute mastoiditis, negative for acute hemorrhage, mass effect or midline shift. - Chest x-ray showed pneumonia in the right base - CT chest/abdomen/pelvis showed significant bibasilar pneumonia, moderate right pleural effusion - TSH is ordered and within normal limits 08/16/25: Resolved (initial 92.6 ?F on arrival) likely infection-driven from VAP; now normothermic. Plan - Continue on cefepime and vancomycin [08/15- - Follow-up on blood cultures - Lorenzo green - Regular monitoring of temperature # Bilateral chronic and acute mastoiditis - Found to have incidental finding on the CT head, but no clinical findings noted - Patient is on antibiotics which will cover the mastoiditis chronic medical problems # CVA s/p trach and PEG # Skin cancer s/p surgery and under remission # Shingles # Lymphoma under remission # Hypothyroidism # Hypertension - Resumed all her home meds including amlodipine, aspirin, atorvastatin, levothyroxine 150mcg - Resumed G-tube feeds Hospital Maintenance: Dispo: Tele DVT ppx: Enoxaparin GI ppx: Protonix Diet: G tube feeds IV lines: Central Code status: DNR ----- Plan discussed with attending physician Dr. Tristian Godoy MD PGY-1 Internal Medicine Attending Provider Attestation/Addendum I attest that I was physically present for the evaluation, physical examination, lab and imaging review of the patient with the residents. I discussed the case with the residents and agree with the findings and plans of care as documented above. Patient is a 74-year-old female with a medical history of chronic trach and PEG secondary to CVA, bedbound, lymphoma, primary hypertension, dyslipidemia, hypothyroidism, diabetes mellitus type 2, and chronic constipation presents to [facility] emergency department on 08/15/2025 from subacute facility for hypothermia. Patient seen at bedside. No acute overnight events. Patient's hypothermia now resolved. We will continue IV antibiotics for ventilator associated pneumonia. Follow-up culture results when available. Continue mechanical ventilation and tube feeds/free water flushes. Dietary following. Continue Lovenox for DVT prophylaxis. Patient's normocytic anemia appears at baseline and no evidence of acute bleeding at this time. Please see residents note for additional details and management. Dr. Tristian MD
[2025-08-16] MEDS: VANCOMYCIN/NS 750 MG IVPB 750 MG/150 ML BAG 120 MG IV (11:13)
[2025-08-16] MEDS: ATORVASTATIN CALCIUM 10 MG TABLET GT (20:01)
[2025-08-16 21:42] LABS: Vancomycin,Trough 22.9 mcg/mL (5.0-10.0)
[2025-08-16] MEDS: ALBUTEROL/IPRATROPIUM (Duoneb) RT SOL 3 ML NEBU INH (22:02)
[2025-08-17] VITALS (12 sets, daily range): BP systolic 100–154; BP diastolic 49–72; PULSE 50–80; RESP 18–27; TEMP 35.8–36.6; O2SAT 26–100; BMI 35.4
[2025-08-17] MEDS: CEFEPIME INJ 2 GM in SODIUM CHLORIDE 0.9% (Popper) 50 ML IV ×3 (05:09→21:01)
[2025-08-17] MEDS: LEVOTHYROXINE SODIUM 125 MCG, LEVOTHYROXINE SODIUM 25 MCG 150 MCG GT (05:09)
[2025-08-17] MEDS: INSULIN LISPRO (AdmeLOG) 1 UNIT/0.01 ML UNIT SC (05:52)
[2025-08-17 06:47] LABS: Basophils # (Auto) 0.0 Thou/mm3 (0.0-0.2); Basophils % (Auto) 0 % (0-2.5); Eosinophils # (Auto) 0.1 Thou/mm3 (0.0-0.5); Eosinophils % (Auto) 1 % (0-10); Hematocrit 28.2 % (36.0-46.0); Hemoglobin 9.0 g/dL (12.0-16.0); Immature Granulocytes Auto 0.06 Thou/mm3 (0.00-0.00); Lymphocytes # (Auto) 1.3 Thou/mm3 (1.0-4.8); Lymphocytes % (Auto) 23 % (10-50); Mean Corpuscular HGB Conc 31.9 g/dl (31.0-37.0); Mean Corpuscular Hemoglobin 30.5 pg (25.0-35.0); Mean Corpuscular Volume 96 fL (80-100); Monocytes # (Auto) 0.4 Thou/mm3 (0.0-0.8); Monocytes % (Auto) 6 % (0-12); Neutrophils # (Auto) 3.8 Thou/mm3 (1.8-7.7); Neutrophils % (Auto) 68 % (37-80); Nucleated Red Blood Cell # 0.00 Thou/mm3 (0.00-0.00); Nucleated Red Blood Cell % 0 /100 WBC (0); Platelet Count 160 Thou/mm3 (140-440); RDW Standard Deviation 55.5 fL (36.4-46.3); Red Blood Count 2.95 Miln/mm3 (4.00-5.20); White Blood Count 5.6 Thou/mm3 (3.6-11.0)
[2025-08-17 06:55] LABS: Alanine Aminotransferase 11 U/L (10-49); Albumin, Serum 3.8 gm/dL (3.4-4.8); Albumin/Globulin Ratio 1.2 (1.2-2.2); Alkaline Phosphatase 151 U/L (46-116); Anion Gap 9 (7-16); Aspartate Amino Transferase 15 U/L (0-34); BUN/Creatinine Ratio 32 Ratio (12-20); Bilirubin,Total 0.3 mg/dL (0.3-1.2); Blood Urea Nitrogen 16 mg/dL (9-23); Calcium 8.9 mg/dL (8.3-10.6); Calcium (Corrected) 9.1 mg/dL (8.5-10.1); Carbon Dioxide 29.2 mMol/L (20.0-31.0); Chloride 105 mMol/L (98-107); Creatinine (Component) 0.5 mg/dL (0.6-1.3); Estimated Creatinine Clearance 99.3 mL/min (>60); Globulin 3.1 gm/dL (2.3-3.5); Glucose 194 mg/dL (74-106); Osmolality,Calculated 291 (275-295); Potassium 4.5 mMol/L (3.4-5.1); Sodium 143 mMol/L (136-145); Thyroid Stimulating Hormone 3.69 uIU/mL (0.55-4.78); Total Protein 6.9 gm/dL (5.7-8.2); eGFR > 60 See Note
--- NOTE | 2025-08-17 08:57 | PC.SS ---
Updated clinicals submitted to Sub-Acute unit via [facility].
--- NOTE | 2025-08-17 08:57 | PC.SS ---
Update: Plan is for the patient to d/c back to Sub-Acute today.
[2025-08-17] MEDS: ASPIRIN 81 MG CHEW GT (09:27)
[2025-08-17] MEDS: ENOXAPARIN SOD INJ 40 MG/0.4 ML SYRINGE SC (09:28)
[2025-08-17] MEDS: VANCOMYCIN/NS 500 MG IVPB 100 ML 120 MG IV ×2 (09:40→21:33)
--- NOTE | 2025-08-17 10:17 | ESDS_ITS ---
Planned Discharge Date 08/17/25 DS: Providers Provider Date of admission: 08/15/25 09:54 Primary care physician: Abdoul Wisdom MD Admitting Provider: Paul Lubin MD Attending Provider on Admission: Paul Lubin MD Consults: 08/16/25 00:00 Referral Registered Dietitian Routine Comment: Instructions: tube feeds 08/16/25 00:02 Referral Wound Care Routine Comment: Instructions: admit from subacute with skin cancer lesion to right forearm Attending Provider on DC: Paul Lubin MD Discharging Provider: Elmer Godoy MD DS: Diagnosis Problem List Completed Was Problem List Reviewed/Reconciled?: Yes Hospital Course Hospital Course Hospital course: 73-year-old female with chronic trach and PEG since 2018 secondary to prior CVA with progressive neurologic decline, history of lymphoma (2017) and skin cancer (in remission), DM2, HTN, HLD, and sacral pressure ulcer, admitted for severe hypothermia (92.6 F) in the setting of ventilator-associated pneumonia with bibasilar and R-base infiltrates and moderate R pleural effusion. Patient was initially brought to the ED from subacute for hypothermia (Temp 92.6 F). She was admitted where workup revealed bibasilar pneumonia and a moderate right pleural effusion. Prior records showed a similar admission in May where IR attempted thoracentesis but minimal fluid was present and drainage was unsuccessful. This admission, she maintained baseline oxygen needs through her tracheostomy without desaturation events or need for escalation of ventilatory support. She was managed with Lorenzo Hugger rewarming and started on IV cefepime and vancomycin on 08/15/25 for ventilator-associated pneumonia coverage. Blood cultures remained negative at 24h and 48h with no clinical signs of MRSA or sec ondary infection, so vancomycin was discontinued on 08/17/25 while cefepime was continued. She remained afebrile and normothermic prior to discharge. Telemetry showed 2 transient bradycardic bouts in the 50s (brennan 49) without symptoms, hypotension, or neurologic change, which self-resolved. PEG feeds were resumed and well-tolerated without residual issues or site infection. Sacral pressure ulcer was stable without signs of deep extension or infection. No DVT was found on Doppler. On the day of discharge, transient rapid response on 08/17/25 at 10:00 AM for position-related desaturation to low 70s, resolved within 2 minutes after repositioning with brief FiO2 increase to 50%, returned to baseline 30% with stable SpO2 100%, pneumonia on repeat CXR improving compared to 08/15/25, no escalation of care required. At discharge she was clinically optimized to neurologic baseline, stable for transfer back to subacute care to complete antibiotics and continue chronic airway and enteral nutritional support. Diagnosis during admission: # Hypothermia # Bilateral chronic and acute mastoiditis # CVA s/p trach and PEG # Skin cancer s/p surgery and under remission # Shingles # Lymphoma under remission # Hypothyroidism # Hypertension Discharge Instructions: Follow up with primary care physician within 1 week of discharge Please take Antibiotic Augmentin for an additional 2 days to complete treatment of pneumonia Should any symptoms recur or worsen patient is instructed to return to the ED. No need to send patient to hospital for hypothermia if temperature is >90 ?F and asymptomatic unless sustained desaturation below baseline, hemodynamic instability (SBP < 90 or MAP < 65), new purulent/bloody trach secretions, altered exam from neurologic baseline, or clinical concern for acute infection. ----- Plan discussed with attending physician Dr. Tristain Godoy MD PGY-1 Internal Medicine Time Spent with Patient Time attestation: Total time spent providing and/or coordinating discharge services: Time spent: Greater than 30 minutes Exam Vital Signs Temp Pulse Resp BP Pulse Ox O2 Del Method FiO2 97.0 F 60 18 115/70 99 Mechanical Ventilation 30 08/17/25 08:00 08/17/25 09:27 08/17/25 08:00 08/17/25 09:27 08/17/25 08:00 08/17/25 08:00 08/17/25 05:15 Narrative Exam General: unresponsive to noxious stimuli. Trach and peg HEENT: Normocephalic, atraumatic, mucous membranes moist. Heart: Regular rate and rhythm, no murmurs. Lungs: Clear to auscultation with no wheezing or crackles. Abdomen: Soft, nondistended, nontender, positive bowel sounds. ?No guarding or rebound tenderness. Neurologic: Unresponsive to noxious stimuli. Extremities: B/l 2+ pitting pedal edema noted Skin: Sacral decubitus ulcer Discharge Plan Plan Patient Disposition: er Intermediate Acute Care Plan Goals: Follow up with primary care physician within 1 week of discharge Please take Antibiotic Augmentin for an additional 2 days to complete treatment of pneumonia Should any symptoms recur or worsen patient is instructed to return to the ED. No need to send patient to hospital for hypothermia if temperature is >90 ?F and asymptomatic unless sustained desaturation below baseline, hemodynamic instab ility (SBP < 90 or MAP < 65), new purulent/bloody trach secretions, altered exam from neurologic baseline, or clinical concern for acute infection. Prescriptions/Referrals Prescriptions/Med Rec: New levofloxacin 750 mg tablet 750 mg PO Q24H 3 Days Qty: 3 0RF Continued sennosides [Senna Laxative] 8.6 mg tablet 8.6 mg G-tube BID Qty: 1036 0RF Label Comments: for Constipation Rx Instructions: Hold for loose stools acetaminophen 325 mg tablet 650 mg G-tube Q6HR PRN (Reason: Pain) Qty: 360 0RF Label Comments: Not to exceed 3 grams acetaminophen from all sources in 24 hrs atorvastatin 10 mg tablet 10 mg G-tube HS Qty: 1096 0RF Label Comments: for dyslipidemia lisinopril 20 mg tablet 10 mg G-tube QDAY 472 Days Qty: 236 0RF Rx Instructions: Hold if SBP<110 and or HR<60 guaifenesin [Domonique-Tussin] 100 mg/5 mL liquid 300 mg G-tube Q6H PRN (Reason: Cough) Qty: 1000 0RF Label Comments: CONC 100mg/5ml Rx Instructions: give 15ml magnesium hydroxide [Milk of Magnesia] 400 mg/5 mL suspension 30 ml G-tube PRN PRN (Reason: No Bowel Movement) Qty: 3000 0RF Label Comments: CONC:400MG/5ML Rx Instructions: Give 2400mg/30ml PGT on the 5th shift if no BM amlodipine 10 mg tablet 10 mg G-tube QDAY Qty: 1096 0RF Label Comments: for HTN Rx Instructions: Hold for SBP<110 or HR<60 aspirin 81 mg tablet,chewable 81 mg G-tube QDAY Qty: 1096 0RF Label Comments: for circulation/cva lactulose [Enulose] 10 gram/15 mL solution 20 g G-tube BID 419 Days Qty: 89490 0RF Rx Instructions: CONC: 10gm/15ml give 30 ml Hold for loose stool. calcium carbonate-vitamin D3 [Oyster Shell Calcium-Vit D3] 500 mg-5 mcg (200 unit) tablet 1 ea G-tube QDAY Qty: 1049 0RF Label Comments: For Supplement ftxrpirx-nwy-zzrf fum-folic ac 7.5 mg iron-400 mcg tablet 1 ea G-tube QDAY Qty: 1002 0RF Label Comments: for supplement ferrous sulfate 220 mg (44 mg iron)/5 mL elixir 220 mg G-tube QDAY Qty: 5180 0RF Label Comments: For Supplement CONC: 220mg/5ml Rx Instructions: Give 7.5ml Ear Wax Removal Drops 6.5 % drops 5 drp otic (ear) Q61D 342 Days Qty: 15 0RF Rx Instructions: 5 drops per ear at first med pass of shift. Then irrigate ears with NS at next med pass of each shift x 4 days for wax build up. *Start on the of the month, every two months. metformin 850 mg tablet 500 mg G-tube QDAY Qty: 18 11RF ipratropium-albuterol 0.5 mg-3 mg(2.5 mg base)/3 mL solution for nebulization 3 ml INH Q2HR PRN (Reason: Wheezing) 337 Days Qty: 180 1RF ipratropium-albuterol 0.5 mg-3 mg(2.5 mg base)/3 mL solution for nebulization 3 ml INH Q6HRRT 337 Days Qty: 90 1RF bisacodyl [Dulcolax (bisacodyl)] 10 mg suppository 10 mg FL PRN PRN (Reason: No BM Per Bowel Management Protocol) 337 Days Qty: 100 1RF Rx Instructions: Administer as needed on 6th shift, if MOM ineffective. Novolin R Regular U100 Insulin 100 unit/mL solution See Rx Instructions SCi 0600,1800 337 Days Qty: 10 1RF Label Comments: elevated blood sugar Rx Instructions: Per sliding scale coverage 0-150= 0 units, 151-200= 2 units, 201-250=4 units, 251-300= 6 units, 301-350= 8 units, 351-400= 10 units, >400= 12 units and notify Fleet Enema 19-7 gram/118 mL enema 133 ml FL PRN PRN (Reason: No Bowel Movement) 337 Days Qty: 532 1RF Label Comments: If Dulcolax is ineffective on 7th shift, give Fleets enema per Bowel Management Protocol. Notify MD if no results from Enema. lidocaine 4 % cream 1 appl top 1000 30 Days 0RF Label Comments: 4% topical lidocaine to be applied to right forearm prior to wound mangement Rx Instructions: start once available No Action levofloxacin 500 mg tablet 750 mg G-tube QDAY 3 Days Qty: 3 0RF Referrals: Abdoul Wisdom MD [Primary Care Provider, Pulmonology] Patient/Caregiver Discharge Instructions Education Materials: ED Hypothermia Treatment, ED Hypothermia Prevention Print Language: Japanese Stand Alone Forms: [employer] Award Info., Patient Portal Info Letter Discharge Order Discharge Orders: Discharge (Routine); Ordered 08/18/25 Ordered By: Manpreet Zuleta Quality Discharge Quality Measures VTE prophylaxis Attestestation MD Attestation I have examined the patient, reviewed labs and imaging findings, discussed the case with the resident(s), and reviewed entered orders. I agree with the plan of care as outlined in this note. Time Spent: [address] Tristian MD
--- NOTE | 2025-08-17 10:32 | CHAP ---
Responded to Rapid Response (10:32). Prayed for patient in room.
--- NOTE | 2025-08-17 10:38 | PC.SS ---
Rapid response initiated on the patient due to de-saturation. Medical team responding. Patient back to baseline.
--- NOTE | 2025-08-17 11:14 | XR_ITS ---
EXAMINATION: AP chest single view TECHNIQUE: AP portable semiupright chest single view Date and time: August 17, 2025, 1214 hours INDICATIONS: O2 desaturation today. FINDINGS: Mild heart failure Mild enlargement left ventricle Prominent vascular congestion. Bibasilar pneumonia with small to moderate bilateral pleural effusions Right internal jugular Port-A-Cath tip satisfactory position Tracheostomy tube tip 6 cm above eleuterio IMPRESSION: Mild heart failure Bibasilar pneumonia
--- NOTE | 2025-08-17 11:31 | PC.DIETICIAN ---
Nutrition prescription 1. Jevity 1.2 at 40 ml/hr x 22 hrs via PEG tube by pump (goal). If no IV fluids, water flushes of 30 ml/hr (or per MD). -Hold TF for one hour before and after levothyroxine administration- 2. ProStat 30 ml BID via PEG tube (mix with water).
--- NOTE | 2025-08-17 13:39 | EVENTNT_ITS ---
Documentation for date of: 08/17/25 Event Note Event Note: Rapid response was initiated at 10:00 AM after nursing noted a sudden SpO2 drop into the low 70s while the patient was being repositioned. On immediate evaluation, patient was placed back into an upright midline position with op timized neck and trach alignment, and FiO2 was briefly increased to 50% for approximately 2 minutes. SpO2 rapidly improved and reached 100% within repositioning. After 2 minutes of stability, FiO2 was returned to her original baseline setting of 30%. No tachypnea, agitation, loss of pulses, change in cardiac rhythm, or other instability noted during or after the episode. Chest X- ray obtained post-event showed persistent bibasilar pneumonia, but when compared to imaging from 08/15/25, infiltrates appear improved. No new effusion or acute worsening identified. Patient remained hemodynamically stable with no further desaturation following intervention. No escalation of care required at this time. Continue current antimicrobial and airway support plan. ----- Plan discussed with attending physician Dr. Tristian Godoy MD PGY-1 Internal Medicine
--- NOTE | 2025-08-17 15:10 | PC.SS ---
BOW MAKER GIFT WRAPPING conducted bedside contact with the patient conduct initial assessment and to discuss discharge planning.? At bedside with patient was patient?s daughter, Katiana Mendez.? [facility] 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 Patient is Trach/PEG.? Patient?s medical surrogate decision maker is daughter, Jessica Mendez . ?Patient?s PCP is Dr. Wisdom.? The discharge plan is for the patient to return to Sub-Acute once medically cleared.? No discharge needs identified by the patient?s daughter.? No further intervention required at this time, social services director will be available to address any further concerns.? Next of Kin: Jessica Mendez D/C Plan: Sub-Acute
[2025-08-17] MEDS: ATORVASTATIN CALCIUM 10 MG TABLET GT (20:58)
[2025-08-18] VITALS (7 sets, daily range): BP systolic 116–127; BP diastolic 57–64; PULSE 56–68; RESP 18–28; TEMP 36.1–36.6; O2SAT 96–99; BMI 33.8
[2025-08-18] MEDS: CEFEPIME INJ 2 GM in SODIUM CHLORIDE 0.9% (Popper) 50 ML IV (05:01)
[2025-08-18] MEDS: LEVOTHYROXINE SODIUM 125 MCG, LEVOTHYROXINE SODIUM 25 MCG 150 MCG GT (05:01)
[2025-08-18 05:41] LABS: Basophils # (Auto) 0.0 Thou/mm3 (0.0-0.2); Basophils % (Auto) 1 % (0-2.5); Eosinophils # (Auto) 0.1 Thou/mm3 (0.0-0.5); Eosinophils % (Auto) 2 % (0-10); Hematocrit 28.6 % (36.0-46.0); Hemoglobin 9.0 g/dL (12.0-16.0); Immature Granulocytes Auto 0.05 Thou/mm3 (0.00-0.00); Lymphocytes # (Auto) 1.7 Thou/mm3 (1.0-4.8); Lymphocytes % (Auto) 30 % (10-50); Mean Corpuscular HGB Conc 31.5 g/dl (31.0-37.0); Mean Corpuscular Hemoglobin 30.7 pg (25.0-35.0); Mean Corpuscular Volume 98 fL (80-100); Monocytes # (Auto) 0.3 Thou/mm3 (0.0-0.8); Monocytes % (Auto) 6 % (0-12); Neutrophils # (Auto) 3.6 Thou/mm3 (1.8-7.7); Neutrophils % (Auto) 61 % (37-80); Nucleated Red Blood Cell # 0.04 Thou/mm3 (0.00-0.00); Nucleated Red Blood Cell % 1 /100 WBC (0); Platelet Count 160 Thou/mm3 (140-440); RDW Standard Deviation 58.0 fL (36.4-46.3); Red Blood Count 2.93 Miln/mm3 (4.00-5.20); White Blood Count 5.9 Thou/mm3 (3.6-11.0)
[2025-08-18 07:20] LABS: Alanine Aminotransferase 11 U/L (10-49); Albumin, Serum 3.8 gm/dL (3.4-4.8); Alkaline Phosphatase 146 U/L (46-116); Anion Gap 6 (7-16); Aspartate Amino Transferase 13 U/L (0-34); BUN/Creatinine Ratio 30 Ratio (12-20); Bilirubin,Total 0.3 mg/dL (0.3-1.2); Blood Urea Nitrogen 18 mg/dL (9-23); Calcium 8.6 mg/dL (8.3-10.6); Calcium (Corrected) 8.8 mg/dL (8.5-10.1); Carbon Dioxide 28.8 mMol/L (20.0-31.0); Chloride 106 mMol/L (98-107); Creatinine (Component) 0.6 mg/dL (0.6-1.3); Estimated Creatinine Clearance 80.7 mL/min (>60); Glucose 159 mg/dL (74-106); Osmolality,Calculated 286 (275-295); Potassium 4.9 mMol/L (3.4-5.1); Sodium 141 mMol/L (136-145); eGFR > 60 See Note
[2025-08-18] MEDS: ASPIRIN 81 MG CHEW GT (08:23)
[2025-08-18] MEDS: ENOXAPARIN SOD INJ 40 MG/0.4 ML SYRINGE SC (08:24)
--- NOTE | 2025-08-18 08:47 | PC.SS ---
Update: Plan is to d/c patient to sub-acute today.
--- NOTE | 2025-08-18 08:56 | PC.SS ---
Updated clinicals submitted to Sub-Acute Unit. CATALOG SPECIALIST confirmed with bedside nurse plan to transition patient to sub-acute today. CATALOG SPECIALIST notified sub-acute staff.
[2025-08-18] MEDS: VANCOMYCIN/NS 500 MG IVPB 100 ML 120 MG IV (10:59)
[2025-08-18 13:11] LABS: Albumin/Globulin Ratio 1.2 (1.2-2.2); Globulin 3.3 gm/dL (2.3-3.5); Total Protein 7.1 gm/dL (5.7-8.2)
== END 2025-08-18 12:00 | DRG 208 ==
LOC: SERX 08:07 → SERHOLD 10:16 → S2NX 18:12
PROVIDERS: Emergency Medicine; Admitting Provider Student in an Organized Health Care Education/Training Program; Emergency Provider Emergency Medicine; PCP Specialist; Visit Provider Student in an Organized Health Care Education/Training Program
DX: J95.851 Ventilator associated pneumonia (principal); E03.5 Myxedema coma; C85.9A Non-Hodgkin lymphoma, unspecified, in remission; H70.003 Acute mastoiditis without complications, bilateral; C44.90 Unspecified malignant neoplasm of skin, unspecified; E11.9 Type 2 diabetes mellitus without complications; B02.9 Zoster without complications; E03.9 Hypothyroidism, unspecified; Z66 Do not resuscitate; I10 Essential (primary) hypertension; T68.XXXA Hypothermia, initial encounter; D64.9 Anemia, unspecified; Z85.71 Personal history of Hodgkin lymphoma; Z93.1 Gastrostomy status; Z93.0 Tracheostomy status; Y84.8 Other medical procedures as the cause of abnormal reaction of the patient, or of later complication, without mention of misadventure at the time of the procedure; Z86.73 Personal history of transient ischemic attack (TIA), and cerebral infarction without residual deficits
CPT/HCPCS: 36415; 36600; 51702; 70450; 71045; 71250; 74176; 80053; 80202; 81001; 82010; 82248; 82803; 83036; 83605; 83690; 83735; 83880; 84145; 84443; 84484; 85025; 85379; 85652; 86140; 87040; 87081; 87502; 87811; 93005; 93970; 94003; 94640; 94664; 96365; 96366; 96375; 99284; A4314; A9270; J0692; J1650; J1815; J2405; J2470; J3373; J7050; J7120; J7999